=== PATIENT | female | born 1960 | race Caucasian/White ===

== ENCOUNTER 2019-09-10 07:49 | Day surgery (SDC) | payer OTHER ==
[2019-09-10] MEDS ORDERED: propofoL 200 MG/20 ML VIAL IV ONE ×2 (08:00→08:52)
[2019-09-10] MEDS ORDERED: MIDAZOLAM HCL 2 MG/2 ML INJ ONE ×2 (08:00→08:53)
[2019-09-10] MEDS ORDERED: LIDOCAINE 2% MPF 5 ML VIAL ONE ×2 (08:00→08:53)
[2019-09-10] MEDS ORDERED: FENTANYL CITR 100 MCG/2 ML ONE ×2 (08:00→08:52)
[2019-09-10] MEDS ORDERED: Ringers Lactate 1,000 ML IV ONE (08:18)
[2019-09-10] MEDS ORDERED: CEFAZOLIN/SWI 1gm 1 GM/10 ML SYR ONE (08:18)
[2019-09-10 14:39] VITALS: BP 144/69; TEMP 97; O2SAT 96
--- NOTE | 2019-09-10 16:36 | EKG ---
Test Date: 2019-09-09 Test Time: 15:08:10 [employer] Room: [facility] MEASUREMENT RESULTS: Intervals: Rate: 81 WV: 160 QRSD: 70 QT: 406 QTc: 471 [place]: P: 75 WV: 160 QRS: 76 T: 67 INTERPRETIVE STATEMENTS: Normal sinus rhythm Low voltage QRS Borderline ECG No previous ECG available for comparison Electronically Signed On 09-10-19 16:34:10 [employer] by Oren Almodovar
--- NOTE | 2019-09-10 20:59 | OP ---
Date of Procedure: 09/10/2019 Surgeon: Darrell Avilez MD Preoperative Diagnosis: Right neck mass. 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 Procedure Performed: Incisional biopsy right neck mass. Estimated Blood Loss: Minimal. Specimen: Right neck mass. Finding: As above. Anesthesia: General. Complications: None. Disposition: Patient tolerated the procedure in stable condition, taken to Recovery in good general condition. Procedure In Detail: Patient was brought to the OR and placed in supine position. General anesthesi a was begun. The patient was prepped and draped in usual sterile fashion. Marcaine 0.5% was infiltr ated locally. A 15-blade was used to make a 3 cm incision. Subcutaneous tissue divided. Deep into the subcutaneous tissue, hard mass identified. Incisional biopsy done approximately 2 x 1 cm piece o f tissue excised from the mass and sent to Pathology. Adequate tissue was present. 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 Subcutaneous wound was irrigated. Bleeding control led with cautery and then 3-0 chromic was used for subcutaneous tissue and close the skin. Sterile d ressing was applied. The patient was awakened and taken to Recovery in good general condition discha rge temperature under surgeon home when stable. Disposition: Home. Condition: Stable. Discharge Instructions: Resume home medications and diet. Activity as tolerated. No heavy lifting. Remove outer dressing in 2 days. Shower. Keep wound clean and dry. Keep Steri-Strips on at all t imes. Tylenol No. 3 one tablet p.o. q.4 p.r.n. pain and follow up my office in a week. Call for rick ointment. /MODL Voice ID: [id number] Report ID: [id number]
== END 2019-09-10 11:43 | disposition home or self-care (01) ==
LOC: OR 07:49
PROVIDERS: ATTEND Surgery
PROC: 0JB40ZX Excision of Right Neck Subcutaneous Tissue and Fascia, Open Approach, Diagnostic (ICD-10-PCS; principal; 2019-09-10 09:00)
DX: C79.89 Secondary malignant neoplasm of other specified sites (principal); C34.90 Malignant neoplasm of unspecified part of unspecified bronchus or lung
CPT/HCPCS: 11106; 93005; 88305; 88333; J2704; J2250; J3010; J0690; J7120

== ENCOUNTER 2019-12-28 15:36 | Inpatient (IN) | payer OTHER ==
[2019-12-28] MEDS ORDERED: NA CHLORIDE 0.9% 2,000 ML ONE (16:07)
[2019-12-28] MEDS ORDERED: ONDANSETRON 4 MG/2 ML VIAL ONE (16:07)
--- NOTE | 2019-12-28 16:35 | RAD REPORT ---
EXAM DESCRIPTION: Juan Single View12/28/2019 4:24 pm CLINICAL HISTORY: Shortness of breath COMPARISON: September 2019 FINDINGS: Moderate bilateral pulmonary opacities with small to moderate pleural effusions The heart is enlarged IMPRESSION: These findings likely represent CHF
[2019-12-28 16:41] LABS: Absolute Lymphocytes (CBC) 0.5 K/uL (0.7-4.9); Basophils % 0.1 % (0-1.3); Hematocrit 39.3 % (36.0-45.0); RBC Red Blood Cell Count 4.11 M/uL (3.86-4.86)
[2019-12-28 16:51] LABS: Protime INR 1.03
[2019-12-28] MEDS ORDERED: IPRATROPIUM BROM 0.5MG/2.5ML ONE (16:52)
[2019-12-28] MEDS ORDERED: METHYLPREDNISOLONE 125 MG INJ ONE (16:52)
[2019-12-28] MEDS ORDERED: FUROSEMIDE 40 MG/4 ML VIAL ONE (16:52)
[2019-12-28] MEDS ORDERED: LEVALBUTEROL 1.25 MG/3 ML NEB ONE (16:52)
--- NOTE | 2019-12-28 16:52 | EDPHYS ---
Physician Documentation [facility] Name: Makayla Montalvo Age: 59 yrs Sex: Female : 1960 Arrival Date: 12/28/2019 Time: 15:38 Bed 8 Private MD: Gurpreet Quintero ED Physician Hola Hughes HPI: 12/27 16:45 This 59 yrs old Female presents to ER via Wheelchair with complaints of john Nausea/Vomiting/Diarrhea. 16:45 The patient has shortness of breath with light activity. Onset: The symptoms/episode ojhn began/occurred 4 day(s) ago. The patient's shortness of breath is aggravated by supine position, talking, walking, is alleviated by elevating head, nebulizer treatment, rest, sitting up, application of supplemental oxygen. The patient presents to the emergency department with nausea, vomiting, diarrhea. Possible causes: unknown. The symptoms are aggravated by. Associated signs and symptoms: The patient has no apparent associated signs or symptoms. Severity of symptoms: At their worst the symptoms were mild in the emergency department the symptoms are unchanged. Historical: - Allergies: 15:44 No Known Allergies; hb - PMHx: 15:44 COPD; hb 15:45 Lung CA - Stage 4; hb - Immunization history:: Adult Immunizations up to date. - Social history:: Smoking status: Patient denies any tobacco usage or history of. - Family history:: not pertinent. ROS: 16:45 Constitutional: Negative for fever, chills, and weight loss, Eyes: Negative for injury, john pain, redness, and discharge, ENT: Negative for injury, pain, and discharge, Neck: Negative for injury, pain, and swelling, Cardiovascular: Negative for chest pain, palpitations, and edema, Back: Negative for injury and pain, : Negative for injury, bleeding, discharge, and swelling, MS/Extremity: Negative for injury and deformity, Skin: Negative for injury, rash, and discoloration, Neuro: Negative for headache, weakness, numbness, tingling, and seizure, Psych: Negative for depression, anxiety, suicide ideation, homicidal ideation, and hallucinations, Allergy/Immunology: Negative for hives, rash, and allergies, Endocrine: Negative for neck swelling, polydipsia, polyuria, polyphagia, and marked weight changes, Hematologic/Lymphatic: Negative for swollen nodes, abnormal bleeding, and unusual bruising. 16:45 Respiratory: Positive for cough, shortness of breath, on exertion. 16:45 Abdomen/GI: Positive for nausea and vomiting, diarrhea. Exam: 16:45 Constitutional: This is a well developed, well nourished patient who is awake, alert, john and in no acute distress. Head/Face: Normocephalic, atraumatic. Eyes: Pupils equal round and reactive to light, extra-ocular motions intact. Lids and lashes normal. Conjunctiva and sclera are non-icteric and not injected. Cornea within normal limits. Periorbital areas with no swelling, redness, or edema. ENT: Nares patent. No nasal discharge, no septal abnormalities noted. Tympanic membranes are normal and external auditory canals are clear. Oropharynx with no redness, swelling, or masses, exudates, or evidence of obstruction, uvula midline. Mucous membranes moist. Neck: Trachea midline, no thyromegaly or masses palpated, and no cervical lymphadenopathy. Supple, full range of motion without nuchal rigidity, or vertebral point tenderness. No Meningismus. Chest/axilla: Normal chest wall appearance and motion. Nontender with no deformity. No lesions are appreciated. Abdomen/GI: Soft, non-tender, with normal bowel sounds. No distension or tympany. No guarding or rebound. No evidence of tenderness throughout. Back: No spinal tenderness. No costovertebral tenderness. Full range of motion. Female : Normal external genitalia. Skin: Warm, dry with normal turgor. Normal color with no rashes, no lesions, and no evidence of cellulitis. MS/ Extremity: Pulses equal, no cyanosis. Neurovascular intact. Full, normal range of motion. Neuro: Awake and alert, GCS 15, oriented to person, place, time, and situation. Cranial nerves II-XII grossly intact. Motor strength 5/5 in all extremities. Sensory grossly intact. Cerebellar exam normal. Normal gait. Psych: Awake, alert, with orientation to person, place and time. Behavior, mood, and affect are within normal limits. 16:45 Cardiovascular: Rate: tachycardic, Rhythm: regular, Pulses: Pulses are 4+ in bilateral radial, brachial, femoral, popliteal, posterior tibial and and dorsalis pedis arteries.. Heart sounds: normal, Edema: is not appreciated, JVD: is not appreciated. Vital Signs: 15:41 BP 175 / 95; Pulse 119; Resp 24; Temp 98.4; Pulse Ox 75% on R/A; Weight 61.23 kg; hb Height 5 ft. 6 in. (167.64 cm); Pain 3/10; 17:00 BP 160 / 105; Pulse 112; Resp 22; Pulse Ox 91% on 4 lpm NC; ph 18:00 BP 176 / 92; Pulse 122; Resp 24; Pulse Ox 92% on 4 lpm NC; ph 18:40 BP 130 / 110; Pulse 109; Resp 24; Pulse Ox 92% on 4 lpm NC; ph 19:30 BP 121 / 112; Pulse 109; Resp 20; Pulse Ox 91% ; ao 20:22 BP 118 / 77; Pulse 106; Resp 16; Pulse Ox 92% ; ao 15:41 Body Mass Index 21.79 (61.23 kg, 167.64 cm) hb MDM: 15:50 Patient medically screened. john 16:50 Data reviewed: vital signs, nurses notes, lab test result(s), EKG, radiologic studies, john plain films. 12/27 15:52 Order name: Basic Metabolic Panel; Complete Time: 17:21 [facility] 12/27 15:52 Order name: CBC with Diff; Complete Time: 17:21 [facility] 12/27 15:52 Order name: LFT's; Complete Time: 17:21 [facility] 12/27 15:52 Order name: Magnesium; Complete Time: 17:21 [facility] 12/27 15:52 Order name: NT PRO-BNP; Complete Time: 17:21 [facility] 12/27 15:52 Order name: PT-INR; Complete Time: 17:21 [facility] 12/27 15:52 Order name: Troponin (emerg Dept Use Only); Complete Time: 17:21 [facility] 12/27 15:52 Order name: Lipase; Complete Time: 17:21 [facility] 12/27 15:52 Order name: Blood Culture Adult (2) [facility] 12/27 15:52 Order name: Urine Culture [facility] 12/27 15:52 Order name: Lactate; Complete Time: 17:21 [facility] 12/27 15:52 Order name: Procalcitonin; Complete Time: 17:31 [facility] 12/27 15:52 Order name: Strep; Complete Time: 17:31 [facility] 12/27 15:52 Order name: Influenza Screen (a \T\ B); Complete Time: 17:31 [facility] 12/27 15:52 Order name: XRAY Chest (1 view); Complete Time: 16:44 [facility] 12/27 15:52 Order name: COVID-19; Complete Time: 20:10 [facility] 12/27 16:52 Order name: Glucose, Ancillary Testing; Complete Time: 17:21 [facility] 12/27 17:24 Order name: Urine Osmolality; Complete Time: 19:43 [facility] 12/27 17:24 Order name: Urine Sodium Random; Complete Time: 19:43 [facility] 12/27 17:24 Order name: Osmolality, Serum; Complete Time: 19:43 [facility] 12/27 17:25 Order name: Throat Culture [facility] 12/27 18:48 Order name: CBC with Automated Diff [facility] 12/27 18:48 Order name: CBC with Automated Diff [facility] 12/27 18:48 Order name: Comprehensive Metabolic Panel [facility] 12/27 18:48 Order name: Comprehensive Metabolic Panel [facility] 12/27 18:50 Order name: Basic Metabolic Panel [facility] 12/27 15:52 Order name: EKG; Complete Time: 15:54 [facility] 12/27 15:52 Order name: Cardiac monitoring; Complete Time: 18:31 [facility] 12/27 15:52 Order name: EKG - Nurse/Tech; Complete Time: 18:31 [facility] 12/27 15:52 Order name: IV Saline Lock; Complete Time: 18:31 [facility] 12/27 15:52 Order name: Labs collected and sent; Complete Time: 18:31 [facility] 12/27 15:52 Order name: O2 Per Protocol; Complete Time: 18:31 [facility] 12/27 15:52 Order name: O2 Sat Monitoring; Complete Time: 18:31 [facility] 12/27 15:52 Order name: Urine Dipstick-Ancillary (obtain specimen); Complete Time: 18:44 [facility] 12/27 17:24 Order name: Seizure Precautions; Complete Time: 17:42 [facility] 12/27 17:55 Order name: Nelson; Complete Time: 18:26 [facility] 12/27 17:55 Order name: IV - Large Bore; Complete Time: 18:26 [facility] 12/27 18:48 Order name: CONS Pharmacy Consult [facility] 12/27 18:48 Order name: CONS Physician Consult [facility] 12/27 18:48 Order name: NPO EDMS Administered Medications: 16:40 Drug: Cefepime 2 grams Route: IVPB; Rate: 200 ml/hr; Infused Over: 30 mins; Site: right ph antecubital; 17:00 Follow up: Response: No adverse reaction; IV Status: Completed infusion ph 16:42 Not Given (Duplicate Order): NS 0.9% 1000 ml IV at 1 bolus Per protocol; 1000 mL bolus john 16:42 Not Given (Duplicate Order): NS 0.9% 1000 ml IV at 125 ml/hr continuous john 16:45 Drug: vancoMYCIN 1 grams Route: IVPB; Infused Over: 2 hrs; Site: right antecubital; ph 18:45 Follow up: Response: No adverse reaction; IV Status: Completed infusion ph 17:15 Drug: Lasix 40 mg Route: IVP; Site: right antecubital; ph 19:27 Follow up: Response: No adverse reaction ph 17:15 Drug: Xopenex 3.75 mg Route: Inhalation; ph 19:36 Follow up: Response: No adverse reaction ph 17:15 Drug: AtroVENT Aerosol 0.5 mg Route: Inhalation; ph 19:36 Follow up: Response: No adverse reaction ph 17:15 Drug: SOLU-Medrol 125 mg Route: IVP; Site: right antecubital; ph 19:36 Follow up: Response: No adverse reaction ph 17:35 Drug: NS 0.9% 500 ml Route: IV; Rate: bolus; Site: right antecubital; ph 18:27 Follow up: Response: No adverse reaction; IV Status: Completed infusion; IV Intake: ph 500ml 18:24 Drug: NS 0.9% 1000 ml Route: IV; Rate: 75 ml/hr; Site: left wrist; ph 19:36 Follow up: Response: No adverse reaction; IV Status: Infusion continued upon admission ph 18:24 Drug: Magnesium Sulfate 1 grams Route: IVPB; Infused Over: 1 hrs; Site: left wrist; ph 18:45 Follow up: Response: No adverse reaction; IV Status: Completed infusion ph Disposition: 12/28/19 16:52 Hospitalization ordered by Kranthi Dominguez for Inpatient Admission. Preliminary diagnosis are Vomiting, Dyspnea, Hypoxemia, Chronic obstructive pulmonary disease with (acute) exacerbation, Unspecified combined systolic (congestive) and diastolic (congestive) heart failure, Pleural effusion in conditions classified elsewhere, Hypo-osmolality and hyponatremia, Hypomagnesemia. - Bed requested for Intensive Care Unit. - Status is Inpatient Admission. ea - Condition is Fair. - Problem is new. - Symptoms have improved. Signatures: Dispatcher [employer] Hola Trotter MD MD cha Lasagna, Tonya, RN MONTEZ tl1 Alva Teague RN MONTEZ Mariposa Triana RN RN Jane Duarte RN RN ea Corrections: (The following items were deleted from the chart) 17:24 16:52 Hospitalization Ordered by Kranthi Dominguez MD for Inpatient Admission. Preliminary john diagnosis is Vomiting; Dyspnea; Hypoxemia; Chronic obstructive pulmonary disease with (acute) exacerbation; Unspecified combined systolic (congestive) and diastolic (congestive) heart failure; Pleural effusion in conditions classified elsewhere. Bed requested for Telemetry/MedSurg (Inpatient). Status is Inpatient Admission. Condition is Fair. Problem is new. Symptoms have improved. [facility] 17:33 17:24 12/28/2019 16:52 Hospitalization Ordered by Kranthi Dominguez MD for Inpatient john Admission. Preliminary diagnosis is Vomiting; Dyspnea; Hypoxemia; Chronic obstructive pulmonary disease with (acute) exacerbation; Unspecified combined systolic (congestive) and diastolic (congestive) heart failure; Pleural effusion in conditions classified elsewhere; Hypo-osmolality and hyponatremia. Bed requested for Intensive Care Unit. Status is Inpatient Admission. Condition is Fair. Problem is new. Symptoms have improved. john 19:11 17:33 12/28/2019 16:52 Hospitalization Ordered by Kranthi Dominguez MD for Inpatient tl1 Admission. Preliminary diagnosis is Vomiting; Dyspnea; Hypoxemia; Chronic obstructive pulmonary disease with (acute) exacerbation; Unspecified combined systolic (congestive) and diastolic (congestive) heart failure; Pleural effusion in conditions classified elsewhere; Hypo-osmolality and hyponatremia; Hypomagnesemia. Bed requested for Intensive Care Unit. Status is Inpatient Admission. Condition is Fair. Problem is new. Symptoms have improved. john 21:50 19:11 12/28/2019 16:52 Hospitalization Ordered by Kranthi Dominguez MD for Inpatient ea Admission. Preliminary diagnosis is Vomiting; Dyspnea; Hypoxemia; Chronic obstructive pulmonary disease with (acute) exacerbation; Unspecified combined systolic (congestive) and diastolic (congestive) heart failure; Pleural effusion in conditions classified elsewhere; Hypo-osmolality and hyponatremia; Hypomagnesemia. Bed requested for Intensive Care Unit. Status is Inpatient Admission. Condition is Fair. Problem is new. Symptoms have improved. tl1
--- NOTE | 2019-12-28 16:52 | ER ---
Nurse's Notes [facility] Name: Makayla Montalvo Age: 59 yrs Sex: Female : 1960 Arrival Date: 12/28/2019 Time: 15:38 Bed 8 Private MD: Gurpreet Quintero Diagnosis: Vomiting;Dyspnea;Hypoxemia;Chronic obstructive pulmonary disease with (acute) exacerbation;Unspecified combined systolic (congestive) and diastolic (congestive) heart failure;Pleural effusion in conditions classified elsewhere;Hypo-osmolality and hyponatremia;Hypomagnesemia Presentation: 12/27 15:41 Chief complaint: Productive cough, pain with cough, SOB, N/V/D x 4 days. Denies hb chills/fever. Coronavirus screen: Surgical mask placed on patient. Patient moved to private room, placed in contact and droplet isolation with eye protection until further assessment. Patient reports a cough. Patient denies a cough. Ebola Screen: No symptoms or risks identified at this time. Initial Sepsis Screen: Does the patient meet any 2 criteria? RR > 20 per min. HR > 90 bpm. Yes Does the patient have a suspected source of infection? Yes: Productive cough/pneumonia. Risk Assessment: Do you want to hurt yourself or someone else? Patient reports no desire to harm self or others. Onset of symptoms was December 25, 2019. 15:41 Method Of Arrival: Wheelchair hb 15:41 Acuity: VIRAJ 2 hb 15:54 Note Pt has Stage 4 Lung CA, sees Dr. Sen, last chemo was 2 weeks ago. hb Historical: - Allergies: 15:44 No Known Allergies; hb - PMHx: 15:44 COPD; hb 15:45 Lung CA - Stage 4; hb - Immunization history:: Adult Immunizations up to date. - Social history:: Smoking status: Patient denies any tobacco usage or history of. - Family history:: not pertinent. Screenin:32 Abuse screen: Denies threats or abuse. Denies injuries from another. Nutritional ph screening: No deficits noted. Tuberculosis screening: No symptoms or risk factors identified. Fall Risk None identified. Assessment: 15:49 Reassessment: Code Sepsis 700 called. hb 16:00 General: Appears in no apparent distress. uncomfortable, well groomed, Behavior is ph calm, cooperative, appropriate for age, Denies fever. Pain: Complains of pain in chest Aggravated by coughing. Neuro: Level of Consciousness is awake, alert, obeys commands, Oriented to person, place, time, situation. Cardiovascular: Reports chest pain, fatigue, nausea, shortness of breath, vomiting, Capillary refill < 3 seconds in bilateral fingers Patient's skin is warm and dry. Respiratory: Airway is patent Respiratory effort is even, labored, Respiratory pattern is tachypnea. GI: Abdomen is round non-distended, Reports nausea, vomiting, Patient currently denies abdominal pain. Derm: Skin is intact, Skin is pink, warm \T\ dry. Musculoskeletal: Circulation, motion, and sensation intact. Range of motion: intact in all extremities. 17:00 Reassessment: Patient appears in no apparent distress at this time. No changes from ph previously documented assessment. Patient and/or family updated on plan of care and expected duration. Pain level reassessed. 18:00 Reassessment: Patient appears in no apparent distress at this time. No changes from ph previously documented assessment. 19:30 General: Appears in no apparent distress. uncomfortable, obese, well groomed, well ao developed, well nourished. Neuro: Level of Consciousness is awake, alert, obeys commands, Oriented to person, place, time, situation. Cardiovascular: Reports chest pain, fatigue, nausea, shortness of breath, vomiting, Capillary refill < 3 seconds in bilateral fingers Patient's skin is warm and dry. Respiratory: Airway is patent Respiratory effort is even, labored, Respiratory pattern is regular, symmetrical. GI: Abdomen is round non-distended. Derm: Skin Skin is pink, warm \T\ dry. Musculoskeletal: Circulation, motion, and sensation intact. Range of motion:. 12/28 09:12 Reassessment: Received PUI # from [facility] (D [id number]). iw Vital Signs: 12/27 15:41 BP 175 / 95; Pulse 119; Resp 24; Temp 98.4; Pulse Ox 75% on R/A; Weight 61.23 kg; hb Height 5 ft. 6 in. (167.64 cm); Pain 310; 17:00 BP 160 / 105; Pulse 112; Resp 22; Pulse Ox 91% on 4 lpm NC; ph 18:00 BP 176 / 92; Pulse 122; Resp 24; Pulse Ox 92% on 4 lpm NC; ph 18:40 BP 130 / 110; Pulse 109; Resp 24; Pulse Ox 92% on 4 lpm NC; ph 19:30 BP 121 / 112; Pulse 109; Resp 20; Pulse Ox 91% ; ao 20:22 BP 118 / 77; Pulse 106; Resp 16; Pulse Ox 92% ; ao 15:41 Body Mass Index 21.79 (61.23 kg, 167.64 cm) hb ED Course: 15:38 Patient arrived in ED. ag5 15:38 Gurpreet Quintero MD is Private Physician. ag5 15:43 Triage completed. hb 15:44 Arm band placed on. hb 15:49 Hola Hughes MD is Attending Physician. john 15:52 Alva Teague RN is Primary Nurse. ph 16:20 Inserted saline lock: 20 gauge in right antecubital area, using aseptic technique. ss ,using aseptic technique. 1620. 16:25 XRAY Chest (1 view) In Process Unspecified. EDMS 16:50 Kranthi Dominguez MD is Hospitalizing Provider. john 17:55 Nelson cath inserted, using sterile technique, 16 Fr., by ma, balloon inflated, urine ph specimen collected. returned clear urine. Patient tolerated well. Patient admitted, IV remains in place. 18:32 Patient has correct armband on for positive identification. Placed in gown. Bed in low ph position. Call light in reach. Side rails up X2. Seizure precautions initiated. gambling monitor on. Pulse ox on. NIBP on. Door closed. Noise minimized. Warm blanket given. Pillow given. Head of bed elevated. 18:33 No provider procedures requiring assistance completed. Inserted saline lock: 22 gauge ph in left wrist, using aseptic technique. Administered Medications: 16:40 Drug: Cefepime 2 grams Route: IVPB; Rate: 200 ml/hr; Infused Over: 30 mins; Site: right ph antecubital; 17:00 Follow up: Response: No adverse reaction; IV Status: Completed infusion ph 16:42 Not Given (Duplicate Order): NS 0.9% 1000 ml IV at 1 bolus Per protocol; 1000 mL bolus john 16:42 Not Given (Duplicate Order): NS 0.9% 1000 ml IV at 125 ml/hr continuous john 16:45 Drug: vancoMYCIN 1 grams Route: IVPB; Infused Over: 2 hrs; Site: right antecubital; ph 18:45 Follow up: Response: No adverse reaction; IV Status: Completed infusion ph 17:15 Drug: Lasix 40 mg Route: IVP; Site: right antecubital; ph 19:27 Follow up: Response: No adverse reaction ph 17:15 Drug: Xopenex 3.75 mg Route: Inhalation; ph 19:36 Follow up: Response: No adverse reaction ph 17:15 Drug: AtroVENT Aerosol 0.5 mg Route: Inhalation; ph 19:36 Follow up: Response: No adverse reaction ph 17:15 Drug: SOLU-Medrol 125 mg Route: IVP; Site: right antecubital; ph 19:36 Follow up: Response: No adverse reaction ph 17:35 Drug: NS 0.9% 500 ml Route: IV; Rate: bolus; Site: right antecubital; ph 18:27 Follow up: Response: No adverse reaction; IV Status: Completed infusion; IV Intake: ph 500ml 18:24 Drug: NS 0.9% 1000 ml Route: IV; Rate: 75 ml/hr; Site: left wrist; ph 19:36 Follow up: Response: No adverse reaction; IV Status: Infusion continued upon admission ph 18:24 Drug: Magnesium Sulfate 1 grams Route: IVPB; Infused Over: 1 hrs; Site: left wrist; ph 18:45 Follow up: Response: No adverse reaction; IV Status: Completed infusion ph Intake: 18:27 IV: 500ml; Total: 500ml. ph Outcome: 16:20 Instructed on the need for admit. 16:52 Decision to Hospitalize by Provider. [facility] 20:23 Admitted to ICU accompanied by nurse, room 8, with chart, Report called to MONTEZ Campos 20:23 Condition: stable 21:50 Patient left the ED. ea Signatures: Dispatcher [employer] EDMS Hola Hughes MD MD cha Williams, Irene, RN RN iw Smirch, Shelby, RN RN ss Hall, Patricia, RN RN ph Ortiz, Alex, RN RN ao Baxter, Heather, RN RN hb Antunez, Elena, RN RN ea Gaskin, Ajare ag5 Corrections: (The following items were deleted from the chart) 17:35 15:54 Note Pt has stage 4 lung CA, sees Dr. Sen, last chemo was 2 weeks ago. hb hb 19:11 16:00 Respiratory: Airway is patent Respiratory effort is even, unlabored, Respiratory ph pattern is regular, symmetrical, ph 19:11 16:00 Derm: Skin is fragile, is thin, Skin is pink, warm \T\ dry. ph ph 19: 16:00 Cardiovascular: Edema is 3+ to left ankle, left foot, left toes, right ankle, ph right foot and right toes ph 12/28 09:31 09:12 Reassessment: Received PUI # from [facility] ([facility] [id number]) [facility] 09:32 09:12 Reassessment: Received PUI # from [facility] ([facility] [id number]) [facility]
[2019-12-28] MEDS ORDERED: CEFEPIME/SWI 2gm 2 GM/20 ML SYR IV SCH (17:00)
[2019-12-28] MEDS ORDERED: VANCOMYCIN/NS 1 gm 1 GM/250 ML BAG IVPB SCH (17:00)
[2019-12-28 17:11] LABS: ALT/SGPT 148 U/L (12-78); AST/SGOT 132 U/L (15-37); Albumin 3.3 g/dL (3.4-5.0); Alkaline Phosphatase 226 U/L (45-117); BUN Blood Urea Nitrogen 6 mg/dL (7-18); Bicarbonate 24 mmol/L (21-32); Bilirubin Direct 0.4 mg/dL (0-0.2); Bilirubin Total 1.2 mg/dL (0.2-1.0); Glucose Level 104 mg/dL (74-106); Lipase 82 U/L (73-393); Magnesium 1.2 mg/dL (1.8-2.4); NT PRO-BNP 144 pg/mL (<125); Potassium 3.7 mmol/L (3.5-5.1); Protein, Total 7.1 g/dL (6.4-8.2); Troponin (Emerg Dept Use Only) < 0.02 ng/mL (0.0-0.045)
[2019-12-28 17:15] LABS: Sodium Level 112 mmol/L (136-145)
[2019-12-28] MEDS ORDERED: MAGNESIUM SULFATE 1 gm IVPB 1 GM/100 ML BAG IV ONE (17:53)
[2019-12-28] MEDS ORDERED: ALBUTEROL 2.5 MG/3 ML NEB SOL NEB PRN (18:43)
[2019-12-28] MEDS ORDERED: ONDANSETRON 4 MG/2 ML VIAL IV PRN (18:43)
[2019-12-28] MEDS ORDERED: MORPHINE 2 MG/ML SYR IV PRN (18:43)
[2019-12-28 21:02] LABS: BUN Blood Urea Nitrogen 6 mg/dL (7-18); Bicarbonate 25 mmol/L (21-32); Glucose Level 130 mg/dL (74-106); Potassium 3.3 mmol/L (3.5-5.1)
[2019-12-28 21:03] LABS: Sodium Level 117 mmol/L (136-145)
--- NOTE | 2019-12-29 01:33 | P.HP ---
Certification for Inpatient Patient admitted to: Inpatient With expected LOS: >2 Midnights Practitioner: I am a practitioner with admitting privileges, knowledge of patient current condition, hospital course, and medical plan of care. Services: Services provided to patient in accordance with Admission requirements found in Title 42 Section 412.3 of the Code of Federal Regulations Patient History Date of Service: 12/28/19 Reason for admission: Altered mental status along with hyponatremia History of Present Illness: Patient is a 59-year-old female who came to the hospital with difficulty breathing. She also had nausea and vomiting along with diarrhea for the last 4 days. In the emergency room patient was found to be severely hyponatremic. Patient has had extensive workup over the last few months which revealed she had [id number] lung cancer. For excisional biopsy revealed adenocarcinoma. A recent PET scan also revealed multiple metastasis. Patient is scheduled to start on chemotherapy per Oncology. She also now has a pleural effusion which could be a malignant pleural effusion. This is also most likely the cause of her hyponatremia. Patient will be admitted to the hospital for further workup. Allergies No Known Allergies Allergy (Verified 12/28/19 22:05) Home Medications: ALPRAZolam [Xanax*] 0.5 mg PO TID PRN 12/29/19 Albuterol Sulfate [Proair Hfa] 2 puff IH QID PRN 12/29/19 Glycopyrrolate/Formoterol Fum [Bevespi Aerosphere Inhaler] 2 puff IH BID 12/29/19 Vortioxetine Hydrobromide [Trintellix] 10 mg PO DAILY 12/29/19 predniSONE [Prednisone*] 10 mg PO BEDTIME 12/29/19 - Past Medical/Surgical History Has patient received pneumonia vaccine in the past: Yes Diabetic: No -: COPD -: stage 4 lung cancer chemo 2-3 weeks ago. - Family History Father Family History: Reviewed- Non-Contributory - Social History Smoking Status: Former smoker Alcohol use: Yes CD- Drugs: No Caffeine use: No Place of Residence: Home Review of Systems 10-point ROS is otherwise unremarkable Physical Examination - Vital Signs Temperature: 98.4 F Blood Pressure: 97/67 Pulse: 92 Respirations: 15 Pulse Ox (%): 90 - Physical Exam General: Alert, In no apparent distress, Oriented x3 Neck: Supple, 2+ carotid pulse no bruit, No LAD, Without JVD or thyroid abnormality Respiratory: Diminished, Crackles/rales Cardiovascular: Regular rate/rhythm, Normal S1 S2, Systolic murmur Gastrointestinal: Normal bowel sounds, Soft and benign, Non-distended, No tenderness Musculoskeletal: No tenderness Integumentary: No rashes Neurological: Normal speech, Sensation intact, Cranial nerves 3-12 intact, Ab normal gait, Abnormal strength Lymphatics: No axilla or inguinal lymphadenopathy - Studies Laboratory Data (last 24 hrs) 12/28/19 16:20: PT 12.1, INR 1.03 12/28/19 16:20: WBC 10.4, Hgb 13.2, Hct 39.3, Plt Count 261 12/28/19 16:20: Sodium 112 L*, Potassium 3.7, BUN 6 L, Creatinine 0.54 L, Glucose 104, Magnesium 1.2 L*, Total Bilirubin 1.2 H, AST 132 H, ALT 148 H, Alkaline Phosphatase 226 H, Lipase 82 Microbiology Data (last 24 hrs): 12/28/19 16:30 Nasopharnyx Coronavirus COVID-19 PCR - Final 12/28/19 16:30 Nasopharnyx Influenza Type A Antigen Screen - Final 12/28/19 16:30 Nasopharnyx Influenza Type B Antigen Screen - Final 12/28/19 16:30 Throat Group A Streptococcus Rapid Screen - Final Assessment & Plan - Problems (Diagnosis) (1) Hyponatremia Current Visit: Yes Status: Acute (2) Altered mental status Current Visit: Yes Status: Acute (3) 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 Monitor labs closely-check sodium level every 6 hr 2. 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 Check echocardiogram 4. Bilateral pleural effusion could be malignant pleural effusion; may get pulmonary consultation if patient's symptoms are not improving. Otherwise will have outpatient follow-up 5. Monitor renal function closely 6. Nephrology consultation 7. GI and DVT prophylaxis Discharge Plan: Home Plan to discharge in: Greater than 2 days - Advance Directives Does patient have a Living Will: No Does patient have a Durable POA for Healthcare: No - Code Status/Comfort Care Code Status Assessed: Yes Code Status: Full Code Critical Care: No Time Spent Managing PTS Care (In Minutes): 45
[2019-12-29 05:38] LABS: Absolute Lymphocytes (CBC) 0.2 K/uL (0.7-4.9); Basophils % 0.1 % (0-1.3); Hematocrit 35.6 % (36.0-45.0); Lymphocytes % 2.2 % (15.3-44.8); MPV 8.1 fL (7.6-11.3); RBC Red Blood Cell Count 3.73 M/uL (3.86-4.86)
[2019-12-29 05:48] LABS: ALT/SGPT 120 U/L (12-78); AST/SGOT 86 U/L (15-37); Albumin 3.1 g/dL (3.4-5.0); Alkaline Phosphatase 175 U/L (45-117); BUN Blood Urea Nitrogen 6 mg/dL (7-18); Bicarbonate 28 mmol/L (21-32); Bilirubin Total 1.2 mg/dL (0.2-1.0); Glucose Level 129 mg/dL (74-106); Potassium 3.5 mmol/L (3.5-5.1); Protein, Total 6.5 g/dL (6.4-8.2); Sodium Level 127 mmol/L (136-145)
[2019-12-29] MEDS ORDERED: ALBUTEROL INHALER 60 PUFF/8 GM IH PRN (06:30)
[2019-12-29] MEDS: HOME MED 1 EA UNK (Glycopyrrolate/Formoterol Fum [Bevespi Aerosphere Inhaler] 2 PUFF) IH SCH ×2 (07:41→21:00)
[2019-12-29] MEDS: HOME MED 1 EA UNK (Vortioxetine Hydrobromide [Trintellix] 10 MG) PO SCH (07:42)
[2019-12-29] MEDS: HYDROCORTISONE SUC 100 MG INJ IV SCH ×2 (07:53→21:05)
[2019-12-29] MEDS ORDERED: WATER FOR INJ,STERILE 10 ML ONE (07:56)
[2019-12-29 08:22] LABS: Blood Morphology Comment NOT SEEN (NOT SEEN); Platelet Estimate ADEQ
--- NOTE | 2019-12-29 12:09 | P.PN ---
Subjective Date of Service: 12/29/19 Chief Complaint: Altered mental status along with hyponatremia Subjective: No new changes, No C/O voiced, Improving Patient still feels a little short of breath. She however feels much better neurologically. Still awaiting COVID-19 testing Review of Systems 10-point ROS is otherwise unremarkable Physical Examination - Vital Signs Temperature: 98.2 F Blood Pressure: 149/88 Pulse: 109 Respirations: 19 Pulse Ox (%): 92 - Physical Exam General: Alert, In no apparent distress, Oriented x3 Respiratory: Diminished, Crackles/rales Cardiovascular: Regular rate/rhythm, Normal S1 S2, No murmurs Gastrointestinal: Normal bowel sounds, Soft and benign, Non-distended, No tenderness Musculoskeletal: No clubbing, No swelling, No tenderness Neurological: Normal speech, Normal tone, Normal affect - Studies Laboratory Data (last 24 hrs) 12/28/19 16:20: PT 12.1, INR 1.03 12/28/19 16:20: WBC 10.4, Hgb 13.2, Hct 39.3, Plt Count 261 12/28/19 16:20: Sodium 112 L*, Potassium 3.7, BUN 6 L, Creatinine 0.54 L, Glucose 104, Magnesium 1.2 L*, Total Bilirubin 1.2 H, AST 132 H, ALT 148 H, Alkaline Phosphatase 226 H, Lipase 82 Microbiology Data (last 24 hrs): 12/28/19 16:30 Nasopharnyx Coronavirus COVID-19 PCR - Final 12/28/19 16:30 Nasopharnyx Influenza Type A Antigen Screen - Final 12/28/19 16:30 Nasopharnyx Influenza Type B Antigen Screen - Final 12/28/19 16:30 Throat Group A Streptococcus Rapid Screen - Final Medications List Reviewed: Yes Assessment & Plan - Problems (Diagnosis) (1) Hyponatremia Current Visit: Yes Status: Acute (2) Altered mental status Current Visit: Yes Status: Acute (3) Pleural effusion, malignant Current Visit: Yes Status: Acute (4) Intractable nausea and vomiting Current Visit: Yes Status: Acute (5) 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 Current Visit: Yes Status: Acute - Plan Plan: -awaiting COVID-19 testing -continue with COPD treatment -sodium improving; appreciate Nephrology consultation -pain control as needed -monitor volume status closely -pulmonary consultation and echocardiogram once patient is ruled out for COVID- 19 -DVT prophylaxis Discharge Plan: Home Plan to discharge in: Greater than 2 days - Advance Directives Does patient have a Living Will: No Does patient have a Durable POA for Healthcare: No - Code Status/Comfort Care Code Status Assessed: Yes Code Status: Full Code Critical Care: No Time Spent Managing PTS Care (In Minutes): 30
--- NOTE | 2019-12-29 14:33 | CON ---
Date of Consultation: 12/29/2019 Patient was seen via telemedicine. Limited physical exam was done because of COVID precautions. History Of Present Illness: Ms. Montalvo is a 59-year-old female with past medical history significant for history of COPD, lung cancer, on chemotherapy. She presented to [facility] because of worsening shortness of breath and cough. Patient states that she has been having cough for many kaitlynn hs, but it has worsened most recently, associated with nausea, vomiting, and diarrhea. She was also noted to have altered mental status and found to have severe hyponatremia. She has been admitted to the hospital for further evaluation. Patient states that she is feeling about the same this morning. She continues to have some shortness of breath and she is currently on oxygen. Past Medical History: Significant for history of stage IV lung cancer, COPD. She was on chemotherap y until about last month. Family History: Noncontributory. Review of Systems: Positive for weakness, lethargy, shortness of breath, and cough. Physical Examination: Vital Signs: At this time are showing temperature of 98.2, pulse rate of 109, respiratory rate of 19 , and blood pressure 149/88. She is saturating 92% on nasal cannula oxygen of 5 L. General: She appears in no acute distress. HEENT: Atraumatic head. Extremities: Showed no evidence of edema. Abdomen: Soft and nontender. Laboratory Data: Showing sodium improving to 127, potassium of 3.5, chloride of 86, BUN of 6, creati nine of 0.5, calcium of 8.4, and magnesium was improved to 2 from 1.2 at the time of admission. LFTs were also elevated, which are currently improving. CBC showing stable hemoglobin, hematocrit, and p latelet count. Current Medications: Albuterol nebulizer solution, hydrocortisone 50 mg every 12 hours. She is on p rednisone 10 mg at bedtime. She is currently n.p.o. She is on Xanax 0.5 mg t.i.d. p.r.n. She is on Trintellix 10 mg daily. She is currently not receiving any IV fluids. Impression: 1.Hyponatremia, etiology likely secondary to excessive free water intake with decreased p.o. intake. Her sodium is improving at this time. Hence, I will go ahead and initiate her on regular diet. We will avoid further IV fluid administration and will follow up closely. 2.Altered mental status, also seems to be improving. 3.Cough and shortness of breath with underlying chronic obstructive pulmonary disease and recent thanh motherapy. Patient's chest x-ray showed evidence of moderate bilateral pulmonary opacities with smal [id number] pleural effusions, likely suggestive of congestive heart failure. BNP was 144. Since patient seems to be improving at this time, we will go ahead and start her on gentle Lasix to see if her sodium would continue to improve and we will follow up closely. JOHN/SCOTT Voice ID: [id number] Report ID: [id number]
--- NOTE | 2019-12-29 15:53 | EKG ---
Test Date: 2019-12-28 Test Time: 16:20:43 Civil Cad Designer: HORACIO MEASUREMENT RESULTS: Intervals: Rate: 116 MT: 144 QRSD: 66 QT: 326 QTc: 453 [place]: P: 80 MT: 144 QRS: 70 T: 32 INTERPRETIVE STATEMENTS: Sinus tachycardia with fusion complexes Possible Left atrial enlargement Low voltage QRS Cannot rule out Anterior infarct, age undetermined Abnormal ECG Compared to ECG 09/09/2019 15:08:10 Fusion complex(es) now present Myocardial infarct finding now present Sinus rhythm no longer present Electronically Signed On 12-29-19 15:50:26 CDT by Oren Almodovar
[2019-12-29] MEDS: FUROSEMIDE 20 MG/ 2ML VIAL IV SCH (17:12)
[2019-12-30] MEDS ORDERED: TEMAZEPAM 15 MG CAP PO ONE (00:59)
[2019-12-30] MEDS: HOME MED 1 EA UNK (Glycopyrrolate/Formoterol Fum [Bevespi Aerosphere Inhaler] 2 PUFF) IH SCH ×2 (07:06→21:00)
[2019-12-30] MEDS: HOME MED 1 EA UNK (Vortioxetine Hydrobromide [Trintellix] 10 MG) PO SCH (07:06)
[2019-12-30] MEDS: FUROSEMIDE 20 MG/ 2ML VIAL IV SCH ×2 (08:15→17:01)
--- NOTE | 2019-12-30 08:44 | P.CNS ---
Date of Consult: 12/30/19 Reason for Consult: Shortness of breath in a tree me Chief Complaint: Altered mental status along with hyponatremia History of Present Illness: Patient is 59 years of age well known to me admitted with dyspnea for the past 2 weeks also had nausea vomiting diarrhea very severely hypernatremic and treated for lung cancer which is metastatic/patient also complain of lower extremity edema puffiness of her face and has a history of COPD Allergies No Known Allergies Allergy (Verified 12/28/19 22:05) Home Medications: ALPRAZolam [Xanax*] 0.5 mg PO TID PRN 12/29/19 Albuterol Sulfate [Proair Hfa] 2 puff IH QID PRN 12/29/19 Glycopyrrolate/Formoterol Fum [Bevespi Aerosphere Inhaler] 2 puff IH BID 12/29/19 Vortioxetine Hydrobromide [Trintellix] 10 mg PO DAILY 12/29/19 predniSONE [Prednisone*] 10 mg PO BEDTIME 12/29/19 - Past Medical/Surgical History Diabetic: No -: COPD -: stage 4 lung cancer chemo 2-3 weeks ago. - Family History Father Family History: Reviewed- Non-Contributory - Social History Alcohol use: Yes CD- Drugs: No Caffeine use: No Place of Residence: Home Review of Systems General: Weakness Respiratory: Shortness of Breath Physical Examination Temp Pulse Resp BP Pulse Ox 97.9 F 88 18 110/76 92 12/30/19 04:00 12/30/19 04:00 12/30/19 04:00 12/30/19 04:00 12/30/19 04:00 General: Alert, In no apparent distress, Oriented x3 Respiratory: Clear to auscultation bilaterally, Diminished Cardiovascular: No edema, Normal S1 S2 - Problems (1) Hyponatremia Current Visit: Yes Status: Acute Plan: Patient is 59 years of age with a history of metastatic lung cancer admitted with nausea vomiting Severe hyponatremia probably from volume depletion currently on IV fluids dialed the cardona virus infection she has had no fever history of COPD vital signs stable white count normal possible side effect of the antidepressant history of [id number] cancer vital signs stable pro calcitonin level is negative cardona virus test pending patient's urine is very dilute ovoid anti depressants
[2019-12-30] MEDS: predniSONE 10 MG TAB PO SCH ×2 (09:00→22:25)
[2019-12-30] MEDS ORDERED: predniSONE 5 MG TAB PO SCH ×2 (09:00)
[2019-12-30 12:19] LABS: Absolute Lymphocytes (CBC) 0.2 K/uL (0.7-4.9); Basophils % 0.2 % (0-1.3); Lymphocytes % 1.4 % (15.3-44.8); MPV 7.3 fL (7.6-11.3); RBC Red Blood Cell Count 4.01 M/uL (3.86-4.86)
[2019-12-30 12:32] LABS: BUN Blood Urea Nitrogen 6 mg/dL (7-18); Bicarbonate 30 mmol/L (21-32); Glucose Level 91 mg/dL (74-106); Sodium Level 131 mmol/L (136-145)
[2019-12-30] MEDS ORDERED: POTASSIUM CL SA 10 MEQ TAB PO ONE ×2 (16:00→20:35)
--- NOTE | 2019-12-30 20:33 | P.PN ---
Date of Service: 12/30/19 Vital Signs Temp Pulse Resp BP Pulse Ox 96.9 F 103 H 18 154/98 H 94 12/30/19 16:00 12/30/19 17:01 12/30/19 16:00 12/30/19 17:01 12/30/19 16:00 Medications Albuterol Sulfate (Proventil 0.083% Neb Soln) 2.5 mg NEB [id number] PRN PRN Reason: SHORTNESS OF BREATH Stop: 01/27/20 18:44 Albuterol Sulfate (Ventolin Inhaler) 2 puff IH QID PRN PRN Reason: sob Stop: 01/28/20 06:31 Alprazolam (Xanax) 0.5 mg PO TID PRN PRN Reason: ANXIETY Stop: 01/28/20 06:31 Calcitriol (Rocaltrol) 0.5 mcg PO DAILY [facility] Stop: 01/30/20 09:01 Cholecalciferol (Vitamin D 5,000 Iu Cap) 5,000 unit PO DAILY [facility] Stop: 01/30/20 09:01 Furosemide (Lasix) 20 mg IV BIDL [facility] Stop: 01/28/20 17:01 Last Admin: 12/30/19 17:01 Dose: 20 mg Documented by: Home Med (Glycopyrrolate/Formoterol Fum [Bevespi Aerosphere Inhaler]) 2 puff IH BID [facility] Stop: 01/28/20 09:01 Last Admin: 12/30/19 07:06 Dose: Not Given Documented by: Morphine Sulfate (Morphine Sulfate) 2 mg IV Q4H PRN PRN Reason: Pain scale 5-7 (Moderate) Stop: 01/27/20 18:44 Ondansetron HCl (Zofran) 4 mg IV Q8H PRN PRN Reason: NAUSEA / VOMITING Stop: 01/27/20 18:44 Prednisone (Deltasone) 10 mg PO BID [facility] Stop: 01/29/20 09:01 Last Admin: 12/30/19 09:00 Dose: Not Given Documented by: Sodium Chloride (Normal Saline Flush) 10 ml IV BID [facility] Stop: 01/27/20 21:01 Last Admin: 12/30/19 07:53 Dose: 10 ml Documented by: Microbiology Results 12/28/19 16:30 Throat Culture & Sensitivity - Final NORMAL UPPER RESPIRATORY MANJU GROWN. 12/28/19 18:05 Clean Catch Urine [place] Count - Preliminary BETWEEN 10,000 & 100,000 CFU/ML 12/28/19 18:05 Clean Catch Urine - Preliminary MIXED MANJU. 12/28/19 16:35 Blood - Blood Aerobic Blood Culture - Preliminary No growth in 24 hours. 12/28/19 16:35 Blood - Blood Anaerobic Blood Culture - Preliminary No growth in 24 hours. 12/28/19 16:20 Blood - Blood Aerobic Blood Culture - Preliminary No growth in 24 hours. 12/28/19 16:20 Blood - Blood Anaerobic Blood Culture - Preliminary No growth in 24 hours. 12/28/19 16:30 Nasopharnyx Coronavirus COVID-19 PCR - Final 12/28/19 16:30 Nasopharnyx Influenza Type A Antigen Screen - Final 12/28/19 16:30 Nasopharnyx Influenza Type B Antigen Screen - Final 12/28/19 16:30 Throat Group A Streptococcus Rapid Screen - Final Assessment/ Plan: Nephrology CPS stable without CP or SOB. No acute events overnight. Feeling better. Vitals, medications, blood work and imaging reviewed in the chart. NAD. MMM. Neck supple. CTA. RRR. Soft Abd. No C/C. LE Edema trace. No rash. AAO. Normal Speech. EXAM DESCRIPTION: Juan Single View12/28/2019 4:24 pm CLINICAL HISTORY: Shortness of breath COMPARISON: September 2019 FINDINGS: Moderate bilateral pulmonary opacities with small to moderate pleural effusions The heart is enlarged IMPRESSION: These findings likely represent CHF A/ Hyponatremia Hypokalemia Hypocalcemia HTN Hyperglycemia. Acute Hepatitis Stage IV Lung Cancer P/ Continue current POC and Medications. Give KCl X2. Start Vitamin D. Continue furosemide. COVID19 test pending. Encourage nutrition. Start MVI. AM labs. Daily weight. No NSAIDs.
--- NOTE | 2019-12-31 01:18 | P.PN ---
Date of Service: 12/30/19 Subjective Subjective: Patient continues to do well. Patient still feels a little short of breath. Will repeated chest x-ray in the morning. She however feels much better neurologically. Pulmonary consultation and nephrology consultation appreciated. Echocardiogram pending for in the morning Review of Systems 10-point ROS is otherwise unremarkable Physical Examination - Vital Signs Reviewed - Physical Exam General: Alert, In no apparent distress, Oriented x3 Respiratory: Diminished, Crackles/rales Cardiovascular: Regular rate/rhythm, Normal S1 S2, No murmurs Gastrointestinal: Normal bowel sounds, Soft and benign, Non-distended, No tenderness Musculoskeletal: No clubbing, No swelling, No tenderness Neurological: Normal speech, Normal tone, Normal affect Assessment & Plan - Problems (Diagnosis) (1) Hyponatremia Current Visit: Yes Status: Acute (2) Altered mental status Current Visit: Yes Status: Acute (3) Pleural effusion, malignant Current Visit: Yes Status: Acute (4) Intractable nausea and vomiting Current Visit: Yes Status: Acute (5) 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 Current Visit: Yes Status: Acute - Plan Plan: Continue with current plan of care as mentioned below -COVID-19 testing was negative -continue with COPD treatment -sodium improved; appreciate Nephrology consultation; most likely related to SIADH from malignancy -pain control as needed -monitor volume status closely -pulmonary consultation and echocardiogram is pending -DVT prophylaxis Discharge Plan: Home Plan to discharge in: Greater than 2 days - Advance Directives Does patient have a Living Will: No Does patient have a Durable POA for Healthcare: No - Code Status/Comfort Care Code Status Assessed: Yes Code Status: Full Code Critical Care: No Time Spent Managing PTS Care (In Minutes): 30
[2019-12-31 05:54] LABS: Absolute Lymphocytes (CBC) 0.2 K/uL (0.7-4.9); Hematocrit 39.2 % (36.0-45.0); Lymphocytes % 2.2 % (15.3-44.8); MPV 7.1 fL (7.6-11.3)
[2019-12-31 06:08] LABS: BUN Blood Urea Nitrogen 7 mg/dL (7-18); Bicarbonate 29 mmol/L (21-32); Glucose Level 97 mg/dL (74-106); Magnesium 2.2 mg/dL (1.8-2.4); Phosphorus 1.3 mg/dL (2.5-4.9); Potassium 3.7 mmol/L (3.5-5.1); Sodium Level 133 mmol/L (136-145); Uric Acid 8.7 mg/dL (2.6-6.0)
[2019-12-31 06:28] LABS: ALT/SGPT 88 U/L (12-78); AST/SGOT 53 U/L (15-37); Albumin 3.3 g/dL (3.4-5.0); Alkaline Phosphatase 137 U/L (45-117); BUN Blood Urea Nitrogen 8 mg/dL (7-18); Bicarbonate 29 mmol/L (21-32); Bilirubin Total 1.2 mg/dL (0.2-1.0); Glucose Level 97 mg/dL (74-106); Potassium 3.7 mmol/L (3.5-5.1); Protein, Total 6.7 g/dL (6.4-8.2); Sodium Level 134 mmol/L (136-145)
[2019-12-31 07:35] LABS: Urine Appearance CLEAR; Urine Bilirubin NEGATIVE (NEG); Urine Blood 2+ (NEG); Urine Color YELLOW; Urine Glucose NEGATIVE (NEG); Urine Protein 1+ (NEG); Urine Specific Gravity 1.015 (1.005-1.030); Urine pH 8.5 (5.0-7.0)
[2019-12-31] MEDS ORDERED: POTASSIUM CL SA 10 MEQ TAB PO ONE (08:15)
[2019-12-31 08:21] LABS: Urine Bacteria NONE SEEN /HPF (<20); Urine Culture Reflex Order REFLEXED; Urine RBC >50 /HPF (NONE SEEN)
[2019-12-31] MEDS ORDERED: POTASS/SODIUM PHOSPHATE 1 PKT POWD.PACK PO ONE (08:30)
--- NOTE | 2019-12-31 08:43 | RAD REPORT ---
EXAM DESCRIPTION: RAD - Chest Lateral Decubitus - 12/31/2019 7:54 am CLINICAL HISTORY: Pleural effusion COMPARISON: Portable chest December 27 TECHNIQUE: Right and left lateral decubitus films were obtained. FINDINGS: Small bilateral layering pleural effusions are present. No focal consolidation or mass paz ntifiable. Heart size remains prominent. Lung markings and vasculature are not grossly different. Dec ubitus imaging has limitation in heart and vascular assessment. IMPRESSION: Small bilateral layering pleural effusions.
[2019-12-31] MEDS: HOME MED 1 EA UNK (Glycopyrrolate/Formoterol Fum [Bevespi Aerosphere Inhaler] 2 PUFF) IH SCH ×2 (09:00→21:00)
[2019-12-31] MEDS: MULTIVITAMIN TAB PO SCH (10:02)
[2019-12-31] MEDS: CALCITROL 0.25 MCG CAP PO SCH (10:04)
[2019-12-31] MEDS: predniSONE 10 MG TAB PO SCH ×2 (10:04→21:14)
[2019-12-31] MEDS: VITAMIN D 5,000 UNIT CAP PO SCH (10:04)
[2019-12-31] MEDS: FUROSEMIDE 20 MG/ 2ML VIAL IV SCH (10:06)
[2019-12-31] MEDS ORDERED: METOPROLOL TAR 50 MG TAB PO ONE (11:02)
--- NOTE | 2019-12-31 12:13 | P.PN ---
Subjective Date of Service: 01/01/20 Chief Complaint: Shortness of breath hypernatremia Subjective: Improving (Still complaining of shot and shortness of breath hyponatremia resolved with diuretics) Review of Systems General: Weakness Respiratory: Shortness of Breath Physical Examination - Vital Signs Temperature: 97.5 F Blood Pressure: 147/79 Pulse: 98 Respirations: 18 Pulse Ox (%): 95 - Physical Exam General: Alert, Oriented x3, Mild distress Respiratory: Expiratory wheezes Cardiovascular: No edema, Normal S1 S2 - Studies Microbiology Data (last 24 hrs): 12/28/19 18:05 Clean Catch Urine [place] Count - Final BETWEEN 10,000 & 100,000 CFU/ML 12/28/19 18:05 Clean Catch Urine - Final MIXED MANJU. 12/28/19 16:30 Throat Culture & Sensitivity - Final NORMAL UPPER RESPIRATORY MANJU GROWN. Medications List Reviewed: Yes Assessment & Plan - Problems (Diagnosis) (1) Hyponatremia Current Visit: Yes Status: Acute Plan: Hyponatremia resolved was likely side effect of the antidepressant that the patient was taking Dc Nelson catheter diuretics Dc day? ambulate chemistries unre markable plan to discharge patient has minimal effusion continue with steroids inhalers patient instructed to stopped the antidepressant. ECHO pending. Evaluate for home o2
--- NOTE | 2019-12-31 12:58 | P.PN ---
Date of Service: 12/31/19 Vital Signs Temp Pulse Resp BP Pulse Ox 97.5 F 98 H 18 147/79 H 95 12/31/19 12:13 12/31/19 12:13 12/31/19 12:13 12/31/19 12:13 12/31/19 12:13 Medications Albuterol Sulfate (Proventil 0.083% Neb Soln) 2.5 mg NEB [id number] PRN PRN Reason: SHORTNESS OF BREATH Stop: 01/27/20 18:44 Albuterol Sulfate (Ventolin Inhaler) 2 puff IH QID PRN PRN Reason: sob Stop: 01/28/20 06:31 Alprazolam (Xanax) 0.5 mg PO TID PRN PRN Reason: ANXIETY Stop: 01/28/20 06:31 Calcitriol (Rocaltrol) 0.5 mcg PO DAILY [facility] Stop: 01/30/20 09:01 Last Admin: 12/31/19 10:04 Dose: 0.5 mcg Documented by: Cholecalciferol (Vitamin D 5,000 Iu Cap) 5,000 unit PO DAILY [facility] Stop: 01/30/20 09:01 Last Admin: 12/31/19 10:04 Dose: 5,000 unit Documented by: Home Med (Glycopyrrolate/Formoterol Fum [Bevespi Aerosphere Inhaler]) 2 puff IH BID [facility] Stop: 01/28/20 09:01 Last Admin: 12/31/19 09:00 Dose: Not Given Documented by: Morphine Sulfate (Morphine Sulfate) 2 mg IV Q4H PRN PRN Reason: Pain scale 5-7 (Moderate) Stop: 01/27/20 18:44 Multivitamins/Minerals (Centrum Tablet) 1 tab PO DAILY [facility] Stop: 01/30/20 09:01 Last Admin: 12/31/19 10:02 Dose: 1 tab Documented by: Ondansetron HCl (Zofran) 4 mg IV Q8H PRN PRN Reason: NAUSEA / VOMITING Stop: 01/27/20 18:44 Prednisone (Deltasone) 10 mg PO BID [facility] Stop: 01/29/20 09:01 Last Admin: 12/31/19 10:04 Dose: 10 mg Documented by: Sodium Chloride (Normal Saline Flush) 10 ml IV BID [facility] Stop: 01/27/20 21:01 Last Admin: 12/31/19 10:05 Dose: 10 ml Documented by: Sodium Chloride (Nacl Tabs) 1 gm PO ONCE ONE Stop: 12/31/19 13:01 Microbiology Results 12/28/19 18:05 Clean Catch Urine [place] Count - Final BETWEEN 10,000 & 100,000 CFU/ML 12/28/19 18:05 Clean Catch Urine - Final MIXED MANJU. 12/28/19 16:30 Throat Culture & Sensitivity - Final NORMAL UPPER RESPIRATORY MANJU GROWN. 12/28/19 16:35 Blood - Blood Aerobic Blood Culture - Preliminary No growth in 24 hours. 12/28/19 16:35 Blood - Blood Anaerobic Blood Culture - Preliminary No growth in 24 hours. 12/28/19 16:20 Blood - Blood Aerobic Blood Culture - Preliminary No growth in 24 hours. 12/28/19 16:20 Blood - Blood Anaerobic Blood Culture - Preliminary No growth in 24 hours. 12/28/19 16:30 Nasopharnyx Coronavirus COVID-19 PCR - Final 12/28/19 16:30 Nasopharnyx Influenza Type A Antigen Screen - Final 12/28/19 16:30 Nasopharnyx Influenza Type B Antigen Screen - Final 12/28/19 16:30 Throat Group A Streptococcus Rapid Screen - Final Assessment/ Plan: Nephrology CPS stable without CP or SOB. No acute events overnight. Feeling better. Nelson removed this morning. Vitals, medications, blood work and imaging reviewed in the chart. NAD. MMM. Neck supple. CTA. RRR. Soft Abd. No C/C. LE Edema trace. No rash. AAO. Normal Speech. EXAM DESCRIPTION: Juan Single View12/28/2019 4:24 pm CLINICAL HISTORY: Shortness of breath COMPARISON: September 2019 FINDINGS: Moderate bilateral pulmonary opacities with small to moderate pleural effusions The heart is enlarged IMPRESSION: These findings likely represent CHF A/ Hyponatremia Hypokalemia Hypocalcemia HypoPO4. HTN Hyperglycemia. Acute Hepatitis Stage IV Lung Cancer P/ Continue current POC and Medications. Give KCl. Give Neutra-phos. Give oral NaCl X1 dose. Continue furosemide. COVID19 test negative. Encourage nutrition. AM labs. Daily weight. No NSAIDs.
[2019-12-31] MEDS ORDERED: SODIUM CHLORIDE 1 GM TAB PO ONE (13:00)
--- NOTE | 2019-12-31 14:42 | ECHO ---
HEIGHT: 5 ft 5 in WEIGHT: 147 lb 8 oz DATE OF STUDY: 12/31/[address]: Ally Chen MD 2-DIMENSIONAL: YES M.MODE: YES DOPPLER: YES COLOR FLOW: YES TDS: NO PORTABLE: NO DEFINITY: NO BUBBLE STUDY: NO DIAGNOSIS: CONGESTIVE HEART FAILURE, DIASTOLIC DYSFUNCTION CARDIAC HISTORY: CATHERIZATION: NO SURGERY: NO PROSTHETIC VALVE: NO PACEMAKER: NO MEASUREMENTS (cm) DIASTOLIC (NORMALS) SYSTOLIC (NORMALS) IVSd 0.9 (0.6-1.2) LA Diam 2.6 (1.9-4.0) LVEF 44% LVIDd 3.9 (3.5-5.7) LVIDs 3.0 (2.0-3.5) %FS 21% LVPWd 0.9 (0.6-1.2) Ao Diam 2.5 (2.0-3.7) 2 DIMENSIONAL ASSESSMENT: RIGHT ATRIUM: NORMAL LEFT ATRIUM: NORMAL RIGHT VENTRICLE: NORMAL LEFT VENTRICLE: NORMAL TRICUSPID VALVE: NORMAL MITRAL VALVE: NORMAL PULMONIC VALVE: NORMAL AORTIC VALVE: NORMAL PERICARDIAL EFFUSION: LARGE AORTIC ROOT: NORMAL LEFT VENTRICULAR WALL MOTION: NORMAL DOPPLER/COLOR FLOW: COMMENTS: LARGE PERICARDIAL EFFUSION. EARLY TAMPONADE, RIGHT ATRIAL COLLAPSE IN DIASTOLE. NORMAL LEFT VENTRICULAR EJECTION FRACTION. TECHNOLOGIST: Nilam ASHFORD
[2019-12-31] MEDS: ALPRAZOLAM 0.5 MG TABLET PO PRN (21:21)
--- NOTE | 2020-01-01 04:49 | P.PN ---
Date of Service: 12/31/19 Subjective Subjective: Spoke with Cardiology and echocardiogram revealed a large pericardial effusion. Patient does not have cardiac tamponade at this time but there is concern that this could develop. Patient is hemodynamically stable. Concern for a malignant pericardial effusion. We have initiated transfer and , CT surgery has accepted. We will transfer to [facility] in a.m.. Review of Systems 10-point ROS is otherwise unremarkable Physical Examination - Vital Signs Reviewed - Physical Exam General: Alert, In no apparent distress, Oriented x3 Respiratory: Diminished, Crackles/rales Cardiovascular: Regular rate/rhythm, Normal S1 S2, No murmurs Gastrointestinal: Normal bowel sounds, Soft and benign, Non-distended, No tenderness Musculoskeletal: No clubbing, No swelling, No tenderness Neurological: Normal speech, Normal tone, Normal affect Assessment & Plan - Problems (Diagnosis) (1) Hyponatremia Current Visit: Yes Status: Acute (2) Altered mental status Current Visit: Yes Status: Acute (3) Pleural and large pericardial effusion, possibly malignant Current Visit: Yes Status: Acute (4) Intractable nausea and vomiting Current Visit: Yes Status: Acute (5) 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 Current Visit: Yes Status: Acute - Plan Plan: Continue with current plan of care as mentioned below -COVID-19 testing was negative -continue with COPD treatment -sodium improved; appreciate Nephrology consultation; 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 May need pericardial window. Transferring to CT surgery -will need follow-up with oncology
--- NOTE | 2020-01-01 04:55 | P.DS ---
Discharge Date: 01/01/20 Disposition: TRANSFER TO [facility] Discharge Condition: FAIR Reason for Admission: Shortness of breath hypernatremia - Problems (1) Hyponatremia Current Visit: Yes Status: Acute (2) Altered mental status Current Visit: Yes Status: Acute (3) Pleural effusion, malignant Current Visit: Yes Status: Acute (4) Intractable nausea and vomiting Current Visit: Yes Status: Acute (5) 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 Current Visit: Yes Status: Acute Brief History of Present Illness: Patient is a 59-year-old female who came to the hospital with difficulty breathing. She also had nausea and vomiting along with diarrhea for the last 4 days. In the emergency room patient was found to be severely hyponatremic. Patient has had extensive workup over the last few months which revealed she had [id number] lung cancer. For excisional biopsy revealed adenocarcinoma. A recent PET scan also revealed multiple metastasis. Patient is scheduled to start on chemotherapy per Oncology. She also now has a pleural effusion which could be a malignant pleural effusion. This is also most likely the cause of her hyponatremia. Patient will be admitted to the hospital for further workup. Hospital Course: Patient was ruled out for COVID-19. Patient had an echocardiogram performed which revealed a large pericardial effusion. We went ahead and arranged for transfer to [facility]. Patient will get transfer this a.m. for possible pericardial window with CT surgery. Vital Signs/Physical Exam: Temp Pulse Resp BP Pulse Ox 97.4 F 103 H 20 106/71 91 01/01/20 04:00 01/01/20 04:00 01/01/20 04:00 01/01/20 04:00 01/01/20 04:00 General: Alert, In no apparent distress, Oriented x3 Laboratory Data at Discharge: WBC Cancelled 12/31/19 06:00 Hgb Cancelled 12/31/19 06:00 Hct Cancelled 12/31/19 06:00 Plt Count Cancelled 12/31/19 06:00 PT 12.1 SECONDS (9.5-12.5) 12/28/19 16:20 INR 1.03 12/28/19 16:20 Sodium 133 mmol/L (136-145) L 12/31/19 05:20 Sodium 134 mmol/L (136-145) L 12/31/19 05:20 Potassium 3.7 mmol/L (3.5-5.1) 12/31/19 05:20 Potassium 3.7 mmol/L (3.5-5.1) 12/31/19 05:20 BUN 7 mg/dL (7-18) 12/31/19 05:20 BUN 8 mg/dL (7-18) 12/31/19 05:20 Creatinine 0.48 mg/dL (0.55-1.3) L 12/31/19 05:20 Creatinine 0.49 mg/dL (0.55-1.3) L 12/31/19 05:20 Glucose 97 mg/dL (74-106) 12/31/19 05:20 Glucose 97 mg/dL (74-106) 12/31/19 05:20 Uric Acid 8.7 mg/dL (2.6-6.0) H 12/31/19 05:20 Phosphorus 1.3 mg/dL (2.5-4.9) L 12/31/19 05:20 Magnesium 2.2 mg/dL (1.8-2.4) 12/31/19 05:20 Total Bilirubin 1.2 mg/dL (0.2-1.0) H 12/31/19 05:20 AST 53 U/L (15-37) H 12/31/19 05:20 ALT 88 U/L (12-78) H 12/31/19 05:20 Alkaline Phosphatase 137 U/L (45-117) H 12/31/19 05:20 Lipase 82 U/L (73-393) 12/28/19 16:20 Home Medications: ALPRAZolam [Xanax*] 0.5 mg PO TID PRN 12/29/19 Albuterol Sulfate [Proair Hfa] 2 puff IH QID PRN 12/29/19 Glycopyrrolate/Formoterol Fum [Bevespi Aerosphere Inhaler] 2 puff IH BID 12/29/19 predniSONE [Prednisone*] 10 mg PO BEDTIME 12/29/19 Patient Discharge Instructions: Proceed with transfer to [facility] this a.m.. -Patient to stop the antidepressant in call me for a follow-up next week Diet: Regular Activity: Bedrest Time spent managing pt's care (in minutes): 20
[2020-01-01 06:34] LABS: Absolute Lymphocytes (CBC) 0.4 K/uL (0.7-4.9); Basophils % 0.1 % (0-1.3); Hematocrit 40.3 % (36.0-45.0); Lymphocytes % 4.3 % (15.3-44.8); MPV 7.2 fL (7.6-11.3)
[2020-01-01 07:45] LABS: BUN Blood Urea Nitrogen 11 mg/dL (7-18); Bicarbonate 27 mmol/L (21-32); Glucose Level 92 mg/dL (74-106); Potassium 3.5 mmol/L (3.5-5.1); Sodium Level 132 mmol/L (136-145)
[2020-01-01] MEDS: ALPRAZOLAM 0.5 MG TABLET PO PRN (08:25)
[2020-01-01] MEDS: CALCITROL 0.25 MCG CAP PO SCH (08:25)
[2020-01-01] MEDS: predniSONE 10 MG TAB PO SCH ×2 (08:25→20:33)
[2020-01-01] MEDS: VITAMIN D 5,000 UNIT CAP PO SCH (08:25)
[2020-01-01] MEDS: MULTIVITAMIN TAB PO SCH (08:26)
[2020-01-01] MEDS: HOME MED 1 EA UNK (Glycopyrrolate/Formoterol Fum [Bevespi Aerosphere Inhaler] 2 PUFF) IH SCH ×2 (08:26→20:24)
--- NOTE | 2020-01-01 13:13 | PN ---
Date of Progress Note: 01/01/2020 Subjective: Patient was seen and examined at bedside. She is complaining of being anxious. Plan is to transfer her to [facility] for pericardial window tomorrow. Physical Examination: Current Vital Signs: Have been reviewed and are stable. General: She appears in no acute distress. HEENT: Shows atraumatic head. Lungs: Auscultation of the lungs reveal diminished breath sounds at bilateral bases. No crackles or adventitious sounds are noted. Heart: Auscultation of the heart reveals a regular rate and rhythm. Abdomen: Soft and nontender. Extremities: Show no evidence of edema. Laboratory Data: Showing sodium of 132, potassium of 3.5, chloride of 93, BUN of 11, and creatinine of 0.42. Current Medications: One time dose of salt tablets, which was given yesterday. She remains on predn isone 10 mg b.i.d. One time dose of sodium/potassium phosphate (Neutra-Phos), Xanax t.i.d. p.r.n., a nd neb treatments. Impression: 1.Hyponatremia secondary to likely from syndrome of inappropriate antidiuretic hormone secretion wit h a history of malignant lung cancer, which is metastatic. 2.Pericardial effusion, likely also presumed to be malignant pericardial effusion. 3.Hypokalemia, hypocalcemia, and hypophosphatemia. 4.Hepatitis, improving. Plan: Patient is overall doing okay. She got 1 dose of salt tablets. Lasix has been discontinued. We will go ahead and initiate oral Lasix again and monitor closely. We will avoid further salt tabl ets at this time to prevent worsening of her congestive heart failure. Patient is being planned for transfer to higher level of care for pericardial window placement. We will continu e to follow up closely. VV/MODL Voice ID: [id number] Report ID: [id number]
[2020-01-01] MEDS: SODIUM CHLORIDE 1 GM TAB PO SCH (16:19)
[2020-01-01] MEDS: FUROSEMIDE 20 MG TABLET PO SCH (16:20)
--- NOTE | 2020-01-01 17:35 | P.PN ---
Subjective Date of Service: 01/01/20 Chief Complaint: Shortness of breath hypernatremia Patient reports no changes from yesterday. She is waiting for bed availability for transfer for pericardial effusion. Physical Examination - Vital Signs Temperature: 97.9 F Blood Pressure: 135/83 Pulse: 107 Respirations: 16 Pulse Ox (%): 93 - Physical Exam General: Alert, In no apparent distress, Oriented x3 HEENT: Mucous membr. moist/pink Neck: Supple Respiratory: Clear to auscultation bilaterally, Normal air movement Cardiovascular: No edema, Regular rate/rhythm, Normal S1 S2 Gastrointestinal: Normal bowel sounds, Soft and benign, Non-distended, No tenderness Musculoskeletal: No swelling Integumentary: No rashes Neurological: Normal speech, Normal strength at 5/5 x4 extr - Studies Medications List Reviewed: Yes Assessment And Plan - Current Problems (Diagnosis) (1) Pericardial effusion Current Visit: Yes Status: Acute (2) Altered mental status Current Visit: Yes Status: Acute (3) Hyponatremia Current Visit: Yes Status: Acute (4) 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 Current Visit: Yes Status: Acute (5) Pleural effusion, malignant Current Visit: Yes Status: Acute - Plan Patient is waiting for bed availability for transfer regarding pericardial effusion-likely malignant. Continue Lasix Supplemental oxygen Continue bronchodilators. Continue prednisone.
[2020-01-02 03:29] VITALS: O2SAT 98
[2020-01-02 05:40] LABS: Absolute Lymphocytes (CBC) 0.3 K/uL (0.7-4.9); Basophils % 0.1 % (0-1.3); Hematocrit 39.5 % (36.0-45.0); Lymphocytes % 3.9 % (15.3-44.8); MPV 7.1 fL (7.6-11.3); RBC Red Blood Cell Count 4.05 M/uL (3.86-4.86)
[2020-01-02 06:00] VITALS: BMI 23.5
[2020-01-02 06:49] LABS: BUN Blood Urea Nitrogen 9 mg/dL (7-18); Bicarbonate 25 mmol/L (21-32); Glucose Level 101 mg/dL (74-106); Sodium Level 135 mmol/L (136-145)
[2020-01-02] MEDS: CALCITROL 0.25 MCG CAP PO SCH (08:50)
[2020-01-02] MEDS: predniSONE 10 MG TAB PO SCH (08:50)
[2020-01-02] MEDS: SODIUM CHLORIDE 1 GM TAB PO SCH (08:50)
[2020-01-02] MEDS: MULTIVITAMIN TAB PO SCH (08:50)
[2020-01-02] MEDS: VITAMIN D 5,000 UNIT CAP PO SCH (08:50)
[2020-01-02] MEDS: FUROSEMIDE 20 MG TABLET PO SCH (08:50)
[2020-01-02 08:51] VITALS: BP 145/89
[2020-01-02] MEDS: HOME MED 1 EA UNK (Glycopyrrolate/Formoterol Fum [Bevespi Aerosphere Inhaler] 2 PUFF) IH SCH (08:51)
[2020-01-02 10:29] VITALS: TEMP 98.5
== END 2020-01-02 09:33 | disposition short-term general hospital (02) | DRG 641 ==
LOC: ER 15:36 → ERHOLD 18:44 → 3RD-ICU 20:25 → 4TH 12-29 07:25 → 2ND 12-30 19:20
PROVIDERS: ADMIT Internal Medicine; ATTEND Internal Medicine Sleep Medicine
DX: E87.1 Hypo-osmolality and hyponatremia (principal); C34.90 Malignant neoplasm of unspecified part of unspecified bronchus or lung; C77.1 Secondary and unspecified malignant neoplasm of intrathoracic lymph nodes; J91.0 Malignant pleural effusion; B17.9 Acute viral hepatitis, unspecified; I30.9 Acute pericarditis, unspecified; Z20.828 Contact with and (suspected) exposure to other viral communicable diseases; Z79.899 Other long term (current) drug therapy; Z79.52 Long term (current) use of systemic steroids; J44.9 Chronic obstructive pulmonary disease, unspecified; Z87.891 Personal history of nicotine dependence; R06.02 Shortness of breath; R05 Cough; E87.6 Hypokalemia; E83.51 Hypocalcemia; I10 Essential (primary) hypertension; R73.9 Hyperglycemia, unspecified; E83.39 Other disorders of phosphorus metabolism
CPT/HCPCS: 36415; 51702; 71045; 71046; 80048; 80053; 80076; 81001; 82570; 82947; 83605; 83690; 83735; 83880; 83930; 83935; 84100; 84145; 84300; 84484; 84550; 85025; 85610; 87040; 87070; 87081; 87086; 87088; 87205; 87804; 93005; 93306; 94760; 96361; 96365; 96366; 96367; 96368; 96375; 99285; J0692; J1720; J1940; J2405; J2930; J3370; J3475; J7030; J7512; U0001

== ENCOUNTER 2020-03-28 11:23 | Emergency (ER) | payer OTHER ==
[2020-03-28 12:40] LABS: Absolute Lymphocytes (CBC) 0.4 K/uL (0.7-4.9); Basophils % 1.3 % (0-1.3); Hematocrit 39.6 % (36.0-45.0); Lymphocytes % 5.2 % (15.3-44.8); MPV 6.9 fL (7.6-11.3); RBC Red Blood Cell Count 4.05 M/uL (3.86-4.86)
[2020-03-28 12:49] LABS: Protime INR 1.88
--- NOTE | 2020-03-28 12:52 | RAD REPORT ---
EXAM DESCRIPTION: RAD - Chest Single View - 03/28/2020 12:44 pm CLINICAL HISTORY: CHEST PAIN COMPARISON: CT chest January 18, 2020, portable chest December 28, 2019, two view chest September 20, 2019 TECHNIQUE: AP portable chest image was obtained 03/28/2020 12:44 pm . FINDINGS: Fibrotic lung changes are scattered throughout both lung syed. Interstitial pattern is s imilar to slightly less pronounced than seen previously. No new or enlarging mass identifiable. No fa ilure or volume overload. Heart and vasculature are normal. No measurable pleural effusion and no pneumothorax. No acute bony abnormality seen. No acute aortic findings suspected. IMPRESSION: Fibrotic lung pattern with no failure infiltrate or new mass lesion. No significant change from comparison.
[2020-03-28] MEDS ORDERED: NA CHLORIDE 0.9% 500 ML ONE (12:55)
[2020-03-28 12:57] LABS: ALT/SGPT 18 U/L (12-78); AST/SGOT 26 U/L (15-37); Albumin 3.2 g/dL (3.4-5.0); Alkaline Phosphatase 111 U/L (45-117); BUN Blood Urea Nitrogen 3 mg/dL (7-18); Bicarbonate 23 mmol/L (21-32); Bilirubin Direct < 0.1 mg/dL (0-0.2); Bilirubin Total 0.3 mg/dL (0.2-1.0); Glucose Level 100 mg/dL (74-106); Magnesium 1.7 mg/dL (1.8-2.4); NT PRO-BNP 43 pg/mL (<125); Potassium 3.5 mmol/L (3.5-5.1); Protein, Total 6.9 g/dL (6.4-8.2); Sodium Level 140 mmol/L (136-145); Troponin (Emerg Dept Use Only) < 0.02 ng/mL (0.0-0.045)
--- NOTE | 2020-03-28 13:18 | RAD REPORT ---
EXAM DESCRIPTION: CT - Head Brain Wo Cont - 03/28/2020 1:01 pm CLINICAL HISTORY: Left leg weakness COMPARISON: September 2019 MRI TECHNIQUE: Computed axial tomography of the head was obtained. IV contrast was not requested. All CT scans are performed using dose optimization technique as appropriate and may include automated exposure control or mA/KV adjustment according to patient size. FINDINGS: A 12 millimeter lesion suspected within the left frontal lobe. There is moderate surroundi ng vasogenic edema. An additional lesions suspected within the left cerebellum with large amount of vasogenic edema. The fourth ventricle is compressed and shifted towards the right. Mild left cerebellar tonsillar herniati on is present. An intracranial bleed is not seen . No hydrocephalus. No extra-axial fluid collection is noted. Small amount of fluid within the left maxillary sinus with mucoperiosteal thickening. IMPRESSION: Left frontal lobe lesion with moderate vasogenic edema Left cerebellar lesion with marked vasogenic edema and compression and shift of the fourth ventricle and mild left cerebellar tonsillar herniation. Both lesions likely are metastases
--- NOTE | 2020-03-28 15:39 | EDPHYS ---
Physician Documentation [facility] Name: Makayla Montalvo Age: 60 yrs Sex: Female : 1960 Arrival Date: 03/28/2020 Time: 11:26 Bed 2 Private MD: Gurpreet Quintero ED Physician Josue Cordova HPI: 03/28 12:19 This 60 yrs old Female presents to ER via Wheelchair with complaints of ps1 General Weakness, Trouble Walking. 12:19 Patient states that she has had similar circumstances around [facility] in which they found ps1 her to be hyponatremic and had a pericardial effusion requiring pericardial centesis. She states over the last 4 days she had fatigue and difficulty walking. Presented to the ED with same complaints of difficulty walking. No other symptoms of coughing or COREY. HR found to be \R\130. Bedside US demonstrated mild pericardial effusion. . Historical: - Allergies: 11:50 No Known Allergies; iw - PMHx: 11:50 COPD; Lung CA - Stage 4; iw - PSHx: 11:50 None; iw - Immunization history:: Adult Immunizations up to date. - Social history:: Smoking status: Patient/guardian denies using tobacco, the patient reports quitting approximately 3 years ago. ROS: 12:19 Eyes: Negative for injury, pain, redness, and discharge, Cardiovascular: Negative for ps1 chest pain, palpitations, and edema, Respiratory: Negative for shortness of breath, cough, wheezing, and pleuritic chest pain, Abdomen/GI: Negative for abdominal pain, nausea, vomiting, diarrhea, and constipation, MS/Extremity: Negative for injury and deformity. 12:19 Constitutional: Positive for fatigue. 12:19 Neuro: Positive for weakness. ps1 Exam: 12:19 Constitutional: This is a well developed, well nourished patient who is awake, alert, ps1 and in no acute distress. Head/Face: Normocephalic, atraumatic. Chest/axilla: Normal chest wall appearance and motion. Nontender with no deformity. No lesions are appreciated. 12:19 Respiratory: Lungs have equal breath sounds bilaterally, clear to auscultation and percussion. No rales, rhonchi or wheezes noted. No increased work of breathing, no retractions or nasal flaring. Abdomen/GI: Soft, non-tender, with normal bowel sounds. No distension or tympany. No guarding or rebound. No evidence of tenderness throughout. Skin: Warm, dry with normal turgor. Normal color with no rashes, no lesions, and no evidence of cellulitis. Neuro: Awake and alert, GCS 15, oriented to person, place, time, and situation. Cranial nerves II-XII grossly intact. Sensory grossly intact. 12:19 Cardiovascular: Rate: tachycardic, Rhythm: regular, Pulses: no pulse deficits are appreciated, pericardial effusion found on bedside US. . Vital Signs: 11:47 BP 152 / 98; Pulse 130; Resp 20 S; Temp 99.9; Pulse Ox 93% on R/A; Weight 61.23 kg; iw Height 5 ft. 5 in. (165.10 cm); Pain 0/10; 12:44 BP 155 / 93; Pulse 117; Resp 20; Pulse Ox 99% ; hb 14:00 BP 148 / 99; Pulse 114; Resp 21; Pulse Ox 100% on R/A; hb 15:22 BP 153 / 85; Pulse 114; Resp 23; Pulse Ox 100% ; bp 15:54 BP 140 / 86; Pulse 109; Resp 16; Pulse Ox 100% ; bp 11:47 Body Mass Index 22.46 (61.23 kg, 165.10 cm) iw MDM: 12:17 Patient medically screened. ps1 03/28 12:14 Order name: CBC with Diff; Complete Time: 12:54 hb 03/28 12:14 Order name: LFT's; Complete Time: 13:23 hb 03/28 12:14 Order name: Magnesium; Complete Time: 13:23 hb 03/28 12:14 Order name: NT PRO-BNP; Complete Time: 13:23 hb 03/28 12:14 Order name: PT-INR; Complete Time: 13:05 hb 03/28 12:14 Order name: Troponin (emerg Dept Use Only); Complete Time: 13:23 hb 03/28 12:14 Order name: CBC with Diff ps1 03/28 12:14 Order name: Magnesium ps1 03/28 12:14 Order name: NT PRO-BNP ps1 03/28 12:14 Order name: PT-INR ps1 03/28 12:14 Order name: Troponin (emerg Dept Use Only) ps1 03/28 12:14 Order name: CMP; Complete Time: 13:23 ps1 03/28 12:15 Order name: Lactate; Complete Time: 13:05 ps1 03/28 12:14 Order name: EKG; Complete Time: 12:15 hb 03/28 12:14 Order name: Cardiac monitoring; Complete Time: 12:19 hb 03/28 12:14 Order name: EKG - Nurse/Tech; Complete Time: 12:30 hb 03/28 12:14 Order name: IV Saline Lock; Complete Time: 12:30 hb 03/28 12:14 Order name: Labs collected and sent; Complete Time: 12:30 hb 03/28 12:14 Order name: O2 Per Protocol; Complete Time: 12:19 hb 03/28 12:14 Order name: XRAY Chest (1 view); Complete Time: 13:23 ps1 03/28 12:14 Order name: EKG; Complete Time: 12:15 ps1 03/28 12:19 Order name: Echo w/ Doppler ps1 03/28 12:25 Order name: CT Head Brain wo Cont; Complete Time: 13:23 ps1 03/28 14:14 Order name: CT Chest For PE Angio ps1 03/28 15:20 Order name: Urine Dipstick--Ancillary (enter results) em1 03/28 12:14 Order name: O2 Sat Monitoring; Complete Time: 12:19 hb 03/28 12:14 Order name: Cardiac monitoring; Complete Time: 12:18 ps1 03/28 12:14 Order name: EKG - Nurse/Tech; Complete Time: 12:30 ps1 03/28 12:14 Order name: IV Saline Lock; Complete Time: 12:30 ps1 03/28 12:14 Order name: Labs collected and sent; Complete Time: 12:30 ps1 03/28 12:14 Order name: O2 Per Protocol; Complete Time: 12:18 ps1 03/28 12:14 Order name: O2 Sat Monitoring; Complete Time: 12:18 ps1 03/28 12:15 Order name: Urine Dipstick-Ancillary (obtain specimen); Complete Time: 15:20 ps1 Administered Medications: 12:29 Drug: NS 0.9% 500 ml Route: IV; Rate: bolus; Site: right forearm; bp 15:55 Follow up: IV Status: Completed infusion; IV Intake: 500ml bp 15:36 Drug: Decadron - Dexamethasone 10 mg Route: IVP; Site: right antecubital; bp 15:55 Follow up: Response: No adverse reaction bp 15:55 Drug: Keppra 1000 mg Route: IV; Rate: bolus; Site: right antecubital; bp 16:36 Follow up: IV Status: Completed infusion; IV Intake: 200ml bp Disposition: 03/28/20 15:38 Transfer ordered to [facility]. Diagnosis are Brain mass, fatigue, pericardial effusion, Tachycardia. - Reason for transfer: Higher level of care. - Accepting physician is Day. - Condition is Fair. - Problem is new. - Symptoms are unchanged. Signatures: Dispatcher [employer] EDMS Tessy Long RN RN iw Mariposa Triana RN RN hb Anthony Painter RN RN Josue Whittington MD MD ps1 Corrections: (The following items were deleted from the chart) 12:17 12:15 BASIC METABOLIC PANEL+C.LAB.BRZ ordered. EDDE EDMS 12:44 12:15 Chest Single View+RAD.RAD.BRZ ordered. EDDE EDMS 16:49 15:38 03/28/2020 15:38 Transfer ordered to [facility]. Diagnosis is Brain bp mass; fatigue; pericardial effusion; Tachycardia. Reason for transfer: Higher level of care. Accepting physician is Day. Condition is Fair. Problem is new. Symptoms are unchanged. ps1
--- NOTE | 2020-03-28 15:39 | ER ---
Nurse's Notes [facility] Name: Makayla Montalvo Age: 60 yrs Sex: Female : 1960 Arrival Date: 03/28/2020 Time: 11:26 Bed 2 Private MD: Gurpreet Quintero Diagnosis: Brain mass;fatigue;pericardial effusion;Tachycardia Presentation: 03/28 11:47 Chief complaint: Patient states: is very weak, can barely, report generalized weakness iw X4-5 days, has hx of low sodium a month ago, denies vomiting or diarrhea, denies fever, has hx of COPD, on home O2, denies increased SOB. Coronavirus screen: Patient denies a cough. Patient denies shortness of breath or difficulty breathing. Patient denies measured and/or subjective temperature greater than 100.4F prior to today's visit. Patient denies travel on a cruise ship or to a country the [facility] currently lists as an affected area. Patient denies contact with known and/or suspected case of COVID-19. Ebola Screen: Patient negative for fever greater than or equal to 101.5 degrees Fahrenheit, and additional compatible Ebola Virus Disease symptoms Patient denies exposure to infectious person. Patient denies travel to an Ebola-affected area in the 21 days before illness onset. No symptoms or risks identified at this time. No acute neurological deficit is noted. Initial Sepsis Screen: Does the patient meet any 2 criteria? HR > 90 bpm. Does the patient have a suspected source of infection? No. Patient's initial sepsis screen is negative. Risk Assessment: Do you want to hurt yourself or someone else? Patient reports no desire to harm self or others. 11:47 Method Of Arrival: Wheelchair iw 11:47 Acuity: VIRAJ 2 iw 11:50 Onset of symptoms was March 23, 2020. iw Triage Assessment: 11:50 General: Appears distressed, uncomfortable, Behavior is cooperative, appropriate for bp age, anxious. Pain: Denies pain. EENT: No deficits noted. Neuro: Reports weakness. Cardiovascular: Rhythm is sinus tachycardia. Respiratory: No deficits noted. GI: No signs and/or symptoms were reported involving the gastrointestinal system. : No signs and/or symptoms were reported regarding the genitourinary system. Derm: No deficits noted. Musculoskeletal: No deficits noted. Historical: - Allergies: 11:50 No Known Allergies; iw - PMHx: 11:50 COPD; Lung CA - Stage 4; iw - PSHx: 11:50 None; iw - Immunization history:: Adult Immunizations up to date. - Social history:: Smoking status: Patient/guardian denies using tobacco, the patient reports quitting approximately 3 years ago. Screenin:50 Abuse screen: Denies threats or abuse. Denies injuries from another. Nutritional bp screening: No deficits noted. Tuberculosis screening: No symptoms or risk factors identified. Fall Risk None identified. Assessment: 11:50 General: SEE TRIAGE NOTE. bp 12:44 Reassessment: Patient appears in no apparent distress at this time. Patient and/or hb family updated on plan of care and expected duration. Pain level reassessed. Patient is alert, oriented x 3, equal unlabored respirations, skin warm/dry/pink. 12:52 Reassessment: US AT BEDSIDE FOR ECHO. hb 12:58 Reassessment: ECHO COMPLETE, PT TO CT. bp 13:45 Reassessment: Patient appears in no apparent distress at this time. Patient and/or hb family updated on plan of care and expected duration. Pain level reassessed. Patient is alert, oriented x 3, equal unlabored respirations, skin warm/dry/pink. 15:22 Reassessment: PT CT GROSSLY ABNORMAL. DISPO PENDING. bp 15:54 Reassessment: REPORT TO DMITRI HERRMANN AT [facility]. TRANSPORT PENDING. bp 16:35 Reassessment: EMS AT B/S FOR TRANSPORT. bp Vital Signs: 11:47 BP 152 / 98; Pulse 130; Resp 20 S; Temp 99.9; Pulse Ox 93% on R/A; Weight 61.23 kg; iw Height 5 ft. 5 in. (165.10 cm); Pain 0/10; 12:44 BP 155 / 93; Pulse 117; Resp 20; Pulse Ox 99% ; hb 14:00 BP 148 / 99; Pulse 114; Resp 21; Pulse Ox 100% on R/A; hb 15:22 BP 153 / 85; Pulse 114; Resp 23; Pulse Ox 100% ; bp 15:54 BP 140 / 86; Pulse 109; Resp 16; Pulse Ox 100% ; bp 11:47 Body Mass Index 22.46 (61.23 kg, 165.10 cm) ED Course: 11:26 Patient arrived in ED. ag5 11:26 Gurpreet Quintero MD is Private Physician. ag5 11:49 Triage completed. iw 11:50 Arm band placed on. bp 11:50 Patient has correct armband on for positive identification. Bed in low position. Call bp light in reach. Side rails up X2. 11:53 Josue Cordova MD is Attending Physician. ps1 11:54 Anthony Painter, MONTEZ is Primary Nurse. bp 12:30 Inserted saline lock: 20 gauge in right forearm, using aseptic technique. bp 12:44 XRAY Chest (1 view) In Process Unspecified. EDMS 13:00 CT Head Brain wo Cont In Process Unspecified. EDMS 13:29 transfer to [facility] initiated for neurosurgery. em1 14:00 [facility] transfer center called to conduct doc to doc consultation. em1 14:32 [facility] transfer center called to advise that bad assignment would be postponed until em1 after shift change this evening due to staff shortage; I consulted with physician and was instructed to cancel transfer to [facility] and attempt transfer to [facility]. 14:54 attempted to transfer to [facility], was advised that the facility was at capacity. em1 14:57 CT Chest For PE Angio In Process Unspecified. EDMS 15:00 transfer to [facility] attempted, facility at capacity. em1 15:11 transfer to [facility] initiated. em1 15:23 pt accepted to [facility] as an ER to ER transfer. em1 15:54 No provider procedures requiring assistance completed. Patient transferred, IV remains bp in place. Administered Medications: 12:29 Drug: NS 0.9% 500 ml Route: IV; Rate: bolus; Site: right forearm; bp 15:55 Follow up: IV Status: Completed infusion; IV Intake: 500ml bp 15:36 Drug: Decadron - Dexamethasone 10 mg Route: IVP; Site: right antecubital; bp 15:55 Follow up: Response: No adverse reaction bp 15:55 Drug: Keppra 1000 mg Route: IV; Rate: bolus; Site: right antecubital; bp 16:36 Follow up: IV Status: Completed infusion; IV Intake: 200ml bp Intake: 15:55 IV: 500ml; Total: 500ml. bp 16:36 IV: 200ml; Total: 700ml. bp Outcome: 15:38 ER care complete, transfer ordered by . ps1 15:54 Transferred by ground EMS to [facility], Transfer form completed. bp 15:54 Condition: stable 15:54 Instructed on the need for transfer. 16:49 Patient left the ED. bp Signatures: Dispatcher [employer] EDTessy Ugalde RN RN iw Tobi Cha em1 Mariposa Triana RN RN hb Anthony Painter RN RN bp Josue Cordova MD MD ps1 Danial Brown ag5 Corrections: (The following items were deleted from the chart) 11:51 11:47 Acuity: VIRAJ 3 iw iw 12:52 12:44 Reassessment: Patient appears in no apparent distress at this time. Patient hb and/or family updated on plan of care and expected duration. Pain level reassessed. Patient is alert, oriented x 3, equal unlabored respirations, skin warm/dry/pink. hb
[2020-03-28] MEDS ORDERED: dexAMETHasone 10 MG/ML VIAL ONE (15:42)
[2020-03-28] MEDS ORDERED: levETIRAcetam 1,000 MG in NA CHLORIDE 0.9% 100 ML IV ONE (15:45)
[2020-03-28 16:57] VITALS: TEMP 99.9
[2020-03-28 17:03] VITALS: O2SAT 100
[2020-03-28 17:06] VITALS: BP 140/86
[2020-03-28 19:26] LABS: Urine Blood NEGATIVE (NEG); Urine Glucose NEGATIVE (NEG); Urine Protein NEGATIVE (NEG); Urine pH 5.5 (5.0-7.0)
--- OUTSIDE RECORDS SUMMARY | 2020-03-28 22:40 | XMS REPORT | Clinical Summary ---
:1960 Author Organization [facility] Address [address] [place] [address] Care Team Providers Name Role Phone Unavailable Primary Care Provider Unavailable Allergies No Known Allergies Medications Medication Sig Dispensed Refills Start Date End Date Status ALPRAZolam (XANAX) 0.5 Take 0.5 mg by 0 Active MG tablet mouth 3 (three) times daily as needed for Anxiety. albuterol sulfate Inhale 2 puffs by 0 Active (PROAIR HFA INHL) mouth via inhaler 4 (four) times daily as needed . glycopyrrolate/formote Inhale 2 puffs by 0 Active rol fum mouth via inhaler (GLYCOPYRROLATE-FORMOT 2 (two) times BERNADETTE INHL) daily. predniSONE (DELTASONE) Take 10 mg by 0 Active 10 MG tablet mouth nightly. Active Problems Problem Noted Date Lung cancer 01/02/2020 Encounters Date Type Specialty Care Team Description 01/02/2020 Surgery [facility] PERICARDIOCE NTErlin GARIBAY MD 01/02/2020 - Hospital Encounter Cardiology [facility] Perica rdial effusion (Primary Dx); 01/05/2020 , Erlin Simpson MD Acute respiratory failure with hypoxemia (HCC) Sonia Zavala MD 01/02/2020 Travel after 03/28/2019 Social History Tobacco Use Types Packs/Day Years Used Date Unknown If Ever Smoked Smokeless Tobacco: Never Used Sex Assigned at Date Recorded Not on file Job Start Date Occupation Industry Not on file Not on file Not on file Travel History Travel Start Travel End No recent travel history available. Last Filed Vital Signs Vital Sign Reading Time Taken Blood Pressure 133/68 01/05/2020 11:52 AM CDT Pulse 87 01/05/2020 2:07 PM CDT Temperature 36.8 C (98.3 F) 01/05/2020 11:52 AM CDT Respiratory Rate 16 01/05/2020 2:07 PM CDT Oxygen Saturation 98% 01/05/2020 2:07 PM CDT Inhaled Oxygen Concentration - - Weight 57.2 kg (126 lb 1.7 oz) 01/05/2020 7:54 AM CDT Height 165.1 cm (5' 5") 01/02/2020 10:47 AM CDT Body Mass Index 20.98 01/05/2020 7:54 AM CDT Plan of Treatment Not on file Procedures Procedure Name Priority Date/Time Associated Comments Diagnosis RHYTHM STRIP - SCAN 01/07/2020 2:50 PM CDT CARDIAC CATH REPORT - 01/06/2020 2:40 SCAN PM CDT RHYTHM STRIP - SCAN 01/06/2020 2:40 PM CDT XR CHEST 1 VIEW Routine 01/05/2020 8:17 Results for this PORTABLE/BEDSIDE AM CDT procedure a re in the results section. CBC W/PLT COUNT & AUTO Routine 01/05/2020 4:40 R esults for this DIFFERENTIAL AM CDT procedure are i n the results section. MAGNESIUM Routine 01/05/2020 4:40 Results for this AM CDT procedure are i n the results section. BASIC METABOLIC PANEL (7) Routine 01/05/2020 4:40 Results for this AM CDT procedure are i n the results section. CBC W/PLT COUNT & AUTO Routine 01/05/2020 4:40 R esults for this DIFFERENTIAL AM CDT procedure are i n the results section. CBC W/PLT COUNT & AUTO Routine 01/04/2020 4:44 R esults for this DIFFERENTIAL AM CDT procedure are i n the results section. PHOSPHORUS Routine 01/04/2020 4:44 Results for this AM CDT procedure are i n the results section. HEPATIC FUNCTION PANEL Routine 01/04/2020 4:44 R esults for this AM CDT procedure are i n the results section. MAGNESIUM Routine 01/04/2020 4:44 Results for this AM CDT procedure are i n the results section. BASIC METABOLIC PANEL (7) Routine 01/04/2020 4:44 Results for this AM CDT procedure are i n the results section. CBC W/PLT COUNT & AUTO Routine 01/04/2020 4:44 R esults for this DIFFERENTIAL AM CDT procedure are i n the results section. ECHOCARDIOGRAM REPORT - 01/03/2020 9:11 SCAN PM CDT ECHOCARDIOGRAM REPORT - 01/03/2020 9:11 SCAN PM CDT ECHOCARDIOGRAM REPORT - 01/03/2020 9:10 SCAN PM CDT TRANSFUSION SERVICE 01/03/2020 5:51 REPORT - SCAN PM CDT 2D ECHO W/ DOPPLER TYLER 01/03/2020 9:37 Resul ts for this (CW/PW/COLOR) AM CDT procedure are in the results section. XR CHEST 1 VIEW Routine 01/03/2020 8:31 Results for this PORTABLE/BEDSIDE AM CDT procedure a re in the results section. HEPATIC FUNCTION PANEL Routine 01/03/2020 5:37 R esults for this AM CDT procedure are i n the results section. MAGNESIUM Routine 01/03/2020 5:37 Results for this AM CDT procedure are i n the results section. BASIC METABOLIC PANEL (7) Routine 01/03/2020 5:37 Results for this AM CDT procedure are i n the results section. CBC W/PLT COUNT & AUTO Routine 01/03/2020 4:44 R esults for this DIFFERENTIAL AM CDT procedure are i n the results section. CBC W/PLT COUNT & AUTO Routine 01/03/2020 4:44 R esults for this DIFFERENTIAL AM CDT procedure are i n the results section. BLOOD GAS, ARTERIAL STAT 01/02/2020 9:14 Resu lts for this PM CDT procedure are i n the results section. MISCELLANEOUS LAB ORDER Routine 01/02/2020 9:13 Results for this PM CDT procedure are i n the results section. ABORH, MANUAL STAT 01/02/2020 5:12 Results fo r this PM CDT procedure are i n the results section. TYPE AND SCREEN, STAT 01/02/2020 3:10 Results for this AUTOMATED PM CDT procedure are i n the results section. APTT Routine 01/02/2020 3:10 Results for this PM CDT procedure are i n the results section. PROTHROMBIN TIME/INR Routine 01/02/2020 3:10 Res ults for this PM CDT procedure are i n the results section. BODY FLUID CELL COUNT Routine 01/02/2020 2:36 Re sults for this WITH DIFFERENTIAL PM CDT procedure are in the results section. PROTEIN, TOTAL, Routine 01/02/2020 2:36 Results for this PERICARDIAL FLUID PM CDT procedure are in the results section. BODY FLUID CULTURE + GRAM Routine 01/02/2020 2:36 Results for this STAIN PM CDT procedure are i n the results section. GLUCOSE, PERICARDIAL Routine 01/02/2020 2:36 Res ults for this FLUID PM CDT procedure are i n the results section. CYTOLOGY AP Routine 01/02/2020 2:36 Results for this PM CDT procedure are i n the results section. 2D ECHO W/ DOPPLER TYLER 01/02/2020 2:19 Resul ts for this (CW/PW/COLOR) PM CDT procedure are in the results section. 2D ECHO W/ DOPPLER STAT 01/02/2020 1:04 Resul ts for this (CW/PW/COLOR) PM CDT procedure are in the results section. PERICARDIOCENTESIS 01/02/2020 1:01 Cardiac tamponade PM CDT LACTATE DEHYDROGENASE Add-On 01/02/2020 12:59 Re sults for this (LDH) PM CDT procedure are i n the results section. HEMOGLOBIN A1C AP Routine 01/02/2020 12:59 Results f or this PM CDT procedure are i n the results section. LIPID PANEL Routine 01/02/2020 12:59 Results for this PM CDT procedure are i n the results section. LACTIC ACID, VENOUS Routine 01/02/2020 12:59 Resu lts for this PM CDT procedure are i n the results section. TSH/FREE T4 IF INDICATED Routine 01/02/2020 12:59 Results for this PM CDT procedure are i n the results section. B-TYPE NATRIURETIC FACTOR Routine 01/02/2020 12:59 Results for this (BNP) PM CDT procedure are i n the results section. COMPREHENSIVE METABOLIC Routine 01/02/2020 12:59 Results for this PANEL PM CDT procedure are i n the results section. CBC (HEMOGRAM ONLY) Routine 01/02/2020 12:59 Resu lts for this PM CDT procedure are i n the results section. XR CHEST 1 VIEW Routine 01/02/2020 12:00 Results for this PORTABLE/BEDSIDE PM CDT procedure a re in the results section. after 03/28/2019 Results RHYTHM STRIP - SCAN (01/07/2020 2:50 PM CDT)Only the most recent of2 results within the time period is included. Narrative Performed At This result has an attachment that is no t available. CARDIAC CATH REPORT - SCAN (01/06/2020 2:40 PM CDT) Narrative Performed At This result has an attachment that is no t available. XR chest 1 view portable / bedside (01/05/2020 8:17 AM CDT)Only the most recent of3 resultswithin the time period is included. Specimen Narrative Performed At FINAL REPORT [facility] CLINICAL HISTORY: s/p pericardial drain TECHNIQUE: 1 view of the chest. COMPARISON: 01/03/2020 IMPRESSION: Pericardial drain has been removed. Ther e may be subtle pneumopericardium. There is no cardiomeg natalia. Faint bilateral lower lung airspace opacities and trace pleura l effusions have decreased. Signed: Nadir Liu MD Report Verified Date/Time:01/05/2020 08:34:20 Reading Location: [employer] Reading Room Procedure Note Interface, External Ris In - 01/05/2020 8:37 AM CDT FINAL REPORT CLINICAL HISTORY: s/p pericardial drain TECHNIQUE: 1 view of the chest. COMPARISON: 01/03/2020 IMPRESSION: Pericardial drain has been removed. Ther e may be subtle pneumopericardium. There is no cardiomeg natalia. Faint bilateral lower lung airspace opacities and trace pleura l effusions have decreased. Signed: Nadir Liu MD Report Verified Date/Time: 01/05/2020 0 8:34:20 Reading Location: [employer] Reading Room Performing Organization Address City/State/Zipcode Phone Number [facility] CBC with platelet count + automated diff (01/05/2020 4:40 AM CDT)Only the most recent of3 resultswithin the time period is included. WBC 5.4 3.5 - 10.5 K/L [facility] RBC 4.05 3.93 - 5.22 M/L [facility] Hemoglobin 13.0 11.2 - 15.7 GM/DL [facility] Hematocrit 40.0 34.1 - 44.9 % [facility] MCV 98.8 (H) 79.4 - 94.8 fL [facility] MCH 32.1 25.6 - 32.[address] [facility] MCHC 32.5 32.2 - 35.5 GM/DL [facility] RDW 16.0 (H) 11.7 - 14.4 % [facility] Platelets 340 150 - 450 K/CU MM [facility] MPV 8.5 (L) 9.4 - 12.[address] [facility] nRBC 0 0 - 0 /[address] [facility] % Neutros 70 % [facility] % Lymphs 10 % [facility] % Monos 15 % [facility] % Eos 2 % [facility] % Baso 1 % [facility] # Neutros 3.80 1.56 - 6.13 K/L [facility] # Lymphs 0.56 (L) 1.18 - 3.74 K/L [facility] # Monos 0.82 (H) 0.24 - 0.36 K/L [facility] # Eos 0.11 0.04 - 0.36 K/L [facility] # Baso 0.04 0.01 - 0.08 K/L [facility] Immature Granulocytes-Relative 2 (H) 0 - 1 % C HI [facility] Specimen Blood Performing Organization Address City/State/Zipcode Phone Number [facility] [address] [place] [address] CENTER Magnesium (01/05/2020 4:40 AM CDT)Only the most recent of3 resultswithin the time period is included. Magnesium 1.9 1.6 - 2.6 mg/dL [facility] Specimen Blood Narrative Performed At Consignee ID - MICHA Medellin [facility] Performing Organization Address City/[facility]/Zipcode Phone Number [facility] [address] [place] [address] CENTER Basic Metabolic Panel (01/05/2020 4:40 AM CDT)Only the most recent of3 results within the time period is included. Sodium 135 (L) 136 - 145 meq/L [facility] Potassium 3.5 3.5 - 5.1 meq/L [facility] Chloride 101 98 - 107 meq/L [facility] CO2 27 22 - 29 meq/L [facility] BUN 9 7 - 21 mg/dL [facility] Creatinine 0.61 0.57 - 1.25 mg/dL [facility] Glucose 100 70 - 105 mg/dL [facility] Calcium 8.1 (L) 8.4 - 10.2 mg/dL [facility] EGFR 100Comment: ESTIMATED GFR IS mL/min/1.73 sq m [facility] NOT ACCURATE CREATININE HI [facility] CLEARANCE IN PREDICTING GLOMERULAR FILTRATION RATE. ESTIMATED GFR IS NOT APPLICABLE FOR DIALYSIS PATIENTS. Specimen Blood Narrative Performed At Consignee ID - MICHA Medellin [facility] Performing Organization Address City/[facility]/Zipcode Phone Number [facility] [address] [place] [address] CENTER Phosphorus (01/04/2020 4:44 AM CDT) Phosphorus 3.1 2.3 - 4.7 mg/dL [facility] Specimen Blood Narrative Performed At Consignee ID - HAL Castellanos [facility] Performing Organization Address City/State/Zipcode Phone Number [facility] [address] [place] [address] [place] Hepatic function panel (01/04/2020 4:44 AM CDT)Only the most recent of2 results within the time period is included. Protein, Total 5.8 (L) 6.0 - 8.3 gm/dL [facility] Albumin 3.3 (L) 3.5 - 5.0 g/dL [facility] Total Bilirubin 1.3 (H) 0.2 - 1.2 mg/dL [facility] Bilirubin, Direct 0.6 (H) 0.1 - 0.5 mg/dL [facility] Alkaline Phosphatase 73 40 - 150 U/L [facility] AST 29 5 - 34 U/L [facility] ALT 40 6 - 55 U/L [facility] Specimen Blood Narrative Performed At Consignee ID - HAL W [facility] Performing Organization Address City/State/Zipcode Phone Number [facility] [address] [place] [address] [place] ECHOCARDIOGRAM REPORT - SCAN (01/03/2020 9:11 PM CDT) Narrative Performed At This result has an attachment that is no t available. ECHOCARDIOGRAM REPORT - SCAN (01/03/2020 9:11 PM CDT) Narrative Performed At This result has an attachment that is no t available. ECHOCARDIOGRAM REPORT - SCAN (01/03/2020 9:10 PM CDT) Narrative Performed At This result has an attachment that is no t available. TRANSFUSION SERVICE REPORT - SCAN (01/03/2020 5:51 PM CDT) Narrative Performed At This result has an attachment that is no t available. 2D Echo W/Doppler(CW/PW/Color) (01/03/2020 9:37 AM CDT) Ejection Fraction [facility] ECHO HEAR TLAB [facility] Specimen Narrative Performed At Transthoracic Echocardiography Report (T TE) [facility]ART[facility] Demographics Patient Name Yovani MONTALVO of Study 01/03/2020 [id number] GenderFem enriqueta Visit Number [id number] RaceCaroln own [id number] Number [id number] Number Date of Birth1960 Referring Physician Erlin Odom Age59 year(s) Ripening Room Attendant Maureen magallon, [facility] Marina Waldrop,Rajan Mak MD [facility] Physician Procedure Type of Study TTE procedure:2DECHO W DOPPLER(CW/PW/COLOR) (TYLER) Indications:Suspected Pericardial condit ions. Clinical History Lung cancer w/ mets, COPD, Pericardial effusion w/ tamponade s/p pericardiocentesis and pericardial drain 01/02/20 HGB 14.7 HCT 43.7 % Height: 65 inches Weight: 58.06 kg (128 lbs) BSA: 1.64 m^2 BMI: 21.3 kg/m^2 HR: 101 bpm BP: 92/69 mmHg Summary The left ventricle is chamber size (by vol index) is small. The following segment(s) appear hypokinetic: basal-mid inferior . LVEF by Gagnon's method of disk assessment is rwupzi-ac-ukslqptqub reduced (40%) . LV diastolic function is indeterminate. Unable to estimate peak systolic PA pressure; inadequate TR velocity signal. No pericardial effusion is visualized. Previous Study In comparison with the prior exam 01/02/2020, No residual pericardial effusion is visualized . Signature Findings Technical Quality: Technically adequate exam. Left Ventricle The left ventricle is chamber size (by vol index) is small. No evidence of LV hypertrophy. Th e fo llowing segment(s) appear hypokinetic: b wilma-mid in ferior . LVEF by Gagnon's method of dis k as sessment is mkpqzx-ck-yjkvnmcxnm reduced (40%) . LV diastolic function is indeterminate. Left AtriumLA size is normal (16-34 ml/m2) . Right VentricleThe right ventricular chamber size and systolic fu nction are within normal limits. Right Atrium RA size is normal. Aortic Valve The aortic valve is not well visualized, but ap pears normal. Mitral Valve Mild MV leaflet thickening. Tricuspid ValveA trace of tricuspid regurgitation. Un able to estimate peak systolic PA pressu re; in adequate TR velocity signal. Pulmonic Valve PV is not well visualized; function appears normal by Doppler visualized. AortaAortic root size (SInus of Valsalva diameter) i s no rmal . PericardiumNo pericardial effusion is visualized. IVC/SVC/PA/PV/PleuralThe estimated RA pressure by IVC dynamics 0-5mmHg . Chambers/Structures Left Atrium LA Volume: 27.43 ml LA Area: 12.75 cm^2 LA Vol. Index: 17 ml/m^2 Left Ventricle LVIDd: 4.51 cm LV Septum Diastolic: 0.81 cm LV PW Diastolic: 0.85 cm LVEDV Gagnon's:45.67 ml LVESV Gagnon's:22.42 ml LVEF Gagnon's: 39.9 %LVEDV I: 28 ml/m^2 LVESVI: 14 ml/m^2 LVOT Diameter: 2.07 cm Aorta Ao Root S of Katerine.: 2.79 cm Doppler/Quantitative Measurements LVOT LVOT Diameter: 2.07 cm LVOT Area: 3.37 cm^2 Tricuspid Valve TR Velocity: 2.29 m/s TR Gradient: 20.94 mmHg Procedure Note Interface, External Ris In - 01/03/2020 10:55 AM CDT Transthoracic Echocardiography Report (TTE) Demographics Patient Name MAKAYLA MONTALVO Date of Study 01/03/2020 Gender Female Visit Number [id number] Race Unknown [facility] [id number] Number Date of 1960 Referri Physician Erlin Odom Age 59 year(s) Sonogra pher Maureen Pavon RDCS Downstairs Maid Radha Waldrop, Interpr eting Ronak Mak MD [facility] Physici an Procedure Type of Study TTE procedure:2DECHO W DOPPLE R(CW/PW/COLOR) (TYLER) Indications:Suspected Pericardial condit ions. Clinical History Lung cancer w/ mets, COPD, Pericardial e ffusion w/ tamponade s/p pericardiocentesis and pericardial drain 01/02/20 HGB 14.7 HCT 43.7 % Height: 65 inches Weight: 58.06 kg (128 lbs) BSA: 1.64 m^2 BMI: 21.3 kg/m^2 HR: 101 bpm BP: 92/69 mmHg Summary The left ventricle is chamber size (by vol index) is small. The following segment(s) appear hypokinetic: basal-mi d inferior . LVEF by Gagnon's method of disk assessment is mildly-to- moderately reduced (40%) . LV diastolic function is indeterminate. Unable to estimate peak systolic PA pre ssure; inadequate TR velocity signal. No pericardial effusion is visualized. Previous Study In comparison with the prior exam 2019, No residual pericardial effusion is visualized . Signature Findings Technical Quality: Technically adequate exam. Left Ventricle The left ventric le is chamber size (by vol index) is small. No conrad dence of LV hypertrophy. The following segmen t(s) appear hypokinetic: basal-mid inferior . LVEF by Gagnon's method of disk assessment is mi hdob-ok-cmhljjkskz reduced (40%) . LV diastolic fun ction is indeterminate. Left Atrium LA size is evens l (16-34 ml/m2) . Right Ventricle The right ventri cular chamber size and systolic function are wit hin normal limits. Right Atrium RA size is evens l. Aortic Valve The aortic valve is not well visualized, but appears normal. Mitral Valve Mild MV leaflet thickening. Tricuspid Valve A trace of tricu spid regurgitation. Unable to estima te peak systolic PA pressure; inadequate TR ve locity signal. Pulmonic Valve PV is not well v isualized; function appears normal by Doppler visua lized. Aorta Aortic root size (SInus of Valsalva diameter) is normal . Pericardium No pericardial e ffusion is visualized. IVC/SVC/PA/PV/Pleural The estimated RA pressure by IVC dynamics 0-5mmHg . Chambers/Structures Left Atrium LA Volume: 27.43 ml LA Area: 12.75 cm^2 LA Vol. Index: 17 ml/m^2 Left Ventricle LVIDd: 4.51 cm LV Septum Diastolic: 0.81 cm LV PW Diastolic: 0.85 cm LVEDV Gagnon's:45.67 ml LVESV Gagnon's:22.42 ml LVEF Gagnon's: 39.9 % LVEDVI: 28 ml/m^2 LVESVI: 14 ml/m^2 LVOT Diameter: 2.07 cm Aorta Ao Root S of Katerine.: 2.79 cm Doppler/Quantitative Measurements LVOT LVOT Diameter: 2.07 cm LVOT Area: 3.37 cm^2 Tricuspid Valve TR Velocity: 2.29 m/s TR Gradient: 20.94 mmHg Performing Organization Address City/State/[facility] Phone Number [facility] Blood gas, arterial (01/02/2020 9:14 PM CDT) pH, Arterial 7.52 (H) 7.35 - 7.[address] [facility] pCO2, Arterial 36 35 - [address] [facility] pO2, Arterial 159 (H) 80 - [address] [facility] O2 Sat, Arterial 99.2 (H) 96.0 - 97.0 % [facility] HCO3, Arterial 28 21 - 29 mmol/L [facility] Base Excess, Arterial 5.6 (H) -2.0 - 3.0 mmol/L [facility] Patient Temperature 37.2 C [facility] FIO2 36.0 % [facility] Specimen Blood, Arterial Performing Organization Address City/[facility]/Zipcode Phone Number [address] [address] CENTER SARS COV 2 - COVID 19. (01/02/2020 9:13 PM CDT) Scan Result See scanned report [facility] Specimen Nasopharyngeal Narrative Performed At This result has an attachment that is no t available. Performing Organization Address City/[facility]/Zipcode Phone Number [facility] [address] [facility] [place], [place] ABORH, manual (01/02/2020 5:12 PM CDT) ABO Grouping O [facility] Rh Factor POS [facility] Specimen Blood Performing Organization Address City/[facility]/Zipcode Phone Number [address] [address] Type and screen, automated ([facility]) (01/02/2020 3:10 PM CDT) ABO/RH AUTOMATED (BEAKER) O POSITIVE [facility] Ab Scrn NEGATIVE [facility] Specimen Blood Performing Organization Address City/[facility]/Zipcode Phone Number [address] [address] aPTT (01/02/2020 3:10 PM CDT) PTT 23.7 22.5 - 36.0 seconds [facility] Specimen Blood Performing Organization Address [facility]/Zipcode Phone Number [address] [address] CENTER Prothrombin time/INR (01/02/2020 3:10 PM CDT) Protime 13.9 11.9 - 14.2 seconds [facility] INR 1.1 <=5.9 [facility] Specimen Blood Narrative Performed At Effective 02/17/2019: PT Reference Range [facility] Change New: 11.9-14.2Previous: 11.7-14.7 RECOMMENDED COUMADIN/WARFARIN INR THERAPY RANGES STANDARD DOSE: 2.0-3.0Includes: PROPHYLAXIS for venous thrombosis, systemic embolization; TREATMENT for venous thrombosis and/or pulmonary embolus. HIGH RISK: Target INR is 2.5-3.5 for patients wiht mechanical heart valves. Performing Organization Address [facility] Phone Number [address] [address] CENTER Protein, Total, Pericardial Fluid (01/02/2020 2:36 PM CDT) PROTEIN, TOTAL, PERICARDIAL FLUID 4.9 g/dL [facility] Specimen Body Fluid Performing Organization Address [facility] Phone Number [facility] [place] [address] [facility] [address] [employer] [facility] Glucose, Pericardial Fluid (01/02/2020 2:36 PM CDT) GLUCOSE, PERICARDIAL 26 mg/dL [facility] FLUID Comment: INCORPORATED SAMPLE GROSSLY HEMOLYZED. Reference range approximates that found in serum . Specimen Body Fluid Narrative Performed At Performing Lab [facility] [address] [address] [place] [address] Gabby Rolon MD, PhD, [place] Performing Organization Address [facility] Phone Number [facility] [place] [address] [facility] [address] [address] [facility] Body fluid culture + gram stain (01/02/2020 2:36 PM CDT) Result No growth [facility] Gram Stain Result 3+ White blood cells seen [facility] Gram Stain Result No organisms seen [facility] Specimen Body Fluid Performing Organization Address City/State/Zipcode Phone Number [facility] [address] [place] [address] CENTER Body fluid cell count with differential (01/02/2020 2:36 PM CDT) Appearance Bloody (A) Clear [facility] Color Red (A) Colorless, Straw [facility] RBCs 760,500 (H) <=1 /cu mm [facility] [facility] Adjusted WBC Count 2,285 (H) <=5 /cu mm [facility] Lining Cells 1,005 (H) <=1 /cu mm [facility] % Segs 14 % [facility] % Lymphs 4 % [facility] % Monos 82 % [facility] % Eos 0 % [facility] % Baso 0 % [facility] Container Body Fluid EDTA Tube [facility] Specimen Body Fluid Narrative Performed At Possible malignant cells seen on stained [facility] smears, cytology order in progress. Performing Organization Address City/State/Zipcode Phone Number [facility] [address] [place] [address] CENTER Cytology (01/02/2020 2:36 PM CDT) Case Report Medical Cytology Report Case: [id number] [facility] Authorizing Provider:Erlin Andrews, Collected: 01/02/2020 02:36 PM [facility] Ordering Location: [place] [address] CCUReceived:01/03/2020 08:54 AM Pathologist: Rhonda Chavez MD Specimen:Pericardial DIAGNOSIS PERICARDIAL FLUID (CYTOSPINS AND CELL BLOCK): [facility] - POSITIVE FOR MALIGNANCY [facility] - MALIGNANT CELLS, COMPATIBLE WITH METASTATIC ADENOCARCINOMA FROM PATIENT'S KNOWN LUNG PRIMARY (SEE COMM ENT) Signing Pathologist Direct Phone Line: COMMENT Cytospins and cell block [facility] sections show clusters of [facility] malignant carcinoma. Immunostains performed on cell block sections show tumor cells to be positive for MOC31, CK7, and TTF1; while predominantly negative for calretinin and WT1. These findings are compatible with metastasis from the patient's reported lung primary. CPT Code(s) 68502, 15553, 89151, 69885 x 4 C [facility] CLINICAL DATA Pericardial effusion; [facility] metastatic non-small cell lung B [facility] cancer, COPD who presented to outside hospital with with nausea, vomiting, diarrhea and dyspnea + cough who was subsequently found to have a large pericardial effusion, now transferred to [facility] for consideration of pericardiocentesis vs pericardial window SPECIMEN SOURCE PERICARDIAL FLUID [facility] GROSS DESCRIPTION Received 40 ml bloody fluid I [facility] Prepared cell block(A2) using collodion bag and 4 cytospins [facility] Collected: [id number] Received: [id number] STATEMENT OF ADEQUACY Satisfactory [facility] SPECIAL STUDIES The interpretation of this c ase included the use of immunohistochemistry or special stains. [facility] Control Slides Examined: In -house known positive controls were evaluated along with the test tissue. These control slides run alongside of the patients sample show appropriate staining. Internal posit latricia and negative controls when available are joan stafford Immunohistochemistry technic al testing was performed at [facility], Pathology Laboratory where it was developed and its performance characteristics were determined. It has not be en cleared or approved by [facility] U.S. Food and Drug Administration. The FDA has determined that such clearance or approval is not necessary. The test is used for clinical purposes. It should not be regarde d as investigational or for research. This laboratory is certified under the Clinical Laboratory Improvement Amendments of 1988 (CLIA-88) as qualified to perform high complexity clinical laboratory testing. Gross assessment was [facility] performed at [place], Department of [facility] Path[facility], [address] [place] [address], [place] [address], Technical component was [facility] performed at [place], Department of [facility], [address] [place] [address], Professional component [facility] was performed at [place], Department of [facility] Pathology, [address] [place] [address], Specimen Body Fluid Narrative Performed At This result has an attachment that is no t available. Performing Organization Address City/State/[place] [address] [place] 2D Echo W/Doppler(CW/PW/Color) (01/02/2020 2:19 PM CDT) Ejection Fraction [facility] ECHO HEAR TLAB [facility] Specimen Narrative Performed At Transthoracic Echocardiography Report (T TE) [facility] ECHO HEARTLAB MKCKESSON [facility] Demographics Patient Name MAKAYLA MONTALVO Date of Study01/02/2020 [id number] Gender Fem enriqueta Visit Number [id number] Unknown [id number] Room [id number] Number Date of Birth1960Referring PhysicianJorcristopher Odom Age59 year(s)Ripening Room Attendant Maureen Pavon, [facility] AnalystIzoldandrea Grace Interpreting MD Abraham Savage Physician Procedure Type of Study TTE procedure:2DECHO W DOPPLER(CW/PW/COLOR) (STAT) Indications:Pericardiocentesis. Clinical History Lung cancer, Pericardial effusion Height: 65 inches Weight: 58.06 kg (128 lbs) BSA: 1.64 m^2 BMI: 21.3 kg/m^2 HR: 107 bpm BP: 144/82 mmHg Summary Successful pericardiocentesis with residual trivial pericardial effusion. Signature Findings Technical Quality: Good visualization Left Ventricle Limited echo 2D study during pericardiocentesis. Previous study was done earlier today. Only apical 4 chamber, Chambers/Structures Left Atrium LA Volume: 35.78 ml LA Area: 14.74 cm^2 LA Vol. Index: 22 ml/m^2 Left Ventricle LVEDV Gagnon's:50.87 ml LVESV Gagnon's:31.69 ml LVEF Gagnon's: 37.7 % LVEDVI: 3 1 ml/m^2 LVESVI: 1 9 ml/m^2 Procedure Note Interface, External Ris In - 01/02/2020 8:05 PM CDT Transthoracic Echocardiography Report (TTE) Demographics Patient Name MAKAYLA MONTALVO Date of Study 01/02/2020 Gender Female Visit Number [id number] Race Unknown Room Num [facility] 6214 Number Date of 1960 Doug plasencia Physician Erlin Odom Age 59 year(s) Sonograp her Maureen Pavon, [facility] Downstairs Maid Andrei Rodriguez MD [facility] Physicia n Procedure Type of Study TTE procedure:2DECHO W DOPPLE R(CW/PW/COLOR) (STAT) Indications:Pericardiocentesis. Clinical History Lung cancer, Pericardial effusion Height: 65 inches Weight: 58.06 kg (128 lbs) BSA: 1.64 m^2 BMI: 21.3 kg/m^2 HR: 107 bpm BP: 144/82 mmHg Summary Successful pericardiocentesis with resi dual trivial pericardial effusion. Signature Findings Technical Quality: Good visualization Left Ventricle Limited echo 2D study during pericardiocentesis. Previous study was don e earlier today. Only apical 4 chamber, Chambers/Structures Left Atrium LA Volume: 35.78 ml LA Area: 14.74 cm^2 LA Vol. Index: 22 ml/m^2 Left Ventricle LVEDV Gagnon's:50.87 ml LVESV Gagnon's:31.69 ml LVEF Gagnon's: 37.7 % LVEDVI: 31 ml/m^2 LVESVI: 19 ml/m^2 Performing Organization Address City/State/Zipcode Phone Number [facility] [employer] [facility] 2D Echo W/Doppler(CW/PW/Color) (01/02/2020 1:04 PM CDT) Ejection Fraction [facility] ECHO HEAR TLAB [employer] [facility] Specimen Narrative Performed At Transthoracic Echocardiography Report (T TE) [facility] [employer] [facility] Demographics Patient Name MAKAYLA MONTALVO Date of Study01/02/2020 [id number] Gender Fem enriqueta Visit Number [id number] Unknown [id number] Room [id number] Number Date of Birth1960Referring PhysicianJorge Ilene Age59 year(s)Ripening Room Attendant Maureen Pavon, [facility] AnalystIzolda NJuan Interpreting Alan chaudhry MD [facility] Physician Procedure Type of Study TTE procedure:2DECHO W DOPPLER(CW/PW/COLOR) (STAT) Indications:Suspected Pericardial condit ions. Clinical History Lung cancer Height: 65 inches Weight: 58.06 kg (128 lbs) BSA: 1.64 m^2 BMI: 21.3 kg/m^2 HR: 100 bpm BP: 144/82 mmHg Summary 1. A large circumferential pericardial effusion is present with a hematoma anterior and around apex. Early pericardial tamponade physiology is noted. 2. The left ventricle is chamber size (by vol index) is small. Normal LV wall thickness. The following segment(s) appear hypokinetic: all LV basal-mid segments . 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 Global LV systolic function moderately reduced. LVEF by Gagnon's method of disk assessment is moderately reduced (35-39%). Estimation of LV systolic function is less reliable in the presence of tachycardia. 3. Hyperdynamic RV systolic function. Previous Study No prior exam available for comparison. Signature Findings Technical Quality: Good visualization Rhythm/BPTachycardia during the exam. Left Ventricle The left ventricle is chamber size (by vol index) is small. Normal LV wall thickness. Th e following segment(s) appear hypokineti c: all LV ba mathieu-mid segments . Ap ex is hyperkinetic. Global LV systolic f unction mo derately reduced. LVEF by Gagnon's meth od of di sk assessment is moderately reduced (35- 39%). Th e LVEF was measured using Gagnon's bi-p zack me thod of disk . De gree of diastolic dysfunction (LAP asses sment) is in conclusive due to fusion E and A . Es timation of LV systolic function is less reliable in the presence of tachycardia. Left AtriumLA size is normal (16-34 ml/m2) . Right VentricleRV chamber size is normal . Rv diastolic collapse is noted. Right Atrium RA cavity size is normal . There is RA systolic co llapse. Aortic Valve Normal AoV structure. Mitral Valve Normal MV structure. Tricuspid ValveUnable to estimate peak systolic PA pressure; in adequate TR velocity signal. Pulmonic Valve Normal PV structure and function. AortaAortic root size (SInus of Valsalva diameter) i s no rmal . PericardiumA large circumferential pericardial effusion is pr esent with a hematoma anterior and aroun d apex. Ea rly pericardial tamponade physiology is noted. IVC/SVC/PA/PV/PleuralThe estimated RA pressure by IVC dynamics 11-15mmHg . Chambers/Structures Left Atrium LA Volume: 30.59 ml LA Area: 14.33 cm^2 LA Vol. Index: 19 ml/m^2 Left Ventricle LVIDd: 4.62 cm LV Septum Diastolic: 0.9 cm LV PW Diastolic: 0.94 cm LVEDV Gagnon's:45.07 ml LVESV Gagnon's:28.66 ml LVEF Gagnon's: 36.4 % LVEDVI: 27 ml/m^2 LVESVI: 17 ml/m^2 LVOT Diameter: 1.9 cm Right Ventricle RVOT VTI: 9.71 cm TAPSE: 1.56 cm Aorta Ao Root S of Katerine.: 2.8 cm Doppler/Quantitative Measurements Aortic Valve Peak Velocity: 1.17 m/sMean Velocity: 0.72 m/s Peak Gradient: 5.5 mmHgMean Gradient: 2.49 mmHg AV Area (continuity): 2.22 cm^2 AV VTI: 18.69 cm AV DVI: 0.78 LVOT Peak Velocity: 0.95 m/s Peak Gradient: 3.63 mmHg Mean Velocity: 0.66 m/s Mean Gradient: 1.98 mmHg LVOT Diameter: 1.9 cm LVOT VTI: 14.65 cm LVOT Area: 2.84 cm^2LVOT SV:41.52 ml LVOT CO: 4.15 l/min LVOT CI: 2.53 l/min/m^2 Procedure Note Interface, External Ris In - 01/02/2020 8:03 PM CDT Transthoracic Echocardiography Report (TTE) Demographics Patient Name MAKAYLA MONTALVO Date of Study 01/02/2020 Gender Female Visit Number [id number] Race Unknown Room Num [facility] 6214 Number Date of 1960 Doug plasencia Physician Erlin Odom Age 59 year(s) Sonograp her Maureen Pavon RDCS Downstairs Maid Andrei Rodriguez MD [facility] Physicia n Procedure Type of Study TTE procedure:2DECHO W JESSICA R(CW/PW/COLOR) (STAT) Indications:Suspected Pericardial condit ions. Clinical History Lung cancer Height: 65 inches Weight: 58.06 kg (128 lbs) BSA: 1.64 m^2 BMI: 21.3 kg/m^2 HR: 100 bpm BP: 144/82 mmHg Summary 1. A large circumferential pericardial effusion is present with a hematoma anterior and around apex. Early pericar dial tamponade physiology is noted. 2. The left ventricle is chamber size ( by vol index) is small. Normal LV wall thickness. The following segment(s ) appear hypokinetic: all LV basal-mid segments . 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 Global LV systolic func tion moderately reduced. LVEF by Gagnon's method of disk assessment is moderately reduced (35-39%). Estimation of LV systolic function is l ess reliable in the presence of tachycardia. 3. Hyperdynamic RV systolic function. Previous Study No prior exam available for comparison. Signature Findings Technical Quality: Good visualization Rhythm/BP Tachycardia duri ng the exam. Left Ventricle The left ventric le is chamber size (by vol index) is small. Normal LV wall thickness. The following se gment(s) appear hypokinetic: all LV basal-mid segmen ts . [place] is hyperkin etic. Global LV systolic function moderately reduc ed. LVEF by Gagnon's method of disk assessment is moderately reduced (35-39%). The LVEF was manuelito sured using Gagnon's bi-plane method of disk . Degree of diasto lic dysfunction (LAP assessment) is inconclusive due to fusion E and A . Estimation of LV systolic function is less reliable in the presence of tachycardia. Left Atrium LA size is evens l (16-34 ml/m2) . Right Ventricle RV chamber size is normal . Rv diastolic col lapse is noted. Right Atrium RA cavity size i s normal . There is RA systolic collapse. Aortic Valve Normal AoV struc ture. Mitral Valve Normal MV struct ure. Tricuspid Valve Unable to estima te peak systolic PA pressure; inadequate TR ve locity signal. Pulmonic Valve Normal PV struct ure and function. Aorta Aortic root size (SInus of Valsalva diameter) is normal . Pericardium A large circumfe rential pericardial effusion is present with a h ematoma anterior and around apex. Early pericardia l tamponade physiology is noted. IVC/SVC/PA/PV/Pleural The estimated RA pressure by IVC dynamics 11-15mmHg . Chambers/Structures Left Atrium LA Volume: 30.59 ml LA Area: 14.33 cm^2 LA Vol. Index: 19 ml/m^2 Left Ventricle LVIDd: 4.62 cm LV Septum Diastolic: 0.9 cm LV PW Diastolic: 0.94 cm LVEDV Gagnon's:45.07 ml LVESV Gangon's:28.66 ml LVEF Gagnon's: 36.4 % LVEDVI: 27 ml/m^2 LVESVI: 17 ml/m^2 LVOT Diameter: 1.9 cm Right Ventricle RVOT VTI: 9.71 cm TAPSE: 1.56 cm Aorta Ao Root S of Katerine.: 2.8 cm Doppler/Quantitative Measurements Aortic Valve Peak Velocity: 1.17 m/s Mean Velocity: 0.72 m/s Peak Gradient: 5.5 mmHg Mean Gradient: 2.49 mmHg AV Area (continuity): 2.22 cm^2 AV VTI: 18.69 cm AV DVI: 0.78 LVOT Peak Velocity: 0.95 m/s Pea k Gradient: 3.63 mmHg Mean Velocity: 0.66 m/s Manuelito n Gradient: 1.98 mmHg LVOT Diameter: 1.9 cm LVO T VTI: 14.65 cm LVOT Area: 2.84 cm^2 LVO T SV:41.52 ml LVOT CO: 4.15 l/min LVO T CI: 2.53 l/min/m^2 Performing Organization Address City/[facility] Phone Number [facility] ECHO HEARTLAB MKCKESSON CPACS TSH/Free T4 If Indicated (01/02/2020 12:59 PM CDT) TSH 2.072 0.350 - 4.940 uIU/mL [facility] Specimen Blood Narrative Performed At Consignee ID - MANOLO C [facility] Performing Organization Address City/[facility] Mex[facility] Phone Number [address] [address] CENTER Lactic acid, venous (01/02/2020 12:59 PM CDT) Lactate, Venous 0.86 0.50 - 2.20 mmol/L [facility] Specimen Blood Narrative Performed At Consignee ID - MANOLO C [facility] Performing Organization Address [facility] [place] Phone Number [address] [address] [place] CBC (Hemogram only) (01/02/2020 12:59 PM CDT) WBC 9.7 3.5 - 10.5 K/L [facility] RBC 4.45 3.93 - 5.22 M/L [facility] Hemoglobin 14.5 11.2 - 15.7 GM/DL [facility] Hematocrit 42.7 34.1 - 44.9 % [facility] MCV 96.0 (H) 79.4 - 94.8 fL [facility] MCH 32.6 (H) 25.6 - 32.2 pg [facility] MCHC 34.0 32.2 - 35.5 GM/DL [facility] RDW 16.1 (H) 11.7 - 14.4 % [facility] Platelets 337 150 - 450 K/CU MM [facility] MPV 8.7 (L) 9.4 - 12.3 fL [facility] nRBC 0 0 - 0 /100 WBC [facility] Specimen Blood Performing Organization Address City/[facility] Phone Number [address] [address] [place] B-type Natriuretic Factor (BNP) (01/02/2020 12:59 PM CDT) BNP 369 (H) 0 - 100 pg/mL [facility] Specimen Blood Narrative Performed At Consignee ID - MANOLO C [facility] Performing Organization Address City/[facility] Phone Number [address] [address] CENTER Lactate dehydrogenase (LDH) (01/02/2020 12:59 PM CDT) LDH 367 (H) 125 - 220 U/L [facility] Specimen Blood Narrative Performed At Consignee ID - DB [facility] Performing Organization Address City/[facility] Phone Number [address] [address] CENTER Hemoglobin A1c (01/02/2020 12:59 PM CDT) Hemoglobin A1C 5.2 4.3 - 6.1 % [facility] Specimen Blood Performing Organization Address City/[facility]/Zipcode Phone Number [address] [address] [place] Lipid panel (01/02/2020 12:59 PM CDT) Triglycerides 95 mg/dL [facility] Cholesterol 205 mg/dL [facility] HDL 92 mg/dL [facility] LDL Calculated 94 mg/dL [facility] Specimen Blood Narrative Performed At Triglyceride Reference Range: [facility] Low Risk <150 [id number] High Risk 200-499 Very High Risk>=500 Cholesterol Reference Range: Low Risk <200 [id number] High Risk>240 HDL Cholesterol Reference Range: Low Risk >=60 High Risk <40 LDL Cholesterol Reference Range: Optimal<100 Near [id number] Very High >=190 Consignee ID - MANOLO C Specimen slightly icteric Performing Organization Address City/State/Zipcode Phone Number [facility] [address] [place] [address] [place] Comprehensive metabolic panel (01/02/2020 12:59 PM CDT) Protein, Total 7.0 6.0 - 8.3 gm/dL [facility] Albumin 4.1 3.5 - 5.0 g/dL [facility] Alkaline Phosphatase 109 40 - 150 U/L [facility] Total Bilirubin 1.8 (H) 0.2 - 1.2 mg/dL [facility] Sodium 134 (L) 136 - 145 meq/L [facility] Potassium 3.0 (L) 3.5 - 5.1 meq/L [facility] Chloride 90 (L) 98 - 107 meq/L [facility] CO2 27 22 - 29 meq/L [facility] BUN 9 7 - 21 mg/dL [facility] Creatinine 0.63 0.57 - 1.25 mg/dL [facility] Glucose 95 70 - 105 mg/dL [facility] Calcium 8.8 8.4 - 10.2 mg/dL [facility] AST 42 (H) 5 - 34 U/L [facility] ER ALT 60 (H) 6 - 55 U/L [facility] AL[facility] EGFR 96Comment: ESTIMATED GFR mL/min/1.[address] [facility] IS NOT ACCURATE [facility] CREATININE CLEARANCE IN PREDICTING GLOMERULAR FILTRATION RATE. ESTIMATED GFR IS NOT APPLICABLE FOR DIALYSIS PATIENTS. Specimen Blood Narrative Performed At Consignee ID - MANOLO Alvarado [facility] Specimen slightly icteric Performing Organization Address City/State/Zipcode Phone Number [facility] [address] [place], [place] [phone] CENTER after 03/28/2019 Insurance Payer Benefit Plan / Subscriber ID Type Phone Address Group xxxxxxxxx Other Govt (, [place], [facility], etc.) CDC REVIEW CDC REVIEW xxxxxxxx [address] [place] [address] Advance Directives For more information, please contact:[address] [phone] Code Status Date Activated Date Inactivated Comments Full Code 01/02/2020 11:47 AM 01/05/2020 5:01 PM This code status was determined by: Patient
--- OUTSIDE RECORDS SUMMARY | 2020-03-28 22:42 | XMS REPORT | Continuity of Care Document ---
:1960 Author Organization [facility] t Address [address] [place] [address] Dr. Morales [address] [place] [id number] Care Team Providers Name Role Phone Calvin ODOM Attending Clinician Unavailable Calvin Odom MD Attending Clinician Rochelle Zavala MD Attending Clinician Calvin ODOM Admitting Clinician Unavailable Payers Payer Name Policy Policy Effective Expiration Source Type Number Date Date TRICARETRICARExxxxxxxxxOther xxxxxxxxx [facility] Govt (, [place], [place], etc.) [facility] CDC REVIEWCDC REVIEWxxxxxxxxPO xxxxxxxx [place] [address] [facility] Problems Condition Condition Condition Status Onset Resolution Last Treating Co mments Source Name Details Category Date Date Treatment Clinician Date Lung Lung Disease Active [facility] cancer cancer 4-12 kes - 00:00: Medical 00 Center Allergies, Adverse Reactions, Alerts This patient has no known allergies or adverse reactions. Social History Social Habit Start Date Stop Date Quantity Comments Source Sex Assigned At [facility] Medications Ordered Filled Start Stop Current Ordering Indication Dosage Frequency Signature Comments Components Source Medication Medication Date Date Medication? Clinician (SIG) Name Name albuterol Yes 2{puff} Inhale [address] sulfate 4-12 puffs [facility] - (PROAIR HFA 12:53: mouth via M edical INHL) 08 inhaler 4 Center (four) times daily as needed . ALPRAZolam Yes .5mg Take 0.[address] [facility] (XANAX) 0.5 4-12 mg by [facility] - MG tablet 12:18: mouth 3 Medic al 04 (three) Center times daily as needed for Anxiety. glycopyrrol Yes 2{puff} Q.5D Inhale [address] ate/formote 4-12 puffs by Luke [facility] - rol fum 12:18: mouth via Medic al (GLYCOPYRRO [address] LATE-FORMOT (two) BERNADETTE IN[facility]) times daily. predniSONE Yes 10mg QD Take [address] (DELTASONE) 4-12 by mouth [facility] - 10 MG 12:18: nightly. Medical tablet [address] [place] [address] Vital Signs Vital Name Observation Time Observation Value Comments Source Heart rate 2020-01-05 14:07:00 87 /min [facility] Respiratory rate 2020-01-05 14:07:00 16 /min [facility] Oxygen saturation in 2020-01-05 14:07:00 98 /min [facility] Arterial blood by Medical Ce nter Pulse oximetry Systolic blood 2020-01-05 11:52:00 133 mm[Hg] [facility] Diastolic blood 2020-01-05 11:52:00 68 mm[Hg] [facility] Body temperature 2020-01-05 11:52:00 36.83 Myah [facility] Body weight Measured 2020-01-05 07:54:00 57.2 kg [facility] BMI 2020-01-05 07:54:00 20.98 kg/m2 [facility] Body height 2020-01-02 10:47:00 165.1 cm [facility] Procedures Procedure Date / Time Performing Clinician Source Performed RHYTHM STRIP - SCAN 2020-01-07 14:50:49 Provider, Default [facility] CARDIAC CATH REPORT - SCAN 2020-01-06 14:40:45 Provider, Default [facility] RHYTHM STRIP - SCAN 2020-01-06 14:40:33 Provider, Default [facility] XR CHEST 1 VIEW 2020-01-05 08:17:00 Wing Dihn [facility] PORTABLE/BEDSIDE [facility] [place] BASIC METABOLIC PANEL (7) 2020-01-05 04:40:00 Lino, Joslyn [facility] MAGNESIUM 2020-01-05 04:40:00 [facility]T COUNT & AUTO 2020-01-05 04:40:00 [facility]IC MET[facility]OLIC PANEL (7) 2020-01-04 04:44:00 Lino, Joslyn [facility] MAGNESIUM 2020-01-04 04:44:00 [facility] HEPATIC FUNCTION PANEL 2020-01-04 04:44:00 Lino, [facility] PHOSPHORUS 2020-01-04 04:44:00 Wing Dinh [facility] CBC W/PLT COUNT & AUTO 2020-01-04 04:44:00 Lino, [facility] ECHOCARDIOGRAM REPORT - SCAN 2020-01-03 21:11:26 Provider, [facility] ECHOCARDIOGRAM REPORT - SCAN 2020-01-03 21:11:24 Provider, [facility] ECHOCARDIOGRAM REPORT - SCAN 2020-01-03 21:10:44 Provider, [facility] TRANSFUSION SERVICE REPORT - 2020-01-03 17:51:12 Provider, [facility] 2D ECHO W/ DOPPLER 2020-01-03 09:37:[address] [facility] (CW/PW/COLOR) [facility] XR CHEST 1 VIEW 2020-01-03 08:31:00 Wing Dinh [facility]/BEDSIDE [facility] BASIC METABOLIC PANEL (7) 2020-01-03 05:37:00 LinoJoslyn [facility] MAGNESIUM 2020-01-03 05:37:00 [facility] FUNCTION PANEL 2020-01-03 05:37:00 Lino, [facility] CBC W/PLT COUNT & AUTO 2020-01-03 04:44:00 Lino, [facility] BLOOD GAS, ARTERIAL 2020-01-02 21:14:00 Eric Sherman [facility] MISCELLANEOUS LAB ORDER 2020-01-02 21:13:00 Ian Herron CH I [facility] ABORH, MANUAL 2020-01-02 17:12:00 Ashly Cat [facility] PROTHROMBIN TIME/INR 2020-01-02 15:10:00 Carmelita Hernandez [facility] APTT 2020-01-02 15:10:00 Carmelita Hernandez [facility] TYPE AND SCREEN, AUTOMATED 2020-01-02 15:10:00 Carmelita Hernandez [facility] GLUCOSE, PERICARDIAL FLUID 2020-01-02 14:36:55 [facility], [facility] BODY FLUID CULTURE + GRAM 2020-01-02 14:36:55 [facility] C [facility] - STAIN [facility] PROTEIN, TOTAL, PERICARDIAL 2020-01-02 14:36:55 [facility], [facility] - FLUID [facility] BODY FLUID CELL COUNT WITH 2020-01-02 14:36:55 [facility], [facility] - DIFFERENTIAL [facility] CYTOLOGY 2020-01-02 14:36:00 [facility], [facility] s - [facility] 2D ECHO W/ DOPPLER 2020-01-02 14:19:00 Dawkins-Gonzalez, [facility] - (CW/PW/COLOR) [facility] 2D ECHO W/ DOPPLER 2020-01-02 13:04:00 Dawkins-Gonzalez, [facility] - (CW/PW/COLOR) [facility] PERICARDIOCENTESIS 2020-01-02 13:01:00 [facility], [facility] St [facility] es [facility] CBC (HEMOGRAM ONLY) 2020-01-02 12:59:00 [facility], [facility] COMPREHENSIVE METABOLIC 2020-01-02 12:59:00 [facility] PANEL [facility] B-TYPE NATRIURETIC FACTOR 2020-01-02 12:59:00 [facility], C [facility] (BNP) [facility] TSH/FREE T4 IF INDICATED 2020-01-02 12:59:00 [facility], [facility] I [facility] LACTIC ACID, VENOUS 2020-01-02 12:59:00 [facility] LIPID PANEL 2020-01-02 12:59:00 [facility] HEMOGLOBIN A1C 2020-01-02 12:59:00 [facility] LACTATE DEHYDROGENASE (LDH) 2020-01-02 12:59:00 [facility] XR CHEST 1 VIEW 2020-01-02 12:00:00 [facility]/BEDSIDE [facility] Results Test Description Test Time Test Comments Results Result Comments Source Protein, Total, Pericardial Fluid 2020-01-14 17:43:00 Test Item Value Reference Range Interpretation Comme nts PROTEIN, TOTAL, PERICARDIAL FLUID (test code = 46144-3) 4.9 g/dL [facility] PERIC[facility]IAL [id number] 17:43:00 Test Item Value Reference Range Interpretation Comments PROTEIN, TOTAL, PERICARDIAL FLUID 4.9 g/dL (BEAKER) (test code = 2497525) Glucose, Pericardial [id number] 16:54:00 Test Item Value Reference Range Interpretation Comments GLUCOSE, 26 mg/dL SAMPLE GROSSLY PERICARDIAL FLUID HEMOLYZED. (test code = Reference range 38352-9) approximates th at found in serum. RHIANNA (test code = Performing Lab RHIANNA) [facility] [address] [place] [address] Gabby Rolon MD, PhD, [place] [facility] 15:00:00 Test Item Value Reference Range Interpretation Comments Case Report (test code Medical Cytology = 104) Report Case: [id number] Authorizing Provider: Erlin Odom, Collected: 01/02/2020 02:36 PM Ordering Location: [address] Received: 01/03/2020 08:54 AM Pathologist: Rhonda Chavez MD Specimen: Pericardial DIAGNOSIS (test code = a4fwiMKqQFZceOYiKgXvCM 3220) OnZKEov4ltBQFpnSImGxYk MzNcZnRuYmpcdWMxXGRlZm Nqg2lbd524bSQzw6kfGHIq JkL8aUJjCKWppTQvK438GR QoULhfc0qmt8UgTRVnqEIi y7O5AJRIlnqxlJl9dLciL9 8dy4U9NnmgI3svYSEdRJSc U1BgEX5kSBXuTwe9JBE7NB P1APLmJLYvV9DyJH7bTHNc fSGoYRe5q6izuFgaWKTdEC P9g8vdKRhifkA2DE1bmu5l sRc5h6pagsHfUSDmMORqtL GBPXOgH3HapIwhJs4wsNo0 pJroQcufXXY7Uyl8WE4dog 46axc0mQfrEEMuisxcSyP1 FCqfTEExbhlqBYj0JMpgNR JnbDcyMFxtYXJncjcyMFxt YXJndDcyMFxtYXJnYjcyMF rlYXFeBZH4FJbzk615GSF9 XKhcr7vum2epoPLvGqm4QQ NiGqCcMyzzQGmyy6Aog6os XKHkNoT4NGmxGB7vdr80YE TvLGS5ml8faAUvnKvnrjNq zVYhPPfbQ1EoLCUho117BC KlU8UlZGGvg3L0qoNcSnEo KRWxgWE5tpE1OGBsZOn8aH GmzdW6mdUqlDZmN1vvrI83 CpPnlYUxC3UeoE96LgMhlN IzN7TohC24JhDftKWhP4Gi hC41OfPjpUGqRWDvvAKpCw 1ipJJbxXRjq0WcuCIhLZor H05gw419FNUwcxMwQ3cgvV FpblxwbGFpblxmMFxmczI0 XHFsXHBsYWluXGYxXGZzMj BcbGFuZzEwMzNcaGljaFxm DEdhUqJzEZXcPMgcF9ckQy UkYzTwWVQTBTVLA1LXYDoR VRKDQMJDVOAjE1cBT9BIOW 5FOMWAOJKNKCjNAEDDU9EN UVaybHHqCIZdPJ2pXJ9ZMA VSOjImGt6HWF5ZVGjTCrET G2nrKRZdhjGyEQYdRL5XVD wIHuTIYXETVJhFBpqgV28I RBTGOLRPKFALIKTRQJ4FMX CDXTFEDUXpKQXHWx7OWHNU ZH6SQTBpsIPwXZLpBIGnQw HDEAUEWWHYPK9CR7DeN06K F18yFWBHRwSFCbvMNLPQKE jHDEJzZ58WSCCCSXavdBOz XHBsYWluXGYxXGZzMjJcbG FuZzEwMzNcaGljaFxmMVxk UnMxQBIgZHnqV4bcVhJeDz MyMlxwYXJcdGFiXHRhYlx0 MIAliFIjSFLjYoYlU6tkwl kqOsTBWAFeg1klE4zakFMM aHRuI8CvJTjfipKuVLoqEW twDSOrAAE5KW43CaY1QQEe YWluXGYxXGZzMjRccGFyfQ == COMMENT (test code = p4gfsXDwZCSjfPFuHcCgDR 3355) FqXIIfi2odHTSdvGEmLmZk MzNcZnRuYmpcdWMxXGRlZm Dlz5rwc289eDNes0lhWGOl YzJ8mJFnBEMbqVBdT308y9 oxw3ckgcXogDU2DIPvLWE4 EDmxfbEupaO3GMsbnIUpIz O0OOwksqZeFHvrkuEfiwRh Sqm4IGMjT474AVC4eJqwu2 gcMJG6GKXoUUGiRbFfHr4i iJIzY583LLZuGDMYQQSznG o2BHOvvaPzsxWvkCYRf905 W978e6lrOZInsrFysDcEkg tzl7ffG819VJSynNQgdsHl IaDqXWBzcWQydOW8FHBaWM 4qtrbsPpYfOW6kbopoXbCb PG1jjrc1ObVqCS0gvzstNs PnQBkqQDSwawyoKHWby5Df xtylLF1sO7Ghm0B0iF9neV EwHUBxjGRwPcDlLVUuee3q fUQqPYxls7NaKBE3otP2kR JfoWHbVZJtQH12Hjidl4Qj AyhtRQG2XCUpvnBwc8Hoa6 uwOmHnsdRaZ4fdP9RpGCYk YOWsHABfRqZphtFdb3Qph4 ZktHBzwFo9f5arUANnHSUw xPbyw6qjWQK5PZUaK7V5fZ Qnm9jiJBcaLTUmhXB8oiej HNxjKFQoveP1oomrQUfxCA LgsXM5usetSPahALRlNeQ3 jwjrLUjkBBYtIRQ0XYdyq0 12ARZ8CEdwTlxvJFngIAJd bmNvbnRccGduZGVjXHBsYW luXHBsYWluXGYwXGZzMjRc qJgipUkhgZ6nYkHvWoNwQY juJP4wJJAcR2orpQGpGNJi LXKjU3exNtOfhK0niFdjSK ybxjDhTWY5jQ1dzNepfqFw wlBdH2JlmVAvlW4apuSrJO U6pG8mloGpkH89CYHtkWX8 KONmBY9gWD5jyKggspFurT ZhFHTijY6mtFMwGVxgiFBt d9D8UPurocXoOJHxh7JsCF Zcx16vB3XpkHGhxS7kqmVt SQW8uR5nztMsuJ67CJP9aI 9yIGNlbGxzIHRvIGJlIHBv l1k8wHLrZPEbxiSST6AuTO hqS9e2IGYxqlBrCUCCUUpn l9nwyIAopQRaLR6bcH9ssg XqwXVuAXbrjJs4EHScn0Oz T2TtjvW6vK7jeaMcyaGjJ3 BgAqSVmJUtCODusA9xzT3t cwNpyvQyD82buBH7cSJcEB D3mQTlHV5vxRRqqGWqlVJc LeAmdFZ1eERsjKP1bDQxrX xvGVHkcD9ugNVtOPj4uuuy eSRrmHMyiC3aOXLsvy0= CPT Code(s) (test code f3kvvGKdBYBrdKPrCuXiTP = 3357) GaWYScb7qcOEOsvLTcQjQr MzNcZnRuYmpcdWMxXGRlZm Tsz0acw093zTMom6ocMJNb HyE9nVEyGKWfwPVxQ725LY DfJZntb4fts5FbIEJbaQNu h9W9EGCFkizkvUf9yCmpN7 7tu1X8WrfeS5uhKQZkSWDb T1DyPC8vKNRkLfl9AAU9SB U9OKYnUVAuJ3ZyIW4lJSRf mCTtJMn1t7yetDzvOFNsIL Z6s8gcWBzomoAgBP8ysg6x gFc2b4focjVpVWHpFREjuM IBIOGrE7FnaYpzCm1mfBw0 pPvuZlvwJCG8Kdf3WC0tuk 44gcs1fWdtAEBxpygeQzQ0 SSfqOFZxyrtjANw4MGnmQE JnbDcyMFxtYXJncjcyMFxt YXJndDcyMFxtYXJnYjcyMF yiJBAwWDZ6RLyuj223AQG6 AKucx9hup6ollYVtYbg7HA IeOgPfXutmJZaac2Lny4nl RGMker2bXFM6pOJbiLbgo4 V1kLXkUFFuaHLebkIxUWQl ChQ0HNirPW7mpx50EQYhPQ V1md7vmFHsrJlkfpCsyCFg YCwyY0MlLUUzm054CGZrF0 DgISAzp4N7syDlXfPxMRTn pNP3iyS4CSCpYIy7yCSzhj C2efEslJZkQ8vwgG88AyVg vPHxZ4HlcT40ImEhiMXcO0 WukF32ReYasPCnJ0TgcV12 VdBrhLNeCXWeoUWnNe6qcM CrkCNcn4VgqNKvGAxlG12o k245FFYxipAfB0lvvGWqpm bzuHRrmtwnKSmttmQ8FHLg XHBsYWluXGYxXGZzMjBcbG FuZzEwMzNcaGljaFxmMVxk XdWxXUNhATlvI4uaOzAiUo OkWPZ4LSBbLUbyQDkuPRAt TDn7UdUiVFS8VUW4AJN6NT RccGFyfQ== CLINICAL DATA (test h5dwlWUcMFJngWGvLvGvZD code = 3355) EaHPWzc3skTPAidWGbAgFq MzNcZnRuYmpcdWMxXGRlZm Oue9ofk610gHAha3gkTUJl SyL4sIXwIZQlvSHcY436DA ClOHfkb2kys7HdOVNkqVYm t3H1GVSizlwktXy3sMiwP7 0ok5T9FvruG8ynEQLuXUXk I0XmPZ1lSPHnDnl6TKE2BY O5PVFbCKBuH3UcBX5lEENf fPLiIAl7l3iwoTymTNQjVC P1d6xeKZrphuAmNH8rpg6o mPd6i2oqegUqCUGcETHakC FHMWOmU5VsgLkqVi8uuHa9 bPspNeyjQQR9Few6UZ5gtm 91wft9iCynLCYkrocfYfV1 EWfgPQSgdzokBFj6IJvoAU JnbDcyMFxtYXJncjcyMFxt YXJndDcyMFxtYXJnYjcyMF htIUWuZEJ2MLgmj950GRE9 PAibg2rxi1gnpYWbMwn6MO VrKqLnPsdkMAlne4Ngm8zl LQZkyg2sFLZ4tWBwaQjki5 G2jYFoKHVjbUYxwtWwGVJt SyS3PEwoDD3jgj86JLAyZV H3iq5foIGhbNfwoyQvbHGk KJamQ7PqWWTqt693HCUeH5 QwMRLmf6U3tpTbNqHjFQLa mSY6roA3IMVwJRi8wGIiis J1tqRawJVlA0sboT40OiGx yISeK4WtaR01BsKlcDOwQ8 QsbK05NiMtjDJvD7RfhN58 RxSuwMHaYQRcdPObMq1cgD QyuOBjh6VxxUJbRSzrN71j c212HBAgivFhA0kqzIIntt jrrRMrzokdTEvkvlS0BUGm XHBsYWluXGYwXGZzMjBcbG FuZzEwMzNcaGljaFxmMFxk IlUeYGIhGXohE8gqYuHyCw YrQLLGUMRvN1HcBGsbwDYc RjJ0x9kkmvoaVPDxONdeAW YxXGZzMjBcbGFuZzEwMzNc aGljaFxmMVxkYmNoXGYxXG rfY2zlHoEeAwPaLBQyRLIt i7MmrOouWL5lwn4kuKOoyL CnWJmnIYu7lfnaO3LdT5Sq RMOTT0JKAZaexyCuviAtHS 51JWMwwA5wm8T8r6dwUNBv q4DcyPLykEP7eCAzDUwfeI bbucJ7z6FoMOT8a95eiZqt DlczARfdasFdNJDrDQ0yXI C0m0EwGJPiOpKzp3ZkuET5 kL0db9YkJWE8ByClzUNlyj PtjTPjy0QxRLA5vrDcFZJz YOJjtKGwU7NspTRanOJykr DsFJlcSOKpsEQyx20oPC8g kfF5bqKcy1OcpiEwMPU5ea YRVSRYWPMmjyDnx46foENu gxI5nL2pUP2qZUYyouewNG IxoI9gAX00YKPhngN8taYv IODxV7QyRYmwaBK6zI5pp1 hpwXstmT1lLmAiLhBgONmv WI8vCBMwB2pozYYnWWMgXU UdB5ziYyXrkC2udZjmIRfq czIwXHBhcn0= SPECIMEN SOURCE (test v1ttkPOiKNRolTIiOpMdQY code = 3377) KvDUMrt9cnMZSspHXeOjEz MzNcZnRuYmpcdWMxXGRlZm Ueq6tze823tRUbp0keXEPe LbD8kKPiBYOtoWNhP219w0 wyd0apskPrmNP3XGQjXFS2 UZnfjkSajsA5ERinbRSeCg Q6SBwimaSgAWmeevNzhmBc Tld4ADMpL669SJZ4wHvvo6 kpSZE5OTJoIHUvPjMvOa6u bEBlZ954JOJgMDRGAUJxbS n7MRLwemYqiwVisWTOq811 V099o5xvIMXeklXkjLrRgx bjt3wpU676ZDPgxLWtiuWs SmKxIEKopGTulPN5BIFzCR 8gdqqjHrGkNU3aegumHrXq DT7cfmz6ZpVkLP7rooprMe ZhVKcvKXVutypkXBMjb5El wfbjRH4yF3Vkd9E2yA5pnI VnDMUmeZOeDjYbFSTtzc7h lQMiYYsft9JgLAN9xeB0tF MlzINqOIRfCI60Zuqbn0Fj BbotXFL9AGRgqbMmo3Nwz3 krVxItokGvN4inU5FaPRJb OVLjEGZvBeRkswPkk3Mge3 NioMRfbXx3k8ggURRkURQt pJtfm4yjRNE1LKBuE5G5hT Cio4ziMCtsQEEalMK3ajaj TSzwHDFmgzI6pcofZZtmSQ PndOA9vspgAYtdDBKbQyS1 cqkfQVshHWMbBGB4BJgop7 39NGQ0MVhlYeyrZHwkMJJj bmNvbnRccGduZGVjXHBsYW luXHBsYWluXGYwXGZzMjRc nSfmyXlkuP6nDdPaWjXbLY bwJS7cFUElC5lwsJHwXYTu PHLvN7wcCdKsgI1ifIfbKD xmczIwIFBFUklDQVJESUFM IEZMVUlEXHBhcn0= GROSS DESCRIPTION (test v1wkxSHtTFHaxGHgQkGyEX code = 3366) ZuBMZcb3izZVLleRJzUvGn MzNcZnRuYmpcdWMxXGRlZm Qcn5oys886aHYaq0odRDKb DeQ8oUSoODNmrNBbV848JS DyNKrin7uul5QiZRXdyHJp m9R3AYYWmxjruOu5uVevW3 3yf8A2MybpW0imNMAeVVWg E4GnNM5zEDLnLkv1VIU0QP Y8KVKyWTRjO2VeRM5vYWMq sYRoOOw9n6wuyTrjGPTbGQ A9v0lbQSfygwYlAI7xzd5r lKe1r5qtodBdTCJoPMBygM GPGGMbJ1AtePewLh3oyYn5 qJevBkdbVPT3Yfw6GS8mqm 22tcg5pPvmJDDzoqbfJzQ3 EElcRXSqsyzeKDh3ZFntPM JnbDcyMFxtYXJncjcyMFxt YXJndDcyMFxtYXJnYjcyMF wkLDUoKOY3EUftv986CDH7 LMbdp4xck4efsQEuDuc9KH XhRkItJumtAOwgh0Aon0tp DXIizq4vFOT4hOSbyBvhw5 N2oNNkMMTtiDSspvPkMNIq YoV9YQjjSQ8ezh72FYWuRD F1sy7xiQYzlWlknmKonLQl VGhmY9UcIFFnh571LSSsH5 MhDBSbv9Q6dmVwKzBrOVMr oMP7viV6XIIbYBh4cJYmec M7bgSubNXmY0fbiG66UoVq hAMhM4HpfA23DvWepMCpZ3 OaiS23HzHllHKsP4SciE75 VaYzqWHxQQTddVReTc7oyZ IxqKVxe1XebFQyKLtfX06q n257RGVfchSvG9mfoDBnyd ohaCSxutztRKudmkG4JNSi XHBsYWluXGYxXGZzMjJcbG FuZzEwMzNcaGljaFxmMVxk RmPnCURxQQapU7emRlJtXo OkWaHLFSQanTKfFZS1GAIh iKHkiW7gCUqvIoo9uGCahP FyIFByZXBhcmVkIGNlbGwg RwtrE0siDAFyLCQavN3sTT JvsWktUXkrdnPlHWrqJD5k SJGyS8e7p4GhaW7mEYXyuv PMj7xgKAG7CCM9BOW3NMZi BYgaLLQtQcZlERm6CXH5RU Q1LDUxERgjMLK3 STATEMENT OF ADEQUACY Satisfactory (test code = 2757) SPECIAL STUDIES (test u6rawGVlDRRph6sbMXXavI code = 3376) FuZzEwMzNcZnRuYmpcdWMx GQyhncCiXLhiw4EmS2DfYe AwMFxhbnNpXGRlZmxhbmcx ZOUrQIN0lmOeXUQcUKfrEA FsHDqcRg6svTQslCgnFvDb LEJhq9wjulIRtuedpGn8g8 yjYXNwLwY1oRTrIZvrW5yd htUqlRSxF2DqlNDaaNw3x1 muHjElNbG2cCZfCKuiM7fj elBswFWfGZJyFTt3wL55GV PotJ9zkNXbIZtybxCvNlT3 IWuqCVPwYzV5JCAbhBDcFG WhU4moESTrDMfdOYYfQByc oBNdUBJ2yXifz4A2eEFmtJ TjuCtqWzQyYsMsDmFEo2Qu QCr4zJuqG0ZzGGJkPkW6zY QgUGFyYWdyYXBoIEZvbnQ7 aTujfbJhq80qgTHmNFQbLH TlSrMudQpeSIXvHHNHq8Qk kCqzHBS5tJs2hGsiMhmsRC E1Zon8VH8lxs16ita1oIvd YIMsmndfKhL3RTroHASfdx fxRNu0YDuvHNTnaNC2VUUq qTYuA7JxYRMzRN0aayz8LH H3GTdwLGGkAsY5UMSubLQu SEYcsZioKOlbl144GIB8Ca JoIO1pV7Cbs2E9cW9mnDWw LFQfeBEaEaDqZXDxct7spP SqNWvvd2UwYQV4vjT1iHCg rZPhXXClUB58Masvb6SmUc wxv4NyT05fbTG0FHiew7vd YJ4aRyO8cmCbBZljj9hksL 0hFlH7VGvaTS6oGS7oYRGq aN6gpabvJVYyOhKaieotZF XjiBpnbuOaOq1anVkeHBV6 NVcxW9mwyR5oOyC0SLkkV0 gwfJ8yOGw4RFndsCC4IWKl sA8aHD2tytwsk7yyOWjfYL ejDAEsksW9dfO2XFEkoMPo T2ZtmF0pOUWqQQ0lhrjph0 mhHEC0DXaiPONaBRN2XkPt LGFue2Pipnq6EkWdg4BoeK XhHIfeH42mc559RLPvnpCv M7lpwRZkuqrzhMSaqvzyBB qihoG9FLNjNUBaGQotEVLt XGZzMjJcbGFuZzEwMzNcaG ljaFxmMVxkYmNoXGYxXGxv A5icFfNlX1XfSHGnAyFbOM cnBZqcsIYxfUXpwUR0qA2s FT3pQJVfoOYuN7IqHQVnod NtnHVlQEA8iQBrbBKiEB9d QPcytFEwi6cvf9KuS6qpdJ cmdAV8LQ4pQVLlZNMwTQcf j4SibU6oQyhkzJQvbkiqSN xmczIyXGxhbmcxMDMzXGhp A4rzZzWmWSEtgQkpIOdzi5 NoXGYxXGNmMlxmczIyXGx0 cmNoXHBhclxwYXJccGxhaW 6sQmAnSiSnWsmkXO9uPYTd M2xibCDaZXBbCRZzL2efRa XhjQ3saGuaNJamRvAtFlXo ZnXQm994pe5zFMGhqMIryu PKmKIeyB9zFCxrGGsyVCiv xUHmSAnwf8utRDKzz4x2lG FkKILeeoRzx2iyDBpbydVa MLVosPKafQTxUZNou79zPW fcjJjqrSoiDJQwy8KwiBqc x3CzFzNjJGnjr2RvI93wuQ JvbCBzbGlkZXMgcnVuIGFs s90di7plLPMkPfI1pIWxfP N2iAEjkMNjg7IeuHovSOBc s7hmZYEpvl5dszssyTXft6 FamG5hoipaBRbnwVXtwxCs BBAnt5j9uYUiDDOeHJRfQG adhRy7UJRob605ui7esaE0 zPShLYZ1PGvaJNIjNSThgp UgZXZhbHVhdGVkXHBsYWlu XGYxXGZzMjJcbGFuZzEwMz NcaGljaFxmMVxkYmNoXGYx WBlgN6qmKpHgE9WfQEPxHr HclNArT1lkyKBpZRDxROpe XGYxXGZzMjJcbGFuZzEwz NcaGljaFxmMVxkYmNoXGYx FDaeY1gpTaIcL8HmQQDyMw IgIFxwbGFpblxmMVxmczIy IZxdombpLWKwBTjdF7geQq NrXIPgjMhjXOeey9OoUUQx FFEqLcvbylEyCSt9vjQyYW BhclxwbGFpblxmMVxmczIy NQmkzzqqAFKpVUyuL7zcQq GnTVAofOdqGEzge3VtFGDc XGNmMlxmczIyIEltbXVub2 eja1BeH9kyiKpnzFZ8OHFn Y8twaSJyvNB1JQA6eN9oJP nrddIfTBUbz5MpGANzSCFs GtU6jL1sYWO7PuGBfVosKI BsYWluXGYxXGZzMjJcbGFu ZzEwMzNcaGljaFxmMVxkYm DvVEYeMZwpY2ahWbTyT4Co BOExQfYhuTisEMaoCFf1Fe xwbGFpblxmMVxmczIyXGxh xwlrQKQiSOlgN1wiVeEwLW MfqDpdFOczf1OeSMDoESHz MlxmczIyIHMgTWVkaWNhbC FGLP57XZWuOTDekHlnwL7b bGKWQAXggkY4o3Z8MOmdVS ZqYSn0FVikdvSrWUQcnF6y PWAnJA2bKMx8tqXqJYEms6 DmHL6kYSWwbZHsBOB2YPKb g0FrO0Fix2HlVZMkXKHwbz 9ipbOdRjFOmYCoXDDylx55 VLLqFX9zJ5puGUBxDSLvhs MbpHBsx5HdFYNypAJ1gVJu WS5WGqPKn08xJXAcLMQFox VsNLZsiTdudIT4bsP3yY9b LiBUaGUgRkRBIGhhcyBkZX Evwe8xczCvCZEoMVRif4Lp nNNowBPyaiAkS2Zrk1ZgGW Hdtk81XLqcyPEayw58NL0k S1Pau7AgmM6pJUqmIKPcj5 DgxHUgzTBlWPZty9RfK6xj vsjxSGzomTRamV6uVSJgBV r7XFMdh2NdFUJrs1ZlDxZq zoVuTVRqVSXqZMOyaE86SV F2eIfdbFeaehNoPI0oNJHh jsMeDJUxDWVpxL2wTOymeh GjTBRskrN2y6R8LRefEMHk xuXrZtdaLQF5qlApxdM3hV JsN6hpnefkPWwpBGJns5Mw oS6gaGLKlIMzx8CpaFHttQ UYqLFoRQ8bydCfYV3qWKI3 ODggKENMSUEtODgpIGFzIH T9YPxnIukqYTY4jzYkKHHz v5RwNLmsC7tbU66sbMwiiV d8wUMphQnwxKNntGQcOVKv fjS8q2C6ZUSct1VbuuaxIM BsYWluXGYyXGZzMjJcbGFu ZzEwMzNcaGljaFxmMlxkYm IpBFBmXPjyQ5dvQgPfJmQa WwjiZVA9iT== Gross assessment was [facility] performed at ([facility], = 2777) Department of Pathology, [address] [place] [id number], Technical component was [facility] performed at ([facility], = 4356) Department of Pathology, [address] [place] [address], Professional component [facility] was performed at ([facility], code = 2774) Department of Pathology, [address] [place] [address], [facility]:00:00Medical Cytology Report Case: [id number] Aut horizing Provider: Erlin Odom, Collected: 01/02/2020 02:36 PM OrderingLocation: [place] [address] CC Received: 01/03/2020 08:54 AM Pathologist: Rhonda Chavez MD Specimen: Pericardial PERICARDIAL FLUID(CYTOSPINS AND CELL BLOCK): - POSITIVE FOR MALIGNANCY - MALIGNANT CELLS, COMPATIBLE WITH METASTATIC ADENOCARCINOMA FROM PATIENT'S KNOWN LUNG PRIMARY (SEE COMMENT) Signing Pathologist Direct Phone Line: [phone] signed by Rhonda Chavez MD on 01/05/2020 at 3:00 PMPreliminary result electronically signed by Rhonda Chavez MD on 01/03/2020 at 3:51 PMCytospins and cell block sections show clusters of malignant carcinoma. Immunostains performed on cell block sections show tumor cells to be positive for MOC31, CK7, and TTF1; while predominantly negative for calretinin and WT1. These findings are compatible with metastasis from the patient's reported lung primary. 66898, 99060, 49753, 61580 x 4Pericardial effusion; metastatic non- small cell lung cancer, COPD who presented to outside hospital with with nausea, vomiting, diarrhea and dyspnea + cough who was subsequently found to have a large pericardial effusion, now transferred to [facility] for consideration of pericardiocentesisvs pericardial windowPERICARDIAL FLUIDReceived 40 ml bloody fluidPrepared cell block(A2) using collodion bag and 4 cytospinsCollected: [id number]: [id number] interpretation of this case included the use of immunohistochemistry or special stains.Control Slides Examined: In-house known positive controls were evaluated along with the test tissue. These control slides run alongside of the patients sample show appropriate staining. Internal positive and negative controls when available are evaluated Immunohistochemistry technical testing was performed at [facility], Pathology Laboratory where it was developed and its performance characteristics were determined. Ithas not been cleared or approved by the U.S. Food and Drug Administration. The FDA has determined that such clearance or approval is not necessary. The test is used for clinical purposes. It should not be regarded as investigational or for research. This laboratory is certified under the Clinical Laboratory Improvement Amendments of 1988 (CLIA-88) as qualified to perform high complexity clinical laboratory testing.[facility], Department of Pathology, [address] [place] [address], [facility], [address] [place] [address], [facility], Department of Pathology,[address] [place] [address], Wyxj fluid culture + gram [id number] 12:18:00 Test Item Value Reference Range Interpretation Comments Result (test code = 6463-4) No growth Gram Stain Result (test No organisms seen code = 1123) [facility] + [facility]AM [id number] 12:18:00 Test Item Value Reference Range Interpretation Comments CULTURE (BEAKER) (test No growth code = 1095) GRAM STAIN RESULT 3+ White blood cells (BEAKER) (test code = seen 1123) GRAM STAIN RESULT No organisms seen (BEAKER) (test code = 76340) RAD, CHEST, 1 VIEW, NON [id number] 08:34:00Reason for exam:->s/p pericardial drainShould this be performed at the bedside?->YesFINAL REPORT CLINICAL HISTORY: s/p pericardial drain TECHNIQUE: 1 view of the chest. COMPARISON: 01/03/2020 IMPRESSION: Pericardial drain has been removed. There may be subtle pneumopericardium. There is no cardiomegaly. Faint bilateral lower lung airspace opacities and trace pleural effusions have decreased. Signed: Nadir Liu Verified Date/Time: 01/05/2020 08:34:20 Reading Location: [facility] Radiology Reading Room XR chest 1 view portable / [id number] 08:34:00Interface, External Ris In - 01/05/2020 8:37 AM CDTFINAL REPORT CLINICAL HISTORY: s/p pericardial drain TECHNIQUE: 1 view of the chest. COMPARISON: 01/03/2020 IMPRESSION: Pericardial drain has been removed. There may be subtle pneumopericardium. There is no cardiomegaly. Faint bilateral lower lung airspace opacities and trace pleural effusions have decreased. Signed: Nadir Liu Verified Date/Time: 01/05/2020 08:34:20 Reading Location: [facility] Radiology [facility] 2020-01-05 05:35:00 Test Item Value Reference Range Interpretation Comments Sodium (test code = 135 meq/L 136-145 L 2951-2) Potassium (test code = 3.5 meq/L 3.5-5.1 2823-3) Chloride (test code = 101 meq/L 98-107 2075-0) CO2 (test code = 27 meq/L 22-29 8-9) BUN (test code = 9 mg/dL 7-21 3094-0) Creatinine (test code 0.61 mg/dL 0.57-1.25 = 2160-0) Glucose (test code = 100 mg/dL 70-105 2345-7) Calcium (test code = 8.1 mg/dL 8.4-10.2 L 04871-5) EGFR (test code = 100 mL/min/1.73 [place] [address]-6) NOT ACCURATE CREATININE CLEARANCE IN PREDICTING GLOMERULAR FILTRATION RATE . ESTIMATED GFR I S NOT APPLICABLE FOR DIALYSIS PATIENTS. RHIANNA (test code = RHIANNA) Skinner Pelts ID - MICHA L Lab Interpretation Abnormal (test code = 58731-0) [facility] Test Item Value Reference Range Interpretation Comments Magnesium (test code = 1.9 mg/dL 1.6-2.6 80315-9) RHIANNA (test code = RHIANNA) Skinner Pelts ID - PIAYA L Lab Interpretation (test Normal code = 21735-7) [facility]2020-04-15 05:35:00 Test Item Value Reference Range Interpretation Comments MAGNESIUM (BEAKER) (test code = 1.9 mg/dL 1.6-2.6 627) Skinner Pelts ID - MICHA LBASIC METABOLIC [id number] 05:35:00 Test Item Value Reference Range Interpretation Comments SODIUM (BEAKER) 135 meq/L 136-145 L (test code = 381) POTASSIUM (BEAKER) 3.5 meq/L 3.5-5.1 (test code = 379) CHLORIDE (BEAKER) 101 meq/L 98-107 (test code = 382) CO2 (BEAKER) (test 27 meq/L 22-29 code = 355) BLOOD UREA NITROGEN 9 mg/dL 7-21 (BEAKER) (test code = 354) CREATININE (BEAKER) 0.61 mg/dL 0.57-1.25 (test code = 358) GLUCOSE RANDOM 100 mg/dL 70-105 (BEAKER) (test code = 652) CALCIUM (BEAKER) 8.1 mg/dL 8.4-10.2 L (test code = 697) EGFR (BEAKER) (test 100 mL/min/1.73 ESTIM ATED GFR IS code = 1092) sq m NOT ACCURATE CREATININE CLEARANCE IN PREDICTING GLOMERULAR FILTRATION RATE . ESTIMATED GFR I S NOT APPLICABLE FOR DIALYSIS PATIEN TS. Skinner Pelts ID - MICHA LCBC with platelet count + automated [id number] 04:53:00 Test Item Value Reference Range Interpretation Comments WBC (test code = 6690-2) 5.4 3.5- 10.5 K/L RBC (test code = 789-8) 4.05 3.93- 5.22 M/L MCHC (test code = 786-4) 32.5 32.2- 35.5 GM/DL Hematocrit (test code = 4544-3) 40.0 % 34.1-44.9 MCV (test code = 787-2) 98.8 fL 79.4-94.8 H MCH (test code = 785-6) 32.1 pg 25.6-32.2 RDW (test code = 788-0) 16.0 % 11.7-14.4 H Platelets (test code = 777-3) 340 150- 450 K/CU MM MPV (test code = 76787-3) 8.5 fL 9.4-12.3 L nRBC (test code = 413) 0 0- 0 /100 WBC % Neutros (test code = 429) 70 % % Lymphs (test code = 430) 10 % % Monos (test code = 431) 15 % % Eos (test code = 432) 2 % % Baso (test code = 437) 1 % # Neutros (test code = 670) 3.80 1.56- 6.13 K/L # Lymphs (test code = 414) 0.56 1.18- 3.74 K/L L # Monos (test code = 415) 0.82 0.24- 0.36 K/L H # Eos (test code = 416) 0.11 0.04- 0.36 K/L # Baso (test code = 417) 0.04 0.01- 0.08 K/L Immature Granulocytes-Relative 2 % 0-1 H (test code = 2801) Lab Interpretation (test code = Abnormal 35093-4) [facility] W/PLT COUNT & AUTO [id number] 04:53:00 Test Item Value Reference Range Interpretation Comments WHITE BLOOD CELL COUNT (BEAKER) 5.4 K/ L 3.5-10.5 (test code = 775) RED BLOOD CELL COUNT (BEAKER) 4.05 M/ L 3.93-5.22 (test code = 761) HEMOGLOBIN (BEAKER) (test code = 13.0 GM/DL 11.2-15.7 410) HEMATOCRIT (BEAKER) (test code = 40.0 % 34.1-44.9 411) MEAN CORPUSCULAR VOLUME (BEAKER) 98.8 fL 79.4-94.8 H (test code = 753) MEAN CORPUSCULAR HEMOGLOBIN 32.1 pg 25.6-32.2 (BEAKER) (test code = 751) MEAN CORPUSCULAR HEMOGLOBIN CONC 32.5 GM/DL 32.2-35.5 (BEAKER) (test code = 752) RED CELL DISTRIBUTION WIDTH 16.0 % 11.7-14.4 H (BEAKER) (test code = 412) PLATELET COUNT (BEAKER) (test 340 K/CU MM 150-450 code = 756) MEAN PLATELET VOLUME (BEAKER) 8.5 fL 9.4-12.3 L (test code = 754) NUCLEATED RED BLOOD CELLS 0 /100 WBC 0-0 (BEAKER) (test code = 413) NEUTROPHILS RELATIVE PERCENT 70 % (BEAKER) (test code = 429) LYMPHOCYTES RELATIVE PERCENT 10 % (BEAKER) (test code = 430) MONOCYTES RELATIVE PERCENT 15 % (BEAKER) (test code = 431) EOSINOPHILS RELATIVE PERCENT 2 % (BEAKER) (test code = 432) BASOPHILS RELATIVE PERCENT 1 % (BEAKER) (test code = 437) NEUTROPHILS ABSOLUTE COUNT 3.80 K/ L 1.56-6.13 (BEAKER) (test code = 670) LYMPHOCYTES ABSOLUTE COUNT 0.56 K/ L 1.18-3.74 L (BEAKER) (test code = 414) MONOCYTES ABSOLUTE COUNT (BEAKER) 0.82 K/ L 0.24-0.36 H (test code = 415) EOSINOPHILS ABSOLUTE COUNT 0.11 K/ L 0.04-0.36 (BEAKER) (test code = 416) BASOPHILS ABSOLUTE COUNT (BEAKER) 0.04 K/ L 0.01-0.08 (test code = 417) IMMATURE GRANULOCYTES-RELATIVE 2 % 0-1 H PERCENT (BEAKER) (test code = 2801) Hepatic function [id number] 05:40:00 Test Item Value Reference Range Interpretation Comments Protein, Total (test code 5.8 6.0- 8.3 gm/dL L = 2885-2) Albumin (test code = 3.3 g/dL 3.5-5 L 30509-6) Total Bilirubin (test code 1.3 mg/dL 0.2-1.2 H = 1974-) Bilirubin, Direct (test 0.6 mg/dL 0.1-0.5 H code = 1967-7) Alkaline Phosphatase (test 73 U/L 40-150 code = 6768-6) AST (test code = 1920-8) 29 U/L 5-34 ALT (test code = 1742-6) 40 U/L 6-55 RHIANNA (test code = RHIANNA) Skinner Pelts REYNALDO HONG W Lab Interpretation (test Abnormal code = 53360-8) [facility] 05:[facility]00 Test Item Value Reference Range Interpretation Comments Phosphorus (test code = 3.1 mg/dL 2.3-4.7 2777-1) RHIANNA (test code = RHIANNA) Skinner Pelts REYNALDO HONG W Lab Interpretation (test Normal code = 08560-9) [facility]-14 05:40:00 Test Item Value Reference Range Interpretation Comments PHOSPHORUS (BEAKER) (test code = 3.1 mg/dL 2.3-4.7 604) Skinner Pelts REYNALDO HONG [id number] 05:40:00 Test Item Value Reference Range Interpretation Comments MAGNESIUM (BEAKER) (test code = 2.1 mg/dL 1.6-2.6 627) Skinner Pelts REYNALDO HONG WBASIC METABOLIC [id number] 05:40:00 Test Item Value Reference Range Interpretation Comments SODIUM (BEAKER) 136 meq/L 136-145 (test code = 381) POTASSIUM (BEAKER) 4.3 meq/L 3.5-5.1 (test code = 379) CHLORIDE (BEAKER) 102 meq/L 98-107 (test code = 382) CO2 (BEAKER) (test 26 meq/L 22-29 code = 355) BLOOD UREA NITROGEN 9 mg/dL 7-21 (BEAKER) (test code = 354) CREATININE (BEAKER) 0.56 mg/dL 0.57-1.25 L (test code = 358) GLUCOSE RANDOM 107 mg/dL 70-105 H (BEAKER) (test code = 652) CALCIUM (BEAKER) 8.1 mg/dL 8.4-10.2 L (test code = 697) EGFR (BEAKER) (test 110 mL/min/1.73 ESTIM ATED GFR IS code = 1092) sq m NOT ACCURATE CREATININE CLEARANCE IN PREDICTING GLOMERULAR FILTRATION RATE . ESTIMATED GFR I S NOT APPLICABLE FOR DIALYSIS PATIEN TS. Skinner Pelts ID - HAL WHEPATIC FUNCTION [id number] 05:40:00 Test Item Value Reference Range Interpretation Comments TOTAL PROTEIN (BEAKER) (test code = 5.8 gm/dL 6.0-8.3 L 770) ALBUMIN (BEAKER) (test code = 1145) 3.3 g/dL 3.5-5.0 L BILIRUBIN TOTAL (BEAKER) (test code 1.3 mg/dL 0.2-1.2 H = 377) BILIRUBIN DIRECT (BEAKER) (test 0.6 mg/dL 0.1-0.5 H code = 706) ALKALINE PHOSPHATASE (BEAKER) (test 73 U/L 40-150 code = 346) AST (SGOT) (BEAKER) (test code = 29 U/L 5-34 353) ALT (SGPT) (BEAKER) (test code = 40 U/L 6-55 347) Skinner Pelts ID - HAL WCBC W/PLT COUNT & AUTO [id number] 05:34:00 Test Item Value Reference Range Interpretation Comments WHITE BLOOD CELL COUNT (BEAKER) 6.9 K/ L 3.5-10.5 (test code = 775) RED BLOOD CELL COUNT (BEAKER) 4.34 M/ L 3.93-5.22 (test code = 761) HEMOGLOBIN (BEAKER) (test code = 13.7 GM/DL 11.2-15.7 410) HEMATOCRIT (BEAKER) (test code = 42.1 % 34.1-44.9 411) MEAN CORPUSCULAR VOLUME (BEAKER) 97.0 fL 79.4-94.8 H (test code = 753) MEAN CORPUSCULAR HEMOGLOBIN 31.6 pg 25.6-32.2 (BEAKER) (test code = 751) MEAN CORPUSCULAR HEMOGLOBIN CONC 32.5 GM/DL 32.2-35.5 (BEAKER) (test code = 752) RED CELL DISTRIBUTION WIDTH 15.9 % 11.7-14.4 H (BEAKER) (test code = 412) PLATELET COUNT (BEAKER) (test 365 K/CU MM 150-450 code = 756) MEAN PLATELET VOLUME (BEAKER) 8.6 fL 9.4-12.3 L (test code = 754) NUCLEATED RED BLOOD CELLS 0 /100 WBC 0-0 (BEAKER) (test code = 413) NEUTROPHILS RELATIVE PERCENT 76 % (BEAKER) (test code = 429) LYMPHOCYTES RELATIVE PERCENT 8 % (BEAKER) (test code = 430) MONOCYTES RELATIVE PERCENT 13 % (BEAKER) (test code = 431) EOSINOPHILS RELATIVE PERCENT 1 % (BEAKER) (test code = 432) BASOPHILS RELATIVE PERCENT 0 % (BEAKER) (test code = 437) NEUTROPHILS ABSOLUTE COUNT 5.24 K/ L 1.56-6.13 (BEAKER) (test code = 670) LYMPHOCYTES ABSOLUTE COUNT 0.56 K/ L 1.18-3.74 L (BEAKER) (test code = 414) MONOCYTES ABSOLUTE COUNT (BEAKER) 0.87 K/ L 0.24-0.36 H (test code = 415) EOSINOPHILS ABSOLUTE COUNT 0.05 K/ L 0.04-0.36 (BEAKER) (test code = 416) BASOPHILS ABSOLUTE COUNT (BEAKER) 0.02 K/ L 0.01-0.08 (test code = 417) IMMATURE GRANULOCYTES-RELATIVE 2 % 0-1 H PERCENT (BEAKER) (test code = 2801) SARS COV 2 - COVID 19.2020-01-04 01:11:00 Test Item Value Reference Range Interpretation Comments Scan Result (test code = See scanned report [id number]) [facility] [id number] 01:11:00 Test Item Value Reference Range Interpretation Comments SCAN RESULT (test code = See scanned report [id number]) 2D Echo W/Doppler(CW/PW/Color)2020-01-03 10:55:43Ejection FractionSLEH ECHO HEARTLAB MKCKESSON CPACSInterface, External Ris In - 01/03/2020 10:55 AM C DTTransthoracic Echocardiography Report (TTE) Demographics Patient Name DOTTY ARAIZA Date of Study 01/03/2020 Gender Female Visit Number [id number] Race Unknown Room Number 7410 Number Date of 1960 Referring Physician Erlin Odom Age 59 year(s) Distribution Engineer Maureen Pavon, [facility] Incident Response Specialist Radha Waldrop, Interpreting Ronak Mak MD [facility] Physician Procedure Type of Study TTE procedure:2DECHO W DOPPLER(CW/PW/COLOR) (TYLER) Indications:Suspected Pericardial conditions.Clinica l HistoryLung cancer w/ mets, COPD, Pericardial effusion w/ tamponade s/ppericardiocentesis and pericardial drain 01/02/20HGB 14.7HCT 43.7 %Height: 65 inches Weight: 58.06 kg (128 lbs) BSA: 1.64 m^2 BMI: 21.3 kg/m^2HR: 101 bpm BP: 92/69 mmHg Summary The left ventricle is chamber size (by vol index) is small. The following segment(s) appear hypokinetic: basal-mid inferior . LVEF by Gagnon's method of disk assessment is eivbuk-nq-hlbtxiooav reduced (40%) . LV diastolic function is [...] is small. No evidence of LV hypertrophy. The following segment(s) appear hypokinetic: basal-mid inferior . LVEF by Gagnon's method of disk assessment is jgofvd-uk-evidjojtgl reduced (40%) . LV diastolic function is indeterminate. Left Atrium LA size is normal (16-34 ml/m2) . Right Ventricle The right ventricular chamber size and systolic function are within normal limits. Right Atrium RA size is normal. Aortic Valve The aortic valve is not well visualized, but appears normal. Mitral Valve Mild MV leaflet thickening. Tricuspid Valve A trace of tricuspid regurgitation. Unable to estimate peak systolic PA pressure; inadequate TR velocity signal. Pulmonic Valve PV is not well visualized; function appears normal by Doppler visualized. Aorta Aortic root size (SInus of Valsalva diameter) is normal . Pericardium No pericardial effusion is visualized. IVC/SVC/PA/PV/Pleural The estimated RA pressure [...] TR Velocity: 2.29 m/s TR Gradient: 20.94 mmHgCHI [facility]RAD, CHEST, 1 VIEW, NON DEPT 2020-01-03 08:48:00Reason for exam:->s/p pericardial drainShould this be performed at the bedside?->YesFINAL REPORT CLINICAL HISTORY: s/p pericardial drain TECHNIQUE: 1 view of thechest. COMPARISON: 01/02/2020 IMPRESSION: There has been interval placement of a pericardial drain. The cardiomediastinal silhouette is not enlarged. There is no evidence for pneumothorax. Bibasilar airspace opacities and small pleural effusions are grossly unchanged. Signed: Nadir Liu MDReport Verified Date/Time: 01/03/2020 08:48:03 Reading Location: [facility] Radiology Reading Room Hemoglobin [id number] 08:28:00 Test Item Value Reference Range Interpretation Comments Hemoglobin A1C (test code = 4548-4) 5.2 % 4.3-6.1 Lab Interpretation (test code = Normal 50972-7) [facility] HospitalHEMOGLOBIN [id number] 08:28:00 Test Item Value Reference Range Interpretation Comments HEMOGLOBIN A1C (BEAKER) (test code = 5.2 % 4.3-6.1 368) [id number] 06:05:00 Test Item Value Reference Range Interpretation Comments MAGNESIUM (BEAKER) (test code = 1.7 mg/dL 1.6-2.6 627) Skinner Pelts ID - VANESSA MBASIC METABOLIC [id number] 06:05:00 Test Item Value Reference Range Interpretation Comments SODIUM (BEAKER) 131 meq/L 136-145 L (test code = 381) POTASSIUM (BEAKER) 4.2 meq/L 3.5-5.1 (test code = 379) CHLORIDE (BEAKER) 97 meq/L 98-107 L (test code = 382) CO2 (BEAKER) (test 25 meq/L 22-29 code = 355) BLOOD UREA NITROGEN 8 mg/dL 7-21 (BEAKER) (test code = 354) CREATININE (BEAKER) 0.64 mg/dL 0.57-1.25 (test code = 358) GLUCOSE RANDOM 146 mg/dL 70-105 H (BEAKER) (test code = 652) CALCIUM (BEAKER) 8.2 mg/dL 8.4-10.2 L (test code = 697) EGFR (BEAKER) (test 95 mL/min/1.73 ESTIMA CALLIE GFR IS code = 1092) sq m NOT ACCURATE CREATININE CLEARANCE IN PREDICTING GLOMERULAR FILTRATION RATE . ESTIMATED GFR I S NOT APPLICABLE FOR DIALYSIS PATIEN TS. Skinner Pelts ID - VANESSA MSpecimen slightly ictericHEPATIC FUNCTION [id number] 06:05:00 Test Item Value Reference Range Interpretation Comments TOTAL PROTEIN (BEAKER) (test code = 6.2 gm/dL 6.0-8.3 770) ALBUMIN (BEAKER) (test code = 1145) 3.4 g/dL 3.5-5.0 L BILIRUBIN TOTAL (BEAKER) (test code 2.1 mg/dL 0.2-1.2 H = 377) BILIRUBIN DIRECT (BEAKER) (test 0.8 mg/dL 0.1-0.5 H code = 706) ALKALINE PHOSPHATASE (BEAKER) (test 87 U/L 40-150 code = 346) AST (SGOT) (BEAKER) (test code = 32 U/L 5-34 353) ALT (SGPT) (BEAKER) (test code = 46 U/L 6-55 347) Skinner Pelts ID - VANESSA MSpecimen slightly ictericCBC W/PLT COUNT & AUTO [id number] 06:01:00 Test Item Value Reference Range Interpretation Comments WHITE BLOOD CELL COUNT (BEAKER) 9.5 K/ L 3.5-10.5 (test code = 775) RED BLOOD CELL COUNT (BEAKER) 4.53 M/ L 3.93-5.22 (test code = 761) HEMOGLOBIN (BEAKER) (test code = 14.7 GM/DL 11.2-15.7 410) HEMATOCRIT (BEAKER) (test code = 43.7 % 34.1-44.9 411) MEAN CORPUSCULAR VOLUME (BEAKER) 96.5 fL 79.4-94.8 H (test code = 753) MEAN CORPUSCULAR HEMOGLOBIN 32.5 pg 25.6-32.2 H (BEAKER) (test code = 751) MEAN CORPUSCULAR HEMOGLOBIN CONC 33.6 GM/DL 32.2-35.5 (BEAKER) (test code = 752) RED CELL DISTRIBUTION WIDTH 15.9 % 11.7-14.4 H (BEAKER) (test code = 412) PLATELET COUNT (BEAKER) (test 349 K/CU MM 150-450 code = 756) MEAN PLATELET VOLUME (BEAKER) 8.7 fL 9.4-12.3 L (test code = 754) NUCLEATED RED BLOOD CELLS 0 /100 WBC 0-0 (BEAKER) (test code = 413) NEUTROPHILS RELATIVE PERCENT 80 % (BEAKER) (test code = 429) LYMPHOCYTES RELATIVE PERCENT 5 % (BEAKER) (test code = 430) MONOCYTES RELATIVE PERCENT 14 % (BEAKER) (test code = 431) EOSINOPHILS RELATIVE PERCENT 0 % (BEAKER) (test code = 432) BASOPHILS RELATIVE PERCENT 0 % (BEAKER) (test code = 437) NEUTROPHILS ABSOLUTE COUNT 7.54 K/ L 1.56-6.13 H (BEAKER) (test code = 670) LYMPHOCYTES ABSOLUTE COUNT 0.45 K/ L 1.18-3.74 L (BEAKER) (test code = 414) MONOCYTES ABSOLUTE COUNT (BEAKER) 1.31 K/ L 0.24-0.36 H (test code = 415) EOSINOPHILS ABSOLUTE COUNT 0.02 K/ L 0.04-0.36 L (BEAKER) (test code = 416) BASOPHILS ABSOLUTE COUNT (BEAKER) 0.02 K/ L 0.01-0.08 (test code = 417) IMMATURE GRANULOCYTES-RELATIVE 2 % 0-1 H PERCENT (BEAKER) (test code = 2801) Blood gas, [id number] 21:26:00 Test Item Value Reference Range Interpretation Comments pH, Arterial (test code = 2744-1) 7.52 7.35-7.45 H pCO2, Arterial (test code = 36 35- 45 mmHg 2018-) pO2, Arterial (test code = 2703-7) 159 80- 90 mmHg H O2 Sat, Arterial (test code = 99.2 % 96-97 H 8-6) HCO3, Arterial (test code = 28 mmol/L -29 1959-) Base Excess, Arterial (test code = 5.6 mmol/L -2-3 H 192-7) Patient Temperature (test code = 37.2 C 8310-5) FIO2 (test code = 1819) 36 % Lab Interpretation (test code = Abnormal 74464-2) [facility] HospitalBLOOD GAS, [id number] 21:26:00 Test Item Value Reference Range Interpretation Comments PH ARTERIAL (BEAKER) (test code = 7.52 7.35-7.45 H 383) PCO2 ARTERIAL (BEAKER) (test code 36 mmHg 35-45 = 384) PO2 ARTERIAL (BEAKER) (test code = 159 mmHg 80-90 H 385) O2 SATURATION ARTERIAL (BEAKER) 99.2 % 96.0-97.0 H (test code = 386) HCO3 ARTERIAL (BEAKER) (test code 28 mmol/L -29 = 388) BASE EXCESS ARTERIAL (BEAKER) 5.6 mmol/L -2.0-3.0 H (test code = 387) PATIENT TEMPERATURE (BEAKER) (test 37.2 C code = 1818) FIO2 (BEAKER) (test code = 1819) 36.0 % 2D Echo W/Doppler(CW/PW/Color)2020-01-02 20:05:06Ejection FractionSLEH ECHO HEARTLAB MKCKESSON CPACSInterface, External Ris In - 01/02/2020 8:05 PM C DTTransthoracic Echocardiography Report (TTE) Demographics Patient Name DOTTY ARAIZA Date of Study 01/02/2020 Gender Female Visit Number [id number] Race Unknown Room Number 6214 Number Date of 1960 Referring Physician Erlin Odom Age 59 year(s) Distribution Engineer Maureen Pavon, [facility] Incident Response Specialist Andrei Grace Interpreting Alan Rodriguez MD [place] Physician Procedure Type of Study TTE procedure:2DECHO W DOPPLER(CW/PW/COLOR) (STAT) Indications:Pericardiocentesis.Clinical HistoryLung cancer, Pericardial effusionHeight: 65 inches Weight: 58.06 kg (128 lbs) BSA: 1.64 m^2 BMI: 21.3 kg/m^2HR: 107 bpm BP: 144/82 mmHg Summary Successful [...] 37.7 % LVEDVI: 31 ml/m^2 LVESVI: 19 ml/m^2[facility]2D [facility] W/Doppler(CW/PW/Color)2020-01-02 20:03:23Ejection FractionSLEH ECHO HEARTLAB MKCKESSON CPACSInterface, External Ris In - 01/02/2020 8:03 PM C DTTransthoracic Echocardiography Report (TTE) Demographics Patient Name DOTTY ARAIZA Date of Study 01/02/2020 Gender Female Visit Number [id number] Race Unknown Room Number 6214 Number Date of 1960 Referring Physician Erlin Odom Age 59 year(s) Distribution Engineer Maureen Pavon [facility] Incident Response Specialist MD Abraham Velasquez Physician Procedure Type of Study TTE procedure:2DECHO W DOPPLER(CW/PW/COLOR) (STAT) Indications:Suspected Pericardial conditions.Clinical HistoryLung cancerHeight: 65 inches Weight: 58.06 kg (128 lbs) BSA: 1.64 m^2 BMI: 21.3 kg/m^2HR: 100 bpm BP: 144/82 mmHg Summary 1. A large circumferential pericardial effusion is present with a hematomaanterior and around apex. Early pericardial tamponade physiology is noted. 2. The left ventricle ischamber size (by vol index) is small. Normal LV wall thickness. The following segment(s) appear hypokinetic: all LV basal-mid segments . 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 Global LV systolic function moderately reduced. LVEF by Gagnon's method of disk assessment is moderately reduced (35-39%). Estimation of LV systolic function is less reliable in the presence of tachycardia. 3. Hyperdynamic RV systolic function. Previous Study No prior exam available for comparison.Signature Findings Technical Quality: Good visualization Rhythm/BP Tachycardia during the exam. Left Ventricle The left ventricle is chamber size (by vol index) is small. Normal LV wall thickness. The following segment(s) appear hypokinetic: all LV basal-mid segments . [place] is hyperkinetic. Global LV systolic function moderately reduced. LVEF by Gagnon's method of disk assessment is moderately reduced (35-39%). The LVEF was measured using Gagnon's bi-plane method of disk . Degree of diastolic dysfunction (LAP assessment) is inconclusive due to fusion E and A . Estimation of LV systolic function is lessreliable in the presence of tachycardia. Left Atrium LA size is normal (16-34 ml/m2) . Right Ventricle RV chamber size is normal . Rv diastolic collapse is noted. Right Atrium RA cavity size is normal . There is RA systolic collapse. Aortic Valve Normal AoV structure. Mitral ValveNormal MV structure. Tricuspid Valve Unable to estimate peak systolic PA pressure; inadequate TR velocity signal. Pulmonic Valve Normal PV structure and function. Aorta Aortic root size (SInus of Valsalva diameter) is normal . Pericardium A large circumferential pericardial effusion is present with a hematoma anterior and around apex. Early pericardial tamponade physiology is noted. IVC/SVC/PA/PV/Pleural The estimated [...] Gradient: 5.5 mmHg Mean Gradient: 2.49 mmHg AVArea (continuity): 2.22 cm^2 AV VTI: 18.69 cm AV DVI: 0.78 LVOT Peak Velocity: 0.95 m/s Peak Gradient: 3.63 mmHg Mean Velocity: 0.66 m/s Mean Gradient: 1.98 mmHg LVOT Diameter: 1.9 cm LVOT VTI: 14.65 cm LVOT Area: 2.84 cm^2 LVOT SV:41.52 ml LVOT CO: 4.15 l/min LVOT CI: 2.53 l/min/m^2[facility] CampusABORH, [id number] 18:16:00 Test Item Value Reference Range Interpretation Comments ABO Grouping (test code = 2588) O Rh Factor (test code = 2589) POS [facility]Body [facility] cell count with [id number] 16:58:00 Test Item Value Reference Range Interpretation Comments Appearance (test code = Bloody Clear A 9335-1) Color (test code = Red Colorless, Straw A 6824-7) RBCs (test code = 530217 <=1 /cu mm H 28494-6) Adjusted WBC Count (test 2285 <=5 /cu mm H code = 67904-4) Lining Cells (test code = 1005 <=1 /cu mm H 38033-5) % Segs (test code = 14 % 80376-8) % Lymphs (test code = 4 % 52829-7) % Monos (test code = 82 % 30912-7) % Eos (test code = 0 % 25642-2) % Baso (test code = 0 % 42343-9) Container Body Fluid EDTA Tube (test code = 2873) RHIANNA (test code = RHIANNA) Possible malignant cells seen on stained smears, cytology order in progress. Lab Interpretation (test Abnormal code = 30696-8) [facility] HospitalBODY FLUID CELL COUNT WITH [id number] 16:58:00 Test Item Value Reference Range Interpretation Comments APPEARANCE FLUID (BEAKER) Bloody Clear A (test code = 510) COLOR FLUID (BEAKER) (test Red Colorless, Straw A code = 511) RBC FLUID (BEAKER) (test code 740662 /cu mm <=1 H = 513) ADJUSTED WBC FLUID (BEAKER) 2285 /cu mm <=5 H (test code = 1691) LINING CELLS (BEAKER) (test 1005 /cu mm <=1 H code = 1590) NEUTROPHILS FLUID (BEAKER) 14 % (test code = 1656) LYMPHS FLUID (BEAKER) (test 4 % code = 488) MONO/MACROPHAGE FLUID (BEAKER) 82 % (test code = 489) EOSINOPHILS FLUID (BEAKER) 0 % (test code = 491) BASO FLUID (BEAKER) (test code 0 % = 492) CONTAINER BODY FLUID (BEAKER) EDTA Tube (test code = 2873) Possible malignant cells seen on stained smears, cytology order in progress.Type and screen, automated ([facility])2020-01-02 16:22:00 Test Item Value Reference Range Interpretation Comments ABO/RH AUTOMATED (BEAKER) (test O POSITIVE code = 2260) Ab Scrn (test code = 890-4) [facility]GATIVE [facility] Test Item Value Reference Range Interpretation Comments PTT (test code = 80552-3) 23.7 22.5- 36.0 seconds Lab Interpretation (test code = Normal 65231-0) [facility] 15:[facility]:00 Test Item Value Reference Range Interpretation Comments PARTIAL THROMBOPLASTIN TIME 23.7 seconds 22.5-36.0 (BEAKER) (test code = 760) Prothrombin time/BSW9529-03-21 15:42:00 Test Item Value Reference Range Interpretation Comments Protime (test code = 13.9 11.9- 14.2 5902-2) seconds INR (test code = 1.1 <=5.9 6301-6) RHIANNA (test code = RHIANNA) Effective 02/17/2019: PT Reference Range ChangeNew: 11.9-14.2 Previous: 11.7-14.7 RECOMMENDED COUMADIN/WARFARIN INR THERAPY RANGESSTANDARD DOSE: 2.0-3.0 Includes: PROPHYLAXIS for venous thrombosis, systemic embolization; TREATMENT for venous thrombosis and/or pulmonary embolus.HIGH RISK: Target INR is 2.5-3.5 for patients wiht mechanical heart valves. Lab Interpretation Normal (test code = 36808-5) [facility] [facility]/[id number] 15:42:00 Test Item Value Reference Range Interpretation Comments PROTIME (BEAKER) (test code = 13.9 seconds 11.9-14.2 759) INR (BEAKER) (test code = 370) 1.1 <=5.9 Effective 02/17/2019: PT Reference Range ChangeNew: 11.9-14.2 Previous: 11.7- 14.7RECOMMENDED COUMADIN/WARFARIN INR THERAPY RANGESSTANDARD DOSE: 2.0-3.0 Includes: PROPHYLAXIS for venous thrombosis, systemic embolization; TREATMENT for venous thrombosis and/or pulmonary embolus.HIGH RISK: Target INR is2.5-3.5 for patients wiht mechanical heart valves.Lactate dehydrogenase (LDH)2020-01-02 15:00:00 Test Item Value Reference Range Interpretation Comments LDH (test code = 2532-0) 367 U/L 125-220 H RHIANNA (test code = RHIANNA) [facility] ID - DB Lab Interpretation (test Abnormal code = 70506-6) [facility] (LDH)2020-01-02 15:00:00 Test Item Value Reference Range Interpretation Comments LACTATE DEHYDROGENASE (BEAKER) (test 367 U/L 125-220 H code = 635) [facility] ID - DBTSH/Free T4 If [id number] 13:47:00 Test Item Value Reference Range Interpretation Comments TSH (test code = 2.072 0.350- 4.940 uIU/mL 48673-0) RHIANNA (test code = RHIANNA) [facility] ID - MANOLO C Lab Interpretation (test Normal code = 60066-3) [facility]TSH[facility] T4 IF [id number] 13:47:00 Test Item Value Reference Range Interpretation Comments THYROID STIMULATING HORMONE 2.072 uIU/mL 0.350-4.940 (BEAKER) (test code = 772) [facility] ID - MANOLO CB-type Natriuretic Factor (BNP)2020-01-02 13:32:00 Test Item Value Reference Range Interpretation Comments BNP (test code = 32898-6) 369 pg/mL 0-100 H RHIANNA (test code = RHIANNA) [facility] ID - MANOLO C Lab Interpretation (test Abnormal code = 97436-8) [facility] NATRIURET[facility] FACTOR (BNP)2020-01-02 13:32:00 Test Item Value Reference Range Interpretation Comments B-TYPE NATRIURETIC PEPTIDE (BEAKER) 369 pg/mL 0-100 H (test code = 700) [facility] ID - MANOLO CComprehensive metabolic [id number] 13:27:00 Test Item Value Reference Range Interpretation Comments Protein, Total (test 7.0 6.0- 8.3 gm/dL code = 2885-2) Albumin (test code = 4.1 g/dL 3.5-5 27915-5) Alkaline Phosphatase 109 U/L 40-150 (test code = 6768-6) Total Bilirubin (test 1.8 mg/dL 0.2-1.2 H code = 1975-2) Sodium (test code = 134 meq/L 136-145 L 2951-2) Potassium (test code 3.0 meq/L 3.5-5.1 L = 2823-3) Chloride (test code = 90 meq/L 98-107 L 2075-0) CO2 (test code = 27 meq/L 22-29 2028-9) BUN (test code = 9 mg/dL 7-21 3094-0) Creatinine (test code 0.63 mg/dL 0.57-1.25 = 2160-0) Glucose (test code = 95 mg/dL 70-105 2345-7) Calcium (test code = 8.8 mg/dL 8.4-10.2 09687-9) AST (test code = 42 U/L 5-34 H 1920-8) ALT (test code = 60 U/L 6-55 H 1742-6) EGFR (test code = 96 mL/min/1.73 [place] [address]-4) NOT ACCURATE CREATININE CLEARANCE IN PREDICTING GLOMERULAR FILTRATION RATE . ESTIMATED GFR I S NOT APPLICABLE FOR DIALYSIS PATIENTS. RHIANNA (test code = RHIANNA) [facility] ID - MANOLO CSpecimen slightly icteric Lab Interpretation Abnormal (test code = 39671-9) [facility] HospitalLipid [id number] 13:27:00 Test Item Value Reference Range Interpretation Comments Triglycerides (test 95 mg/dL code = 2571-8) Cholesterol (test code 205 mg/dL = 2093-3) HDL (test code = 92 mg/dL 2085-9) LDL Calculated (test 94 mg/dL code = 41688-6) RHIANNA (test code = RHIANNA) Triglyceride Reference Range: Low Risk <150 Borderline 150-199 High Risk 200-499 Very High Risk >=500 Cholesterol Reference Range: Low Risk <200 Borderline 200-239 High Risk >240 HDL Cholesterol Reference Range: Low Risk >=60 High Risk <40 LDL Cholesterol Reference Range: Optimal <100 Near Optimal 100-129 Borderline 130-159 High 160-189 Very High >=190 [facility] REYNALDO FRENCH CSpecimen slightly icteric [facility] HospitalCOMPREHENSIVE METABOLIC [id number] 13:27:00 Test Item Value Reference Range Interpretation Comments TOTAL PROTEIN 7.0 gm/dL 6.0-8.3 (BEAKER) (test code = 770) ALBUMIN (BEAKER) 4.1 g/dL 3.5-5.0 (test code = 1145) ALKALINE PHOSPHATASE 109 U/L 40-150 (BEAKER) (test code = 346) BILIRUBIN TOTAL 1.8 mg/dL 0.2-1.2 H (BEAKER) (test code = 377) SODIUM (BEAKER) (test 134 meq/L 136-145 L code = 381) POTASSIUM (BEAKER) 3.0 meq/L 3.5-5.1 L (test code = 379) CHLORIDE (BEAKER) 90 meq/L 98-107 L (test code = 382) CO2 (BEAKER) (test 27 meq/L 22-29 code = 355) BLOOD UREA NITROGEN 9 mg/dL 7-21 (BEAKER) (test code = 354) CREATININE (BEAKER) 0.63 mg/dL 0.57-1.25 (test code = 358) GLUCOSE RANDOM 95 mg/dL 70-105 (BEAKER) (test code = 652) CALCIUM (BEAKER) 8.8 mg/dL 8.4-10.2 (test code = 697) AST (SGOT) (BEAKER) 42 U/L 5-34 H (test code = 353) ALT (SGPT) (BEAKER) 60 U/L 6-55 H (test code = 347) EGFR (BEAKER) (test 96 mL/min/1.73 ESTIMA CALLIE GFR IS code = 1092) sq m NOT ACCURATE CREATININE CLEARANCE IN PREDICTING GLOMERULAR FILTRATION RATE . ESTIMATED GFR I S NOT APPLICABLE FOR DIALYSIS PATIEN TS. [facility] ID - MANOLO CSpecimen slightly ictericLIPID [id number] 13:27:00 Test Item Value Reference Range Interpretation Comments TRIGLYCERIDES (BEAKER) (test code = 95 mg/dL 540) CHOLESTEROL (BEAKER) (test code = 205 mg/dL 631) HDL CHOLESTEROL (BEAKER) (test code 92 mg/dL = 976) LDL CHOLESTEROL CALCULATED (BEAKER) 94 mg/dL (test code = 633) Triglyceride Reference Range: Low Risk <150 Borderline 150-199 High Risk 200-499 Very High Risk >=500Cholesterol Reference Range: Low Risk <200 Borderline 200-239 High Risk >240HDL Cholesterol Reference Range: Low Risk >=60 High Risk <40LDL Cholesterol Reference Range: Optimal <100 Near Optimal 100-129 Borderline 130-159 High 160-189 Very High >=190 [facility] ID - MANOLO CSpecimen slightly ictericLactic acid, venous 2020-01-02 13:19:00 Test Item Value Reference Range Interpretation Comments Lactate, Venous (test code 0.86 mmol/L 0.5-2.2 = 2872) RHIANNA (test code = RHIANNA) [facility] ID - MANOLO C Lab Interpretation (test Normal code = 40675-2) [facility] HospitalLACTIC ACID, [id number] 13:19:00 Test Item Value Reference Range Interpretation Comments LACTATE BLOOD VENOUS (2) (BEAKER) 0.86 mmol/L 0.50-2.20 (test code = 2872) [facility] ID - MANOLO CCBC (Hemogram only)2020-01-02 13:10:00 Test Item Value Reference Range Interpretation Comments WBC (test code = 6690-2) 9.7 3.5- 10.5 K/L RBC (test code = 789-8) 4.45 3.93- 5.22 M/L MCHC (test code = 786-4) 34.0 32.2- 35.5 GM/DL Hematocrit (test code = 4544-3) 42.7 % 34.1-44.9 MCV (test code = 787-2) 96.0 fL 79.4-94.8 H MCH (test code = 785-6) 32.6 pg 25.6-32.2 H RDW (test code = 788-0) 16.1 % 11.7-14.4 H Platelets (test code = 777-3) 337 150- 450 K/CU MM MPV (test code = 28358-5) 8.7 fL 9.4-12.3 L nRBC (test code = 413) 0 0- 0 /100 WBC Lab Interpretation (test code = Abnormal 03541-4) [facility] (HEMOGRAM ONLY)2020-01-02 13:10:00 Test Item Value Reference Range Interpretation Comments WHITE BLOOD CELL COUNT (BEAKER) 9.7 K/ L 3.5-10.5 (test code = 775) RED BLOOD CELL COUNT (BEAKER) 4.45 M/ L 3.93-5.22 (test code = 761) HEMOGLOBIN (BEAKER) (test code = 14.5 GM/DL 11.2-15.7 410) HEMATOCRIT (BEAKER) (test code = 42.7 % 34.1-44.9 411) MEAN CORPUSCULAR VOLUME (BEAKER) 96.0 fL 79.4-94.8 H (test code = 753) MEAN CORPUSCULAR HEMOGLOBIN 32.6 pg 25.6-32.2 H (BEAKER) (test code = 751) MEAN CORPUSCULAR HEMOGLOBIN CONC 34.0 GM/DL 32.2-35.5 (BEAKER) (test code = 752) RED CELL DISTRIBUTION WIDTH 16.1 % 11.7-14.4 H (BEAKER) (test code = 412) PLATELET COUNT (BEAKER) (test 337 K/CU MM 150-450 code = 756) MEAN PLATELET VOLUME (BEAKER) 8.7 fL 9.4-12.3 L (test code = 754) NUCLEATED RED BLOOD CELLS 0 /100 WBC 0-0 (BEAKER) (test code = 413) RAD, CHEST, 1 VIEW, NON [id number] 12:13:00Reason for exam:->dyspnea, lung cancerShould this be performed at the bedside?->YesFINAL REPORT RAD, CHEST, 1 VIEW, NON DEPT INDICATION: dyspnea, lung cancer COM PARISON: None FINDINGS: Portable frontal view of the chest. IMPRESSION: Support Lines: None. Lungs and pleura: Bibasilar subsegmental atelectasis. Small bilateral effusions. No pneumothorax.Heart and mediastinum: Prominent cardiac size may be partially magnified by technique. Additional findings: None. Signed: JR Deja, Jose Miguel Oleary Verified Date/Time: 01/02/2020 12:13:53 Reading Location: [facility] C0[facility] Neuro Reading Room
--- NOTE | 2020-03-29 07:19 | EKG ---
Test Date: 2020-03-28 Test Time: 12:30:40 Consulting Hr Professional: ELISABET MEASUREMENT RESULTS: Intervals: Rate: 119 MN: 146 QRSD: 64 QT: 336 QTc: 472 [place]: P: 82 MN: 146 QRS: 73 T: 75 INTERPRETIVE STATEMENTS: Sinus tachycardia with fusion complexes Otherwise normal ECG Compared to ECG 03/28/2020 12:30:13 Ventricular premature complex(es) no longer present Atrial abnormality no longer present ST (T wave) deviation no longer present Electronically Signed On 03-29-20 07:18:08 CDT by Oren Almodovar
--- NOTE | 2020-03-29 07:19 | EKG ---
Test Date: 2020-03-28 Test Time: 12:30:13 Online Merchant: ELISABET MEASUREMENT RESULTS: Intervals: Rate: 122 KS: 148 QRSD: 62 QT: 312 QTc: 444 [place]: P: 77 KS: 148 QRS: 89 T: 94 INTERPRETIVE STATEMENTS: Sinus tachycardia with occasional premature ventricular complexes and fusion complexes Right atrial enlargement Nonspecific ST abnormality Abnormal ECG Compared to ECG 12/28/2019 16:20:43 Ventricular premature complex(es) now present ST (T wave) deviation now present Myocardial infarct finding no longer present Electronically Signed On 03-29-20 07:18:09 CDT by Oren Almodovar
--- NOTE | 2020-03-29 09:06 | RAD REPORT ---
EXAM DESCRIPTION: CT - CHEST PE ANGIO CLINICAL HISTORY: Shortness of breath/lung cancer COMPARISON: None. TECHNIQUE: Axial computed tomography angiography images of the chest with intravenous contrast. Sagittal and coronal reformatted images were created and reviewed. This exam was performed according to our departmental dose-optimization program, which includes automated exposure control, adjustment of the mA and/or kV according to patient size and/or use of iterative reconstruction technique. FINDINGS: No evidence of a pulmonary embolus. A thoracic aortic aneurysm is not seen. No pleural effusion. Trace pericardial effusion. Right middle lobe opacity is mildly enlarged from the prior exam currently measuring 35 x 21 mm. A spiculated right upper lobe opacity is without significant change. Mild hilar and mediastinal lymphadenopathy. IMPRESSION: 1. Negative for a pulmonary embolism. 2. Mild enlargement of a 35 x 21 mm right middle lobe opacity. 3. No significant change in right upper lobe small spiculated opacity. 4. COPD
--- NOTE | 2020-03-29 09:47 | ECHO ---
HEIGHT: 5 ft 5 in WEIGHT: 135 lb 0 oz DATE OF STUDY: 03/28/[address]: Josue Cordova DO 2-DIMENSIONAL: YES M.MODE: YES DOPPLER: YES COLOR FLOW: YES TDS: PORTABLE: DEFINITY: BUBBLE STUDY: DIAGNOSIS: PERIOCARDIAL EFFUSION CARDIAC HISTORY: CATHERIZATION: NO SURGERY: NO PROSTHETIC VALVE: NO PACEMAKER: NO MEASUREMENTS (cm) DIASTOLIC (NORMALS) SYSTOLIC (NORMALS) IVSd 0.9 (0.6-1.2) LA Diam 3.9 (1.9-4.0) LVEF 54% LVIDd 3.2 (3.5-5.7) LVIDs 2.3 (2.0-3.5) %FS 27% LVPWd 0.9 (0.6-1.2) Ao Diam 2.5 (2.0-3.7) 2 DIMENSIONAL ASSESSMENT: RIGHT ATRIUM: NORMAL LEFT ATRIUM: NORMAL RIGHT VENTRICLE: NORMAL LEFT VENTRICLE: NORMAL TRICUSPID VALVE: NORMAL MITRAL VALVE: NORMAL PULMONIC VALVE: NORMAL AORTIC VALVE: NORMAL PERICARDIAL EFFUSION: NONE AORTIC ROOT: NORMAL LEFT VENTRICULAR WALL MOTION: NORMAL DOPPLER/COLOR FLOW: NORMAL COMMENTS: NORMAL 2-DIMENSIONAL ECHOCARDIOGRAM. NO PERICARDIAL EFFUSION. NO WALL MOTION ABNORMALITY. TECHNOLOGIST: VIOLET FLOREZ
== END 2020-03-28 16:49 | disposition short-term general hospital (02) ==
LOC: ER 11:23
DX: G93.9 Disorder of brain, unspecified (principal); I31.3 Pericardial effusion (noninflammatory); R00.0 Tachycardia, unspecified; J44.9 Chronic obstructive pulmonary disease, unspecified; Z85.118 Personal history of other malignant neoplasm of bronchus and lung
CPT/HCPCS: 93005 ×2; 85025; 36415; 83735; 85610; 80076; 83605; 81003; 84484; 80053; 83880; 70450; 71275; 71045; Q9967; J1100; J1953; J7040; 93306; 96361; 96365; 96375; 99285

== ENCOUNTER 2020-04-28 12:44 | Inpatient (IN) | payer OTHER ==
--- OUTSIDE RECORDS SUMMARY | 2020-04-28 13:01 | XMS REPORT | Clinical Summary ---
:1960 Author Organization [facility] Address [address] [place] [address] Care Team Providers Name Role Phone Unavailable [...] (HCC) Sonia Zavala MD 01/02/2020 Travel after 04/28/2019 Social History Tobacco Use Types Packs/Day Years [...] a re in the results section. after 04/28/2019 Results RHYTHM STRIP - SCAN (01/07/2020 2:50 [...] included. Specimen Narrative Performed At FINAL REPORT [facility] CLINICAL HISTORY: s/p pericardial drain TECHNIQUE: 1 view of the chest. COMPARISON: 01/03/2020 IMPRESSION: Pericardial drain has been removed. Ther e may be subtle pneumopericardium. There is no cardiomeg natalia. Faint bilateral lower lung airspace opacities and trace pleura l effusions have decreased. Signed: Nadir Liu MD Report Verified Date/Time:01/05/2020 08:34:20 Reading Location: [employer] Reading Room Procedure Note Interface, External [...] Verified Date/Time: 01/05/2020 0 8:34:20 Reading Location: [employer] Reading Room Performing Organization Address City/State/Zipcode Phone Number [facility] CBC with platelet count + automated diff (01/05/2020 4:40 AM CDT)Only the most recent of3 resultswithin the time period is included. WBC 5.4 3.5 - 10.5 K/L [facility] RBC 4.05 3.93 - 5.22 M/L [facility] Hemoglobin 13.0 11.2 - 15.7 GM/DL [facility] Hematocrit 40.0 34.1 - 44.9 % [facility] MCV 98.8 (H) 79.4 - 94.8 fL [facility] MCH 32.1 25.6 - 32.2 pg [facility] MCHC 32.5 32.2 - 35.5 GM/DL [facility] RDW 16.0 (H) 11.7 - 14.4 % [facility] Platelets 340 150 - 450 K/CU MM [facility] MPV 8.5 (L) 9.4 - 12.3 fL [facility] nRBC 0 0 - 0 /100 WBC [facility] % Neutros 70 % [facility] % Lymphs 10 % [facility] % Monos 15 % [facility] % Eos 2 % [facility] % Baso 1 % [facility] # Neutros 3.80 1.56 - 6.13 K/L [facility] # Lymphs 0.56 (L) 1.18 - 3.74 K/L [facility] # Monos 0.82 (H) 0.24 - 0.36 K/L [facility] # Eos 0.11 0.04 - 0.36 K/L [facility] # Baso 0.04 0.01 - 0.08 K/L [facility] Immature Granulocytes-Relative 2 (H) 0 - 1 % C HI [facility] Specimen Blood Performing Organization Address City/State/Zipcode Phone Number [facility] [address] [place] [address] CENTER Magnesium (01/05/2020 4:40 AM CDT)Only the most recent of3 resultswithin the time period is included. Magnesium 1.9 1.6 - 2.6 mg/dL [facility] Specimen Blood Narrative Performed At Hat Body Sorter ID - MICHA Medellin [facility] Performing Organization Address City/[facility]/Zipcode Phone Number [facility] [address] [place] [address] CENTER Basic Metabolic Panel (01/05/2020 4:40 AM CDT)Only the most recent of3 results within the time period is included. Sodium 135 (L) 136 - 145 meq/L [facility] Potassium 3.5 3.5 - 5.1 meq/L [facility] Chloride 101 98 - 107 meq/L [facility] CO2 27 22 - 29 meq/L [facility] BUN 9 7 - 21 mg/dL [facility] Creatinine 0.61 0.57 - 1.25 mg/dL [facility] Glucose 100 70 - 105 mg/dL [facility] Calcium 8.1 (L) 8.4 - 10.2 mg/dL [facility] EGFR 100Comment: ESTIMATED GFR IS mL/min/1.73 sq m [facility] NOT ACCURATE CREATININE [facility] CLEARANCE IN PREDICTING GLOMERULAR FILTRATION RATE. ESTIMATED GFR IS NOT APPLICABLE FOR DIALYSIS PATIENTS. Specimen Blood Narrative Performed At Hat Body Sorter ID - MICHA Medellin [facility] Performing Organization Address City/[facility]/Zipcode Phone Number [facility] [address] [place] [address] CENTER Phosphorus (01/04/2020 4:44 AM CDT) Phosphorus 3.1 2.3 - 4.7 mg/dL [facility] Specimen Blood Narrative Performed At Hat Body Sorter ID - HAL Castellanos [facility] Performing Organization Address City/State/Zipcode Phone Number [facility] [address] [place] [address] [place] Hepatic function panel (01/04/2020 4:44 AM CDT)Only the most recent of2 results within the time period is included. Protein, Total 5.8 (L) 6.0 - 8.3 gm/dL [facility] Albumin 3.3 (L) 3.5 - 5.0 g/dL [facility] Total Bilirubin 1.3 (H) 0.2 - 1.2 mg/dL [facility] Bilirubin, Direct 0.6 (H) 0.1 - 0.5 mg/dL [facility] Alkaline Phosphatase 73 40 - 150 U/L [facility] AST 29 5 - 34 U/L [facility] ALT 40 6 - 55 U/L [facility] Specimen Blood Narrative Performed At Hat Body Sorter ID - HAL W [facility] Performing Organization Address City/State/Zipcode Phone Number [facility] [address] [place] [address] [place] ECHOCARDIOGRAM REPORT - SCAN (01/03/2020 9:11 PM [...] W/Doppler(CW/PW/Color) (01/03/2020 9:37 AM CDT) Ejection Fraction [facility] ECHO HEAR TLAB [facility] Specimen Narrative Performed At Transthoracic Echocardiography Report (T TE) [facility] ECHO HEARTLAB [facility] Demographics Patient Name Yovani MONTALVO of Study 01/03/2020 [id number] GenderFem enriqueta Visit Number [id number] RaceCaroln own [id number] Number [id number] Number Date of Birth1960 Referring Physician Erlin Odom Age59 year(s) Rotary Envelope Machine Operator Maureen magallon, [facility] Marina Waldrop,Rajan Mak MD [facility] Physician Procedure Type of Study TTE procedure:2DECHO [...] by Gagnon's method of disk assessment is kgefxm-fj-zpfmvqossw reduced (40%) . LV diastolic function is [...] method of dis k as sessment is pghtki-sf-ehfzchqybp reduced (40%) . LV diastolic function is [...] of Study 01/03/2020 Gender Female Visit Number [id number] Race Unknown [facility] 7410 Number Date of 1960 Referri Physician Erlin Odom Age 59 year(s) Sonogra pher Maureen Pavon RDCS Home Health Care Coordinator Radha Waldrop, Interpr eting Ronak Mak MD [facility] Physici an Procedure Type of Study TTE [...] Gagnon's method of disk assessment is mi dagg-zr-yihlsjkrha reduced (40%) . LV diastolic fun ction [...] TR Gradient: 20.94 mmHg Performing Organization Address City/State/[facility] Phone Number [facility] Blood gas, arterial (01/02/2020 9:14 PM CDT) pH, Arterial 7.52 (H) 7.35 - [address] [facility] pCO2, Arterial 36 35 - [address] [facility] pO2, Arterial 159 (H) 80 - [address] [facility] O2 Sat, Arterial 99.2 (H) 96.0 - 97.0 % [facility] HCO3, Arterial 28 21 - 29 mmol/L [facility] Base Excess, Arterial 5.6 (H) -2.0 - 3.0 mmol/L [facility] Patient Temperature 37.2 C [facility] FIO2 36.0 % [facility] Specimen Blood, Arterial Performing Organization Address City/[facility]/Zipcode Phone Number [address] [address] CENTER SARS COV 2 - COVID 19. (01/02/2020 9:13 PM CDT) Scan Result See scanned report [facility] Specimen Nasopharyngeal Narrative Performed At This result has an attachment that is no t available. Performing Organization Address City/[facility]/Zipcode Phone Number [facility] [address] [facility] [place], [place] ABORH, manual (01/02/2020 5:12 PM CDT) ABO Grouping O [facility] Rh Factor POS [facility] Specimen Blood Performing Organization Address City/[facility]/Zipcode Phone Number [address] [address] Type and screen, automated ([facility]) (01/02/2020 3:10 PM CDT) ABO/RH AUTOMATED (BEAKER) O POSITIVE [facility] Ab Scrn NEGATIVE [facility] Specimen Blood Performing Organization Address City/[facility]/Zipcode Phone Number [address] [address] aPTT (01/02/2020 3:10 PM CDT) PTT 23.7 22.5 - 36.0 seconds [facility] Specimen Blood Performing Organization Address [facility]/Zipcode Phone Number [address] [address] CENTER Prothrombin time/INR (01/02/2020 3:10 PM CDT) Protime 13.9 11.9 - 14.2 seconds [facility] INR 1.1 <=5.9 [facility] Specimen Blood Narrative Performed At Effective 02/17/2019: PT Reference Range [facility] Change New: 11.9-14.2Previous: 11.7-14.7 RECOMMENDED COUMADIN/WARFARIN INR THERAPY RANGES STANDARD DOSE: 2.0-3.0Includes: PROPHYLAXIS for venous thrombosis, systemic embolization; TREATMENT for venous thrombosis and/or pulmonary embolus. HIGH RISK: Target INR is 2.5-3.5 for patients wiht mechanical heart valves. Performing Organization Address [facility] Phone Number [address] [address] CENTER Protein, Total, Pericardial Fluid (01/02/2020 2:36 PM CDT) PROTEIN, TOTAL, PERICARDIAL FLUID 4.9 g/dL [facility] Specimen Body Fluid Performing Organization Address [facility] Phone Number [facility] [place] [address] [facility]ORPORATED [address] [address] [facility] Glucose, Pericardial Fluid (01/02/2020 2:36 PM CDT) GLUCOSE, PERICARDIAL 26 mg/dL [facility] Comment: INCORPORATED SAMPLE GROSSLY HEMOLYZED. Reference range approximates that found in serum . Specimen Body Fluid Narrative Performed At Performing Lab [facility] EZ [facility] [address] [address] [address] [place] [address] Gabby Rolon MD, PhD, [place] Performing Organization Address [facility] Phone Number [facility] [place] [address] [facility]ORPORATED [address] [address] [facility] Body fluid culture + gram stain (01/02/2020 2:36 PM CDT) Result No growth [facility] Gram Stain Result 3+ White blood cells seen [facility] Gram Stain Result No organisms seen [facility] Specimen Body Fluid Performing Organization Address City/State/Zipcode Phone Number [facility] [address] [place] [address] CENTER Body fluid cell count with differential (01/02/2020 2:36 PM CDT) Appearance Bloody (A) Clear [facility] Color Red (A) Colorless, Straw [facility] RBCs 760,500 (H) <=1 /cu mm [facility] Adjusted WBC Count 2,285 (H) <=5 /cu mm [facility] Lining Cells 1,005 (H) <=1 /cu mm [facility] % Segs 14 % [facility] % Lymphs 4 % [facility] % Monos 82 % [facility] % Eos 0 % [facility] % Baso 0 % [facility] Container Body Fluid EDTA Tube [facility] Specimen Body Fluid Narrative Performed At Possible malignant cells seen on stained [facility] smears, cytology order in progress. Performing Organization Address City/State/Zipcode Phone Number [facility] [address] [place] [address] CENTER Cytology (01/02/2020 2:36 PM CDT) Case Report Medical Cytology Report Case: [id number] [facility] Authorizing Provider:Erlin Andrews, Collected: 01/02/2020 02:36 PM [facility] Ordering Location: [place] [address] CCUReceived:01/03/2020 08:54 AM Pathologist: Rhonda Chavez MD Specimen:Pericardial DIAGNOSIS PERICARDIAL FLUID (CYTOSPINS AND CELL BLOCK): [facility] - POSITIVE FOR MALIGNANCY [facility] - MALIGNANT CELLS, COMPATIBLE WITH METASTATIC ADENOCARCINOMA FROM PATIENT'S KNOWN LUNG PRIMARY (SEE COMM ENT) Signing Pathologist Direct Phone Line: COMMENT Cytospins and cell block [facility] sections show clusters of [facility] malignant carcinoma. Immunostains performed on cell block sections show tumor cells to be positive for MOC31, CK7, and TTF1; while predominantly negative for calretinin and WT1. These findings are compatible with metastasis from the patient's reported lung primary. CPT Code(s) 51990, 35158, 91270, 65749 x 4 C [facility] CLINICAL DATA Pericardial effusion; [facility] metastatic non-small cell lung B [facility] cancer, COPD who presented to outside hospital with with nausea, vomiting, diarrhea and dyspnea + cough who was subsequently found to have a large pericardial effusion, now transferred to [facility] for consideration of pericardiocentesis vs pericardial window SPECIMEN SOURCE PERICARDIAL FLUID [facility] GROSS DESCRIPTION Received 40 ml bloody fluid I [facility] Prepared cell block(A2) using collodion bag and 4 cytospins [facility] Collected: [id number] Received: [id number] STATEMENT OF ADEQUACY Satisfactory [facility] SPECIAL STUDIES The interpretation of this c ase included the use of immunohistochemistry or special stains. [facility] Control Slides Examined: In -house known positive controls were evaluated along with the test tissue. These control slides run alongside of the patients sample show appropriate staining. Internal posit latricia and negative controls when available are joan stafford Immunohistochemistry technic al testing was performed at [facility], Pathology Laboratory where it was developed and its performance characteristics were determined. It has not be en cleared or approved by [facility] U.S. Food and Drug Administration. The FDA has determined that such clearance or approval is not necessary. The test is used for clinical purposes. It should not be regarde d as investigational or for research. This laboratory is certified under the Clinical Laboratory Improvement Amendments of 1988 (CLIA-88) as qualified to perform high complexity clinical laboratory testing. Gross assessment was [facility] performed at [place], Department of [facility] MEDICA [facility] Pathology, [address] [place] [address], [place] [address], Technical component was [facility] performed at [place], Department [facility] Pathology, [address] [place] [address], Professional component [facility] was performed at [place], Department of [facility] MEDIC [facility] Pathology, [address] [place] [address], Specimen Body Fluid Narrative Performed At This result has an attachment that is no t available. Performing Organization Address City/State/[place] [address] [place] 2D Echo W/Doppler(CW/PW/Color) (01/02/2020 2:19 PM CDT) Ejection Fraction [facility] ECHO HEAR TLAB [facility] Specimen Narrative Performed At Transthoracic Echocardiography Report (T TE) [facility] ECHO HEARTLAB [facility] Demographics Patient Name MAKAYLA MONTALVO Date of Study01/02/2020 [id number] Gender Fem enriqueta Visit Number [id number] Unknown [id number] Room [id number] Number Date of Birth1960Referring PhysicianJorcristopher Odom Age59 year(s)Rotary Envelope Machine Operator Maureen Pavon, [facility] AnalystIzoldandrea Grace Interpreting MD Abraham Savage Physician [...] of Study 01/02/2020 Gender Female Visit Number [id number] Race Unknown Room Num [facility] 6214 Number Date of 1960 Doug plasencia Physician Erlin Odom Age 59 year(s) Sonograp her Maureen Pavon, [facility] Home Health Care Coordinator Andrei Rodriguez MD [facility] Physicia n Procedure [...] ml/m^2 Performing Organization Address City/State/Zipcode Phone Number [facility] [employer] [facility] 2D Echo W/Doppler(CW/PW/Color) (01/02/2020 1:04 PM CDT) Ejection Fraction [facility] ECHO HEAR TLAB [employer] [facility] Specimen Narrative Performed At Transthoracic Echocardiography Report (T TE) [facility] [employer] [facility] Demographics Patient Name MAKAYLA MONTALVO Date of Study01/02/2020 [id number] Gender Fem enriqueta Visit Number [id number] Unknown [id number] Room [id number] Number Date of Birth1960Referring PhysicianJorge Ilene Age59 year(s)Rotary Envelope Machine Operator Maureen Pavon, [facility] AnalystIzolda NJuan Interpreting Alan chaudhry MD [facility] [...] appear hypokinetic: all LV basal-mid segments . [place] is hyperkinetic ( Possible mid ventricular [...] of Study 01/02/2020 Gender Female Visit Number [id number] Race Unknown Room Num [facility] 6214 Number Date of 1960 Doug plasencia Physician Erlin Odom Age 59 year(s) Sonograp her Maureen Pavon RDCS Home Health Care Coordinator Andrei Rodriguez MD [facility] Physicia n Procedure [...] appear hypokinetic: all LV basal-mid segments . [place] is hyperkinet ic ( Possible mid ventricular [...] hypokinetic: all LV basal-mid segmen ts . [place] is hyperkin etic. Global LV systolic function [...] T CI: 2.53 l/min/m^2 Performing Organization Address City/[facility] Phone Number [facility] CPACS TSH/Free T4 If Indicated (01/02/2020 12:59 PM CDT) TSH 2.072 0.350 - 4.940 uIU/mL [facility] Specimen Blood Narrative Performed At Hat Body Sorter ID - MANOLO C [facility] Performing Organization Address City/[facility] Phone Number [address] [address] CENTER Lactic acid, venous (01/02/2020 12:59 PM CDT) Lactate, Venous 0.86 0.50 - 2.20 mmol/L [facility] Specimen Blood Narrative Performed At Hat Body Sorter ID - MANOLO C [facility] Performing Organization Address [facility] Phone Number [address] [address] [place] CBC (Hemogram only) (01/02/2020 12:59 PM CDT) WBC 9.7 3.5 - 10.5 K/L [facility] RBC 4.45 3.93 - 5.22 M/L [facility] Hemoglobin 14.5 11.2 - 15.7 GM/DL [facility] Hematocrit 42.7 34.1 - 44.9 % [facility] MCV 96.0 (H) 79.4 - 94.8 fL [facility] MCH 32.6 (H) 25.6 - 32.2 pg [facility] MCHC 34.0 32.2 - 35.5 GM/DL [facility] RDW 16.1 (H) 11.7 - 14.4 % [facility] Platelets 337 150 - 450 K/CU MM [facility] MPV 8.7 (L) 9.4 - 12.3 fL [facility] nRBC 0 0 - 0 /100 WBC [facility] Specimen Blood Performing Organization Address City/[facility] Phone Number [address] [address] [place] B-type Natriuretic Factor (BNP) (01/02/2020 12:59 PM CDT) BNP 369 (H) 0 - 100 pg/mL [facility] Specimen Blood Narrative Performed At Hat Body Sorter ID - MANOLO C [facility] Performing Organization Address City/[facility] Phone Number [address] [address] CENTER Lactate dehydrogenase (LDH) (01/02/2020 12:59 PM CDT) LDH 367 (H) 125 - 220 U/L [facility] Specimen Blood Narrative Performed At Hat Body Sorter ID - DB [facility] Performing Organization Address City/[facility] Phone Number [address] [address] CENTER Hemoglobin A1c (01/02/2020 12:59 PM CDT) Hemoglobin A1C 5.2 4.3 - 6.1 % [facility] Specimen Blood Performing Organization Address City/[facility]/Zipcode Phone Number [address] [address] [place] Lipid panel (01/02/2020 12:59 PM CDT) Triglycerides 95 mg/dL [facility] Cholesterol 205 mg/dL [facility] HDL 92 mg/dL [facility] LDL Calculated 94 mg/dL [facility] Specimen Blood Narrative Performed At Triglyceride Reference Range: [facility] Low Risk <150 [id number] High Risk 200-499 Very High Risk>=500 Cholesterol Reference Range: Low Risk <200 [id number] High Risk>240 HDL Cholesterol Reference Range: Low Risk >=60 High Risk <40 LDL Cholesterol Reference Range: Optimal<100 Near [id number] [id number] Very High >=190 Hat Body Sorter ID - MANOLO C Specimen slightly icteric Performing Organization Address City/State/Zipcode Phone Number [facility] [address] [place] [address] [place] Comprehensive metabolic panel (01/02/2020 12:59 PM CDT) Protein, Total 7.0 6.0 - 8.3 gm/dL [facility] Albumin 4.1 3.5 - 5.0 g/dL [facility] Alkaline Phosphatase 109 40 - 150 U/L [facility] Total Bilirubin 1.8 (H) 0.2 - 1.2 mg/dL [facility] Sodium 134 (L) 136 - 145 meq/L [facility] Potassium 3.0 (L) 3.5 - 5.1 meq/L [facility] Chloride 90 (L) 98 - 107 meq/L [facility] CO2 27 22 - 29 meq/L [facility] BUN 9 7 - 21 mg/dL [facility] Creatinine 0.63 0.57 - 1.25 mg/dL [facility] Glucose 95 70 - 105 mg/dL [facility] Calcium 8.8 8.4 - 10.2 mg/dL [facility] AST 42 (H) 5 - 34 U/L [facility] ALT 60 (H) 6 - 55 U/L [facility] EGFR 96Comment: ESTIMATED GFR mL/min/1.73 sq m [facility] IS NOT ACCURATE [facility] CREATININE CLEARANCE IN PREDICTING GLOMERULAR FILTRATION RATE. ESTIMATED GFR IS NOT APPLICABLE FOR DIALYSIS PATIENTS. Specimen Blood Narrative Performed At Hat Body [employer] ID - MANOLO Alvarado [facility] Specimen slightly icteric Performing Organization Address City/State/Zipcode Phone Number [facility] [address], [place] [id number] CENTER after 04/28/2019 Insurance Payer Benefit Plan / Subscriber ID Type Phone Address Group xxxxxxxxx Other Govt (, [place], [facility], etc.) CDC REVIEW CDC REVIEW xxxxxxxx [address] [place] [place] [address] Advance Directives For more information, please contact:[facility] [place] [address] [phone] Code Status Date Activated Date Inactivated Comments Full Code 01/02/2020 11:47 AM 01/05/2020 5:01 PM This code status was determined by: Patient
--- OUTSIDE RECORDS SUMMARY | 2020-04-28 13:04 | XMS REPORT | Continuity of Care Document ---
:1960 Author Organization [facility] t Address [address] [place] [address] Dr. Morales [address] [place] [id number] Care Team Providers Name Role Phone Calvin ODOM Attending Clinician Unavailable Calvin Odom MD Attending Clinician Rochelle Zavala MD Attending Clinician Calvin ODOM Admitting Clinician Unavailable Payers Payer Name Policy Policy Effective Expiration Source Type Number Date Date TRICARETRICARExxxxxxxxxOther xxxxxxxxx [facility] Govt (, [place], USFHP, etc.) [facility] CDC REVIEWCDC REVIEWxxxxxxxxPO xxxxxxxx [place] [address] [facility] Problems Condition Condition Condition Status Onset Resolution Last Treating Co mments Source Name Details Category Date Date Treatment Clinician Date Lung Lung Disease Active [facility] cancer cancer 4-12 kes - 00:00: Medical 00 Center Allergies, Adverse Reactions, Alerts This patient has no known allergies or adverse reactions. Social History Social Habit Start Date Stop Date Quantity Comments Source Sex Assigned At [facility] Medications Ordered Filled Start Stop [...] - 10 MG 12:18: nightly. Medical tablet [address] [place] [address] Vital Signs Vital Name Observation Time Observation Value Comments Source Heart rate 2020-01-05 14:07:00 87 /min [facility] Respiratory rate 2020-01-05 14:07:00 16 /min [facility] Oxygen saturation in 2020-01-05 14:07:00 98 /min [facility] Arterial blood by Medical Ce nter Pulse oximetry Systolic blood 2020-01-05 11:52:00 133 mm[Hg] [facility] Diastolic blood 2020-01-05 11:52:00 68 mm[Hg] [facility] Body temperature 2020-01-05 11:52:00 36.83 Myah [facility] Body weight Measured 2020-01-05 07:54:00 57.2 kg [facility] BMI 2020-01-05 07:54:00 20.98 kg/m2 [facility] Body height 2020-01-02 10:47:00 165.1 cm [facility] Procedures Procedure Date / Time Performing Clinician Source Performed RHYTHM STRIP - SCAN 2020-01-07 14:50:49 Provider, Default [facility] CARDIAC CATH REPORT - SCAN 2020-01-06 14:40:45 Provider, Default [facility] RHYTHM STRIP - SCAN 2020-01-06 14:40:33 Provider, Default [facility] XR CHEST 1 VIEW 2020-01-05 08:17:00 Wing Dinh [facility] PORTABLE/BEDSIDE [facility] [place] BASIC METABOLIC PANEL (7) 2020-01-05 04:40:00 Lino, [facility]lyn [facility] MAGNESIUM 2020-01-05 04:40:00 [facility] W/PLT COUNT & AUTO 2020-01-05 04:40:00 [facility] METABOLIC PANEL (7) 2020-01-04 04:44:00 Lino, [facility]lyn [facility] MAGNESIUM 2020-01-04 04:44:00 [facility] HEPATIC FUNCTION PANEL 2020-01-04 04:44:00 Lino, [facility] PHOSPHORUS 2020-01-04 04:44:00 Wing Dinh [facility] CBC W/PLT COUNT & AUTO 2020-01-04 04:44:00 Lino, [facility] ECHOCARDIOGRAM REPORT - SCAN 2020-01-03 21:11:26 Provider, [facility] ECHOCARDIOGRAM REPORT - SCAN 2020-01-03 21:11:24 Provider, [facility] ECHOCARDIOGRAM REPORT - SCAN 2020-01-03 21:10:44 Provider, [facility] TRANSFUSION SERVICE REPORT - 2020-01-03 17:51:12 Provider, [facility] 2D ECHO W/ DOPPLER 2020-01-03 09:37:00 Carmelita Hernandez [facility] (CW/PW/COLOR) [facility] XR CHEST 1 VIEW 2020-01-03 08:31:00 Wing Dinh [facility]/BEDSIDE [facility] BASIC METABOLIC PANEL (7) 2020-01-03 05:37:00 LinoJoslyn [facility] MAGNESIUM 2020-01-03 05:37:00 [facility] HEPATIC FUNCTION PANEL 2020-01-03 05:37:00 Lino, [facility] CBC W/PLT COUNT & AUTO 2020-01-03 04:44:00 Lino, [facility] BLOOD GAS, ARTERIAL 2020-01-02 21:14:00 Eric Sherman [facility] MISCELLANEOUS LAB ORDER 2020-01-02 21:13:[address] Ian [address] [facility] ABORH, MANUAL 2020-01-02 17:12:00 Ashly Cat [facility] PROTHROMBIN TIME/INR 2020-01-02 15:10:00 Carmelita Hernandez [facility] APTT 2020-01-02 15:10:00 Carmelita Hernandez [facility] TYPE AND SCREEN, AUTOMATED 2020-01-02 15:10:00 Carmelita Hernandez [facility] GLUCOSE, PERICARDIAL FLUID 2020-01-02 14:36:55 [facility], [facility] BODY FLUID CULTURE + GRAM 2020-01-02 14:36:55 [facility] C [facility] - STAIN [facility] PROTEIN, TOTAL, PERICARDIAL 2020-01-02 14:36:55 [facility], [facility] - FLUID [facility] BODY FLUID CELL COUNT WITH 2020-01-02 14:36:55 [facility], [facility] - DIFFERENTIAL [facility] CYTOLOGY 2020-01-02 14:36:00 [facility], [facility] s - [facility] 2D ECHO W/ DOPPLER 2020-01-02 14:19:00 [facility] (CW/PW/COLOR[facility] 2D ECHO W/ DOPPLER 2020-01-02 13:04:00 [facility] (CW/PW/COLOR) [facility] PERICARDIOCENTESIS 2020-01-02 13:01:00 [facility], [facility] CBC (HEMOGRAM ONLY) 2020-01-02 12:59:00 [facility], [facility] COMPREHENSIVE METABOLIC 2020-01-02 12:59:00 [facility] PANEL [facility] B-TYPE NATRIURETIC FACTOR 2020-01-02 12:59:00 [facility], C HI [facility] (BNP) [facility] TSH/FREE T4 IF INDICATED 2020-01-02 12:59:00 [facility], [facility] I [facility] LACTIC ACID, VENOUS 2020-01-02 12:59:00 [facility] LIPID PANEL 2020-01-02 12:59:00 [facility] HEMOGLOBIN A1C 2020-01-02 12:59:00 [facility] LACTATE DEHYDROGENASE (LDH) 2020-01-02 12:59:00 [facility] XR CHEST 1 VIEW 2020-01-02 12:00:00 [facility]/BEDSIDE [facility] Results Test Description Test Time Test Comments Results Result Comments Source Protein, Total, Pericardial Fluid 2020-01-14 17:43:00 Test Item Value Reference Range Interpretation Comme nts PROTEIN, TOTAL, PERICARDIAL FLUID (test code = 78395-1) 4.9 g/dL [facility] [id number] 17:43:00 Test Item Value Reference Range Interpretation Comments PROTEIN, TOTAL, PERICARDIAL FLUID 4.9 g/dL (BEAKER) (test code = 4619708) Glucose, Pericardial [id number] 16:54:00 Test Item Value Reference Range Interpretation Comments GLUCOSE, 26 mg/dL SAMPLE GROSSLY PERICARDIAL FLUID HEMOLYZED. (test code = Reference range 05880-3) approximates th at found in serum. RHIANNA (test code = Performing Lab RHIANNA) [facility] [place] [facility] [address] [place] [address] Gabby Rolon MD, PhD, [place] [facility] 15:00:00 Test Item Value Reference Range Interpretation Comments Case Report (test code Medical Cytology = 104) Report Case: [id number] Authorizing Provider: Erlin Odom, Collected: 01/02/2020 02:36 PM Ordering Location: [address] Received: 01/03/2020 08:54 AM Pathologist: Rhonda Chavez MD Specimen: Pericardial DIAGNOSIS (test code = q4mjfGCbRAZgrANoSmLmGJ 3220) CvQJKnd7vhKJXjvSWlRbFl MzNcZnRuYmpcdWMxXGRlZm Zab3cuh837uUXnd7bySUGz TzR8oXNiBLAoyFShX504JC YaLKeok7aly1ZwFUSqsYMq b4S9UCPPmolgdQl3eLdsK3 4ev7W6BhboG2ggLXVePUNy A5XhSM0hCUYmNwd2UZF6DV O0VLMuFGPaZ8EfDF1kIGGj rRWpCGb1n2dxjTlcLJTkMW M2n3ylTLbnecP4JK7tqt5u iGe2w6mzfmTvUSGvVOEhyA BVTQFnS7ZirKnoZs8rlUd0 kPgxMkhhVOM7Hlk0AZ6ewh 98fbg5zZuvRBBacdetBlH2 ZBsgKHTjuphyUVl0NEohCZ JnbDcyMFxtYXJncjcyMFxt YXJndDcyMFxtYXJnYjcyMF qtKVYwLUM0VWteg727BSI6 BSqkg1kmc0dynMVtVae0QS ZzBuUiUxgwFNzlg0Kej8zw FJZdNaG2XSbsJM6hhz79WM NlCVU0mr2gyHNoiQjyvlZw oUDdHNigQ9NkHHOce830TZ CzG9NpEZPnr9G4lyOkRwJb JOJthBF1hkO5YCAqLAn8sE OysvG2nxBqyOEtG6iocV16 BlBurMAgA9PxzE88ShKmoD QbM3IhkS41OzAeoAVtZ7Hs yU47SyUqeHNdHZKwwDAvNp 0qzLQtcBLga9WahAKpIAeh W65xd113FTTokiCcM0vqtG FpblxwbGFpblxmMFxmczI0 XHFsXHBsYWluXGYxXGZzMj BcbGFuZzEwMzNcaGljaFxm WKnqHvNiDNYaNRqyS7idHs WiRnMbWSNBOESOO0PHNSpF EYTAZQCVTHVtG7vNT4WWMO 6KMYQOYQWBJZfELYVKY1LR QIqmqPUfVYMlUM2fVH9BFZ YOXbVfDa3NKW7TYLmRSuVH V1pjUYScunQgOQBgKD3CHW rMLzZTRXGWBAaXXabyI07H DLCVSSNOROZTALAHYF7IYF OVEETSDOBmNDVJYg3OQDVS IR6ICWUtoTAsQHKjITXnKx XCAGVLNMHWSO5RG8VvZ71H Q53pBPFFRfSLWvjQQTAXRB hZUEKtE22BSNMSNEbtfBVx XHBsYWluXGYxXGZzMjJcbG FuZzEwMzNcaGljaFxmMVxk OqBiXEPeDDulI2wiCoLyQj MyMlxwYXJcdGFiXHRhYlx0 XABxkMLtWWPlFpEaL4bbrk gcZuDJTAPlf8dtE3atrFUJ yXZfF7LcNLmjviVbEXguYW fpFSVfWBV0UX50NxC9ZBAk YWluXGYxXGZzMjRccGFyfQ == COMMENT (test code = f1brgINrMYWunJMbRzOlEC 3350) FbJJUpl0weHXBmjLSxGvRf MzNcZnRuYmpcdWMxXGRlZm Rot6jna515nWHvi4kcBUFz NwT2jBKcEMGllZHoR710i9 wuh4tzzsXfsKL0EDGzTRY5 ZUndlkNevsH0WSpbbZShEy Q1OJbmhsJwQGegpiKkypGh Ram4HGQvH040ZYY7iFbou7 xxNRW5JERfDDCkSkFgPq8n iQPtR916WFFvOGKBDRXueY b5UGActdMdikYlsHLMl673 W904x7nuLOTihiMswYnPfv bnp4qeJ263FMQhiCQafjNm KcKsNUZcpLBjrWL8TKWnSQ 3tiasyMiOlOS9wailiNtWv CX2kjky8HbEhCU3pkrddCv WaDYpzQPTrsbywFLYjf6Vm wmjxAK8xD0Dbt7C0wM4ipV LaWCMcfIBqSiLgBQHljz3x aKBdDSfnt0NwBOO0pwH0xI JvxNFvLHWeMR70Yqyjp2Ve IsztUVY9BDLnixNzi9Kfn5 mhYqNqraQpC0fkL3VmTFVb ASRjYVVyQyYrcxXje4Msb4 VysHGtfLu5n3nhBZTfEKZf cMjgd8vdBEE8ONHmS6W3mR Vlu3lfXXiiOUDtjCP9fxke OIxyMDFadsD3wlohCWfeYI InjDT8ecspDSawTJIzTfV6 zrzhMQiuAFLmCZD7CKbsf0 72UNF7VCkqCshfJQdgMAIt bmNvbnRccGduZGVjXHBsYW luXHBsYWluXGYwXGZzMjRc xZuwgMmpeY4vMrThAzLmQL hfGK5aZRBoD6xwpZNsDYKd MJCsR2duQmUjpI4wnZljIF ywgcJqDBA8xN0uwZjblrGw hoTyM0MeeYJvuV7iyrFvDM P3fX1mlaVvbX04ASQrjIC9 GJJmIQ8cER7nhOqwveDtiN OsBYGjiS4qoUZoUJmzeOTc u3U0CHnaqkVtBJIyk4CoLX Bus82aK1EhbLQouI2zvgSf IJB0hW6ypcIoyR30RPH0rH 9yIGNlbGxzIHRvIGJlIHBv t1d6fBBwCYNppqSEK8RqTY ieS8m7XFTuiyImOYRGMNel a3omnHWvoOYgRR7juP4ikk VhgUVmOItvxId9TVJze9Ja I9TifiZ8mC7nzpXpmfIgH3 YyJhGMhGJmTDDnlL8plV2f beHlysDuS11mxTJ3uEGxDQ F4jCPaIP7mrAGseKLmdUMx YqXtbIN5eKFagLL8hQRerX syJWFadG0rbVMzBJk2lddk nPRgpBKdxH4dPJUvvh3= CPT Code(s) (test code q8aqvZInLNGsdUDzRkIiWG = 3357) PsQOHsb1kwUNKbnZJkErTy MzNcZnRuYmpcdWMxXGRlZm Vsm0lto414tWRbs5tsJSLo SyZ1jQMjRQVafQJeK291TQ WtUSuxx1faw5MlFOBfwDCi y1V1ECJKivqykAf9cSytP3 8td2W4JnnjY1fsHDOrAWEx T5VsQW1fEQXfZhy1COP3GK J9CSPfYUZsS6PhBL2yODXh cFEaNYy4e0lwsWmyKAPzSA X5a9qqYTxzjgPrAP1wmx9y iSb7t9vjziWjIVHiJWIxdG RCRNLoZ6UkxPmuZb9gyBq3 rDjjAhqnUBL6Xzm9JD0deq 20eyu9jKjvENUcemdaNrD2 SNxgQTFscnfaZUe1UKtyDO JnbDcyMFxtYXJncjcyMFxt YXJndDcyMFxtYXJnYjcyMF meMHVjRYL0CSwph365TMR9 XRean7dyo8bpwHXmQjc5ED SfCeQuPdcwSSinw1Ezx1st KRKyym3kDTF2dEYynIahj0 V8rPGjEFHuqHFtdhXlZQNp DdO7YBgbFF4ccl41FJOiDZ I8di7jgYTlgAkpmqIciZGj IKqjB0JuDHBpd861AAUlA4 VfERKwl3D1nuSiIhCgXVPu jRU8ylP7NPZsUBr1kHLczr Y3pfBbwGQcD2kqwJ97TtDy bLSdR0CegZ35NcMeaHSiL2 FexO83SqYfeIYdO5CfuY61 ZlJwuVYqJOLjxTMgOl1upI QmnCJnf6KelUHlFKgfE23v t013VJXdohKqK3dvuCKoux weqMVtpnguZEwgmkH8UHWc XHBsYWluXGYxXGZzMjBcbG FuZzEwMzNcaGljaFxmMVxk XoTwFBFtOBgmK7mxDkWdXw NlIBY0FBTvZCeiDRqkVNDw WSm2UjYnSPG6HXQ7AAK3UC RccGFyfQ== CLINICAL DATA (test s2oddTKlEUNwgUGiVaJjON code = 3355) AoASAfl1sfFRVnvBScWaKc MzNcZnRuYmpcdWMxXGRlZm Ckd7wpw216vQXin2xcIJPc FqR0zRWwVKKfxVDlA669MN VkJAhol8lvj4DuIEZeiXKk i5T8SULtgvhjeGq1dGdcU1 1sa5I8VwghG9gmNQJuNRZo F2GgIQ6cNZAlWvq9YDU4LS W1ZKCmFAFfW0WrOM9wRIIq eIInIJz1n1ufoOxuTEVrGQ B8l5jaTXapkdGeBC4fng4r qOt8j3xggeLeLIWnDXAkpS NRZSJlU2SxyUzsPp4vzNj0 iGrnQxdsDBI6Nqd5JS4ese 15fpe0uRnxZCPekjiqOhZ5 UTtbFUUzkzysBFj3HMczVI JnbDcyMFxtYXJncjcyMFxt YXJndDcyMFxtYXJnYjcyMF wvUUCmDLY7PEzxc901VJC1 UWzeb0pjx4okqMIpEwi5CW HiJxOzZehdKQcyv2Oaj0zr PSBfmf7uZAQ5kYBnuTchl5 D7jZNqQWZjoDBcvvTnXCCl IuV6KEswFE3nsc67XETnHD S0dd2dqDSqjJlpvcQxrAMx IFdkP5BqJPAjw040TODsU6 XfTWZtv0K6zxPfWqCiBBIf iBF6laX5CHFgCKw2yFMamu M9qiDjuWCyH5wlsK48ZrVt lQZrG9GzmH69ZaLtxSNyD8 XcqN30KzUbzGTtP4CxtM31 ClVdfPNnSPFeqIWiUs1orY GgrLAdw2QptXRbPQfiT42u m654SDXhefEuA8sjtPDyxd cqgLScjrkiVJhrcsJ3AQQu XHBsYWluXGYwXGZzMjBcbG FuZzEwMzNcaGljaFxmMFxk VlQrLBOcSOsxH2jjLdYhFy DoXTEVDLThD8OtIPfjcEHi IwE8j8enhtifBNLtVYveEU YxXGZzMjBcbGFuZzEwMzNc aGljaFxmMVxkYmNoXGYxXG jaM7juCxTbMhNkOVYzSITi v1UhdXnlBM5dfc8grWHcgK NvZRnlETf7cvfuQ4CyO8Su RQSJS5EVUUbgtzOmaxJuDT 13VUNkzO1fa7S2e1deLOOe g8YmbRLnpQS5dXWiOKqswM jzdjQ1c8ZyCDZ8h43xbNti TwyoIGefmwNrEICcUT3jNK T6l1SmEIToEfLul4UfzXU9 uH8tv8MtJQU7PsGmaISije KypZRej0LzVKV0zmQtOYCk OEGviIIqI1EkdMElyDVdgh ScZBcrGBWcmYHft20zKK8x dwV7rsAih8SydrFzDZS7vf PLKYGJPKFazvNiq89nmARb bwF9xJ7zIM6cMBWsasqtPE KekE3jRV34IHQmijW7whJt KTIrL3HuNOfwsKN4uO5cx5 tqkRwbjM9fEfGfXvOpVJdf QU7bWQMtM1zugVJvZDFmVS RxK8wpYmFoeB5ctGmfVVti czIwXHBhcn0= SPECIMEN SOURCE (test y3xjvNChZJXtmOMfXoIkGR code = 3377) JaSDWih3mpYWXkuQVxYlEc MzNcZnRuYmpcdWMxXGRlZm Xvf7smi420fPXse8seAAZg ZzC6qMLkOEDcxGIyY157p9 qrb3ycsoRnlKD9XQAmUHZ4 QLrxyqPxxcI5SOefnLMtBn D4VNkfckGuRLpmdpTjhgEj Fgl6IHNjO569STQ7vYmnc4 ejLVX1BROkNPTeJeRwWs4b iHKaW607KDCqMMJDGDJouG l6ZVMsjmTwwfCvtLDCd610 X294b2qnPACidhDfwPqZhi fwk4rhW906HNZckQOhgbAv ZrOaCHIpsNPbpGS0AQOuWL 0lbqjfErUaIA0yqphfSvCe HQ1nlxo4PyErBD8hwijrIm EjXMlyNPNftxppISGbe6Sh wsyoDN2mY7Pza8Y5rR5xrV KaASJftFIhRmOqRPCouo6z iMSvOLyia1CrHCV7xeJ3bC WuzTJrDDUiFV68Myazk8Ie BgihQDZ0LEVuztYuf4Oya6 dmDzRcjmBwE5vaE9HkLLWs PNElSSWnVjJbhcKep1Qpw9 NehRLddUd8v4wcDUAbKJOa dPoui6tkOLY3RIQnB3Z0qL Fbg6hhMBigQFBxxRB2gmwq OSivIINinaR5oxhdBQbhKJ AciFU5pywfWYgvUWSgUuC0 utxyWYmmDUZcRMM9AWfjd2 73PHK3YSyoJrldIQqoXLAe bmNvbnRccGduZGVjXHBsYW luXHBsYWluXGYwXGZzMjRc qKsjwSulfP7vPiArYxZjOW awAP9tNOPpM0waaEAdJYVq RFSuW8ibCkVxmH5jzBmnXY xmczIwIFBFUklDQVJESUFM IEZMVUlEXHBhcn0= GROSS DESCRIPTION (test o0gfqCKiNYZdxMJnYeZsXB code = 3366) AcYUAoo2sdNVRlxAAdJyWg MzNcZnRuYmpcdWMxXGRlZm Khq7wgx605eVQfv1qkNKOl ChJ7lORkEXYjhGKuV598FN OdDVbiw3qpx1UdSUWgmYNo c6N7TFRDksjgtXm1yFgrV0 6fk9Z9AqjfR0hpATVxRMLb S5GyGP9pSQIqUkr1TBE0WZ Q2IIFxJYNdM3TlVC4cTOIq qGJgIXa2m9katLxdUTNdEK N7p1wdXFbixwKpDJ0mor4n cEz7n9vfaxCfLFQjINSpbX FFBDOuS9UxzHvaZc7ywKi2 mCvcRmluOYF3Uuf5JE2ovc 19tcf6sIlmNOFwjalzCoZ3 UUxoBTPmepzsRNp8KDuzHZ JnbDcyMFxtYXJncjcyMFxt YXJndDcyMFxtYXJnYjcyMF wdUHCpUQU7UTvks608RHL1 EVwlm3otw9pemWYzDip5HC XvGrEeAsrgASevi1Zol7ex SMTskc3vKVM1vBKytDewd2 I0gYOdDZLqlTTsmaHyFCCx MhK4RKwmSW5qbd51AIAjJJ U6va4byHWhfKscxaGchSMu ERrcD4TvAAWgh491DMGdY2 EpTPZsx2T7pbKdZmIwPZWf kLE7tiQ0JFUfFAi3jQQtnn N1knLziSYoU7xgqL31OfRk tOBbF4BoiY40CeYnkYYnH8 GekN66LfHrcIHjL8AjzY45 JgYpeIFcINDrvVUbXv8uzY AfrTPfx1WhfPKqOBqcS46s e508HAWqadPfE7ybwXCima zzpDAplulfZKpdrgG8QCAc XHBsYWluXGYxXGZzMjJcbG FuZzEwMzNcaGljaFxmMVxk OdIsBDZaKOdiV0neWhJlQz BxQjMCNWMtwADhUTK0TRUj hRAckQ4wUDbvVdl6lEXqcF FyIFByZXBhcmVkIGNlbGwg BhugT6bqDHWsHAVduO9zAX VhpCnyULqedrZoLArgBY4s OPDcF9k8e9RlkJ0sGSCoei DIr5fbYRX0KBU6YIA0QDTq QEzgACLjSmZnAUf7BVI2NY T2JRYeXNagFQU2 STATEMENT OF ADEQUACY Satisfactory (test code = 2757) SPECIAL STUDIES (test d8ybnPOmWUWif0hcPTXyjU code = 3376) FuZzEwMzNcZnRuYmpcdWMx OItmwtPiRMmjm8ZhC8QpYv AwMFxhbnNpXGRlZmxhbmcx HNJlXSN7qbUjCNAbBMqpPB PcCWnyAh1kaAYciHizSdFe YDZve6uyydMRngaqzKm8f8 amSIJdRoF0oQDxAWxiH1wu cwMlyKZnY0RxvMLuvHm1m4 sdFnDtPoG8gTUfUCxaH9ww ovTlfGFuDLHeIEu1wK08QU MpcT6iwBEzRLaowtOlZdU4 QPzoCGEbXmU0BRFmnHLiMK StR2veKPUdQKhnKVWeIQgr sFPbHEI3mVamp0G2yAAgpO PsmNtvRgWkHjKvGwGUn9Om ZDy4pIifT4HdJRKnXcH9jG QgUGFyYWdyYXBoIEZvbnQ7 pQzfrqGck77odYNiBJYgTL VmKlYzpKtdTKQdWNXRa9Xk vEplYZT4hGh7jGjpLxmeCB K0Tvl7YS2pbr65egd0gBbi SDGinkdfWhC9EVroYHIwme nsJTx1DIkqNAKitQQ0OGYr rJMnI3QdRQMlPG6gsin5QJ S8YYvkXIYhTcB8GCYwkFRl QBQmmYxfFNesb825FFK4Ia HhCJ4cY0Ypz2C6gL5gsUVj VSHnbYJnMqOqOJEeoc3vfP XyMRwwo4ZbFCC2oiU2jCVp fIJxVILnOB29Xapfp3GjCe ble0EmJ86reNQ8KNeut8xz ZM5nViY5vlGgWMxce0eupM 9qKbC2CUndNX7aRO2gLPXj aX8tezrxGILeJcBedhjwCL WvyTdbplLeLj6zkYoxUKJ3 ICjmG1gcxG5dUiB3RDvuD7 enfH2jUMu5WRlhxIV5IAAy qX1iAW4blnhcf6exMZfeCP ifTLNpstL1lwT5ICCspTUt B4VajR2gNZNxON1sbvted4 ynESQ6OQlnIZNuJLD7JeDq KQPqb3Bjadf7ZnTjb7LadP PiFSwfT68wq774ARRnliDd R3xngDZpvvjvxKXrhaaoZI awktR3YCCjONLtJXnbCGAq XGZzMjJcbGFuZzEwMzNcaG ljaFxmMVxkYmNoXGYxXGxv X7ueAeXoM5KdYPBjPjFaAZ acKVzukBCdtVEhrTS9iQ4n OH3sHTYpjVRyV6AxPCCiyu XgaQOyHAG6cIRhkBZzFG8k IGfinDMqe2wfo3QmF9ipdS tqoLU0DS9oWRVmYGBbVPgb s7AleB9aTuuuwJUoknmmRZ xmczIyXGxhbmcxMDMzXGhp Z9uqWcMoERBnxRkuDWnsc3 NoXGYxXGNmMlxmczIyXGx0 cmNoXHBhclxwYXJccGxhaW 6wAlHjCuHuOdrxDR5sLOIw Y1hipEElINAxZVZpQ3qsYw OkeM3plTovKOsrUePoGoKm TgUZx459wg6bAXOdmYEiri UYmRVouD8uFFgnIUilAEyy bHFbGWffp6maHVRbw9j8eK ZxQHAyafMzh1stIFmyisFw TWPqjJMkmVNlXPZyz01fCA darWfrjTqaYBQjg1LvyJwo d7FdMqNySCajk0NeE79cmQ JvbCBzbGlkZXMgcnVuIGFs a29ai4itGHUhOeY9rHJtaG M3zGRipMZwe9IypDbxURGa m8irXASbnf3dhpsfrUFil7 HwdP1qchkxCRgseHHznvAs PZUor0p3vMRsUALuWIXgAA xifVc6VMIcq835ft0cbgK0 jWGhSMB8GTkaAEBnHMXaqg UgZXZhbHVhdGVkXHBsYWlu XGYxXGZzMjJcbGFuZzEwMz NcaGljaFxmMVxkYmNoXGYx BEhmE7yaAlQlF0WpVDQsRy ZziEGaC4jbaUTbOXVwZSyd XGYxXGZzMjJcbGFuZzEwz NcaGljaFxmMVxkYmNoXGYx FUshN9mvNiQhR4NeYQXqAr IgIFxwbGFpblxmMVxmczIy CEdvtnocATKxIBzbR7eoYh SpQDIqgVvvSAzsy7QuQVWl MXLvZlmtyhZyKZd0kdSqYN BhclxwbGFpblxmMVxmczIy OUgjxzpcNHHlBBrzC2jjVf TyHXQodLwkCZlvc5DxTWUp XGNmMlxmczIyIEltbXVub2 hwh9DwL7qjhFaroMU2HTKh G7zpxFTxaLE9VPI5wP9jDP ewqwAqRDFeh6HcQTRwGJFc EaQ2iQ6cASX0OuAOuHccSN BsYWluXGYxXGZzMjJcbGFu ZzEwMzNcaGljaFxmMVxkYm BhOIEjPTkpW2ryChFcJ0Oz VDDvQoFplAmrWAeaBKd9Tn xwbGFpblxmMVxmczIyXGxh feidTMLzLBnoR5nlPlCwTG FhhVdnOLvei0AuPUMvMTWo MlxmczIyIHMgTWVkaWNhbC PRJD07FMEfUIOrgVmixZ7e mQOUJLDhdvV5z7V8AAsnVL SrJQz2DDrvwhMeTDQukJ7r FCPoAI5aBPu5yzVmESMlq6 LfYU6wMIOxiPCrDGP7YUJv l6CtZ4Ytp2GiFMUsHAUsly 9zntVyHyJBpDSrMJFekz99 OLLiOO2bJ4asXLGkZFSzbr UlhJIud3LrWPAetFK7aNJi ZU0SOgGBt42lDGYtSLVDzw CgUZIotEwrzBW0smW9cB2v LiBUaGUgRkRBIGhhcyBkZX Oulz2leaAsVQGlDXAnl2Ea sLGdaDBnbrTnS4Sql2MdEE Ebtm95SWvnfOZedd86IQ9z D3Hew9FoyW6lEIllJJYnl7 KvhTPntQWsSZRch8KpB5ql ytuwGFjoyAUxiZ3dUHQwZL j3BRMdk8NjBAEfh2WdRwMi mmJzZGNrXBKhQUIogZ70JJ N9vJnkpShupqPyDB7bHQSf bfCePQYfBTSuqB8aBIvzla NiYPJvyqI5n3M7MAwfNAPf olZkQwzcBLM9hsEzmgY4mP GmV0dbvnhrDDnqNHTic7Mv jP8pwQAIdQGls7PyeMMymE QUdGYfLG9ysjTlNC8cMCI7 ODggKENMSUEtODgpIGFzIH H3DCafZfdwRZL7cbGaHRAh k7NcGRmdT2vpC09ayVdjsU w4uAXxlIjkxXYufNQhNREh mnU5b7X8JSOvc6YetankAA BsYWluXGYyXGZzMjJcbGFu ZzEwMzNcaGljaFxmMlxkYm QvWHTwCXdbL9neCnQvVxAu HmbvOYC8oT== Gross assessment was [facility] performed at ([facility], = 2777) Department of Pathology, [address] [place] [address], Technical component was [facility] performed at ([facility], = 8586) Department of Pathology, [address] [place] [address], Professional component [facility] was performed at ([facility], code = 277) Department of Pathology, [address] [place] [address], [facility]00:00Medical Cytology Report Case: [id number] Aut horizing Provider: Erlin Odom, Collected: 01/02/2020 02:36 PM OrderingLocation: [place] [address] CC Received: 01/03/2020 08:54 AM Pathologist: Rhonda Chavez MD Specimen: Pericardial PERICARDIAL FLUID(CYTOSPINS AND CELL BLOCK): - POSITIVE FOR MALIGNANCY - MALIGNANT CELLS, COMPATIBLE WITH METASTATIC ADENOCARCINOMA FROM PATIENT'S KNOWN LUNG PRIMARY (SEE COMMENT) Signing Pathologist Direct Phone Line: [phone] signed by Rhonda Chavez MD on 01/05/2020 [...] metastasis from the patient's reported lung primary. 56787, 85251, 89442, 66519 x 4Pericardial effusion; metastatic non- small cell lung cancer, COPD who presented to outside hospital with with nausea, vomiting, diarrhea and dyspnea + cough who was subsequently found to have a large pericardial effusion, now transferred to [facility] for consideration of pericardiocentesisvs pericardial windowPERICARDIAL FLUIDReceived 40 ml bloody fluidPrepared cell block(A2) using collodion bag and 4 cytospinsCollected: [id number]: [id number] interpretation of this case included the use of immunohistochemistry or special stains.Control Slides Examined: In-house known positive controls were evaluated along with the test tissue. These control slides run alongside of the patients sample show appropriate staining. Internal positive and negative controls when available are evaluated Immunohistochemistry technical testing was performed at [facility], Pathology Laboratory where it was developed and [...] qualified to perform high complexity clinical laboratory testing.[facility], Department of Pathology, [address] [place] [address], [facility] of [facility], [address] [place] [address], [facility], Department of Pathology,[address] [place] [address], Czmk fluid culture + gram [id number] 12:18:00 Test Item Value Reference Range Interpretation Comments Result (test code = 6463-4) No growth Gram Stain Result (test No organisms seen code = 1123) [facility]AM [id number] 12:18:00 Test Item Value Reference Range Interpretation Comments CULTURE (BEAKER) (test No growth code = 1095) GRAM STAIN RESULT 3+ White blood cells (BEAKER) (test code = seen 1123) GRAM STAIN RESULT No organisms seen (BEAKER) (test code = 16779) RAD, CHEST, 1 VIEW, NON [id number] 08:34:00Reason for exam:->s/p pericardial drainShould this be performed at the bedside?->YesFINAL REPORT CLINICAL HISTORY: s/p pericardial drain TECHNIQUE: 1 view of the chest. COMPARISON: 01/03/2020 IMPRESSION: Pericardial drain has been removed. There may be subtle pneumopericardium. There is no cardiomegaly. Faint bilateral lower lung airspace opacities and trace pleural effusions have decreased. Signed: Nadir Liu Verified Date/Time: 01/05/2020 08:34:20 Reading Location: [facility] Radiology Reading Room XR chest 1 view portable / [id number] 08:34:00Interface, External Ris In - 01/05/2020 8:37 AM CDTFINAL REPORT CLINICAL HISTORY: s/p pericardial drain TECHNIQUE: 1 view of the chest. COMPARISON: 01/03/2020 IMPRESSION: Pericardial drain has been removed. There may be subtle pneumopericardium. There is no cardiomegaly. Faint bilateral lower lung airspace opacities and trace pleural effusions have decreased. Signed: Nadir Liu Verified Date/Time: 01/05/2020 08:34:20 Reading Location: [facility] Radiology Reading Room [facility] 2020-01-05 05:35:00 Test Item Value [...] (test code = 8.1 mg/dL 8.4-10.2 L 96111-9) EGFR (test code = 100 mL/min/1.73 [place] [address]-6) NOT ACCURATE CREATININE CLEARANCE IN PREDICTING GLOMERULAR FILTRATION RATE . ESTIMATED GFR I S NOT APPLICABLE FOR DIALYSIS PATIENTS. RHIANNA (test code = RHIANNA) Long Term Acute Care Registered Nurse ID - MICHA L Lab Interpretation Abnormal (test code = 97341-6) [facility] Test Item Value Reference Range Interpretation Comments Magnesium (test code = 1.9 mg/dL 1.6-2.6 93320-9) RHIANNA (test code = RHIANNA) Long Term Acute Care Registered Nurse ID - PIAYA L Lab Interpretation (test Normal code = 27869-3) [facility]2020-04-15 05:35:00 Test Item Value Reference Range Interpretation Comments MAGNESIUM (BEAKER) (test code = 1.9 mg/dL 1.6-2.6 627) Long Term Acute Care Registered Nurse ID - MICHA LBASIC METABOLIC [id number] 05:35:00 Test Item Value Reference Range Interpretation [...] S NOT APPLICABLE FOR DIALYSIS PATIEN TS. Long Term Acute Care Registered Nurse ID - MICHA LCBC with platelet count + automated [id number] 04:53:00 Test Item Value Reference Range Interpretation [...] 450 K/CU MM MPV (test code = 13749-4) 8.5 fL 9.4-12.3 L nRBC (test code [...] 2801) Lab Interpretation (test code = Abnormal 69467-2) [facility] W/PLT COUNT & AUTO [id number] 04:53:00 Test Item Value Reference Range Interpretation [...] (BEAKER) (test code = 2801) Hepatic function [id number] 05:40:00 Test Item Value Reference Range Interpretation Comments Protein, Total (test code 5.8 6.0- 8.3 gm/dL L = 2885-2) Albumin (test code = 3.3 g/dL 3.5-5 L 23684-7) Total Bilirubin (test code 1.3 mg/dL 0.2-1.2 H = 1974-) Bilirubin, Direct (test 0.6 mg/dL 0.1-0.5 H code = 1967-7) Alkaline Phosphatase (test 73 U/L 40-150 code = 6768-6) AST (test code = 1920-8) 29 U/L 5-34 ALT (test code = 1742-6) 40 U/L 6-55 RHIANNA (test code = RHIANNA) Long Term Acute Care Registered Nurse REYNALDO HONG W Lab Interpretation (test Abnormal code = 96111-8) [facility] Test Item Value Reference Range Interpretation Comments Phosphorus (test code = 3.1 mg/dL 2.3-4.7 2777-1) RHIANNA (test code = RHIANNA) Long Term Acute Care Registered Nurse REYNALDO HONG W Lab Interpretation (test Normal code = 84157-2) [facility] 05:40:00 Test Item Value Reference Range Interpretation Comments PHOSPHORUS (BEAKER) (test code = 3.1 mg/dL 2.3-4.7 604) Long Term Acute Care Registered Nurse REYNALDO HONG [id number] 05:40:00 Test Item Value Reference Range Interpretation Comments MAGNESIUM (BEAKER) (test code = 2.1 mg/dL 1.6-2.6 627) Long Term Acute Care Registered Nurse REYNALDO HONG WBASIC METABOLIC [id number] 05:40:00 Test Item Value Reference Range Interpretation [...] S NOT APPLICABLE FOR DIALYSIS PATIEN TS. Long Term Acute Care Registered Nurse ID - HAL WHEPATIC FUNCTION [id number] 05:40:00 Test Item Value Reference Range Interpretation [...] (test code = 40 U/L 6-55 347) Long Term Acute Care Registered Nurse ID - HAL WCBC W/PLT COUNT & AUTO [id number] 05:34:00 Test Item Value Reference Range Interpretation [...] Result (test code = See scanned report [id number]) [facility] [id number] 01:11:00 Test Item Value Reference Range Interpretation Comments SCAN RESULT (test code = See scanned report [id number]) 2D Echo W/Doppler(CW/PW/Color)2020-01-03 10:55:43Ejection FractionSLEH ECHO HEARTLAB MKCKESSON CPACSInterface, External Ris In - 01/03/2020 10:55 AM C DTTransthoracic Echocardiography Report (TTE) Demographics Patient Name DOTTY ARAIZA Date of Study 01/03/2020 Gender Female Visit Number [id number] Race Unknown Room Number 7410 Number Date of 1960 Referring Physician Erlin Odom Age 59 year(s) Licensing And Registration Director Maureen Pavon, [facility] Operations Scheduler Radha Waldrop, Interpreting Ronak Mak MD [facility] Physician Procedure Type of Study TTE [...] by Gagnon's method of disk assessment is gylknt-zc-idhvjwafon reduced (40%) . LV diastolic function is [...] by Gagnon's method of disk assessment is yvgwin-ep-jiiurzgmcj reduced (40%) . LV diastolic function is [...] Velocity: 2.29 m/s TR Gradient: 20.94 mmHgCHI [facility] CenterRAD, CHEST, 1 VIEW, NON DEPT 2020-01-03 08:48:00Reason [...] MDReport Verified Date/Time: 01/03/2020 08:48:03 Reading Location: [facility] Radiology Reading Room Hemoglobin [id number] 08:28:00 Test Item Value Reference Range Interpretation Comments Hemoglobin A1C (test code = 4548-4) 5.2 % 4.3-6.1 Lab Interpretation (test code = Normal 00162-0) [facility]MOGLOBIN [id number] 08:28:00 Test Item Value Reference Range Interpretation Comments HEMOGLOBIN A1C (BEAKER) (test code = 5.2 % 4.3-6.1 368) [id number] 06:05:00 Test Item Value Reference Range Interpretation Comments MAGNESIUM (BEAKER) (test code = 1.7 mg/dL 1.6-2.6 627) Long Term Acute Care Registered Nurse ID - VANESSA MBASIC METABOLIC [id number] 06:05:00 Test Item Value Reference Range Interpretation [...] S NOT APPLICABLE FOR DIALYSIS PATIEN TS. Long Term Acute Care Registered Nurse ID - VANESSA MSpecimen slightly ictericHEPATIC FUNCTION [id number] 06:05:00 Test Item Value Reference Range Interpretation [...] (test code = 46 U/L 6-55 347) Long Term Acute Care Registered Nurse ID - VANESSA MSpecimen slightly ictericCBC W/PLT COUNT & AUTO [id number] 06:01:00 Test Item Value Reference Range Interpretation [...] (BEAKER) (test code = 2801) Blood gas, [id number] 21:26:00 Test Item Value Reference Range Interpretation [...] % Lab Interpretation (test code = Abnormal 38037-0) [facility] GAS, [id number] 21:26:00 Test Item Value Reference Range Interpretation [...] of Study 01/02/2020 Gender Female Visit Number [id number] Race Unknown Room Number 6214 Number Date of 1960 Referring Physician Erlin Odom Age 59 year(s) Licensing And Registration Director Maureen Pavon, [facility] Operations Scheduler Andrei Grace Interpreting Alan Rodriguez MD [place] [...] % LVEDVI: 31 ml/m^2 LVESVI: 19 ml/m^2[facility] Center2D Echo W/Doppler(CW/PW/Color)2020-01-02 20:03:23Ejection FractionSLEH ECHO HEARTLAB MKCKESSON CPACSInterface, External Ris In - 01/02/2020 8:03 PM C DTTransthoracic Echocardiography Report (TTE) Demographics Patient Name DOTTY ARAIZA Date of Study 01/02/2020 Gender Female Visit Number [id number] Race Unknown Room Number 6214 Number Date of 1960 Referring Physician Erlin Odom Age 59 year(s) Licensing And Registration Director Maureen Pavon [facility] Operations Scheduler MD Abraham Velasquez Physician Procedure Type of [...] appear hypokinetic: all LV basal-mid segments . Croghan is hyperkinetic ( Possible mid ventricular takotsubo [...] appear hypokinetic: all LV basal-mid segments . Croghan is hyperkinetic. Global LV systolic function moderately [...] CO: 4.15 l/min LVOT CI: 2.53 l/min/m^2CH[facility] CenterABORH, [id number] 18:16:00 Test Item Value Reference Range Interpretation Comments ABO Grouping (test code = 2588) O Rh Factor (test code = 2589) POS [facility] fluid cell count with [id number] 16:58:00 Test Item Value Reference Range Interpretation Comments Appearance (test code = Bloody Clear A 9335-1) Color (test code = Red Colorless, Straw A 6824-7) RBCs (test code = 451356 <=1 /cu mm H 21949-5) Adjusted WBC Count (test 2285 <=5 /cu mm H code = 60160-5) Lining Cells (test code = 1005 <=1 /cu mm H 17769-5) % Segs (test code = 14 % 38053-4) % Lymphs (test code = 4 % 44457-6) % Monos (test code = 82 % 55340-7) % Eos (test code = 0 % 64699-5) % Baso (test code = 0 % 62050-7) Container Body Fluid EDTA Tube (test code = 2873) RHIANNA (test code = RHIANNA) Possible malignant cells seen on stained smears, cytology order in progress. Lab Interpretation (test Abnormal code = 02824-0) [facility] HospitalBODY FLUID CELL COUNT WITH [id number] 16:58:00 Test Item Value Reference Range Interpretation Comments APPEARANCE FLUID (BEAKER) Bloody Clear A (test code = 510) COLOR FLUID (BEAKER) (test Red Colorless, Straw A code = 511) RBC FLUID (BEAKER) (test code 940675 /cu mm <=1 H = 513) ADJUSTED [...] cytology order in progress.Type and screen, automated ([facility] Lab)2020-01-02 16:22:00 Test Item Value Reference Range Interpretation Comments ABO/RH AUTOMATED (BEAKER) (test O POSITIVE code = 2260) Ab Scrn (test code = 890-4) NEGATIVE [facility] HospitalaPTT2020-04-12 15:43:00 Test Item Value Reference Range Interpretation Comments PTT (test code = 68469-3) 23.7 22.5- 36.0 seconds Lab Interpretation (test code = Normal 76667-7) [facility] HospitalAPTT2020-04-12 15:43:00 Test Item Value Reference Range Interpretation Comments PARTIAL THROMBOPLASTIN TIME 23.7 seconds 22.5-36.0 (BEAKER) (test code = 760) Prothrombin time/[id number] 15:42:00 Test Item Value Reference Range Interpretation [...] valves. Lab Interpretation Normal (test code = 06235-4) [facility] HospitalPROTHROMBIN TIME/[id number] 15:42:00 Test Item Value Reference Range Interpretation [...] 125-220 H RHIANNA (test code = RHIANNA) Long Term Acute Care Registered Nurse ID - DB Lab Interpretation (test Abnormal code = 90662-5) [facility] HospitalLACTATE DEHYDROGENASE (LDH)2020-01-02 15:00:00 Test Item Value Reference Range Interpretation Comments LACTATE DEHYDROGENASE (BEAKER) (test 367 U/L 125-220 H code = 635) Long Term Acute Care Registered Nurse ID - DBTSH/Free T4 If [id number] 13:47:00 Test Item Value Reference Range Interpretation Comments TSH (test code = 2.072 0.350- 4.940 uIU/mL 21758-5) RHIANNA (test code = RHIANNA) Long Term Acute Care Registered Nurse ID - MANOLO C Lab Interpretation (test Normal code = 35330-6) [facility] HospitalTSH/FREE T4 IF [id number] 13:47:00 Test Item Value Reference Range Interpretation Comments THYROID STIMULATING HORMONE 2.072 uIU/mL 0.350-4.940 (BEAKER) (test code = 772) Long Term Acute Care Registered Nurse ID - MANOLO CB-type Natriuretic Factor (BNP)2020-01-02 13:32:00 Test Item Value Reference Range Interpretation Comments BNP (test code = 50410-0) 369 pg/mL 0-100 H RHIANNA (test code = RHIANNA) Long Term Acute Care Registered Nurse ID - MANOLO C Lab Interpretation (test Abnormal code = 83488-7) [facility] HospitalB-TYPE NATRIURETIC FACTOR (BNP)2020-01-02 13:32:00 Test Item Value Reference Range Interpretation Comments B-TYPE NATRIURETIC PEPTIDE (BEAKER) 369 pg/mL 0-100 H (test code = 700) Long Term Acute Care Registered Nurse ID - MANOLO CComprehensive metabolic [id number] 13:27:00 Test Item Value Reference Range Interpretation Comments Protein, Total (test 7.0 6.0- 8.3 gm/dL code = 2885-2) Albumin (test code = 4.1 g/dL 3.5-5 53782-4) Alkaline Phosphatase 109 U/L 40-150 (test code [...] Calcium (test code = 8.8 mg/dL 8.4-10.2 97214-6) AST (test code = 42 U/L 5-34 H 1920-8) ALT (test code = 60 U/L 6-55 H 1742-6) EGFR (test code = 96 mL/min/1.73 [place] [address]-2) NOT ACCURATE CREATININE CLEARANCE IN PREDICTING GLOMERULAR FILTRATION RATE . ESTIMATED GFR I S NOT APPLICABLE FOR DIALYSIS PATIENTS. RHIANNA (test code = RHIANNA) Long Term Acute Care Registered Nurse ID - MANOLO CSpecimen slightly icteric Lab Interpretation Abnormal (test code = 79044-0) [facility] HospitalLipid [id number] 13:27:00 Test Item Value Reference Range Interpretation Comments Triglycerides (test 95 mg/dL code = 2571-8) Cholesterol (test code 205 mg/dL = 2093-3) HDL (test code = 92 mg/dL 2085-9) LDL Calculated (test 94 mg/dL code = 44018-9) RHIANNA (test code = RHIANNA) Triglyceride Reference Range: Low Risk <150 Borderline 150-199 High Risk 200-499 Very High Risk >=500 Cholesterol Reference Range: Low Risk <200 Borderline 200-239 High Risk >240 HDL Cholesterol Reference Range: Low Risk >=60 High Risk <40 LDL Cholesterol Reference Range: Optimal <100 Near Optimal 100-129 Borderline 130-159 High 160-189 Very High >=190 Long Term Acute Care Registered Nurse REYNALDO FRENCH CSpecimen slightly icteric [facility] HospitalCOMPREHENSIVE METABOLIC [id number] 13:27:00 Test Item Value Reference Range Interpretation [...] S NOT APPLICABLE FOR DIALYSIS PATIEN TS. Long Term Acute Care Registered Nurse ID - MANOLO CSpecimen slightly ictericLIPID [id number] 13:27:00 Test Item Value Reference Range Interpretation [...] Borderline 130-159 High 160-189 Very High >=190 Long Term Acute Care Registered Nurse ID - MANOLO CSpecimen slightly ictericLactic acid, venous 2020-01-02 13:19:00 Test Item Value Reference Range Interpretation Comments Lactate, Venous (test code 0.86 mmol/L 0.5-2.2 = 2872) RHIANNA (test code = RHIANNA) Long Term Acute Care Registered Nurse ID - MANOLO C Lab Interpretation (test Normal code = 83600-2) [facility] HospitalLACTIC ACID, [id number] 13:19:00 Test Item Value Reference Range Interpretation Comments LACTATE BLOOD VENOUS (2) (BEAKER) 0.86 mmol/L 0.50-2.20 (test code = 2872) Long Term Acute Care Registered Nurse ID - MANOLO CCBC (Hemogram only)2020-01-02 13:10:00 [...] 450 K/CU MM MPV (test code = 37564-4) 8.7 fL 9.4-12.3 L nRBC (test code = 413) 0 0- 0 /100 WBC Lab Interpretation (test code = Abnormal 05386-1) [facility] (HEMOGRAM ONLY)2020-01-02 13:10:00 Test Item Value [...] = 413) RAD, CHEST, 1 VIEW, NON [id number] 12:13:00Reason for exam:->dyspnea, lung cancerShould this be [...] Oleary Verified Date/Time: 01/02/2020 12:13:53 Reading Location: [facility] C0[facility] Neuro Reading Room
[2020-04-28 13:19] LABS: Arterial Blood Carboxyhemoglob 1.5 % (0-1.5); Blood Gas Oxyhemoglobin 85.5 % (94-97); Blood O2 Saturation 87.2 % (92-98.5)
[2020-04-28 13:24] LABS: Absolute Lymphocytes (CBC) 0.9 K/uL (0.7-4.9); Basophils % 0.4 % (0-1.3); Hematocrit 34.1 % (36.0-45.0); Lymphocytes % 6.9 % (15.3-44.8); RBC Red Blood Cell Count 3.53 M/uL (3.86-4.86)
[2020-04-28 13:27] LABS: Protime INR 1.28
[2020-04-28] MEDS ORDERED: LEVALBUTEROL 1.25 MG/3 ML NEB ONE (13:30)
[2020-04-28] MEDS ORDERED: METHYLPREDNISOLONE 125 MG INJ ONE (13:30)
[2020-04-28 13:46] LABS: ALT/SGPT 50 U/L (12-78); AST/SGOT 30 U/L (15-37); Alkaline Phosphatase 151 U/L (45-117); Amylase 28 U/L (25-115); BUN Blood Urea Nitrogen 7 mg/dL (7-18); Bicarbonate 26 mmol/L (21-32); Bilirubin Direct < 0.1 mg/dL (0-0.2); Bilirubin Total 0.3 mg/dL (0.2-1.0); CKMB Creatine Kinase MB < 1.0 ng/mL (0.3-3.6); Creatine Phosphokinase 17 U/L (26-192); Glucose Level 114 mg/dL (74-106); Lipase 131 U/L (73-393); Potassium 4.2 mmol/L (3.5-5.1); Sodium Level 139 mmol/L (136-145); Troponin (Emerg Dept Use Only) < 0.02 ng/mL (0.0-0.045)
[2020-04-28] MEDS ORDERED: NA CHLORIDE 0.9% 500 ML ONE (14:06)
[2020-04-28] MEDS ORDERED: CEFTRIAXONE/SWI 1gm 1 GM/10 ML SYR ONE (14:19)
--- NOTE | 2020-04-28 14:23 | RAD REPORT ---
EXAM DESCRIPTION: RAD - Chest Single View - 04/28/2020 1:48 pm CLINICAL HISTORY: SOB COMPARISON: AP chest March 28 TECHNIQUE: AP portable chest image was obtained 04/28/2020 1:48 pm . FINDINGS: Patient has a baseline extensive interstitial fibrotic change. New areas of peripheral con solidation have developed in each upper lobe and in the right middle lobe. Right heart border is part ially obscured. Overall interstitial pattern is increased. Heart size and vasculature within normal limits. Trachea is midline. No measurable pleural effusion a nd no pneumothorax. No acute bony abnormality seen. No acute aortic findings suspected. IMPRESSION: New bilateral upper lobe peripheral consolidation and right middle lobe perihilar consol idation superimposed on extensive fibrotic lung change. Patient has an advanced lung cancer history. The extensive bilateral consolidation pattern would be m ore consistent with an infectious etiology. COVID-19 pneumonia cannot be excluded and may need correl ation with clinical presentation and testing results.
--- NOTE | 2020-04-28 14:43 | RAD REPORT ---
EXAM DESCRIPTION: CT - Chest For Pe Angio - 04/28/2020 2:14 pm CLINICAL HISTORY: SOB , COPD, history of metastatic carcinoma COMPARISON: Portable chest April 28, 2020, portable chest March 28, 2020, CT chest March 28, 2020 TECHNIQUE: Dynamically enhanced 3 mm thick images of the chest were obtained during administration o f approximately 150mL Isovue 370 IV contrast. Coronal and oblique MIP reconstruction images were gene rated and reviewed. Exam utilizes a protocol to evaluate the pulmonary arterial tree. All CT scans are performed using dose optimization technique as appropriate and may include automated exposure control or mA/KV adjustment according to patient size. FINDINGS: No lobar or main pulmonary artery emboli present. No convincing evidence for upper lobe pu lmonary embolic disease or right middle lobe pulmonary embolic disease. The patient does have bilater al lower lobe multi segment branch pulmonary emboli. The aorta as imaged shows no acute or suspicious finding. No pericardial thickening or effusion. Patient has a baseline of very extensive fibrotic lung change and predominately upper lobe emphysemat ous change. No pneumothorax or pleural effusion. Since the March 28 imaging there is been extensive john nge to the lung parenchyma. Bilateral upper lobe peripheral opacification has developed. Areas of nod ularity seen in the March 28 imaging in the right upper lobe is still present. The right middle lobe pe rihilar opacification has progressed. The perihilar changes have spiculation. There is additional per ipheral right middle lobe soft tissue opacification. Right perihilar air bronchograms are present. Th e peripheral opacification is relatively low in density in without air bronchogram formation. Right i nfrahilar spiculated parenchyma has developed. The areas of pulmonary embolus formation in the lower lobes do not have any acute or significant asso ciated lung parenchymal component. Pulmonary hemorrhage/ infarction not suspected. No pulmonary embol i seen associated with the areas of new lung parenchymal opacification. Approximately 15 millimeter subcarinal lymph node, suspected to be necrotic. No chest wall masses or abnormal axillary lymphadenopathy. IMPRESSION: Multi segment bilateral lower lobe pulmonary emboli without associated pulmonary infarct ion or hemorrhage. Bilateral upper lobe and right middle lobe peripheral lung parenchymal opacification with new right l ower lobe infrahilar and progressive right middle lobe perihilar soft tissue opacification. The new lung parenchymal opacification is either relatively low in density or shows spiculated margin s. Although there has been extensive overhead door technician a 1 month interval, findings are concerning for rapid p rogression of intrathoracic malignancy. With this extent of COPD, pneumonia would be an additional co nsideration and can have an atypical appearance.
--- NOTE | 2020-04-28 15:00 | ER ---
Nurse's Notes [facility] Name: Makayla Montalvo Age: 60 yrs Sex: Female : 1960 Arrival Date: 04/28/2020 Time: 12:47 Bed 8 Private MD: Gurpreet Quintero Diagnosis: Pneumonia, unspecified organism;Pulmonary embolism Presentation: 04/28 12:50 Chief complaint: Patient states: SOB at rest since yesterday. On continuous O2 at home ca1 at 3LPM for COPD. Reports 86% O2 sats at home. Cough x 1 week. Hx of Metastatic Lung Ca. Coronavirus screen: Client denies travel out of the [place] in the last 14 days. cough unrelated to allergies, shortness of breath, Client presents with at least one sign or symptom that may indicate coronavirus-19. Standard/surgical mask placed on the client. Provider contacted for isolation considerations. Ebola Screen: Patient negative for fever greater than or equal to 101.5 degrees Fahrenheit, and additional compatible Ebola Virus Disease symptoms Patient denies exposure to infectious person. Patient denies travel to an Ebola-affected area in the 21 days before illness onset. No symptoms or risks identified at this time. Initial Sepsis Screen: Does the patient meet any 2 criteria? RR > 20 per min. HR > 90 bpm. Yes Does the patient have a suspected source of infection? Yes: Productive cough/pneumonia If YES to both, name of provider notified: Morgan Ramirez NP Risk Assessment: Do you want to hurt yourself or someone else? Patient reports no desire to harm self or others. Onset of symptoms was April 28, 2020. 12:50 Acuity: VIRAJ 1 ca1 12:50 Method Of Arrival: Wheelchair ca1 13:08 Note Metastatic Lung Ca - treated with Keytruda. Last tx 04/12, nest tx 05/03. ca1 Historical: - Allergies: 13:08 No Known Allergies; ca1 - Home Meds: 13:08 Xarelto 10 mg oral tab 1 tab once daily [Active]; Bivespi 2 puff twice a day [Active]; ca1 ProAir HFA 90 mcg/actuation inhalation HFAA 2 puffs every 6 hours [Active]; Xanax 0.5 mg Oral tab 1 tab 3 times per day [Active]; dexamethasone 4 mg Oral tab [Active]; levetiracetam 500 mg oral tab 1 tab 2 times per day [Active]; famotidine 20 mg Oral tab 1 tab every 12 hours [Active]; Keytruda intravenous every 3 wks [Active]; multivitamin with minerals oral oral [Active]; Vitamin C 1,000 mg Oral tab [Active]; Vitamin D Oral 2000 unit [Active]; - PMHx: 13:08 COPD; Lung CA - Stage 4; Pericardial Effusion; ca1 - Immunization history:: Adult Immunizations up to date. - Social history:: Smoking status: Patient/guardian denies using tobacco, the patient reports quitting approximately 4 years ago. Screenin:31 Abuse screen: Denies threats or abuse. Denies injuries from another. Nutritional jl7 screening: No deficits noted. Tuberculosis screening: No symptoms or risk factors identified. Fall Risk IV access (20 points). Total Arreguin Fall Scale indicates No Risk (0-24 pts). Assessment: 13:31 General: Appears distressed, uncomfortable, ill, Behavior is cooperative, anxious. jl7 Pain: Denies pain. Neuro: Level of Consciousness is awake, alert, obeys commands, Oriented to person, place, time, situation. Cardiovascular: Patient's skin is warm and dry. Rhythm is sinus tachycardia Chest pain is denied. Respiratory: Airway is patent Respiratory effort is even, labored, with retractions, using tripod position. GI: Abdomen is round non-distended. Derm: Skin is dusky, Skin temperature is warm. 14:20 Reassessment: Patient appears in no apparent distress at this time. Patient and/or hb family updated on plan of care and expected duration. Pain level reassessed. Patient is alert, oriented x 3, equal unlabored respirations, skin warm/dry/pink. 15:30 Reassessment: Patient appears in no apparent distress at this time. Patient and/or hb family updated on plan of care and expected duration. Pain level reassessed. Patient is alert, oriented x 3, equal unlabored respirations, skin warm/dry/pink. Vital Signs: 12:50 BP 155 / 90; Pulse 149; Resp 38; Temp 99.7(O); Pulse Ox 80% on 3 lpm NC; Weight 61.69 ca1 kg (R); Height 5 ft. 6 in. (167.64 cm) (R); 13:31 BP 121 / 71; Pulse 139; Resp 31; Pulse Ox 99% on Nebulizer Mask; jl7 14:40 BP 100 / 71; Pulse 140; Resp 28; Temp 98.4; Pulse Ox 90% 5 lpm ; jl7 15:30 BP 115 / 78; Pulse 134; Resp 32; Pulse Ox 91% on R/A; hb 12:50 Body Mass Index 21.95 (61.69 kg, 167.64 cm) ca1 ED Course: 12:47 Patient arrived in ED. ag5 12:47 Gurpreet Quintero MD is Private Physician. ag5 12:50 Morgan Ramirez NP is PHCP. pm1 12:50 Jorge Tineo MD is Attending Physician. pm1 12:52 Easton Arteaga RN is Primary Nurse. jl7 13:03 Triage completed. ca1 13:05 Initial lab(s) drawn, by me, sent to lab. First set of blood cultures drawn by lab jl7 staff. 13:08 Arm band placed on right wrist. ca1 13:14 Inserted saline lock: 22 gauge in right wrist, using aseptic technique. Blood collected.jl7 13:14 Second set of blood cultures drawn by me. jl7 13:31 Patient has correct armband on for positive identification. Placed in gown. Bed in low jl7 position. Call light in reach. Side rails up X 1. operation shift supervisor on. Pulse ox on. NIBP on. Warm blanket given. 13:31 EKG done, by ED staff, reviewed by Morgan Ramirez NP. dh3 13:45 Troponin (emerg Dept Use Only) Sent. jl7 13:45 Ptt, Activated Sent. jl7 13:45 Protime (+inr) Sent. jl7 13:45 Procalcitonin Sent. jl7 13:45 Lipase Sent. jl7 13:45 LFT's Sent. jl7 13:45 Lactate Sent. jl7 13:45 CPK Sent. jl7 13:45 Amylase, Serum Sent. jl7 13:45 Basic Metabolic Panel Sent. jl7 13:45 Blood Culture Adult (2) Sent. jl7 13:45 CBC with Diff Sent. jl7 13:45 Ckmb Sent. jl7 13:46 ABG Sent. jl7 14:59 Prince Moncada MD is Hospitalizing Provider. pm1 16:05 Straight cath inserted, using sterile technique, 14 Fr. Returned clear yellow urine. dh3 Patient tolerated well. 200mL. 16:08 Strep Sent. hb 16:08 COVID-19 Sent. hb 16:08 Flu Sent. hb 16:09 No provider procedures requiring assistance completed. Patient admitted, IV remains in hb place. 16:09 Repeat lab(s) drawn. by nh, sent to lab. 3 Administered Medications: 13:30 Drug: SOLU-Medrol 125 mg Route: IVP; Site: right wrist; jl7 13:35 Drug: Xopenex (3) 1.25 mg Route: Inhalation; jl7 13:50 Drug: NS 0.9% 500 ml Route: IV; Rate: bolus; Site: right wrist; jl7 14:30 Follow up: Response: No adverse reaction; IV Status: Completed infusion; IV Intake: hb 500ml 14:39 Drug: Rocephin 1 grams Route: IV; Rate: calculated rate; Site: right wrist; jl7 14:40 Follow up: IV Status: Completed infusion; IV Intake: 10ml hb 15:00 Follow up: Response: No adverse reaction hb Intake: 14:30 IV: 500ml; Total: 500ml. hb 14:40 IV: 10ml; Total: 510ml. hb Outcome: 15:00 Decision to Hospitalize by Provider. pm1 16:09 Admitted to ER Hold. Please see [facility] for further documentation. hb 16:09 Condition: unchanged 16:09 Instructed on the need for admit, Demonstrated understanding of instructions. 08/08 09:53 Patient left the ED. iw Signatures: Tessy Long RN MONTEZ Morgan Ramirez, BLUE LEATHER SETTER BLUE LEATHER SETTER pm1 Mariposa Triana RN MONTEZ Easton Arteaga RN RN jl7 Kylee Godfrey 3 Ira Jacobo RN RN [facility] Danial Brown Eduardo
--- NOTE | 2020-04-28 15:00 | EDPHYS ---
Physician Documentation [facility] Name: Makayla Montalvo Age: 60 yrs Sex: Female : 1960 Arrival Date: 04/28/2020 Time: 12:47 Bed 8 Private MD: Gurpreet Quintero ED Physician Jorge Tineo HPI: 04/28 13:06 This 60 yrs old Female presents to ER via Wheelchair with complaints of pm1 Breathing Difficulty. 13:06 The patient has shortness of breath at rest. Onset: The symptoms/episode began/occurred pm1 3 day(s) ago. Duration: The symptoms are continuous, and are steadily getting worse. The patient's shortness of breath is aggravated by nothing, is alleviated by nothing, patient does not take any medications for her COPD. Associated signs and symptoms: Pertinent positives: non-productive cough, Pertinent negatives: chest pain, fever, nausea, vomiting. Severity of symptoms: in the emergency department the symptoms are worse Pain is currently a 0 / 10. The patient has not experienced similar symptoms in the past. Patient with history significant for COPD, lung CA, PE and pericardial effusion. She presents to the ER with complaints of shortness of breath for the past 3 days. Historical: - Allergies: 13:08 No Known Allergies; ca1 - Home Meds: 13:08 Xarelto 10 mg oral tab 1 tab once daily [Active]; Bivespi 2 puff twice a day [Active]; ca1 ProAir HFA 90 mcg/actuation inhalation HFAA 2 puffs every 6 hours [Active]; Xanax 0.5 mg Oral tab 1 tab 3 times per day [Active]; dexamethasone 4 mg Oral tab [Active]; levetiracetam 500 mg oral tab 1 tab 2 times per day [Active]; famotidine 20 mg Oral tab 1 tab every 12 hours [Active]; Keytruda intravenous every 3 wks [Active]; multivitamin with minerals oral oral [Active]; Vitamin C 1,000 mg Oral tab [Active]; Vitamin D Oral 2000 unit [Active]; - PMHx: 13:08 COPD; Lung CA - Stage 4; Pericardial Effusion; ca1 - Immunization history:: Adult Immunizations up to date. - Social history:: Smoking status: Patient/guardian denies using tobacco, the patient reports quitting approximately 4 years ago. ROS: 13:06 Constitutional: Negative for fever, chills, and weight loss, Eyes: Negative for injury, pm1 pain, redness, and discharge, ENT: Negative for injury, pain, and discharge, Neck: Negative for injury, pain, and swelling, Cardiovascular: Negative for chest pain, palpitations, and edema. 13:06 Abdomen/GI: Negative for abdominal pain, nausea, vomiting, diarrhea, and constipation, Back: Negative for injury and pain, MS/Extremity: Negative for injury and deformity, Skin: Negative for injury, rash, and discoloration, Neuro: Negative for headache, weakness, numbness, tingling, and seizure. 13:06 Respiratory: Positive for cough, with no reported sputum, shortness of breath. Exam: 13:06 Constitutional: This is a well developed, well nourished patient who is awake, alert, pm1 and in no acute distress. Head/Face: Normocephalic, atraumatic. Neck: Trachea midline, no thyromegaly or masses palpated, and no cervical lymphadenopathy. Supple, full range of motion without nuchal rigidity, or vertebral point tenderness. No Meningismus. Chest/axilla: Normal chest wall appearance and motion. Nontender with no deformity. No lesions are appreciated. 13:06 Back: No spinal tenderness. No costovertebral tenderness. Full range of motion. Skin: Warm, dry with normal turgor. Normal color with no rashes, no lesions, and no evidence of cellulitis. MS/ Extremity: Pulses equal, no cyanosis. Neurovascular intact. Full, normal range of motion. 13:06 Cardiovascular: Rate: tachycardic, Rhythm: regular, Pulses: no pulse deficits are appreciated, Edema: is not appreciated. 13:06 Respiratory: mild respiratory distress is noted, Respirations: tachypnea, Breath sounds: decreased breath sounds, are heard in the right posterior upper lobe. 13:06 Abdomen/GI: Inspection: abdomen appears normal, Palpation: abdomen is soft and non-tender, in all quadrants. 13:06 Neuro: Exam negative for acute changes, Orientation: is normal, Mentation: is normal, Motor: is normal, moves all fours. Vital Signs: 12:50 BP 155 / 90; Pulse 149; Resp 38; Temp 99.7(O); Pulse Ox 80% on 3 lpm NC; Weight 61.69 ca1 kg (R); Height 5 ft. 6 in. (167.64 cm) (R); 13:31 BP 121 / 71; Pulse 139; Resp 31; Pulse Ox 99% on Nebulizer Mask; jl7 14:40 BP 100 / 71; Pulse 140; Resp 28; Temp 98.4; Pulse Ox 90% 5 lpm ; jl7 15:30 BP 115 / 78; Pulse 134; Resp 32; Pulse Ox 91% on R/A; hb 12:50 Body Mass Index 21.95 (61.69 kg, 167.64 cm) ca1 MDM: 13:03 Patient medically screened. pm1 14:56 Data reviewed: vital signs. pm1 15:03 ED course: Discussed the patient with Dr. Tineo regarding the patient's tachycardia. pm1 Patient already on Eliquis and we decided no additional Lovenox or heparin at the moment due to possible bleeding risk. No more than 500 mL IV fluid bolus than she has been given at the moment due to possibly causing additional pulmonary compromise with patient's current bilateral PE, pneumonia, and COPD. 15:14 Physician consultation: Prince Antwan NEAL was called at 15:14, was contacted at 15:14, pm1 regarding admission, patient's condition, and will see patient. 04/28 13:04 Order name: Amylase, Serum pm04/28 13:04 Order name: Basic Metabolic Panel pm1 04/28 13:04 Order name: Blood Culture Adult (2) pm1 04/28 13:04 Order name: CBC with Diff pm1 04/28 13:04 Order name: Ckmb pm1 04/28 13:04 Order name: CPK pm1 04/28 13:04 Order name: Lactate pm1 04/28 13:04 Order name: LFT's pm1 04/28 13:04 Order name: Lipase pm1 04/28 13:04 Order name: Procalcitonin pm04/28 13:04 Order name: Protime (+inr) pm1 04/28 13:04 Order name: Ptt, Activated pm04/28 13:04 Order name: Troponin (emerg Dept Use Only) pm1 04/28 13:04 Order name: Urine Microscopic Only pm04/28 13:05 Order name: ABG pm04/28 13:28 Order name: Protime (+INR); Complete Time: 13:36 EDMS 08 13:28 Order name: PTT, Activated Partial Thromb; Complete Time: 13:36 EDMS 08 13:30 Order name: ABG Arterial Blood Gas; Complete Time: 13:36 EDMS 08 13:33 Order name: CBC with Automated Diff; Complete Time: 15:23 EDMS 08 13:46 Order name: Basic Metabolic Panel; Complete Time: 13:54 EDMS 08 13:46 Order name: Liver (Hepatic) Function; Complete Time: 13:54 EDMS 08 13:46 Order name: Creatine Phosphokinase; Complete Time: 13:54 EDMS 08 13:46 Order name: CKMB Creatine Kinase MB; Complete Time: 13:54 EDMS 08 13:46 Order name: Troponin (Emerg Dept Use Only); Complete Time: 13:54 EDMS 04/28 13:46 Order name: Amylase; Complete Time: 13:54 EDMS 04/28 13:46 Order name: Lipase; Complete Time: 13:54 EDMS 07 13:52 Order name: Lactate; Complete Time: 13:54 EDMS 07 14:17 Order name: Procalcitonin; Complete Time: 14:24 EDMS 07 14:26 Order name: COVID-19 pm1 04/28 14:26 Order name: Flu pm1 04/28 13:04 Order name: Chest Single View XRAY pm1 04/28 13:04 Order name: Accucheck; Complete Time: 08:01 pm1 04/28 13:04 Order name: Cardiac monitoring; Complete Time: 13:22 pm1 04/28 13:04 Order name: EKG - Nurse/Tech; Complete Time: 13:31 pm1 04/28 13:04 Order name: IV Saline Lock - Large Bore; Complete Time: 13:22 pm1 04/28 13:04 Order name: Labs collected and sent; Complete Time: 13:22 pm1 04/28 13:04 Order name: O2 Per Protocol; Complete Time: 13:22 pm1 04/28 13:04 Order name: O2 Sat Monitoring; Complete Time: 13:31 pm1 04/28 13:04 Order name: Urine Dipstick-Ancillary (obtain specimen); Complete Time: 16:24 pm1 04/28 13:55 Order name: CT Chest For PE Angio pm1 04/28 14:24 Order name: RAD; Complete Time: 14:24 EDMS 04/28 14:26 Order name: Notify Health Dept [phone]/ ; Complete Time: 16:08 pm1 04/28 14:26 Order name: Strep pm1 04/28 14:26 Order name: Document PUI#; Complete Time: 16:08 pm1 04/28 14:26 Order name: Droplet/Contact Precautions; Complete Time: 16:08 pm1 04/28 14:44 Order name: CT; Complete Time: 14:48 EDMS 04/28 15:16 Order name: Manual Differential; Complete Time: 15:23 EDMS 04/28 16:22 Order name: Urine Dipstick--Ancillary (enter results) 04/28 16:33 Order name: Urine Dipstick-Ancillary; Complete Time: 17:26 EDMS 04/28 16:36 Order name: Lactate Sepsis 2 HR Follow-up; Complete Time: 17:26 EDMS 04/28 17:00 Order name: Group A Streptococcus Rapid Sc; Complete Time: 17:26 EDMS 04/28 17:00 Order name: Influenza Screen (A ; Complete Time: 17:26 EDMS 04/28 17:16 Order name: CORONAVIRUS EDMS 04/28 17:18 Order name: Urine Microscopic Only; Complete Time: 17:26 EDMS 04/28 17:59 Order name: SARS-COV-2 RT PCR; Complete Time: 18:09 EDMS 04/29 08:39 Order name: Throat Culture EDMS Administered Medications: 13:30 Drug: SOLU-Medrol 125 mg Route: IVP; Site: right wrist; jl7 13:35 Drug: Xopenex (3) 1.25 mg Route: Inhalation; jl7 13:50 Drug: NS 0.9% 500 ml Route: IV; Rate: bolus; Site: right wrist; jl7 14:30 Follow up: Response: No adverse reaction; IV Status: Completed infusion; IV Intake: hb 500ml 14:39 Drug: Rocephin 1 grams Route: IV; Rate: calculated rate; Site: right wrist; jl7 14:40 Follow up: IV Status: Completed infusion; IV Intake: 10ml hb 15:00 Follow up: Response: No adverse reaction hb Disposition: 04/28/20 15:00 Hospitalization ordered by Prince Antwan for Inpatient Admission. Preliminary diagnosis are Pulmonary embolism, Pneumonia, unspecified organism. - Bed requested for Telemetry/MedSurg (Inpatient). - Status is Inpatient Admission. iw - Condition is Fair. - Problem is new. - Symptoms have improved. Addendum: 05/01/2020 11:14 Co-signature as Attending Physician, Jorge Tineo MD I agree with the assessment and k dr plan of care. Signatures: Dispatcher [employer] EDMS Jorge Tineo MD MD [facility] Tessy Long RN RN iw Josué Jiménez, PLASMA CUTTING MACHINE OPERATOR-C PLASMA CUTTING MACHINE OPERATOR-Cla1 Morgan Ramirez, N[employer] PLANT PATHOLOGIST pm1 Easton Arteaga RN RN jl7 Dana Manley Cheryl, RN RN ca1 Mariposa Triana RN hb Corrections: (The following items were deleted from the chart) 04/28 15:01 15:00 Hospitalization Ordered by Prince Antwan NEAL for Inpatient Admission. Preliminary pm1 diagnosis is Pulmonary embolismPneumonia, unspecified organism. Bed requested for Telemetry/MedSurg (Inpatient). Status is Inpatient Admission. Condition is Fair. Problem is new. Symptoms have improved. pm1 16:04 15:01 04/28/2020 15:00 Hospitalization Ordered by Prince Antwan NELA for Inpatient eb Admission. Preliminary diagnosis is Pulmonary embolismPneumonia, unspecified organism. Bed requested for Intensive Care Unit. Status is Inpatient Admission. Condition is Fair. Problem is new. Symptoms have improved. pm1 04/29 08:14 04/28 16:04 04/28/2020 15:00 Hospitalization Ordered by Prince Antwan NEAL for Inpatient eb Admission. Preliminary diagnosis is Pulmonary embolismPneumonia, unspecified organism. Bed requested for [facility] ER HOLD. Status is Inpatient Admission. Condition is Fair. Problem is new. Symptoms have improved. eb 04/29 09:53 08:14 04/28/2020 15:00 Hospitalization Ordered by Prince Antwan NEAL for Inpatient iw Admission. Preliminary diagnosis is Pulmonary embolismPneumonia, unspecified organism. Bed requested for Telemetry/MedSurg (Inpatient). Status is Inpatient Admission. Condition is Fair. Problem is new. Symptoms have improved. eb
[2020-04-28 15:16] LABS: Anisocytosis SLIGHT; Blood Morphology Comment NOTED (NOT SEEN); Platelet Estimate INCR; Polychromasia 1+
--- NOTE | 2020-04-28 16:05 | P.HP ---
Certification for Inpatient Patient admitted to: Inpatient With expected LOS: >2 Midnights Practitioner: I am a practitioner with admitting privileges, knowledge of patient current condition, hospital course, and medical plan of care. Services: Services provided to patient in accordance with Admission requirements found in Title 42 Section 412.3 of the Code of Federal Regulations Patient History Date of Service: 04/28/20 Reason for admission: shortness of breath History of Present Illness: Patient is a 60 year old female with a recent diagnosis of NSCLC (adenocarcinoma) with brain metastasis s/p chemotherapy, and Gamma knife at [facility] on 04/04. She also has a history of a large pericardial effusion s/p drainage in December 2019 at [facility], and COPD intermittently on 3L of O2 at home. She is a patient of Dr Ware and follows up with Dr. Sen and Dr Cortes. She is currently on Keytruda (Pembrolizumab), which she receives every 3 weeks, last on 04/12. She presents to the ER with a 3-day course of shortness of breath and dry cough. Her sx were severe enough prompting her to use her home O2 continuously. She denies any fever. She is always cold. Denies any sick contact, travel. She lives with her and daughter, who are both without respiratory symptoms at this time. She also denies any diarrhea. The rest of her ROS was unremarkable. She was found to have bilateral pneumonia and diffuse segmental pulmonary emboli in the ER. Patient takes xarelto at home. I talked to Dr Sen, who confirmed to me that patient was only on prophylactic dosage of xarelto. Allergies No Known Allergies Allergy (Verified 12/28/19 22:05) Home Medications: ALPRAZolam [Xanax*] 0.5 mg PO TID PRN 12/29/19 Albuterol Sulfate [Proair Hfa] 2 puff IH QID PRN 12/29/19 Glycopyrrolate/Formoterol Fum [Bevespi Aerosphere Inhaler] 2 puff IH BID 12/29/19 predniSONE [Prednisone*] 10 mg PO BEDTIME 12/29/19 - Past Medical/Surgical History Diabetic: No -: COPD -: stage 4 lung cancer chemo 2-3 weeks ago. - Social History Alcohol use: Yes CD- Drugs: No Caffeine use: No Physical Examination - Physical Exam General: Cooperative, Moderate distress HEENT: Atraumatic, Normocephalic, EOMI Neck: Supple Respiratory: Diminished, Crackles/rales, Other (tachypneic) Cardiovascular: No edema, Normal pulses, Regular rate/rhythm, Other (tachycard ic) Gastrointestinal: Normal bowel sounds, Soft and benign, Non-distended Musculoskeletal: No clubbing, No swelling, No contractures, No erythema, No tenderness, No warmth Integumentary: No rashes, No breakdown, No significant lesion, No tenderness/swelling, No erythema, No warmth, No cyanosis Neurological: Normal speech, Sensation intact, Normal affect - Studies Laboratory Data (last 24 hrs) 04/28/20 13:05: PT 15.0 H, INR 1.28, APTT 31.1 04/28/20 13:05: WBC 13.4 H D, Hgb 11.1 L, Hct 34.1 L, Plt Count 1022 H* D 04/28/20 13:05: Sodium 139, Potassium 4.2, BUN 7, Creatinine 0.53 L, Glucose 114 H, Total Bilirubin 0.3, AST 30, ALT 50, Alkaline Phosphatase 151 H, Amylase 28, Lipase 131 Assessment and Plan - Problems (Diagnosis) (1) NSCLC metastatic to brain Current Visit: Yes Status: Acute (2) Acute pulmonary embolism Current Visit: Yes Status: Acute (3) Healthcare associated bacterial pneumonia Current Visit: Yes Status: Acute (4) Multiple pulmonary emboli Current Visit: Yes Status: Acute (5) Acute hypoxemic respiratory failure Current Visit: Yes Status: Acute (6) 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 CT chest did not capture any pericardial effusion. However, it was concern for rapid progression of intra- thoracic malignancy Severe sepsis Acute hypoxemic respiratory failure Lactic acidosis Healthcare-associated pneumonia Mutliple segmental pulmonary emboli NSCLC with metastasis to the brain PLAN Admit to the ICU for airway monitoring BIPAP PRN Start vancomycin and cefepime due to high risk for MRSA and pseudomonas since she is actively on chemo Start patient on full dose anticoagulation. Will start with lovenox Lactated ringer infusion Trend lactic acidosis DuoNeb I will consult Oncology due to concern of disease progression - Advance Directives Does patient have a Living Will: No Does patient have a Durable POA for Healthcare: No
[2020-04-28 16:32] LABS: Urine Blood NEGATIVE (NEG); Urine Glucose NEGATIVE (NEG); Urine Protein NEGATIVE (NEG); Urine Specific Gravity 1.005 (1.005-1.030)
[2020-04-28] MEDS ORDERED: CEFEPIME 2 GM VIAL IV SCH (17:00)
[2020-04-28 17:18] LABS: Urine Bacteria <20 /HPF (<20); Urine Culture Reflex Order NOT NEEDED; Urine RBC NONE SEEN /HPF (NONE SEEN)
[2020-04-28] MEDS: Ringers Lactate 1,000 ML IV SCH (17:43)
[2020-04-28 17:46] VITALS: BMI 24.0
[2020-04-28] MEDS: ENOXAPARIN 60 MG/0.6 ML SQ SCH (18:00)
[2020-04-28] MEDS: VANCOMYCIN 1.25 GM in NA CHLORIDE 0.9% 250 ML IVPB SCH (18:00)
[2020-04-28] MEDS: CEFEPIME/SWI 2gm 2 GM/20 ML SYR IVP SCH (18:00)
[2020-04-28] MEDS ORDERED: Ringers Lactate 1,000 ML IV ONE (18:25)
[2020-04-28] MEDS ORDERED: ENOXAPARIN 60 MG/0.6 ML SQ ONE (18:50)
[2020-04-28] MEDS: ALBUTEROL 2.5 MG/3 ML NEB SOL NEB SCH (20:40)
[2020-04-28] MEDS: IPRATROPIUM BROM 0.5MG/2.5ML NEB SCH (20:40)
[2020-04-28] MEDS ORDERED: ALBUTEROL 2.5 MG/3 ML NEB SOL ONE (21:02)
[2020-04-28] MEDS ORDERED: IPRATROPIUM BROM 0.5MG/2.5ML ONE (21:02)
[2020-04-29] MEDS ORDERED: ALBUTEROL 2.5 MG/3 ML NEB SOL ONE ×3 (00:22→08:00)
[2020-04-29] MEDS ORDERED: IPRATROPIUM BROM 0.5MG/2.5ML ONE ×3 (00:23→08:00)
[2020-04-29] MEDS: ALBUTEROL 2.5 MG/3 ML NEB SOL NEB SCH ×6 (00:25→20:00)
[2020-04-29] MEDS: IPRATROPIUM BROM 0.5MG/2.5ML NEB SCH ×6 (00:25→20:00)
[2020-04-29] MEDS: CEFEPIME/SWI 2gm 2 GM/20 ML SYR IVP SCH ×3 (01:00→16:54)
[2020-04-29] MEDS: Ringers Lactate 1,000 ML IV SCH (02:43)
[2020-04-29] MEDS ORDERED: Ringers Lactate 1,000 ML IV ONE (05:02)
[2020-04-29] MEDS: VANCOMYCIN 1.25 GM in NA CHLORIDE 0.9% 250 ML IVPB SCH ×2 (05:49→17:22)
[2020-04-29] MEDS ORDERED: NA CHLORIDE 0.9% 1,000 ML IV SCH (08:00)
[2020-04-29] MEDS ORDERED: ENOXAPARIN 60 MG/0.6 ML SQ ONE (08:56)
[2020-04-29] MEDS: ENOXAPARIN 60 MG/0.6 ML SQ SCH ×2 (09:00→20:33)
[2020-04-29 10:33] LABS: Absolute Lymphocytes (CBC) 0.6 K/uL (0.7-4.9); Basophils % 0.1 % (0-1.3); Hematocrit 28.8 % (36.0-45.0); Lymphocytes % 4.1 % (15.3-44.8); MPV 6.9 fL (7.6-11.3); RBC Red Blood Cell Count 3.05 M/uL (3.86-4.86)
--- NOTE | 2020-04-29 13:51 | P.PN ---
Subjective Date of Service: 04/29/20 Chief Complaint: shortness of breath Subjective: Improving (Patient is transferred from ICU to general floor. She is on baseline oxygen. Requires IVF for lactic acidosis) Physical Examination - Vital Signs Temperature: 97.1 F Blood Pressure: 115/80 Pulse: 112 Respirations: 18 Pulse Ox (%): 88 - Physical Exam General: Cooperative, Mild distress HEENT: Atraumatic, Normocephalic, EOMI Neck: Supple Respiratory: Diminished, Crackles/rales, Other (No wheezing) Cardiovascular: No edema, Normal pulses, Regular rate/rhythm, Normal S1 S2 Gastrointestinal: Normal bowel sounds, Soft and benign, Non-distended, No tenderness Musculoskeletal: No clubbing, No swelling, No contractures, No erythema, No tenderness, No warmth Integumentary: No rashes, No breakdown, No significant lesion, No tenderness/swelling, No erythema, No warmth, No cyanosis Neurological: Normal speech, Sensation intact, Normal affect - Studies Laboratory Data (last 24 hrs) 04/28/20 13:05: Sodium 139, Potassium 4.2, BUN 7, Creatinine 0.53 L, Glucose 114 H, Total Bilirubin 0.3, AST 30, ALT 50, Alkaline Phosphatase 151 H, Amylase 28, Lipase 131 Assessment & Plan - Problems (Diagnosis) (1) NSCLC metastatic to brain Current Visit: Yes Status: Acute (2) Acute pulmonary embolism Current Visit: Yes Status: Acute (3) Healthcare associated bacterial pneumonia Current Visit: Yes Status: Acute (4) Multiple pulmonary emboli Current Visit: Yes Status: Acute (5) Acute hypoxemic respiratory failure Current Visit: Yes Status: Acute (6) 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 Current Visit: No Status: Acute (7) Pleural effusion, malignant Current Visit: No Status: Acute (8) Severe sepsis Current Visit: Yes Status: Acute Physician Review Additional Text: Assessment Patient is a 60 year old female with NSCLC currently on chemotherapy, COPD intermittently on oxygen at home currently admitted with acute hypoxemic respiratory failure secondary to pneumonia and multiple PE Severe sepsis Acute hypoxemic respiratory lactic acidosis Pneumonia Multiple PE NSCLC s/p chemotherapy and radiation PLAN Downgrade from ICU Continue broad spectrum abx: day 2 of vancomycin and cefepime Day 2 of full-dose anticoagulation Discontinue continue LR infusion with resolution of lactic acidosis DuoNeb, BIPAP PRN Patient can be discharged tomorrow on NOAC and follow up with Dr. Sen
[2020-04-30] MEDS: IPRATROPIUM BROM 0.5MG/2.5ML NEB SCH ×7 (00:20→23:25)
[2020-04-30] MEDS: ALBUTEROL 2.5 MG/3 ML NEB SOL NEB SCH ×8 (00:20→23:25)
[2020-04-30] MEDS: CEFEPIME/SWI 2gm 2 GM/20 ML SYR IVP SCH ×3 (00:22→16:30)
[2020-04-30] MEDS: ALPRAZOLAM 0.5 MG TABLET PO PRN ×2 (02:29→16:29)
[2020-04-30] MEDS: VANCOMYCIN 1.25 GM in NA CHLORIDE 0.9% 250 ML IVPB SCH ×2 (06:47→17:06)
--- NOTE | 2020-04-30 07:52 | EKG ---
Test Date: 2020-04-28 Test Time: 13:28:44 Youth Counselor: JAMES MEASUREMENT RESULTS: Intervals: Rate: 137 NH: 144 QRSD: 54 QT: 358 QTc: 540 [place]: P: 66 NH: 144 QRS: 77 T: 72 INTERPRETIVE STATEMENTS: Sinus tachycardia with fusion complexes Nonspecific ST and T wave abnormality Abnormal ECG Compared to ECG 03/28/2020 12:30:40 ST (T wave) deviation now present Electronically Signed On 04-30-20 07:49:41 CDT by Oren Almodovar
[2020-04-30] MEDS ORDERED: ONDANSETRON 4 MG/2 ML VIAL IV PRN (08:14)
[2020-04-30] MEDS ORDERED: LORazepam 2 MG/ML VIAL IV ONE (08:15)
[2020-04-30] MEDS: ENOXAPARIN 60 MG/0.6 ML SQ SCH ×2 (08:18→20:54)
[2020-04-30 09:23] LABS: Absolute Lymphocytes (CBC) 0.7 K/uL (0.7-4.9); Basophils % 0.4 % (0-1.3); Hematocrit 30.1 % (36.0-45.0); Lymphocytes % 5.7 % (15.3-44.8); RBC Red Blood Cell Count 3.17 M/uL (3.86-4.86)
--- NOTE | 2020-04-30 12:31 | P.PN ---
Subjective Date of Service: 04/30/20 Chief Complaint: shortness of breath Subjective: No new changes (Patietn is getting very anxious. Required IV ativan. Unable to wean down to 3 L of O2. Pulmonary consulted) Physical Examination - Vital Signs Temperature: 97.5 F Blood Pressure: 132/70 Pulse: 112 Respirations: 16 Pulse Ox (%): 90 - Physical Exam General: Other (frustrated, anxious) HEENT: Atraumatic, Normocephalic, EOMI Neck: Supple Respiratory: Diminished, Crackles/rales Cardiovascular: No edema, Normal pulses, Regular rate/rhythm, Normal S1 S2 Gastrointestinal: Normal bowel sounds, Soft and benign, Non-distended, No tenderness Musculoskeletal: No clubbing, No swelling, No contractures, No erythema, No tenderness, No warmth Integumentary: No rashes, No breakdown, No significant lesion, No tenderness/swelling, No erythema, No warmth, No cyanosis Neurological: Normal speech, Sensation intact, Normal affect Assessment & Plan - Problems (Diagnosis) (1) NSCLC metastatic to brain Current Visit: Yes Status: Acute (2) Acute pulmonary embolism Current Visit: Yes Status: Acute (3) Healthcare associated bacterial pneumonia Current Visit: Yes Status: Acute (4) Multiple pulmonary emboli Current Visit: Yes Status: Acute (5) Acute hypoxemic respiratory failure Current Visit: Yes Status: Acute (6) 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 Slow recovery from a respiratory standpoint. Severe sepsis Acute hypoxemic respiratory lactic acidosis Pneumonia Multiple PE NSCLC s/p chemotherapy and radiation PLAN Consult Pulmonary Continue broad spectrum abx: day 3 of vancomycin and cefepime Day 3 of full-dose anticoagulation DuoNeb, BIPAP PRN Patient can be discharged on full dose xarelto and follow up with Dr. Sen She will also need to follow up with her Interior Designer Dr. Cortes
[2020-05-01] MEDS: CEFEPIME/SWI 2gm 2 GM/20 ML SYR IVP SCH (00:24)
[2020-05-01] MEDS: ALBUTEROL 2.5 MG/3 ML NEB SOL NEB SCH ×2 (04:00→08:10)
[2020-05-01] MEDS: IPRATROPIUM BROM 0.5MG/2.5ML NEB SCH ×3 (04:00→12:00)
[2020-05-01] MEDS: ALPRAZOLAM 0.5 MG TABLET PO PRN (04:29)
[2020-05-01] MEDS: VANCOMYCIN 1.25 GM in NA CHLORIDE 0.9% 250 ML IVPB SCH (05:19)
[2020-05-01 12:51] VITALS: O2SAT 94
[2020-05-01 12:52] VITALS: BP 123/75; TEMP 97.9
--- NOTE | 2020-05-01 12:58 | P.CNS ---
Date of Consult: 05/01/20 Reason for Consult: Pulmonary embolism Chief Complaint: Pulmonary embolus History of Present Illness: Patient is 60 years of age admitted with a 3 day history of worsening dyspnea she has a history of COPD metastatic lung cancer was found to have bilateral pu lmonary embolism doing well right now patient has oxygen at home has bronchodilators Allergies No Known Allergies Allergy (Verified 12/28/19 22:05) Home Medications: ALPRAZolam [Xanax*] 0.5 mg PO TID PRN 12/29/19 Albuterol Sulfate [Proair Hfa] 2 puff IH QID PRN 12/29/19 Glycopyrrolate/Formoterol Fum [Bevespi Aerosphere Inhaler] 2 puff IH BID 12/29/19 predniSONE [Prednisone*] 10 mg PO BEDTIME 12/29/19 - Past Medical/Surgical History Diabetic: No -: COPD -: stage 4 lung cancer chemo 2-3 weeks ago. -: History of malignant pericardial effusion - Social History Smoking Status: Current every day smoker Alcohol use: Yes CD- Drugs: No Caffeine use: No Review of Systems 10-point ROS is otherwise unremarkable General: Weakness Respiratory: Shortness of Breath Physical Examination Temp Pulse Resp BP Pulse Ox 96.9 F 123 H 20 129/63 90 L 05/01/20 04:00 05/01/20 04:00 05/01/20 04:00 05/01/20 04:00 05/01/20 04:00 General: Alert, Oriented x3 HEENT: Atraumatic Neck: Supple Respiratory: Diminished, Expiratory wheezes Cardiovascular: No edema, Normal S1 S2 - Problems (1) Acute pulmonary embolism Current Visit: Yes Status: Acute Plan: Patient is 60 years of age admitted with pulmonary embolism she has metastatic adenocarcinoma also had a history of pericardial effusion he is doing much better change to p.o. Eliquis discharged lifelong anticoagulation patient has oxygen at home hemodynamically stable chemistries reviewed CT scan reviewed she has bilateral patchy changes doubt infection Qualifiers: Acute cor pulmonale presence: unspecified
--- NOTE | 2020-05-01 13:43 | P.DS ---
Discharge Date: 05/01/20 Primary Care Provider: Leon Disposition: ROUTINE DISCHARGE Discharge Condition: GOOD Reason for Admission: Pulmonary embolus Consultations: Pulmonary Brief History of Present Illness: Patient is a 60 year old female with a recent diagnosis of NSCLC (adenocarcinoma) with brain metastasis s/p chemotherapy, and Gamma knife at [facility] on 04/04. She also has a history of a large pericardial effusion s/p drainage in December 2019 at [facility], and COPD intermittently on 3L of O2 at home. She is a patient of Dr Quintero's and follows up with Dr. Sen and Dr Cortes. She is currently on Keytruda (Pembrolizumab), which she receives every 3 weeks, last on 04/12. She presents to the ER with a 3-day course of shortness of breath and dry cough. Her sx were severe enough prompting her to use her home O2 continuously. She denies any fever. She is always cold. Denies any sick contact, travel. She lives with her and daughter, who are both without respiratory symptoms at this time. She also denies any diarrhea. The rest of her ROS was unremarkable. She was found to have bilateral pneumonia and diffuse segmental pulmonary emboli in the ER. Patient takes xarelto at home. I talked to Dr Sen, who confirmed to me that patient was only on prophylactic dosage of xarelto. Hospital Course: Patient done well during hospital stay. Clinically she is doing better. Patient does have a pulmonary embolism. She was on Xarelto in the past; however, will start her on Eliquis full dose 10 mg b.i.d. and switch to Dove 5 mg b.i.d. in 1 week. Outpatient follow with Oncology in 1 week. Return to the ER if any bleeding. At this time patient is stable for discharge home. Vital Signs/Physical Exam: Temp Pulse Resp BP Pulse Ox 97.9 F 98 H 20 123/75 94 05/01/20 11:43 05/01/20 11:43 05/01/20 11:43 05/01/20 11:43 05/01/20 11:43 General: Alert, In no apparent distress, Oriented x3 Laboratory Data at Discharge: WBC 11.7 K/uL (4.3-10.9) H 04/30/20 08:57 Hgb 9.8 g/dL (12.0-15.0) L 04/30/20 08:57 Hct 30.1 % (36.0-45.0) L 04/30/20 08:57 Plt Count 1032 K/uL (152-406) H* 04/30/20 08:57 PT 15.0 SECONDS (9.5-12.5) H 04/28/20 13:05 INR 1.28 04/28/20 13:05 APTT 31.1 SECONDS (24.3-36.9) 04/28/20 13:05 Sodium 139 mmol/L (136-145) 04/28/20 13:05 Potassium 4.2 mmol/L (3.5-5.1) 04/28/20 13:05 BUN 7 mg/dL (7-18) 04/28/20 13:05 Creatinine 0.53 mg/dL (0.55-1.3) L 04/28/20 13:05 Glucose 114 mg/dL (74-106) H 04/28/20 13:05 Total Bilirubin 0.3 mg/dL (0.2-1.0) 04/28/20 13:05 AST 30 U/L (15-37) 04/28/20 13:05 ALT 50 U/L (12-78) 04/28/20 13:05 Alkaline Phosphatase 151 U/L (45-117) H 04/28/20 13:05 Amylase 28 U/L (25-115) 04/28/20 13:05 Lipase 131 U/L (73-393) 04/28/20 13:05 Home Medications: ALPRAZolam [Xanax*] 0.5 mg PO TID PRN 12/29/19 Albuterol Sulfate [Proair Hfa] 2 puff IH QID PRN 12/29/19 Glycopyrrolate/Formoterol Fum [Bevespi Aerosphere Inhaler] 2 puff IH BID 12/29/19 predniSONE [Prednisone*] 10 mg PO BEDTIME 12/29/19 Apixaban [Eliquis] 5 mg PO BID #60 tablet 05/01/20 Apixaban [Eliquis] 10 mg PO BID #14 tablet 05/01/20 New Medications: Apixaban [Eliquis] 10 mg PO BID #14 tablet Apixaban [Eliquis] 5 mg PO BID #60 tablet Patient Discharge Instructions: OK TO DC IV AND DC HOME. FOLLOW-UP WITH PRIMARY CARE PROVIDER IN 1-2 WEEKS. FOLLOW-UP WITH Pulmonary and Oncology IN 1-2 WEEKS. RETURN TO THE ER IF symptoms worsen. CALL or TEXT DR. MELARA AT [phone] IF ANY QUESTIONS REGARDING HOSPITAL STAY. PLEASE CALL THE FLOOR AT [phone] IF ANY MEDICATION OR NURSING QUESTIONS. Diet: Regular Activity: Fall precautions Time spent managing pt's care (in minutes): 35
[2020-05-01] MEDS ORDERED: ALBUTEROL 2.5 MG/3 ML NEB SOL NEB SCH (14:00)
[2020-05-01] MEDS ORDERED: APIXABAN 5 MG TABLET PO SCH (21:00)
== END 2020-05-01 14:54 | disposition home or self-care (01) | DRG 871 ==
LOC: ER 12:44 → ERHOLD 15:17 → 2ND 04-29 08:54
PROVIDERS: ADMIT Internal Medicine; ATTEND Hospitalist
DX: A41.9 Sepsis, unspecified organism (principal); I26.99 Other pulmonary embolism without acute cor pulmonale; J15.9 Unspecified bacterial pneumonia; J96.01 Acute respiratory failure with hypoxia; C34.90 Malignant neoplasm of unspecified part of unspecified bronchus or lung; C79.31 Secondary malignant neoplasm of brain; C77.1 Secondary and unspecified malignant neoplasm of intrathoracic lymph nodes; J44.0 Chronic obstructive pulmonary disease with (acute) lower respiratory infection; J91.0 Malignant pleural effusion; E87.2 Acidosis; R65.20 Severe sepsis without septic shock; Y95 Nosocomial condition; R05 Cough; Z20.828 Contact with and (suspected) exposure to other viral communicable diseases; Z99.81 Dependence on supplemental oxygen; Z79.01 Long term (current) use of anticoagulants; Z79.52 Long term (current) use of systemic steroids; Z79.899 Other long term (current) drug therapy
CPT/HCPCS: 36415; 51702; 71045; 71275; 80048; 80076; 80202; 81003; 81015; 82150; 82550; 82553; 82805; 83605; 83690; 84145; 84484; 85025; 85610; 85730; 87040; 87070; 87081; 87804; 93005; 94640; 96361; 96374; 96375; 99291; 99292; J0692; J0696; J1650; J2405; J2930; J3370; J7040; J7050; J7120; Q9967; V0003

== ENCOUNTER 2020-08-03 08:40 | Observation (INO) | payer OTHER ==
--- OUTSIDE RECORDS SUMMARY | 2020-08-03 08:48 | XMS REPORT | Clinical Summary ---
:[address] [facility] Address [address] [place] [address] Care Team Providers Name Role Phone Unavailable [...] (HCC) Sonia Zavala MD 01/02/2020 Travel after 08/03/2019 Social History Tobacco Use Types Packs/Day Years Used Date Unknown If Ever Smoked Smokeless Tobacco: Never Used Sex Assigned at Date Recorded Not on file Last Filed Vital Signs Vital Sign Reading Time Taken Comments Blood Pressure 133/68 01/05/2020 11:52 AM CDT [...] 10:47 AM CDT Body Mass Index 20.98 01/02/2020 10:47 AM CDT Plan of Treatment Health Maintenance Due Date Last Done Comments BREAST CANCER SCREENING 1960 COLON CANCER SCREENING COLONOSCOPY 1960 PNEUMOCOCCAL VACCINE 0-64 YRS (1 of 1 - PPSV23) 1965 CERVICAL CANCER SCREENING PAP ONLY (Age 21-65) 1980 INFLUENZA VACCINE (#1) 2020 LIPID PANEL 01/01/2025 01/02/2020 Procedures Procedure Name Priority Date/Time Associated Comments [...] are in the results section. PERICARDIOCENTESIS 01/02/2020 1:44 Cardiac tamponade PM CDT 2D ECHO W/ DOPPLER STAT 01/02/2020 1:04 Resul ts for this (CW/PW/COLOR) PM CDT procedure are in the results section. LACTATE DEHYDROGENASE Add-On 01/02/2020 12:59 Re sults [...] a re in the results section. after 08/03/2019 Results RHYTHM STRIP - SCAN (01/07/2020 2:50 [...] included. Specimen Narrative Performed At FINAL REPORT [facility] CLINICAL HISTORY: s/p pericardial drain TECHNIQUE: 1 view of the chest. COMPARISON: 01/03/2020 IMPRESSION: Pericardial drain has been removed. Ther e may be subtle pneumopericardium. There is no cardiomeg natalia. Faint bilateral lower lung airspace opacities and trace pleura l effusions have decreased. Signed: Nadir Liu MD Report Verified Date/Time: 01/05/2020 08:34:20 Reading [facility] Procedure Note Interface, External Ris [...] Verified Date/Time: 01/05/2020 0 8:34:20 Reading Location: [email or web address] [facility] [place] Room Performing Organization Address City/State/Zipcode Phone Number [facility] CBC with platelet count + automated diff (01/05/2020 4:40 AM CDT)Only the most recent of3 resultswithin the time period is included. Pathologist Sig nature WBC 5.4 3.5 - 10.5 [facility] K[facility] RBC 4.05 3.93 - 5.22 [facility] Hemoglobin 13.0 11.2 - 15.7 [facility] GM/DL [facility] Hematocrit 40.0 34.1 - 44.9 % [facility] MCV 98.8 (H) 79.4 - 94.8 fL [facility] MCH 32.1 25.6 - 32.2 pg [facility] MCHC 32.5 32.2 - 35.5 [facility] GM/DL [facility] RDW 16.0 (H) 11.7 - 14.4 % [facility] Platelets 340 150 - 450 K/CU [facility] MPV 8.5 (L) 9.4 - 12.3 fL [facility] nRBC 0 0 - 0 /100 WBC [facility] % Neutros 70 % [facility] % Lymphs 10 % [facility] % Monos 15 % [facility] % Eos 2 % [facility] % Baso 1 % [facility] # Neutros 3.80 1.56 - 6.13 [facility] # Lymphs 0.56 (L) 1.18 - 3.74 [facility] # Monos 0.82 (H) 0.24 - 0.36 [facility] # Eos 0.11 0.04 - 0.36 [facility] # Baso 0.04 0.01 - 0.08 [facility] Immature 2 (H) 0 - 1 % [facility] Granulocytes-Relative [facility] Specimen Blood Performing Organization Address City/State/Zipcode Phone Number [facility] [address] [place] [address] CENTER Magnesium (01/05/2020 4:40 AM CDT)Only the most recent of3 resultswithin the time period is included. Pathologist Sig nature Magnesium 1.9 1.6 - 2.6 mg/dL [facility] Specimen Blood Narrative Performed At Back Stayer ID - MICHA L [facility] Performing Organization Address [facility] Centercode Phone Number [address] [address] CENTER Basic Metabolic Panel (01/05/2020 4:40 AM CDT)Only the most recent of3 results within the time period is included. Sodium 135 (L) 136 - 145 meq/L [facility] Potassium 3.5 3.5 - 5.1 meq/L [facility] Chloride 101 98 - 107 meq/L [facility] CO2 27 22 - 29 meq/L [facility] BUN 9 7 - 21 mg/dL [facility] Creatinine 0.61 0.57 - 1.25 [facility] mg/dL [facility] Glucose 100 70 - 105 mg/dL [facility] Calcium 8.1 (L) 8.4 - 10.2 [facility] mg/dL [facility] EGFR 100Comment: mL/min/1.[address] [facility] ESTIMATED GFR IS NOT [facility] ACCURATE [place] CREATININE CLEARANCE IN PREDICTING GLOMERULAR FILTRATION RATE. ESTIMATED GFR IS NOT APPLICABLE FOR DIALYSIS PATIENTS. Specimen Blood Narrative Performed At Back Stayer ID - PIABDULAZIZ L [facility] Performing Organization Address [facility] Cancer Centercode Phone Number [address] [address] CENTER Phosphorus (01/04/2020 4:44 AM CDT) Pathologist Sig nature Phosphorus 3.1 2.3 - 4.7 mg/dL [facility] Specimen Blood Narrative Performed At Back Stayer ID - HAL Castellanos [facility] Performing Organization Address City/[facility]/Zipcode Phone Number [facility] [address] [place] [address] [place] Hepatic function panel (01/04/2020 4:44 AM CDT)Only the most recent of2 results within the time period is included. Pathologist Sig nature Protein, Total 5.8 (L) 6.0 - 8.3 gm/dL [facility] Albumin 3.3 (L) 3.5 - 5.0 g/dL [facility] Total Bilirubin 1.3 (H) 0.2 - 1.2 mg/dL [facility] Bilirubin, Direct 0.6 (H) 0.1 - 0.5 mg/dL [facility] Alkaline Phosphatase 73 40 - 150 U/L [facility] AST 29 5 - 34 U/L [facility] ALT 40 6 - 55 U/L [facility] Specimen Blood Narrative Performed At Back Stayer ID - HAL Castellanos [facility] Performing Organization Address City/[facility]/Zipcode Phone Number [facility] [address] [place] [address] [place] ECHOCARDIOGRAM REPORT - SCAN (01/03/2020 9:11 PM [...] 2D Echo W/Doppler(CW/PW/Color) (01/03/2020 9:37 AM CDT) Pathologist Sig nature Ejection Fraction [facility] Specimen Narrative Performed At Transthoracic Echocardiography Report (T TE) [facility] ECHO HEARTLAB [facility] Demographics Patient Name MAKAYLA MONTALVO Date of Study 01/03/2020 Gender Female Visit Number [id number] Race Unknown Room Number 7410 Number Date of 1960 Referring Physician Erlin Odom Age 59 year(s) Methods Engineer Maureen Pavon [facility] Manager Medical Device Radha Waldrop, Interpreting Ronak romero MD [facility] Physician Procedure Type of Study TTE [...] by Gagnon's method of disk assessment is wiqhav-op-ngjhsxbjxm reduced (40%) . LV diastolic function is [...] by Gagnon's method of disk assessment is vnxjqh-ho-fvgjmovuev reduced (40%) . LV diastolic function is [...] root size (SInus of Valsalva diameter) is norm al . Pericardium No pericardial effusion is visualized. [...] of Study 01/03/2020 Gender Female Visit Number [id number] Race Unknown [facility] 74 Number Date of 1960 Referri Physician Erlin Odom Age 59 year(s) Sonogra pher Maureen Pavon RDCS Manager Medical Device Marlin Hamilton eting Ronak Mak MD [facility] Physici an Procedure Type of Study [...] Gagnon's method of disk assessment is mi sbvj-fb-yymjalmmay reduced (40%) . LV diastolic fun ction [...] TR Gradient: 20.94 mmHg Performing Organization Address City/State/Zipcode Phone Number [facility] Blood gas, arterial (01/02/2020 9:14 PM CDT) Pathologist Sig nature pH, Arterial 7.52 (H) 7.35 - 7.45 [facility] pCO2, Arterial 36 35 - 45 mmHg [facility] pO2, Arterial 159 (H) 80 - 90 mmHg [facility] O2 Sat, Arterial 99.2 (H) 96.0 - 97.0 % [facility] HCO3, Arterial 28 21 - 29 mmol/L [facility] Base Excess, Arterial 5.6 (H) -2.0 - 3.0 [facility] mmol/L [facility] Patient Temperature 37.2 C [facility] FIO2 36.0 % [facility] Specimen Blood, Arterial Performing Organization Address City/[facility]/Zipcode Phone Number [address] [address] CENTER SARS COV 2 - COVID 19. (01/02/2020 9:13 PM CDT) Pathologist Sig nature Scan Result See scanned report [facility] Specimen Nasopharyngeal - Nasopharyngeal wall str ucture (body structure) Narrative Performed At This result has an attachment that is no t available. Performing Organization Address City/State/Zipcode Phone Number [facility] [address] [facility] [place], [place] AB[place]H, manual (01/02/2020 5:12 PM CDT) Pathologist Sig nature ABO Grouping O [facility] DICAL [place] Rh Factor POS [facility] Specimen Blood Performing Organization Address City/[facility]/Zipcode Phone Number [address] [address] Type and screen, automated ([facility] Lab) (01/02/2020 3:10 PM CDT) Pathologist Sig nature ABO/RH AUTOMATED O POSITIVE [facility] (BEAKER) [facility] Ab Scrn NEGATIVE [facility] Specimen Blood Performing Organization Address City/[facility]/Zipcode Phone Number [address] [address] aPTT (01/02/2020 3:10 PM CDT) Pathologist Sig nature PTT 23.7 22.5 - 36.0 seconds [facility] Specimen Blood Performing Organization Address [facility]/Zipcode Phone Number [facility] MEDICAL [address] [place] [address] CENTER Prothrombin time/INR (01/02/2020 3:10 PM CDT) Pathologist Sig [facility] Protime 13.9 11.9 - 14.2 seconds [facility] INR 1.1 <=5.9 [facility] Specimen Blood Narrative Performed At Effective 02/17/2019: PT Reference Range [facility] Change New: 11.9-14.2 Previous: 11.7-14.7 RECOMMENDED COUMADIN/WARFARIN INR THERAPY RANGES STANDARD DOSE: 2.0-3.0 Includes: PROPHYLAXIS for venous thrombosis, systemic embolization; TREATMENT for venous thrombosis and/or pulmonary embolus. HIGH RISK: Target INR is 2.5-3.5 for patients wiht mechanical heart valves. Performing Organization Address City/[facility]/Zipcode Phone Number [address] [address] CENTER Protein, Total, Pericardial Fluid (01/02/2020 2:36 PM CDT) Pathologist [facility] PROTEIN, TOTAL, 4.9 g/dL [facility] Specimen Body Fluid - Pericardial sac structure ( body structure) Performing Organization Address City/[facility] Cent[facility]ode Phone Number [facility] [place] [address] INCORPORATED [address] [facility] Glucose, Pericardial Fluid (01/02/2020 2:36 PM CDT) GLUCOSE, 26 mg/dL [facility] PERICARD[facility] FL[facility] Comment: INCORPORATED SAMPLE GROSSLY HEMOLYZED. Reference range approximates that found in serum. Specimen Body Fluid - Pericardial sac structure ( body structure) Narrative Performed At Performing Lab [facility] EZ [facility] [address] [place] [address] Gabby Rolon MD, PhD, [place] Performing Organization Address [facility] Centercoms Phone Number [place] [address] INCORPORATED [address] [facility] Body fluid culture + gram stain (01/02/2020 2:36 PM CDT) Result No growth [facility] Gram Stain Result 3+ White blood [facility] seen [facility] Gram Stain Result No organisms seen [facility] Specimen Body Fluid - Pericardial structure (body structure) Performing Organization Address City/State/Zipcode Phone Number [facility] [address] [place] [address] [place] Body fluid cell count with differential (01/02/2020 2:36 PM CDT) Appearance Bloody (A) Clear [facility] Color Red (A) Colorless, [facility] RBCs 760,500 (H) <=1 /cu mm [facility] Adjusted WBC Count 2,285 (H) <=5 /cu mm [facility] Lining Cells 1,005 (H) <=1 /cu mm [facility] % Segs 14 % [facility] % Lymphs 4 % [facility] % Monos 82 % [facility] % Eos 0 % [facility] % Baso 0 % [facility] Container Body Fluid EDTA Tube [facility] Specimen Body Fluid - Pericardial sac structure ( body structure) Narrative Performed At Possible malignant cells seen on stained [facility] smears, cytology order in progress. Performing Organization Address City/State/Zipcode Phone Number [facility] [address] [place] [address] [place] Cytology (01/02/2020 2:36 PM CDT) Case Report Medical Cytology Report Case: [id number] [facility] Authorizing Provider: Erlin Smith, Collected: 01/02/2020 02:36 PM [facility] Ordering Location: [place] [address] CCU Received: 01/03/2020 08:54 AM Pathologist: Rhonda Chavez MD Specimen: Pericardial DIAGNOSIS PERICARDIAL FLUID (CYTOSPINS AND CELL BLOCK): PAOLA KEITAS Electronically - POSITIVE FOR MALIGNANCY [facility] signed by Kathy, - MALIGNANT CELLS, COMPATIBLE WITH METASTATIC ADENOCARCINOMA [facility] MD Rhonda on FROM PATIENT'S KNOWN LUNG PRIMARY (SEE COMMENT) 01/05/2020 at 3:00 PMPreliminary Signing Pathologist Direct Phone Line: result electronically signed by Rhonda Chavez MD on 01/03/2020 at 3 :51 PM COMMENT Cytospins and cell block [facility] sections show clusters of [facility] malignant carcinoma. [facility] Immunostains performed on cell block sections show tumor cells to be positive for MOC31, CK7, and TTF1; while predominantly negative for calretinin and WT1. These findings are compatible with metastasis from the patient's reported lung primary. CPT Code(s) 76304, 21712, 92207, [facility]ENTERM[facility] [address] x 4 [facility] CLINICAL DATA Pericardial effusion; [facility] metastatic non-small cell [facility] lung cancer, COPD who [facility] presented to outside hospital with with nausea, vomiting, diarrhea and dyspnea + cough who was subsequently found to have a large pericardial effusion, now transferred to [facility] for consideration of pericardiocentesis vs pericardial window SPECIMEN SOURCE PERICARDIAL FLUID [facility] GROSS DESCRIPTION Received 40 ml bloody fluid [facility] ST [place] [facility] Prepared cell block(A2) using collodion bag and 4 cyto spins [facility] Collected: [id number] [facility] Received: [id number] STATEMENT OF Satisfactory [facility] SPECIAL STUDIES The interpretation of this c ase included the use of immunohistochemistry or special stains. [facility] Control Slides Examined: In -house known positive controls were evaluated along with the test tissue. These control slides run alongside of the patients sample show appropriate staining. Internal [facility] latricia and negative controls when available are evaluated Immunohistochemistry technic al testing was performed at [facility], Pathology Laboratory where it was developed and its performance characteristics were determined. It has not be en cleared or approved by [facility] U.S. Food and Drug Administration. The FDA has determined that such clearance or approval is not necessary. The test is used for clinical purposes. It should not be regarde d as investigational or for research. This laboratory is certified under the Clinical Laboratory Improvement Amendments of 1988 (CLIA-88) as qualified to perform high complexity clinical laboratory testing. Gross assessment [facility] was performed at [facility] Pathology, [address] [place] [address], Technical [facility] component was [facility] BCM performed at Pathology, [address] [place] [address], Professional [facility] component was [facility] performed at [facility], [address] [place] [address], Specimen Body Fluid - Pericardial sac structure ( body structure) Narrative Performed At This result has an attachment that is no t available. Performing Organization Address City/State/Zipcode Phone Number [facility] [address] [place] [phone] [place] 2D Echo W/Doppler(CW/PW/Color) (01/02/2020 2:19 PM CDT) Pathologist Sig nature Ejection Fraction [facility] Specimen Narrative Performed At Transthoracic Echocardiography Report (T TE) [facility] Demographics Patient Name MAKAYLA MONTALVO Date of Study 01/02/2020 Gender Female Visit Number [id number] Race Unknown Room Number 6214 Number Date of 1960 Referring Physician Erlin Odom Age 59 year(s) Methods Engineer Maureen magallon, [facility] Manager Medical Device MD Abraham Velasquez Physician Procedure Type of [...] % LVEDVI: 31 ml/m^2 LVESVI: 19 ml/m^2 Procedure Note Interface, External Ris In - 01/02/2020 8:05 PM CDT Transthoracic Echocardiography Report (TTE) Demographics Patient Name MAKAYLA MONTALVO Date of Study 01/02/2020 Gender Female Visit Number [id number] Race Unknown Room [place] [address] Number Date of 1960 Refertiffany plasencia Physician Erlin Odom Age 59 year(s) Sonograp her Maureen Pavon RDCS Manager Medical Device Andrei Rodriguez MD [place] Physicia n Procedure [...] ml/m^2 Performing Organization Address City/State/Zipcode Phone Number [facility] 2D Echo W/Doppler(CW/PW/Color) (01/02/2020 1:04 PM CDT) Pathologist Sig nature Ejection Fraction [facility] Power.[facility] Specimen Narrative Performed At Transthoracic Echocardiography Report (T TE) [facility] Scandid [facility] Demographics Patient Name MAKAYLA MONTALVO Date of Study 01/02/2020 Gender Female Visit Number [id number] Race Unknown Room Number 6214 Number Date of 1960 Referring Physician Erlin Odom Age 59 year(s) Methods Engineer Maureen magallon, [facility] Manager Medical Device Andrei Grace Interpreting MD Abraham Duque Physician Procedure Type of Study TTE procedure:2DECHO [...] appear hypokinetic: all LV basal-mid segments . [place] is hyperkinetic ( Possible mid ventricular [...] appear hypokinetic: all LV basal-mid segments . [place] is hyperkinetic. Global LV systolic functio n moderately reduced. LVEF by Gagnon's method of disk assessment is moderately reduced (35-39% ). The LVEF was measured using Gagnon's bi-plane method of disk . Degree of diastolic dysfunction (LAP assessment) i s inconclusive due to fusion E and A . Estimation of LV systolic function is less reliable in the presence of tachycardia. Left Atrium LA size is normal (16-34 ml/m2) . Right Ventricle RV chamber size is normal . Rv diastolic collapse is noted. Right Atrium RA cavity size is normal . There is RA systolic raúl apse. Aortic Valve Normal AoV structure. Mitral Valve Normal MV s tructure. Tricuspid Valve Unable to estimate peak systolic PA pressure; inadequate TR velocity signal. Pulmonic Valve Normal PV structure and function. Aorta Aortic root size (SInus of Valsalva diameter) is norm al . Pericardium A large circumferential pericardial effusion is present with a hematoma anterior and around apex. Early pericardial tamponade physiology is note d. IVC/SVC/PA/PV/Pleural The estimated RA pressure by IVC [...] of Study 01/02/2020 Gender Female Visit Number [id number] Race Unknown Room Num [facility] 1414 Number Date of 1960 Doug plasencia Physician Erlin Jose Cargo Age 59 year(s) Sonograp her Maureen Pavon [facility] Manager Medical Device MD Abraham Mccormick Physicia n Procedure Type of Study TTE procedure:2DECHO W DOPPLE R(CW/PW/COLOR) (STAT) Indications:Suspected Pericardial condit ions. Clinical [...] appear hypokinetic: all LV basal-mid segments . [place] is hyperkinet ic ( Possible mid [...] hypokinetic: all LV basal-mid segmen ts . [place] is hyperkin etic. Global LV systolic [...] T CI: 2.53 l/min/m^2 Performing Organization Address City/[facility] Centercode Phone Number [facility] TSH/Free T4 If Indicated (01/02/2020 12:59 PM CDT) Pathologist Sig nature TSH 2.072 0.350 - 4.940 uIU/mL [facility] Specimen Blood Narrative Performed At Back Stayer ID - MANOLO C [facility] Performing Organization Address [facility] [place] [address] [place] Lactic acid, venous (01/02/2020 12:59 PM CDT) Pathologist Sig nature Lactate, Venous 0.86 0.50 - 2.20 mmol/L [facility] Specimen Blood Narrative Performed At Back Stayer ID - MANOLO C [facility] Performing Organization Address [facility] Phone Number [address] [address] CENTER CBC (Hemogram only) (01/02/2020 12:59 PM CDT) Pathologist Sig nature WBC 9.7 3.5 - 10.5 K/L [facility] RBC 4.45 3.93 - 5.22 M/L [facility] Hemoglobin 14.5 11.2 - 15.7 GM/DL [facility] Hematocrit 42.7 34.1 - 44.9 % [facility] MCV 96.0 (H) 79.4 - 94.8 fL [facility] MCH 32.6 (H) 25.6 - 32.2 pg [facility] MCHC 34.0 32.2 - 35.5 GM/DL [facility] RDW 16.1 (H) 11.7 - 14.4 % [facility] [facility] Platelets 337 150 - 450 K/CU MM [facility] MPV 8.7 (L) 9.4 - 12.3 fL [facility] nRBC 0 0 - 0 /100 WBC [facility] Specimen Blood Performing Organization Address City/[facility] Cent[facility]ode Phone Number [address] [address] CENTER B-type Natriuretic Factor (BNP) (01/02/2020 12:59 PM CDT) Pathologist Sig nature BNP 369 (H) 0 - 100 pg/mL [facility] Specimen Blood Narrative Performed At Back Stayer ID - MANOLO C [facility] ICAL CENTER Performing Organization Address City/[facility] Cent[facility]ode Phone Number [address] [address] CENTER Lactate dehydrogenase (LDH) (01/02/2020 12:59 PM CDT) Pathologist Sig nature LDH 367 (H) 125 - 220 U/L [facility] Specimen Blood Narrative Performed At Back Stayer ID - DB [facility] Performing Organization Address City/[facility] Centercode Phone Number [address] [address] CENTER Hemoglobin A1c (01/02/2020 12:59 PM CDT) Pathologist Sig nature Hemoglobin A1C 5.2 4.3 - 6.1 % [facility] Specimen Blood Performing Organization Address City/[facility] Cent[facility]ode Phone Number [address] [address] CENTER Lipid panel (01/02/2020 12:59 PM CDT) Pathologist Sig nature Triglycerides 95 mg/dL [facility] Cholesterol 205 mg/dL [facility] [place] HDL 92 mg/dL [facility] LDL Calculated 94 mg/dL [facility] Specimen Blood Narrative Performed At Triglyceride Reference Range: [facility] Low Risk <150 Borderline 150-199 High Risk 200-499 Very High Risk >=500 Cholesterol Reference Range: Low Risk <200 Borderline 200-239 High Risk >240 HDL Cholesterol Reference Range: Low Risk >=60 High Risk <40 LDL Cholesterol Reference Range: Optimal <100 Near Optimal 100-129 Borderline 130-159 High 160-189 Very High >=190 Back Stayer REYNALDO - MANOLO Alvarado Specimen slightly icteric Performing Organization Address City/State/Zipcode Phone Number [facility] [address] [place] [address] [place] Comprehensive metabolic panel (01/02/2020 12:59 PM CDT) Protein, Total 7.0 6.0 - 8.3 [facility] gm/dL [facility] Albumin 4.1 3.5 - 5.0 [facility] g/dL [facility] Alkaline 109 40 - 150 U/L [facility] Phosphatase [facility] Total Bilirubin 1.8 (H) 0.2 - 1.2 [facility] mg/dL [facility] Sodium 134 (L) 136 - 145 [facility] meq/L [facility] Potassium 3.0 (L) 3.5 - 5.1 [facility] meq/L [facility] Chloride 90 (L) 98 - 107 [facility] meq/L [facility] CO2 27 22 - 29 meq/L [facility] BUN 9 7 - 21 mg/dL [facility] Creatinine 0.63 0.57 - 1.25 [facility] mg/dL [facility] Glucose 95 70 - 105 [facility] mg/dL [facility] Calcium 8.8 8.4 - 10.2 [facility] mg/dL [facility] AST 42 (H) 5 - 34 U/L [facility] ALT 60 (H) 6 - 55 U/L [facility] EGFR 96Comment: mL/min/1.73 [facility] ESTIMATED GFR IS sq m [facility] NOT ACCURATE [facility]ENTER CREATININE CLEARANCE IN PREDICTING GLOMERULAR FILTRATION RATE. ESTIMATED GFR IS NOT APPLICABLE FOR DIALYSIS PATIENTS. Specimen Blood Narrative Performed At Back Stayer ID - MANOLO Alvarado [facility] Specimen slightly icteric Performing Organization Address City/State/Zipcode Phone Number [facility] [address] [place] [address] CENTER after 08/03/2019 Insurance Payer Benefit Plan / Subscriber ID Effective Dates Phone Addre ss Type Group [id number] 2017-Present Ot er Govt (, [place], [facility], etc.) CDC REVIEW CDC REVIEW [id number] 2020-[place] [address] Advance Directives For more information, please contact: [phone] Code Status Date Activated Date Inactivated Comments Full Code 01/02/2020 11:47 AM 01/05/2020 5:01 PM This code status was determined by: Patient
--- OUTSIDE RECORDS SUMMARY | 2020-08-03 08:50 | XMS REPORT | Continuity of Care Document ---
:1960 Author Organization [facility] t Address [address] [place] [address] Dr. Morales [address] [place] [id number] Care Team Providers Name Role Phone Calvin ODOM Attending Clinician Unavailable Calvin Odom MD Attending Clinician Rochelle Zavala MD Attending Clinician Calvin ODOM Admitting Clinician Unavailable Payers Payer Name Policy Type Policy Number Effective Date Expiration Date S hieu TRICARETRICARExx [id number] 2017 [facility] L ukes [id number] 2017- 00:00:00 [facility] ([facility], [place], [facility], etc.) [facility] REVIEWCDC [id number] 2020 [facility] s [id number]/ 00:00:00 - Medica l 08/2020[facility] [place] [place] [address] Problems Condition Condition Condition Status Onset Resolution Last Treating Co mments Source Name Details Category Date Date Treatment Clinician Date Lung Lung Disease Active [facility] cancer cancer 01-01 [facility] - 00:00: Medical 00 Center Allergies, Adverse Reactions, Alerts This patient has no known allergies or adverse reactions. Social History Social Habit Start Date Stop Date Quantity Comments Source Sex Assigned At [facility] Tobacco use and 2020-01-05 2020-01-05 Never used [facility] - exposure 00:00:00 00:00:00 Medical Center Medications Ordered Filled Start Stop Current Ordering Indication Dosage Frequency Signature Comments Components Source Medication Medication Date Date Medication? Clinician (SIG) Name Name ALPRAZolam Yes .5mg Take 0.[address] (XANAX) 0.5 4-15 mg [facility] - MG tablet 15:01: mouth 3 Medic al 47 (three) Center times daily as needed for Anxiety. albuterol Yes 2{puff} Inhale [address] sulfate 4-15 puffs by [facility] - (PROAIR HFA 15:01: mouth via M edical INHL) 47 inhaler 4 Center (four) times daily as needed . glycopyrrol Yes 2{puff} Q.5D Inhale [address] ate/formote 4-15 puffs by [facility] - rol fum 15:01: mouth via Medic al (GLYCOPYRRO [address] LATE-FORMOT (two) BERNA[facility]TE IN[facility]) times daily. predniSONE Yes 10mg QD Take [address] (DELTASONE) 4-15 by mouth Luke [facility] - 10 MG 15:01: nightly. Medical tablet 47 Center Vital Signs Vital Name Observation Time Observation Value Comments Source Heart rate 2020-01-05 14:07:00 87 /min [facility] Respiratory rate 2020-01-05 14:07:00 16 /min [facility] Oxygen saturation in 2020-01-05 14:07:00 98 /min [facility] Arterial blood by Medical Ce nter Pulse oximetry Systolic blood 2020-01-05 11:52:00 133 mm[Hg] [facility] Diastolic blood 2020-01-05 11:52:00 68 mm[Hg] [facility] S [facility] Body temperature 2020-01-05 11:52:00 36.83 Myah [facility] Body weight 2020-01-05 07:54:00 57.2 kg [facility] BMI 2020-01-05 07:54:00 20.98 kg/m2 [facility] Body height 2020-01-02 10:47:00 165.1 cm [facility] Procedures Procedure Date / Time Performing Clinician Source Performed RHYTHM STRIP - SCAN 2020-01-07 14:50:49 Provider, Default [facility] CARDIAC CATH REPORT - SCAN 2020-01-06 14:40:45 Provider, Default [facility] RHYTHM STRIP - SCAN 2020-01-06 14:40:33 Provider, [facility] XR CHEST 1 VIEW 2020-01-05 08:17:00 Wing Dinh [facility]BEDSIDE [facility] BASIC METABOLIC PANEL (7) 2020-01-05 04:40:00 LinoJoslyn [facility] MAGNESIUM 2020-01-05 04:40:00 Lino, [facility] CBC W/PLT COUNT & AUTO 2020-01-05 04:40:00 Lino, [facility] BASIC METABOLIC PANEL (7) 2020-01-04 04:44:00 LinoJoslyn [facility] MAGNESIUM 2020-01-04 04:44:00 Lino, [facility] HEPATIC FUNCTION PANEL 2020-01-04 04:44:00 Lino [facility] PHOSPHORUS 2020-01-04 04:44:00 Wing Dinh [facility] CBC W/PLT COUNT & AUTO 2020-01-04 04:44:00 Lino [facility] ECHOCARDIOGRAM REPORT - SCAN 2020-01-03 21:11:26 Provider, [facility] ECHOCARDIOGRAM REPORT - SCAN 2020-01-03 21:11:24 Provider, [facility] ECHOCARDIOGRAM REPORT - SCAN 2020-01-03 21:10:44 Provider, [facility] TRANSFUSION SERVICE REPORT - 2020-01-03 17:51:12 Provider, [facility] 2D ECHO W/ DOPPLER 2020-01-03 09:37:00 Carmelita Hernandez [facility] (CW/PW/COLOR) [facility] XR CHEST 1 VIEW 2020-01-03 08:31:00 Wing Dinh [facility]/BEDSIDE [facility] BASIC METABOLIC PANEL (7) 2020-01-03 05:37:00 LinoJoslyn [facility] MAGNESIUM 2020-01-03 05:37:00 Lino, [facility] HEPATIC FUNCTION PANEL 2020-01-03 05:37:00 Lino Joslyn [facility] S [facility] CBC W/PLT COUNT & AUTO 2020-01-03 04:44:00 Lino Joslyn [facility] BLOOD GAS, ARTERIAL 2020-01-02 21:14:00 Eric Sherman [facility] MISCELLANEOUS LAB ORDER 2020-01-02 21:13:00 Ian Herron [facility] ABORH, MANUAL 2020-01-02 17:12:00 Ashly Cat [facility] PROTHROMBIN TIME/INR 2020-01-02 15:10:00 Carmelita Hernandez [facility] APTT 2020-01-02 15:10:00 Carmelita Hernandez [facility] TYPE AND SCREEN, AUTOMATED 2020-01-02 15:10:00 Carmelita Hernandez [facility] GLUCOSE, PERICARDIAL FLUID 2020-01-02 14:36:55 Dawkins-Gonzalez [facility] BODY FLUID CULTURE + GRAM 2020-01-02 14:36:[address] [facility] - STAIN [facility] PROTEIN, TOTAL, PERICARDIAL 2020-01-02 14:36:55 [facility]-Gonzalez [facility] - FLUID [facility] BODY FLUID CELL COUNT WITH 2020-01-02 14:36:55 Juancho-PAOLA [facility] - DIFFERENTIAL [facility] CYTOLOGY 2020-01-02 14:36:00 Dawkins-Gonzalez, [facility] - [facility] 2D ECHO W/ DOPPLER 2020-01-02 14:19:00 Dwakins-Gonzalez, [facility] - (CW/PW/COLOR) Er[facility] PERICARDIOCENTESIS 2020-01-02 13:44:00 Dawkins-Gonzalez, [facility] 2D ECHO W/ DOPPLER 2020-01-02 13:04:00 Dawkins-Gonzalez, [facility] - (CW/PW/COLOR) [facility] CBC (HEMOGRAM ONLY) 2020-01-02 12:59:00 [facility]-Gonzalez, [facility] COMPREHENSIVE METABOLIC 2020-01-02 12:59:00 [facility], [facility] - PANEL [facility] B-TYPE NATRIURETIC FACTOR 2020-01-02 12:59:00 [facility], [facility] - (BNP) [facility] TSH/FREE T4 IF INDICATED 2020-01-02 12:59:00 [facility], [facility] LACTIC ACID, VENOUS 2020-01-02 12:59:00 [facility], [facility] - [facility] LIPID PANEL 2020-01-02 12:59:00 [facility], [facility] - [facility] HEMOGLOBIN A1C 2020-01-02 12:59:00 [facility], [facility] - [facility] LACTATE DEHYDROGENASE (LDH) 2020-01-02 12:59:[address] [facility] [address] k[facility] XR CHEST 1 VIEW 2020-01-02 12:00:00 [facility], [facility] - PORTABLE/BEDSIDE [facility] Plan of Care Planned Activity Planned Date Details Comments Source Future Scheduled 2025-01-[address] [facility] - Test 00:00:00 (procedure) [code = [facility] 37990767] Future Scheduled 2020-05-23 INFLUENZA VACCINE (#1) [facility] - Test 00:00:00 [code = INFLUENZA Medical Ce nter VACCINE (#1)] Future Scheduled [address] Jessica es - Test 00:00:00 malignant neoplasm of [facility] cervix (procedure) [code = 918974754] Future Scheduled [address] [facility] - Test 00:00:00 0-64 YRS (1 of 1 - Medical C enter PPSV23) [code = PNEUMOCOCCAL VACCINE 0-64 YRS (1 of 1 - PPSV23)] Future Scheduled 1960 Screening for [facility] Jessica es - Test 00:00:00 malignant neoplasm of [facility] breast (procedure) [code = 941266586] Future Scheduled 1960 Screening for [facility] St Jessica es - Test 00:00:00 malignant neoplasm of [facility] colon (procedure) [code = 903086168] Results Test Description Test Time Test Comments Results Result Comments Source Protein, Total, Pericardial Fluid 2020-01-14 17:43:00 Test Item Value Reference Range Interpretation Comme nts PROTEIN, TOTAL, PERICARDIAL FLUID (test code = 55753-8) 4.9 g/dL [facility] PERIC[facility]IAL [id number] 17:43:00 Test Item Value Reference Range Interpretation Comments PROTEIN, TOTAL, PERICARDIAL FLUID 4.9 g/dL (BEAKER) (test code = 3304257) Glucose, Pericardial [id number] 16:54:00 Test Item Value Reference Range Interpretation Comments GLUCOSE, 26 mg/dL SAMPLE GROSSLY PERICARDIAL FLUID HEMOLYZED. (test code = Reference range 84651-1) approximates th at found in serum. RHIANNA (test code = Performing Lab RHIANNA) [facility] [address] [address] Gabby Rolon MD, PhD, [place] [facility]2020-04-15 15:00:00 Test Item Value Reference Range Interpretation Comments Case Report (test code Medical Cytology = 104) Report Case: [id number] Authorizing Provider: Erlin Odom, Collected: 01/02/2020 02:36 PM Ordering Location: [place] [address] CCU Received: 01/03/2020 08:54 AM Pathologist: Rhonda Chavez MD Specimen: Pericardial DIAGNOSIS (test code = [id number] 3220) EeGYNss8leVRGupXTyVdXu MzNcZnRuYmpcdWMxXGRlZm Iwp5esy476oVSvi7puFXVp QbG5jUIuKTKokUQvD879IZ XiEOctq5ydy0HeFYBybUXn m7A2VODDkdgviDi0nOlaW0 3gg4G8CpfdB0ndOMJcKGZw B6QyNQ0hJYEvNdv0IIJ7GV Q6EPWpCHEcC2DkCW6yJFXj jSRhROs5l6nrzKjjLBLrXS X4f4grRCcmfwP5NU5ruh6p tLw4c7hpzdAySJGcQKVkcK XTLACyJ6MrrWacTo2ziHg4 sYvnYzuzTEJ0Gjx2PI5upz 18tba4yPsmMZUjepdoXcA0 IFvmYXGaprswVMg4NEivEO JnbDcyMFxtYXJncjcyMFxt YXJndDcyMFxtYXJnYjcyMF uvEUToJJP5RBaka172FEZ2 WWcze6vez4qoaTFjTsd2PG FlIoVhQfniEDdpt2Yxp2sb PGPoIqX8VAfjDT3izf36GF EnZAR2mt7rlGHvdWxehsPa pPDeTUhvG1TtHBOfv521GH WwL0PwZPOwe5G6bcOjUwHo OPWsmFL3shH7URGkBPk7sK DbolK6acXhtTZlJ0nhoA17 DwXelGZgX5ExfA16RnIhcW SzB5QgaZ01ItOtuULfZ9Fe jH47ZhVypZNaWVNzjCCwUr 6anQHxdOVtj0AhyOVhETme G58ou593NDLmpmQtA3naoH FpblxwbGFpblxmMFxmczI0 XHFsXHBsYWluXGYxXGZzMj BcbGFuZzEwMzNcaGljaFxm QFdeIiDvJAQxOBhrS0ijCr TiUoXwYQOOMAXWG5TRIFwB RPWYCUWOIULvN9bQW7HEKT 8PJFTRIVSUXXaFQIZON2UN KLlxhHLfPXPbFF8iUX5SNV IWYaVoVs7ISX8DGOmZEfCZ B5jzEILhigFgCCDhTM8ACD oUUuEXAUXQUZzECsdtN91I EWXMFKVMTVMWIJJRIP4FTV DAQBQLWZVxQTQPAf1LTRIK XD3BASGupFBmGNYaAZHtEh LRLGZHBDEEQJ5BS4EpU63E K16gTBLKReFPRoyZDUGPXJ mFORLtN21DPGKGCXjcqCMo XHBsYWluXGYxXGZzMjJcbG FuZzEwMzNcaGljaFxmMVxk GnQnAUHuCVquD8mwCuLeFq MyMlxwYXJcdGFiXHRhYlx0 OUJqmNJwEZMdZwLlV9pfcu gxAiFDHGRzq1prH8zonVOW vKIiN6QkYMddbfRiAXwgCU txTCMiMZT7IW07VsU8REKx YWluXGYxXGZzMjRccGFyfQ == COMMENT (test code = s1uizZTwRNIxrKZpVzYsRM 3359) CkVUXcs6nbVDGpdXKtDcYo MzNcZnRuYmpcdWMxXGRlZm Zrn3gqa044mUEak4niWDPa BjA4cAByRVPavRUaK406h3 mtl9pugeFhuQA4PWUrWNW4 KLspsfMzhpI1QFqzfHHzFh T5MMpovaMrINtmglXzyxVc Xsk9OBNgX731RVU1oHcsz0 fxHPL4KCTsFJEeXlGsKd2t cWOdO335LXUiEUERJFMapR r6LYPcvjZpttEtzXIUf671 A712g4qsCWDadnPndNsPpz akj3yeE503IHDvdRYuheQx YdVuZRPfiZHtoMC5DUTwCA 6oalpyUgXnVN7ufjnjKvYg XT8ojnv5RuYkJE3pzcgnOz EiCOyhXZCaaghjLZLib1Hk oyrlWE9uO1Kpx7A3bP4paS VfEMQlnAVsUoIbZJAhno9b rAEvAYnfg7HfYOJ1zmD1sT KsaDLlXRPgEL52Nudlo1Nw UudzBVP8GIEnjyDqc1Ptk5 iyJtIqntNrZ5xjS8LbPEQx DRVlJBCsHyRhphKar2Kgd2 WdyASuvKw0c0bwLMNzTDQq gSnbf8bnJSA7USZkK2N8oV Jdz3mpTJkpVIMxySQ0cthc BJlxAHPzflA6hozbLZwnTN JzcOC5lpfaKHunLZMkQmB9 wxdvBKmlLPNuFIS2YLoar7 97IVG2STwyUmlaCQzeIXPd bmNvbnRccGduZGVjXHBsYW luXHBsYWluXGYwXGZzMjRc rJxnwGazkB2tJaZiPjMzSD nxGE9lGMBcS8pgyIKkKWRx ANDeA8msBmHtvX9clSgaDL wzqbOjBYZ2nT1pmEdfriLp vxNqM1DziKTixG3tukFeSN E0nB6hxpFauZ88QFIjpIP2 RJLiXG0nRQ9tfBoswpNtnH SiARHqbN9tpBFhSOvrsFGg z9F8PLovxcMrHYEbe5QbKW Lst96vF0NbnBDekG6lrePi KUV8oL8flbXgdS91EFY5zP 9yIGNlbGxzIHRvIGJlIHBv m7c5lAShWUDpkgMGY2HcNE ykE4q9JWEwcvGvKRYMUAxn j0byyOClaXKeMK6hrI3opu AluXTjNIqysTi2JVVxl4Ls Q7VxnrD7tX5cwpHodjDhV1 BgIjJYaNRaZWRfuX7xoB8d tiZnurSfN39muON6pYZxTM H4zFXbVC5xhKLnyOIrjJHx WrPjkPB6jDLabWF9gHNfdN nkUIJvoE6vdNQeOLd3kpeo eFPteAXstJ9tZOTiox5= CPT Code(s) (test code o3mcyBTqQKNtyPUvKjWgJZ = 3351) VmFUVtp0dsAIUpaKJxOiWg MzNcZnRuYmpcdWMxXGRlZm Wgf9aqp059lYYqu4yfEBUo EoC5gQWqMQAqdBCdW991TO UgJHaix1anw5LkLUFkkPKq e4Z3BBMXpgsbfGa4uRbpM8 3um4Z5CuhsL4nyGXDiEFRa A1UjKB0lZRSbSqt8EOP7EZ R7HJZuMKDhJ0ErJT2kNXFt hCXyADr1a3jyxSgsTYWfNN Q0n7giSYodpuTuFP1bir8z xXx7t9giqmQkTCDpDLJvbT TOTWUrH1GltUfrVo5clQf6 fEoqWevuSUE7Veg2QL1umk 38nos4iIzjSBVrebgtLjX0 BVmyTMEnjpogXUd3FOghLZ JnbDcyMFxtYXJncjcyMFxt YXJndDcyMFxtYXJnYjcyMF ufQRUiTHI6OBszf314YFB8 MTyeu3qfv6fmnARhZvn5OQ AmVvKnObhmMQent3Noo6ew SJIvul2qLSI7yXYzoTnql8 Y7rYMxZIQdkPWwizGrLJSi OoI4MNzpOX7tgg98YZLyJP M1sm5piBEpkOywpbLolTAt WNbaO0JyJLZfk087OGFqX5 KwJVBdw2W4wwKkZrPsLSUc lRR4ueO4ZFNiYZn6bDPpwc O0sbSdgQLjE6mlsI58VhCc sIKxD3CceW36OoOokSQrH7 QrbA99SkMdpVLxP9WzmO36 WzDjcAByCHRumVTuQe7vvM JvkXTji7SyqHKaALotI44d a073DHKfyrMpX9pqlBJzop njfVBtxtxxDQmzlgS6XJEf XHBsYWluXGYxXGZzMjBcbG FuZzEwMzNcaGljaFxmMVxk MmVlRXIhSAicC7npLaIaQf QeCKT0ALCmUZxwHMtsMFWv KDy8DuXkFGJ1GSB4AFZ3XT RccGFyfQ== CLINICAL DATA (test r6splTSsBMTydKYlTqOvZW code = 3400) LzQAZza7ftTTAjvNAnXvPh MzNcZnRuYmpcdWMxXGRlZm Uii2txp052iPBew7anNXVm DhU7kZRhJACddZCeQ876GR BaLTubx5mgb9SrMGSbyZDv b4F1GMAegqpqhMz2fEgcJ4 7pm7Y1LlfaX1rvVXVvJFWg N6FjGY1gRFBlGlx5MQU4NW Z6BOPnYURwH6JjLP4bBHSe nSDzHKu6y8wyvEniGFOgVD Z5c7fpMZarzfErJP3qua1k dGq6t7bhjwTuSVTxQHWkvS WQVANmT1AcfXsoXo8tgEn9 iFdnGqauBSS4Fgl5UL4jpg 65wcj5tBadNRYzvdmlDeD3 VBydGQZujfdzGLk0FJtsYZ JnbDcyMFxtYXJncjcyMFxt YXJndDcyMFxtYXJnYjcyMF alNCXvNTB8HIsrw269FBK3 PNcuf0bbp7sjbFBiIcw8QV DiFqIgXsnuMZgry7Wuz3wc BSXzra9kMQN7rSClpHxgz2 T9wAMoOPEhfOAktaUhEYRc ZtD2FLlnOM8yij96TLVjSR L8jr2okJGlaKzahmSvyPVw KOtrM0ScOJNbp247XGXxN4 PjOWQjb1Y6jyBaZtAwAYDs cPO5byG1ALMjRBl3vICapi G0llLqcTNkZ2npfX51ZuWs mPRuF2BxjS59FuKahUMsY2 AliF27QvTdhKDxW0GokU38 VxWzaSXpJZAnoDKaRk9byQ JpfCYwd3FptXItGFvtQ58z a985UXSbmiOpU1zxiZGdyj rxvTUsmhflTDotrmV8BKRp XHBsYWluXGYwXGZzMjBcbG FuZzEwMzNcaGljaFxmMFxk SqItSDHkRYimZ4jbVgVoPb MrYKNFLOGsS3IgZYdzmNJc HbB1l2qhzhmtCZKkCZtdEW YxXGZzMjBcbGFuZzEwMzNc aGljaFxmMVxkYmNoXGYxXG ekU4izNpUjEwDtIZReWEMj r9WtrXjaYY6vhd5eqUModI BxIVkzPLx9kgjiK9HsA9Ma ZYKIO4AZZFcjmwXuzjJgOG 36CTAheY5zv0W2c0biERTt n1VwqKWxrHG5dZCtUYprjA hyzjS4u9JjRAM1b95yxRfb ItbhFEdhleMsMOIzIS6aGS U6d4SuJAEkAdZqu4ZqiDH6 hO6ta0GnUUZ6CpYraXHoci YrzHHoy9LdPRT9axRpTLCm UDXwmKBpI0YyyZDjmXFeai XsRKdaEAYuzQCbc41lJZ9f hsH2clSdh4XonzClFWJ0ag YPETZOFPOkwxEij79ljILe pnL6zU2yDB1wLOZydmlhMP JzwO6eZN35WNRhapZ4ujQf LGSoO6GaRTltjRS3xM6uz7 ekdUhiiM4vUiWvGjFmNFpn UD3eAMNfA1gfcZRcMECnXT CuM3kmNdCfqY5ybLikRQxy czIwXHBhcn0= SPECIMEN SOURCE (test y0bjvHGtNEIubWBlPnKcOA code = 3377) JcBMYxy8aeZQSbrNQfVfQn MzNcZnRuYmpcdWMxXGRlZm Fiw6hez243wMLps8rjWBWe BlY6qHOoSYOihHAvH568w4 gwn5unskXdsCB3RRMhXCM4 RZghslAwdrY6RIzgjKXyYo D7EXdlrlRlKUefgtXtrzGq Ivg3DABhV361GMQ1eJrqx9 tzGHQ5YPYyPZYkXdIeWy8j kDNuI456LDGgADHQDMNtpP k4VEJjvgCoaaLrbAWXr363 I736u0ymJPWidrGzcDrKli why1jsZ585XRUyxSOmxqAm XxJfEURgbCMeaSS1XANgAR 5bxtgvMhChHA0wmfbkHuFf AE9icsd0YfHsTE4itejyTl QpINozAKIsmehrCYTqr9My glszVM8yP3Vrj9R7bW2zcW TlXWWfpLAkPlLpSZHoaa1z rTFrOHtwq9YkVWV8caT5xT NbbTDnVAWnWC48Guovu9Xr FxoeTOZ1MMTqwlCib9Uuu3 rrHrOeebZeC3btB1ZqRDKk YISePGLwIhByiuXyc0Sos2 TpcGRfdQh1z1tlUNIuNWNb zMvvf5psCBY5TQUoF3H6dD Rgd2laUPvyWOMvvXD9mxrh PGsqMNNxmxK0wpmcFCmeGI VnnYY3njthKLaoKIEzPvK6 rmvkWVdaFKSrTJS7ARxgh3 61ZSS3FCuhEumrHUpbSZOt bmNvbnRccGduZGVjXHBsYW luXHBsYWluXGYwXGZzMjRc qAxxjTqlsT6bVjAeEnDjGY rqCD6aWXGpV6oeyIVsNQVw ERDxK0nmMlGyzA7dtJdkFS xmczIwIFBFUklDQVJESUFM IEZMVUlEXHBhcn0= GROSS DESCRIPTION (test y3dhrGUwYHOlkDQmNsTaKM code = 3366) KkPLRfo4byLNJznZKqBuWt MzNcZnRuYmpcdWMxXGRlZm Ups3qry973gKBcr8miJZEb BiU0pWYmNWIcnMNbG812FT NqDUqac2czf0KrETXsuSHy u6H0THJFesbphSg6uPocB9 4kr9Q7KsunH9nlPYRcZGYu X3JtYO6kEXMtPte9VBJ6SB F9FYCvPUDsP9FlPJ3rLXBj uLYvJEv0a1gwdOhrYTKvAO I8o7mvIMyicnSoNL2xtx7t bQo6x0bufxNcCIPmQDTruF TNHJBqP0YerYavRo5zvLq9 bZprWovmMAB5Hfd0KY1gxx 33cbu4vFqfFZZimezqEcZ5 OEiqMFRbgshiKRt1QXhfUN JnbDcyMFxtYXJncjcyMFxt YXJndDcyMFxtYXJnYjcyMF qvFWEgUIB6XHbac035ZFJ1 UDpej7tkb6iguSYpKiz4KO ZrMwEeIwehNFmba0Ekf5zu DTIrka4xUVA5wPUikKlel3 R8uNRwKILdvFGwfeVcAFFb VxB4YEsoAE6owv73DZKxEX G4lg7lrDIbmSswlwAwwZQf CGelV4EpCZHvk718IGVbI9 ErYYMij3D9xwLsPrKqRHAf lRX2nyH1OGRiHDl6hDSumi C3sbLamBLpF2bqbF46DiQb dECuZ6DsdC78GmBykWWqG5 QdhM93SsKwoZHfV0AwtP97 OvLipWQoNTBwqOHyTf5siV ZvhZTgb0BinMVqOFihS95w a378IEVyloAjA5dglYPhlb eevWZcisekJFpepgB0RAQg XHBsYWluXGYxXGZzMjJcbG FuZzEwMzNcaGljaFxmMVxk MoSqKMCgBKmjT9ukSiRtJp AjDaQPIOWonURlCOK7RCFd lFQzpA5tEDfmOkx6uDCyuB FyIFByZXBhcmVkIGNlbGwg GqshC6nyOBTwQDOwxJ1yVB InwMacYOulswIuJPdxQE6q ZRPiE1p7u4WqkQ0fHHGffs HNd4ihFXE7JEO5ZWZ5HOUq VJvcTWTaLgXvMUq3AYE0FL M4IYQdRTzcEAM2 STATEMENT OF ADEQUACY Satisfactory (test code = 2757) SPECIAL STUDIES (test x6bgwZOnMKMfp0vsTMQnrJ code = 3376) FuZzEwMzNcZnRuYmpcdWMx GOguyeGdKPguv5FhZ0KnXk AwMFxhbnNpXGRlZmxhbmcx FUBwGBG3itAlVOVtMKdcNK SaTFhtAc0ltKExgTezTvOb EHMjo4dvsoDQtnpjxLv9p9 etMODqMiB6kTXnDYraQ6bi ruTmkMUuV9CdjWRaoDi5r1 zvAmSoHxB7zLUpUFrfQ7mg pwGzxFZbLOSdIOu6qI82OC BsrE7dmZMeOZambnRdWyT2 RBwmHKUwBsG7ECTypGUxUH GaO1hoRFSyMYzuUXTlHHoq tIWoCHM3iVusq9G0dSMhdD FlmVvnYzVvMpIsHsTTn5Au QSc1bHaoE1YiAXQwDpW3lO QgUGFyYWdyYXBoIEZvbnQ7 bFsmurXfu41mbOTfONNpAI TwKaBzbYbcLPHfJCKOw9Do vNanKWH9zDt5kVwuEffpKU I8Cig2LB5oqf73fik9eSxt HBNxwmtsFfF4SZcqQUAnuu saMFr6UIrcFDFhkPO5KNCd xSZgA1OgCMGeRR3oeeo1QQ P1DWnjGFMvQeT8QTXdcQTr GTOsaFwmJAxgo240FMX5Ej AcBS5kR6Mcg9J5gE1sxAUm QRTufFOaRgMjFISnax2zbC OlNCmje4GjSQT3zwZ3cXAy rJUlDDJlJQ45Wllsb6AtHc qkk6EaU22bmTM8UBufk5kd MB7eZkH2lnBoXSiyw2qlbJ 3yKrE0FTjmGG8oPS6pFVXd tL9lrvysQIWmDpEgnhlfFU TnbEkxreMcUg1xeIqyQHF3 RZtsP3wtcS4xRaZ9CKtlC0 mfaC3aRVu3FGqnpJS6LIDt sH2xIM6tsxrff4ldUFedRG zxGPGvvoC6klB4IGNxmORt W8OjuT5qPLUtNT3hqpmjd9 nmKPJ7SQpfXJDwKMW9EyHn GWVsi9Igmas4BdVpd1UqxC GuOMseD31bk810GVJblvNl T1gqcFCgxgyxuGGojyetFA mblcB2AOLdJVReNFykWWNz XGZzMjJcbGFuZzEwMzNcaG ljaFxmMVxkYmNoXGYxXGxv T5ykDiUiZ2OrKACaPyMvFT vfUBjomVGmtULqcAJ1fU2t NT0aBHNxbZSsT9KfQHZmpg CfcGXgXKZ8fJUtzVHmPH3w MBgkeBZag4yel2JfL8vxhI agjTY4UY7jLLWrJKZjAWex y8LroI2mAjcrlNZrbvgnQU xmczIyXGxhbmcxMDMzXGhp A7rqXtFgWLRhrKqtWAmpn2 NoXGYxXGNmMlxmczIyXGx0 cmNoXHBhclxwYXJccGxhaW 0mWiYwWoLiEgixFX4qAFLw O0sqmNHbDRCzRVFnE1btGk VklF5lhHbaZMxvCmAxPwUo RiAGa959fl6qDPVmyDLbeg DKfLGmgH4gOQhzNYtjWRfn tWFgSYkmy2xjNAOvu3a0aW YwCZEwbqNqc5lmUVnumuVr RWWdeGTscVCnZYGpx59rYR rkfSnoeRaxWFFht7HfpEno r4UhAaXjVFsjc6KmH35qsU JvbCBzbGlkZXMgcnVuIGFs h30ho8raQKTpByN1vPZmjS W8xDIxrRThv4AwrKgoQKKj h4swHDFcis6oyujlfIOxj6 EneO0dmugpWAgdcCQimmVl KTLbd1n6mOCxDOIlXHAbCW gqiOu5TTNaj321ty8fryO7 fKEgXOP1SWzhAOAfCYVhud UgZXZhbHVhdGVkXHBsYWlu XGYxXGZzMjJcbGFuZzEwMz NcaGljaFxmMVxkYmNoXGYx BLwhJ2ubToSlB4UdYPNkTm OeeACxV7wdiPTwPAKbVFmj XGYxXGZzMjJcbGFuZzEwMz NcaGljaFxmMVxkYmNoXGYx BYyoJ6okNqJhH1KaMMXwAl IgIFxwbGFpblxmMVxmczIy EJlcxawjHXGfGGjkT1zpVg OlHVGxqSjzFFrpd4HzDJEo KJHlIqaqtkBlPXi3lnJvGI BhclxwbGFpblxmMVxmczIy WWxjcsbqCWSjNBphP1xpVr HsIAKppMgaGYuoi3KnXIXi XGNmMlxmczIyIEltbXVub2 hwm4WtH2joxQdnzQY8EJTx I4nznEVfpTS6PLH1xO2cPD iiihZyTTSww3DpMIQgOFAg BiG3fK0fIRK4SxBJqDmrFJ BsYWluXGYxXGZzMjJcbGFu ZzEwMzNcaGljaFxmMVxkYm EjWXOqHQsfR9fdKnWwJ3Ml UNZvSkUsgHklSBopRZd6Hm xwbGFpblxmMVxmczIyXGxh ddfdSDPwOIpeS5pkWoKhFH DqyOuoKKvia6QaILBiCAUh MlxmczIyIHMgTWVkaWNhbC KODU27ABCbKVEcvCpccD1u sOEIBOZkpuJ0m2P7TUtdBC EyXVx4NYbcbyQuYEQqvE8k ISInNA1cDHr5inWsSSBmx5 NuWI2dNFArdTJuMFR3NCPj q6FaF1Obh0HnCILgXFWclh 1ntzUxMdIFwBJcLLJmjf94 AADtPF8eK1zqFUEaQLRokm IcjKFno3JdQJYxpZY4yRUa BE4BIiELq00xISCtLXXAcx FoZWAqzJffyXX9gdA2qC4a LiBUaGUgRkRBIGhhcyBkZX Dwra5jfjLfKCLfLETfj2Wl rOVnmIXmnaRbJ0Ths4ShXW Skro20CCgbuAZjtj07VA8u O9Ikr0KueA8zUStyJWWbc6 ZrtHGprKAfLVJcs6YaG4op ecmoVIsdvQNniO3iTYAxGZ l8VSNwg1WbLOLmq7PfWoTg ykSdDJEhOOIkUWBzkB16SS G0pHkdfVwlowLmUG8jQFRr lqSpJXDwMUJcnF1pNPuora JxZOYxlhT2z7A7VIqsZUKq qmVzLsffKIF5wgWytdC3nT HrK0vxdwccDUouFDPxh5Oa xU7vpWGVaQOkb6LzuEShiJ SGkDUiJW5wlrWtPF1iWSF7 ODggKENMSUEtODgpIGFzIH N6BZwvFrxsMOL6czUvGOGj b4FxNPswT5hyP64ltSuhoM l0vZEvoXjcnTXtoMRbYHEu wlP4u3D7BTQyr6AfvwakIU BsYWluXGYyXGZzMjJcbGFu ZzEwMzNcaGljaFxmMlxkYm ThYTDxHDyxG5blZiQhPkKj GtorUKL9kI== Gross assessment was [facility] . Bebeto's performed at ([facility], = 8502) Department of Pathology, [address] [place] [id number], Technical component was [facility] Bebeto[facility] performed at ([facility], = 9718) Department of Pathology, [address] [place] [phone], Professional component [facility] was performed at ([facility], code = 2779) Department of Pathology, [address] [place] [address], [place] [address], [facility]2020-[facility] 15:00:00Medical Cytology Report Case: [id number] Aut horizing Provider: Erlin Odom, Collected: 01/02/2020 02:36 PM OrderingLocation: [place] [address] CCU Received: 01/03/2020 08:54 AM Pathologist: Rhonda Chavez MD Specimen: Pericardial PERICARDIAL FLUID(CYTOSPINS AND CELL BLOCK): - POSITIVE FOR MALIGNANCY - MALIGNANT CELLS, COMPATIBLE WITH METASTATIC ADENOCARCINOMA FROM PATIENT'S KNOWN LUNG PRIMARY (SEE COMMENT) Signing Pathologist Direct Phone Line: [phone] signed by Rhonda Chavez MD on 01/05/2020 [...] metastasis from the patient's reported lung primary. [id number], 96636, [id number], 90282 x 4Pericardial effusion; metastatic non- small cell lung cancer, COPD who presented to outside hospital with with nausea, vomiting, diarrhea and dyspnea + cough who was subsequently found to have a large pericardial effusion, now transferred to [facility] for consideration of pericardiocentesisvs pericardial windowPERICARDIAL FLUIDReceived 40 ml bloody fluidPrepared cell block(A2) using collodion bag and 4 cytospinsCollected: [id number]: [id number] interpretation of this case included the use of immunohistochemistry or special stains.Control Slides Examined: In-house known positive controls were evaluated along with the test tissue. These control slides run alongside of the patients sample show appropriate staining. Internal positive and negative controls when available are evaluated Immunohistochemistry technical testing was performed at [facility], Pathology Laboratory where it was developed [...] qualified to perform high complexity clinical laboratory testing.[facility], Department of Pathology, [address] [place] [id number], [facility], [address] [place] [address], [facility], [facility],[address] [place] [address], Bghk fluid culture + gram [id number] 12:18:00 Test Item Value Reference Range Interpretation Comments Result (test code = 6463-4) No growth Gram Stain Result (test No organisms seen code = 1123) [facility] CenterB[facility] + GRAM [id number] 12:18:00 Test Item Value Reference Range Interpretation Comments CULTURE (BEAKER) (test No growth code = 1095) GRAM STAIN RESULT 3+ White blood cells (BEAKER) (test code = seen 1123) GRAM STAIN RESULT No organisms seen (BEAKER) (test code = 83976) RAD, CHEST, 1 VIEW, NON [id number] 08:34:00Reason for exam:->s/p pericardial drainShould this be performed at the bedside?->YesFINAL REPORT CLINICAL HISTORY: s/p pericardial drain TECHNIQUE: 1 view of the chest. COMPARISON: 01/03/2020 IMPRESSION: Pericardial drain has been removed. There may be subtle pneumopericardium. There is no cardiomegaly. Faint bilateral lower lung airspace opacities and trace pleural effusions have decreased. Signed: Nadir Liu MDReport Verified Date/Time: 01/05/2020 08:34:20 Reading Location: [facility] [address] Radiology Reading Room XR chest 1 view portable / [id number] 08:34:00Interface, External Ris In - 01/05/2020 8:37 AM CDTFINAL REPORT CLINICAL HISTORY: s/p pericardial drain TECHNIQUE: 1 view of the chest. COMPARISON: 01/03/2020 IMPRESSION: Pericardial drain has been removed. There may be subtle pneumopericardium. There is no cardiomegaly. Faint bilateral lower lung airspace opacities and trace pleural effusions have decreased. Signed: Nadir Liu MDReport Verified Date/Time: 01/05/2020 08:34:20 Reading Location: [facility] [address] Radiology Reading Room [facility] 2020-01-05 05:35:00 Test Item Value [...] (test code = 8.1 mg/dL 8.4-10.2 L 60859-1) EGFR (test code = 100 mL/min/1.73 [place] [address]-5) NOT ACCURATE CREATININE CLEARANCE IN PREDICTING GLOMERULAR FILTRATION RATE . ESTIMATED GFR I S NOT APPLICABLE FOR DIALYSIS PATIENTS. RHIANNA (test code = RHIANNA) Board Mixer Tender ID - PIAYA L Lab Interpretation Abnormal (test code = 12919-4) [facility]esium[facility] 05:35:00 Test Item Value Reference Range Interpretation Comments Magnesium (test code = 1.9 mg/dL 1.6-2.6 11170-3) RHIANNA (test code = RHIANNA) Board Mixer Tender ID - PIAYA L Lab Interpretation (test Normal code = 98088-1) [facility] Center[facility]IUM2020-04-15 05:35:00 Test Item Value Reference Range Interpretation Comments MAGNESIUM (BEAKER) (test code = 1.9 mg/dL 1.6-2.6 627) Board Mixer Tender ID - PIABDULAZIZ LBASIC METABOLIC [id number] 05:35:00 Test Item Value Reference Range Interpretation [...] S NOT APPLICABLE FOR DIALYSIS PATIEN TS. Board Mixer Tender ID - MICHA LCBC with platelet count + automated [id number] 04:53:00 Test Item Value Reference Range Interpretation [...] 450 K/CU MM MPV (test code = 11546-9) 8.5 fL 9.4-12.3 L nRBC (test code [...] 2801) Lab Interpretation (test code = Abnormal 61375-6) [facility] W/PLT COUNT & AUTO [id number] 04:53:00 Test Item Value Reference Range Interpretation [...] (BEAKER) (test code = 2801) Hepatic function [id number] 05:40:00 Test Item Value Reference Range Interpretation Comments Protein, Total (test code 5.8 6.0- 8.3 gm/dL L = 2885-2) Albumin (test code = 3.3 g/dL 3.5-5 L 44246-0) Total Bilirubin (test code 1.3 mg/dL 0.2-1.2 H = 1975-2) Bilirubin, Direct (test 0.6 mg/dL 0.1-0.5 H code = 1968-7) Alkaline Phosphatase (test 73 U/L 40-150 code = 6768-6) AST (test code = 1920-8) 29 U/L 5-34 ALT (test code = 1742-6) 40 U/L 6-55 RHIANNA (test code = RHIANNA) Board Mixer Tender ID - HAL W Lab Interpretation (test Abnormal code = 45185-7) [facility] CenterPhosphorus2020-04-14 05:40:00 Test Item Value Reference Range Interpretation Comments Phosphorus (test code = 3.1 mg/dL 2.3-4.7 2777-1) RHIANNA (test code = RHIANNA) Board Mixer Tender ID Bishnu HONG W Lab Interpretation (test Normal code = 87031-5) [facility] CenterPHOSPHORUS2020-04-14 05:40:00 Test Item Value Reference Range Interpretation Comments PHOSPHORUS (BEAKER) (test code = 3.1 mg/dL 2.3-4.7 604) Board Mixer Tender ID Bishnu HONG [id number] 05:40:00 Test Item Value Reference Range Interpretation Comments MAGNESIUM (BEAKER) (test code = 2.1 mg/dL 1.6-2.6 627) Board Mixer Tender ID Bishnu HONG WBASIC METABOLIC [id number] 05:40:00 Test Item Value Reference Range Interpretation [...] S NOT APPLICABLE FOR DIALYSIS PATIEN TS. Board Mixer Tender ID Bishnu HONG WHEPATIC FUNCTION [id number] 05:40:00 Test Item Value Reference Range Interpretation [...] (test code = 40 U/L 6-55 347) Board Mixer Tender REYNALDO HONG WCBC W/PLT COUNT & AUTO [id number] 05:34:00 Test Item Value Reference Range Interpretation [...] Result (test code = See scanned report [id number]) [facility] CenterMISCELLANEOUS LAB [id number] 01:11:00 Test Item Value Reference Range Interpretation Comments SCAN RESULT (test code = See scanned report [id number]) 2D Echo W/Doppler(CW/PW/Color)2020-01-03 10:55:43Ejection FractionSLEH ECHO HEARTLAB MKCKESSON CPACSInterface, External Ris In - 01/03/2020 10:55 AM C DTTransthoracic Echocardiography Report (TTE) Demographics Patient Name DOTTY ARAIAZ Date of Study 01/03/2020 Gender Female Visit Number [id number] Race Unknown Room Number [id number] Number Date of 1960 Referring Physician Erlin Odom Age 59 year(s) Botany Teacher Maureen Pavon RDCS Technical System Analyst Radha Waldrop, Interpreting Ronak Mak MD RDCS Physician Procedure Type of Study TTE procedure:2DECHO [...] by Gagnon's method of disk assessment is cvtnbb-iz-gnzkxiiuoy reduced (40%) . LV diastolic function is [...] by Gagnon's method of disk assessment is qaynvf-wc-lnpzcrvnaq reduced (40%) . LV diastolic function is [...] Velocity: 2.29 m/s TR Gradient: 20.94 mmHgCH[facility] CenterRAD, CHEST, 1 VIEW, NON DEPT [...] MDReport Verified Date/Time: 01/03/2020 08:48:03 Reading Location: [facility] [address] Radiology Reading Room Hemoglobin [id number] 08:28:00 Test Item Value Reference Range Interpretation Comments Hemoglobin A1C (test code = 4548-4) 5.2 % 4.3-6.1 Lab Interpretation (test code = Normal 84205-6) [facility] CenterHEMOGLOBIN [id number] 08:28:00 Test Item Value Reference Range Interpretation Comments HEMOGLOBIN A1C (BEAKER) (test code = 5.2 % 4.3-6.1 368) [id number] 06:05:00 Test Item Value Reference Range Interpretation Comments MAGNESIUM (BEAKER) (test code = 1.7 mg/dL 1.6-2.6 627) Board Mixer Tender ID - VANESSA MBASIC METABOLIC [id number] 06:05:00 Test Item Value Reference Range Interpretation [...] S NOT APPLICABLE FOR DIALYSIS PATIEN TS. Board Mixer Tender ID - VANESSA MSpecimen slightly ictericHEPATIC FUNCTION [id number] 06:05:00 Test Item Value Reference Range Interpretation [...] (test code = 46 U/L 6-55 347) Board Mixer Tender ID - VANESSA MSpecimen slightly ictericCBC W/PLT COUNT & AUTO [id number] 06:01:00 Test Item Value Reference Range Interpretation [...] 0-1 H PERCENT (BEAKER) (test code = 4651) Blood gas, [id number] 21:26:00 Test Item Value Reference Range Interpretation Comments pH, Arterial (test code = 2744-1) 7.52 7.35-7.45 H pCO2, Arterial (test code = 36 35- 45 mmHg 2018-8) pO2, Arterial (test code = 2703-7) 159 80- 90 mmHg H O2 Sat, Arterial (test code = 99.2 % 96-97 H 2708-6) HCO3, Arterial (test code = 28 mmol/L 21-29 1960-4) Base Excess, Arterial (test code = 5.6 mmol/L -2-3 H 1925-7) Patient Temperature (test code = 37.2 C 8310-5) FIO2 (test code = 1819) 36 % Lab Interpretation (test code = Abnormal 73360-3) [facility] CenterBLOOD GAS, [id number] 21:26:00 Test Item Value Reference Range Interpretation Comments PH ARTERIAL (BEAKER) (test code = 7.52 7.35-7.45 H 383) PCO2 ARTERIAL (BEAKER) (test code 36 mmHg 35-45 = 384) PO2 ARTERIAL (BEAKER) (test code = 159 mmHg 80-90 H 385) O2 SATURATION ARTERIAL (BEAKER) 99.2 % 96.0-97.0 H (test code = 386) HCO3 ARTERIAL (BEAKER) (test code 28 mmol/L 21-29 = 388) BASE EXCESS ARTERIAL (BEAKER) 5.6 [...] of Study 01/02/2020 Gender Female Visit Number [id number] Race Unknown Room Number [id number] Number Date of 1960 Referring Physician Erlin Odom Age 59 year(s) Botany Teacher Maureen Pavon, [facility] Technical System Analyst Andrei Grace Interpreting MD Antonieta Duquecanondain Physician Procedure Type of Study TTE procedure:2DECHO [...] % LVEDVI: 31 ml/m^2 LVESVI: 19 ml/m^2[facility]2D Echo W/Doppler(CW/PW/Color)2020-01-02 20:03:23Ejection FractionSLEH ECHO HEARTLAB MKCKESSON CPACSInterface, External Ris In - 01/02/2020 8:03 PM C DTTransthoracic Echocardiography Report (TTE) Demographics Patient Name DOTTY ARAIZA Date of Study 01/02/2020 Gender Female Visit Number [id number] Race Unknown Room Number [id number] Number Date of 1960 Referring Physician Eriln Odom Age 59 year(s) Botany Teacher Maureen Pavon [facility] Technical System Analyst Andrei Grace Interpreting MD Antonieta Duqueoladain Physician Procedure Type of Study TTE procedure:2DECHO [...] appear hypokinetic: all LV basal-mid segments . Oran is hyperkinetic ( Possible mid ventricular takotsubo [...] appear hypokinetic: all LV basal-mid segments . Oran is hyperkinetic. Global LV systolic function moderately [...] CO: 4.15 l/min LVOT CI: 2.53 l/min/m^2[facility] CenterABORH, [id number] 18:16:00 Test Item Value Reference Range Interpretation Comments ABO Grouping (test code = 2588) O Rh Factor (test code = 2589) POS [facility] CenterBody fluid cell count with [id number] 16:58:00 Test Item Value Reference Range Interpretation Comments Appearance (test code = Bloody Clear A 9335-1) Color (test code = Red Colorless, Straw A 6824-7) RBCs (test code = 109334 <=1 /cu mm H 35835-1) Adjusted WBC Count (test 2285 <=5 /cu mm H code = 99115-8) Lining Cells (test code = 1005 <=1 /cu mm H 40239-6) % Segs (test code = 14 % 81265-4) % Lymphs (test code = 4 % 60768-5) % Monos (test code = 82 % 44911-0) % Eos (test code = 0 % 38888-5) % Baso (test code = 0 % 53048-0) Container Body Fluid EDTA Tube (test code = 2873) RHIANNA (test code = RHIANNA) Possible malignant cells seen on stained smears, cytology order in progress. Lab Interpretation (test Abnormal code = 45537-3) [facility] CenterBODY FLUID CELL COUNT WITH [id number] 16:58:00 Test Item Value Reference Range Interpretation Comments APPEARANCE FLUID (BEAKER) Bloody Clear A (test code = 510) COLOR FLUID (BEAKER) (test Red Colorless, Straw A code = 511) RBC FLUID (BEAKER) (test code 008640 /cu mm <=1 H = 513) ADJUSTED [...] cytology order in progress.Type and screen, automated ([facility] Lab)2020-01-02 16:22:00 Test Item Value Reference Range Interpretation Comments ABO/RH AUTOMATED (BEAKER) (test O POSITIVE code = 2260) Ab Scrn (test code = 890-4) NEGATIVE [facility] CenteraPTT2020-04-12 15:43:00 Test Item Value Reference Range Interpretation Comments PTT (test code = 68405-7) 23.7 22.5- 36.0 seconds Lab Interpretation (test code = Normal 63594-6) [facility] CenterAPTT2020-04-12 15:43:00 Test Item Value Reference Range Interpretation Comments PARTIAL THROMBOPLASTIN TIME 23.7 seconds 22.5-36.0 (BEAKER) (test code = 760) Prothrombin time/[id number] 15:42:00 Test Item Value Reference Range Interpretation [...] valves. Lab Interpretation Normal (test code = 90911-2) [facility] CenterPROTHROMBIN TIME/[id number] 15:42:00 Test Item Value Reference Range Interpretation [...] 125-220 H RHIANNA (test code = RHIANNA) Board Mixer Tender ID - DB Lab Interpretation (test Abnormal code = 92710-8) [facility] CenterLACTATE DEHYDROGENASE (LDH)2020-01-02 15:00:00 Test Item Value Reference Range Interpretation Comments LACTATE DEHYDROGENASE (BEAKER) (test 367 U/L 125-220 H code = 635) Board Mixer Tender ID - DBTSH/Free T4 If [id number] 13:47:00 Test Item Value Reference Range Interpretation Comments TSH (test code = 2.072 0.350- 4.940 uIU/mL 11275-5) RHIANNA (test code = RHIANNA) Board Mixer Tender ID - MANOLO C Lab Interpretation (test Normal code = 47663-8) [facility] CenterTSH/FREE T4 IF [id number] 13:47:00 Test Item Value Reference Range Interpretation Comments THYROID STIMULATING HORMONE 2.072 uIU/mL 0.350-4.940 (BEAKER) (test code = 772) Board Mixer Tender ID - MANOLO CB-type Natriuretic Factor (BNP)2020-01-02 13:32:00 Test Item Value Reference Range Interpretation Comments BNP (test code = 85918-3) 369 pg/mL 0-100 H RHIANNA (test code = RHIANNA) Board Mixer Tender ID - MANOLO C Lab Interpretation (test Abnormal code = 06754-9) [facility] CenterB-TYPE NATRIURETIC FACTOR (BNP)2020-01-02 13:32:00 Test Item Value Reference Range Interpretation Comments B-TYPE NATRIURETIC PEPTIDE (BEAKER) 369 pg/mL 0-100 H (test code = 700) Board Mixer Tender ID - MANOLO CComprehensive metabolic [id number] 13:27:00 Test Item Value Reference Range Interpretation Comments Protein, Total (test 7.0 6.0- 8.3 gm/dL code = 2885-2) Albumin (test code = 4.1 g/dL 3.5-5 74026-4) Alkaline Phosphatase 109 U/L 40-150 (test code = 6768-6) Total Bilirubin (test 1.8 mg/dL 0.2-1.2 H code = 1974-2) Sodium (test code = 134 meq/L 136-145 L 2951-2) Potassium (test code 3.0 meq/L 3.5-5.1 L = 2823-3) Chloride (test code = 90 meq/L 98-107 L 2074-0) CO2 (test code = 27 meq/L 22-29 2027-9) BUN (test code = 9 mg/dL 7-21 3094-0) Creatinine (test code 0.63 mg/dL 0.57-1.25 = 2160-0) Glucose (test code = 95 mg/dL 70-105 2345-7) Calcium (test code = 8.8 mg/dL 8.4-10.2 90031-2) AST (test code = 42 U/L 5-34 H 192-8) ALT (test code = 60 U/L 6-55 H 1742-6) EGFR (test code = 96 mL/min/1.[place] [address]-3) NOT ACCURATE CREATININE CLEARANCE IN PREDICTING GLOMERULAR FILTRATION RATE . ESTIMATED GFR I S NOT APPLICABLE FOR DIALYSIS PATIENTS. RHIANNA (test code = RHIANNA) Board Mixer Tender ID - SEP CSpecimen slightly icteric Lab Interpretation Abnormal (test code = 27980-7) [facility] CenterLipid [id number] 13:27:00 Test Item Value Reference Range Interpretation Comments Triglycerides (test 95 mg/dL code = 2571-8) Cholesterol (test code 205 mg/dL = 2093-3) HDL (test code = 92 mg/dL 2084-9) LDL Calculated (test 94 mg/dL code = 99198-0) RHIANNA (test code = RHIANNA) Triglyceride Reference Range: Low Risk <150 Borderline 150-199 High Risk 200-499 Very High Risk >=500 Cholesterol Reference Range: Low Risk <200 Borderline 200-239 High Risk >240 HDL Cholesterol Reference Range: Low Risk >=60 High Risk <40 LDL Cholesterol Reference Range: Optimal <100 Near Optimal 100-129 Borderline 130-159 High 160-189 Very High >=190 Board Mixer Tender ID - MANOLO CSpecimen slightly icteric [facility] CenterCOMPREHENSIVE METABOLIC [id number] 13:27:00 Test Item Value Reference Range Interpretation [...] S NOT APPLICABLE FOR DIALYSIS PATIEN TS. Board Mixer Tender ID - MANOLO CSpecimen slightly ictericLIPID [id number] 13:27:00 Test Item Value Reference Range Interpretation [...] Borderline 130-159 High 160-189 Very High >=190 Board Mixer Tender ID - MANOLO CSpecimen slightly ictericLactic acid, venous 2020-01-02 13:19:00 Test Item Value Reference Range Interpretation Comments Lactate, Venous (test code 0.86 mmol/L 0.5-2.2 = 2872) RHIANNA (test code = RHIANNA) Board Mixer Tender ID - MANOLO C Lab Interpretation (test Normal code = 70959-3) [facility] CenterLACTIC ACID, [id number] 13:19:00 Test Item Value Reference Range Interpretation Comments LACTATE BLOOD VENOUS (2) (BEAKER) 0.86 mmol/L 0.50-2.20 (test code = 2872) Board Mixer Tender ID - MANOLO CCBC (Hemogram only)2020-01-02 13:10:00 [...] 450 K/CU MM MPV (test code = 49831-0) 8.7 fL 9.4-12.3 L nRBC (test code = 413) 0 0- 0 /100 WBC Lab Interpretation (test code = Abnormal 48760-2) [facility] (HEMOGRAM ONLY)2020-01-02 13:10:00 Test Item Value [...] = 413) RAD, CHEST, 1 VIEW, NON [id number] 12:13:00Reason for exam:->dyspnea, lung cancerShould this be performed at the bedside?->YesFINAL REPORT RAD, CHEST, 1 VIEW, NON DEPT INDICATION: dyspnea, lung cancer COM PARISON: None FINDINGS: Portable frontal view of the chest. IMPRESSION: Support Lines: None. Lungs and pleura: Bibasilar subsegmental atelectasis. Small bilateral effusions. No pneumothorax.Heart and mediastinum: Prominent cardiac size may be partially magnified by technique. Additional findings: None. Signed: JR Short Robert MDReport Verified Date/Time: 01/02/2020 12:13:53 Reading Location: [address] Neuro Reading Room
[2020-08-03] MEDS ORDERED: predniSONE 20 MG TAB ONE (09:15)
[2020-08-03] MEDS ORDERED: LEVALBUTEROL 1.25 MG/3 ML NEB ONE (09:15)
[2020-08-03 09:26] LABS: Absolute Lymphocytes (CBC) 0.6 K/uL (0.7-4.9); Basophils % 0.7 % (0-1.3); Hematocrit 35.5 % (36.0-45.0); Lymphocytes % 3.6 % (15.3-44.8); MPV 10.5 fL (7.6-11.3); RBC Red Blood Cell Count 3.84 M/uL (3.86-4.86)
[2020-08-03 09:47] LABS: Albumin 2.8 g/dL (3.4-5.0); Bilirubin Direct 0.3 mg/dL (0-0.2); Bilirubin Total 1.3 mg/dL (0.2-1.0); Magnesium 1.7 mg/dL (1.8-2.4); Potassium 3.4 mmol/L (3.5-5.1); Protein, Total 5.6 g/dL (6.4-8.2); Troponin (Emerg Dept Use Only) 0.05 ng/mL (0.0-0.045)
--- NOTE | 2020-08-03 09:51 | RAD REPORT ---
EXAM DESCRIPTION: RAD - Chest Single View - 08/03/2020 9:33 am CLINICAL HISTORY: SOB Chest pain. COMPARISON: Chest Single View dated 04/28/2020; Chest Single View dated 03/28/2020; Chest Single View da darren 12/28/2019; Chest Pa And Lat (2 Views) dated 09/20/2019 FINDINGS: Portable technique limits examination quality. Emphysematous changes are present throughout the lungs. The previously noted bilateral reticular opac ities and largely resolved. Mild persistent reticular opacities in the right upper lobe are noted. Th e heart is normal in size. No displaced fractures. IMPRESSION: COPD.
[2020-08-03 11:07] LABS: Blood Morphology Comment NOT SEEN (NOT SEEN); Platelet Estimate DECR; White Blood Cell Scan OK (OK)
[2020-08-03] MEDS ORDERED: ENOXAPARIN 60 MG/0.6 ML SQ ONE (12:26)
--- NOTE | 2020-08-03 12:55 | RAD REPORT ---
EXAM DESCRIPTION: CT - Chest For Pe Angio - 08/03/2020 12:32 pm CLINICAL HISTORY: Chest pain. Congestion;COPD COMPARISON: Chest For Pe Angio dated 04/28/2020; Ct Skull/Thigh dated 05/25/2020 TECHNIQUE: CT angiogram of the pulmonary arteries was performed with MIP. All CT scans are performed using dose optimization technique as appropriate and may include automated exposure control or mA/KV adjustment according to patient size. FINDINGS: No evidence of pulmonary thromboembolism. No acute aortic finding demonstrated. Advanced COPD is present. Ill-defined soft tissue density is seen emanating from the hilar region tod aterally greater on the right extending into the right upper lobe as well as right middle lobe. Altho ugh direct comparison is somewhat limited, this may be mildly progressive since PET-CT dated 05/25/20 20. Trace right pleural effusion is present. The esophagus is dilated with fluid. Multiple enlarged media stinal lymph nodes and hilar matted lymphadenopathy again seen, the largest in the AP window measurin g 8 mm. Nodularity is seen of the left adrenal gland with several mildly prominent lymph nodes adjacent to th e gastroesophageal region. No lytic or blastic bone lesion. IMPRESSION: No evidence of pulmonary thromboembolism. Distention of the esophagus with fluid with several prominent lymph nodes seen in the gastroesophagea l junction region. Consider followup nonemergent upper endoscopy assessment. 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
[2020-08-03] MEDS ORDERED: ACETAMINOPHEN 500 MG TAB PO PRN (13:50)
[2020-08-03] MEDS ORDERED: ONDANSETRON 4 MG/2 ML VIAL IV PRN (13:50)
--- NOTE | 2020-08-03 13:50 | EDPHYS ---
Physician Documentation [facility] Name: Makayla Montalvo Age: 60 yrs Sex: Female : 1960 Arrival Date: 08/03/2020 Time: 08:40 Bed 19 Private MD: ED Physician Jorge Tineo HPI: 08/03 18:11 This 60 yrs old Female presents to ER via Wheelchair with complaints of kdr Shortness Of Breath. 18:11 The patient has shortness of breath at rest, with light activity. Onset: The kdr symptoms/episode began/occurred gradually, last night. Duration: The symptoms are continuous, and are steadily getting worse. The patient's shortness of breath is aggravated by coughing, exertion, light activity, talking. Associated signs and symptoms: Pertinent positives: non-productive cough, Pertinent negatives: hemoptysis, nausea, visual changes, vomiting. Severity of symptoms: At their worst the symptoms were mild moderate just prior to arrival, in the emergency department the symptoms are unchanged. The patient has experienced similar episodes in the past, a few times. The patient has not recently seen a physician. Historical: - Allergies: 08:57 No Known Allergies; em - PMHx: 08:57 COPD; Lung CA - Stage 4; pericardial effusion; brain tumor; em - PSHx: 08:57 None; em - Immunization history:: Adult Immunizations up to date. - Social history:: Smoking status: unknown. ROS: 18:11 Constitutional: Negative for fever, chills, and weight loss, Eyes: Negative for injury, kdr pain, redness, and discharge, ENT: Negative for injury, pain, and discharge, Neck: Negative for injury, pain, and swelling, Abdomen/GI: Negative for abdominal pain, nausea, vomiting, diarrhea, and constipation, Back: Negative for injury and pain, : Negative for injury, bleeding, discharge, and swelling, MS/Extremity: Negative for injury and deformity, Skin: Negative for injury, rash, and discoloration, Neuro: Negative for headache, weakness, numbness, tingling, and seizure activity. Psych: Negative for depression, anxiety, suicide ideation, homicidal ideation, and hallucinations, Allergy/Immunology: Negative for hives, rash, and allergies, Endocrine: Negative for neck swelling, polydipsia, polyuria, polyphagia, and marked weight changes, Hematologic/Lymphatic: Negative for swollen nodes, abnormal bleeding, and unusual bruising. 18:11 Cardiovascular: Positive for Negative for chest pain, edema, orthopnea, palpitations. 18:11 Respiratory: Positive for hemoptysis, pleurisy, shortness of breath, at rest. Negative for hemoptysis, pleurisy, sputum production, wheezing. Exam: 18:11 Constitutional: This is a well developed, well nourished patient who is awake, alert, kdr and in no acute distress. Head/Face: Normocephalic, atraumatic. Eyes: Pupils equal round and reactive to light, extra-ocular motions intact. Lids and lashes normal. Conjunctiva and sclera are non-icteric and not injected. Cornea within normal limits. Periorbital areas with no swelling, redness, or edema. Neck: Trachea midline, no thyromegaly or masses palpated, and no cervical lymphadenopathy. Supple, full range of motion without nuchal rigidity, or vertebral point tenderness. No Meningismus. Chest/axilla: Normal chest wall appearance and motion. Nontender with no deformity. No lesions are appreciated. Cardiovascular: Regular rate and rhythm with a normal S1 and S2. No gallops, murmurs, or rubs. Normal PMI, no JVD. No pulse deficits. Abdomen/GI: Soft, non-tender, with normal bowel sounds. No distension or tympany. No guarding or rebound. No evidence of tenderness throughout. Back: No spinal tenderness. No costovertebral tenderness. Full range of motion. Skin: Warm, dry with normal turgor. Normal color with no rashes, no lesions, and no evidence of cellulitis. MS/ Extremity: Pulses equal, no cyanosis. Neurovascular intact. Full, normal range of motion. Neuro: Awake and alert, GCS 15, oriented to person, place, time, and situation. Cranial nerves II-XII grossly intact. Motor strength 5/5 in all extremities. Sensory grossly intact. Cerebellar exam normal. Normal gait. Psych: Awake, alert, with orientation to person, place and time. Behavior, mood, and affect are within normal limits. 18:11 Respiratory: mild respiratory distress is noted, Respirations: normal, Breath sounds: rales, that are mild, are scattered, are located in both bases. 18:44 ECG was reviewed by the Attending Physician. kdr Vital Signs: 08:51 BP 158 / 85; Pulse 137; Resp 34; Pulse Ox 76% on R/A; Weight 52.16 kg; Height 5 ft. 5 em in. (165.10 cm); Pain 0/10; 08:57 Pulse Ox 98% on 5 lpm NC; em 09:37 BP 101 / 90; Pulse 132; Resp 24; Temp 97.7(O); Pulse Ox 95% on 5 lpm NC; vg1 10:25 BP 120 / 77; Pulse 124; Resp 26; Pulse Ox 95% on 5 lpm NC; em 11:20 BP 103 / 45; Pulse 117; Resp 24; Pulse Ox 96% on 5 lpm NC; em 12:30 BP 110 / 68; Pulse 116; Resp 27; Pulse Ox 96% on 5 lpm NC; em 13:30 BP 113 / 70; Pulse 111; Resp 26; Pulse Ox 95% on 5 lpm NC; em 14:30 BP 122 / 69; Pulse 110; Resp 22; Pulse Ox 93% on 3 lpm NC; em 15:37 BP 119 / 80; Pulse 109; Resp 22; Pulse Ox 92% on 3 lpm NC; em 19:30 BP 114 / 66; Pulse 102; Resp 22; Pulse Ox 96% on 3 lpm NC; wh 20:45 BP 145 / 76; Pulse 102; Resp 18; Pulse Ox 95% on 3 lpm NC; wh 08:51 Body Mass Index 19.14 (52.16 kg, 165.10 cm) em MDM: 13:48 Patient medically screened. kdr 18:11 Data reviewed: vital signs, nurses notes, lab test result(s), radiologic studies. kdr Counseling: I had a detailed discussion with the patient and/or guardian regarding: the historical points, exam findings, and any diagnostic results supporting the discharge/admit diagnosis, lab results, radiology results, the need for further work-up and treatment in the hospital. 08/03 08:56 Order name: Basic Metabolic Panel; Complete Time: 12:02 kdr 08/03 08:56 Order name: CBC with Diff; Complete Time: 12:02 kdr 08/03 08:56 Order name: LFT's; Complete Time: 12:02 kdr 08/03 08:56 Order name: Magnesium; Complete Time: 12:02 kdr 08/03 08:56 Order name: NT PRO-BNP; Complete Time: 12:02 [facility] 08/03 08:56 Order name: PT-INR; Complete Time: 12:02 [facility] 08/03 08:56 Order name: Troponin (emerg Dept Use Only); Complete Time: 12:02 kdr 08/03 09:27 Order name: CBC Smear Scan; Complete Time: 12:02 [facility] 08/03 13:53 Order name: Basic Metabolic Panel [facility] 08/03 13:53 Order name: Basic Metabolic Panel [facility] 08/03 13:53 Order name: NT PRO-BNP [facility] 08/03 13:53 Order name: NT PRO-BNP [facility] 08/03 13:53 Order name: Troponin I [facility] 08/03 13:54 Order name: CBC with Automated Diff [facility] 08/03 08:56 Order name: XRAY Chest (1 view); Complete Time: 12:02 [facility] 08/03 08:56 Order name: EKG; Complete Time: 08:57 [facility] 08/03 08:56 Order name: Cardiac monitoring; Complete Time: 09:09 [facility] 08/03 08:56 Order name: EKG - Nurse/Tech; Complete Time: 09:37 [facility] 08/03 08:56 Order name: IV Saline Lock; Complete Time: 09:37 kdr 08/03 08:56 Order name: Labs collected and sent; Complete Time: 09:09 [facility] 08/03 08:56 Order name: O2 Per Protocol; Complete Time: 09:09 [facility] 08/03 12:08 Order name: CT Chest For PE Angio; Complete Time: 13:41 [facility] 08/03 13:54 Order name: Regular [facility] 08/03 13:54 Order name: CBC with Automated Diff [facility] 08/03 13:54 Order name: Troponin I; Complete Time: 15:53 [facility] 08/03 13:54 Order name: Troponin I [facility] 08/03 20:05 Order name: COVID-19 08/03 08:56 Order name: O2 Sat Monitoring; Complete Time: 09:09 kdr EC:44 Rate is 130 beats/min. Rhythm is regular, Sinus tachycardia with No ectopy. QRS [place] is kdr Normal. RI interval is normal. Clinical impression: Sinus tachycardia. Administered Medications: 09:05 Drug: Xopenex (3) 1.25 mg Route: Inhalation; em 09:37 Follow up: Response: No adverse reaction; Marked relief of symptoms; Wheezing diminishedvg1 09:05 Drug: predniSONE 60 mg Route: PO; em 09:37 Follow up: Response: No adverse reaction vg1 13:31 Not Given (Physician Discretion; pt reports being on eliquis and PLT is 50): Lovenox 1 em mg/kg Sub-Q once Disposition: 08/03/20 13:48 Hospitalization ordered by Gurpreet Quintero for Inpatient Admission. Preliminary diagnosis are COPD Exacerbation, Shortness of breath, Dyspnea. - Bed requested for Telemetry/MedSurg (Inpatient). - Status is Inpatient Admission. - Condition is Fair. - Problem is an acute exacerbation. - Symptoms have improved. Signatures: Dispatcher [employer] EDMS Jorge Tineo MD MD [facility] Franklyn Harvey RN RN Liz Degroot RN RN Arin Marti Lit, Laura HERRMANN vg1 Corrections: (The following items were deleted from the chart) 20:06 13:48 Hospitalization Ordered by Gurpreet Quintero MD for Inpatient Admission. Preliminary cg diagnosis is COPD Exacerbation; Shortness of breath; Dyspnea. Bed requested for Telemetry/MedSurg (Inpatient). Status is Inpatient Admission. Condition is Fair. Problem is an acute exacerbation. Symptoms have improved. kdr 20:56 20:06 08/03/2020 13:48 Hospitalization Ordered by Gurpreet Quintero MD for Inpatient Admission. Preliminary diagnosis is COPD Exacerbation; Shortness of breath; Dyspnea. Bed requested for Telemetry/MedSurg (Inpatient). Status is Inpatient Admission. Condition is Fair. Problem is an acute exacerbation. Symptoms have improved. cg
--- NOTE | 2020-08-03 13:50 | ER ---
Nurse's Notes [facility] Name: Makayla Montalvo Age: 60 yrs Sex: Female : 1960 Arrival Date: 08/03/2020 Time: 08:40 Bed 19 Private MD: Diagnosis: COPD Exacerbation;Shortness of breath;Dyspnea Presentation: 08/03 08:51 Chief complaint: Spouse and/or significant other states: shortness of breath since last em night, denies fever, is coughing up yellow sputum, hx of lung cancer and COPD, there was a kink in O2 tubing when transferring pt to our O2, pt SPO2 COLLECTOR 76% after O2 applied 98% on 5 LPM after fixing the kink, pt reports feeling better. Coronavirus screen: Client denies travel out of the [place] in the last 14 days. cough unrelated to allergies, shortness of breath. Ebola Screen: Patient negative for fever greater than or equal to 101.5 degrees Fahrenheit, and additional compatible Ebola Virus Disease symptoms Patient denies exposure to infectious person. Patient denies travel to an Ebola-affected area in the 21 days before illness onset. No symptoms or risks identified at this time. Initial Sepsis Screen: Does the patient meet any 2 criteria? RR > 20 per min. HR > 90 bpm. Does the patient have a suspected source of infection? No. Patient's initial sepsis screen is negative. Risk Assessment: Do you want to hurt yourself or someone else? Patient reports no desire to harm self or others. Onset of symptoms was August 02, 2020. 08:51 Method Of Arrival: Wheelchair em 08:51 Acuity: VIRAJ 2 em Triage Assessment: 19:10 Respiratory: Onset: The symptoms/episode began/occurred gradually. wh Historical: - Allergies: 08:57 No Known Allergies; em - PMHx: 08:57 COPD; Lung CA - Stage 4; pericardial effusion; brain tumor; em - PSHx: 08:57 None; em - Immunization history:: Adult Immunizations up to date. - Social history:: Smoking status: unknown. Screenin:57 Abuse screen: Denies threats or abuse. Nutritional screening: No deficits noted. em Tuberculosis screening: No symptoms or risk factors identified. Fall Risk None identified. Assessment: 08:55 General: Appears distressed, uncomfortable, Behavior is cooperative, anxious, Denies em fever. Pain: Denies pain. Neuro: Level of Consciousness is awake, alert, obeys commands, Oriented to person, place, time, situation, Appropriate for age. Cardiovascular: Denies chest pain, Capillary refill < 3 seconds Patient's skin is warm and dry. Rhythm is sinus tachycardia. Respiratory: Reports shortness of breath at rest cough that is productive, Airway is patent Respiratory effort is labored, Respiratory pattern is regular, tachypnea Breath sounds are diminished bilaterally. the patient has moderate shortness of breath. GI: Reports nausea, Patient currently denies vomiting. Derm: Skin is intact, is healthy with good turgor, Skin is pink, warm \T\ dry. Musculoskeletal: Capillary refill < 3 seconds, Range of motion: intact in all extremities. 09:37 Reassessment: Patient appears in no apparent distress at this time. Patient and/or em family updated on plan of care and expected duration. Pain level reassessed. Patient states feeling better. Patient states symptoms have improved. 10:33 Reassessment: Patient appears in no apparent distress at this time. Patient and/or em family updated on plan of care and expected duration. Pain level reassessed. 11:30 Reassessment: Patient appears in no apparent distress at this time. Patient and/or em family updated on plan of care and expected duration. Pain level reassessed. 13:30 Reassessment: Patient appears in no apparent distress at this time. Patient and/or em family updated on plan of care and expected duration. Pain level reassessed. Patient states feeling better. Patient states symptoms have improved. 14:15 Reassessment: repeat trop. sent to lab. em 15:36 Reassessment: Patient appears in no apparent distress at this time. Patient and/or em family updated on plan of care and expected duration. Pain level reassessed. Patient is alert, oriented x 3, equal unlabored respirations, skin warm/dry/pink. pending room assignment. 16:30 Reassessment: Patient appears in no apparent distress at this time. Patient and/or em family updated on plan of care and expected duration. Pain level reassessed. Patient is alert, oriented x 3, equal unlabored respirations, skin warm/dry/pink. 17:30 Reassessment: Patient appears in no apparent distress at this time. Patient and/or em family updated on plan of care and expected duration. Pain level reassessed. Patient is alert, oriented x 3, equal unlabored respirations, skin warm/dry/pink. 19:10 General: Appears in no apparent distress. Behavior is calm, cooperative, appropriate wh for age. Pain: Denies pain. Neuro: Level of Consciousness is awake, alert, obeys commands, Oriented to person, place, time, situation, Appropriate for age. Cardiovascular: Heart tones S1 S2. Respiratory: Reports shortness of breath Airway is patent Respiratory effort is even, Respiratory pattern is tachypnea Breath sounds with rales. GI: Abdomen is flat, non-distended. : No signs and/or symptoms were reported regarding the genitourinary system. EENT: No signs and/or symptoms were reported regarding the EENT system. Derm: Skin is intact, is healthy with good turgor, Skin is pink, warm \T\ dry. normal. Musculoskeletal: Circulation, motion, and sensation intact. 20:30 Reassessment: Patient appears in no apparent distress at this time. No changes from previously documented assessment. Patient and/or family updated on plan of care and expected duration. Pain level reassessed. Patient is alert, oriented x 3, equal unlabored respirations, skin warm/dry/pink. Vital Signs: 08:51 BP 158 / 85; Pulse 137; Resp 34; Pulse Ox 76% on R/A; Weight 52.16 kg; Height 5 ft. 5 em in. (165.10 cm); Pain 0/10; 08:57 Pulse Ox 98% on 5 lpm NC; em 09:37 BP 101 / 90; Pulse 132; Resp 24; Temp 97.7(O); Pulse Ox 95% on 5 lpm NC; vg1 10:25 BP 120 / 77; Pulse 124; Resp 26; Pulse Ox 95% on 5 lpm NC; em 11:20 BP 103 / 45; Pulse 117; Resp 24; Pulse Ox 96% on 5 lpm NC; em 12:30 BP 110 / 68; Pulse 116; Resp 27; Pulse Ox 96% on 5 lpm NC; em 13:30 BP 113 / 70; Pulse 111; Resp 26; Pulse Ox 95% on 5 lpm NC; em 14:30 BP 122 / 69; Pulse 110; Resp 22; Pulse Ox 93% on 3 lpm NC; em 15:37 BP 119 / 80; Pulse 109; Resp 22; Pulse Ox 92% on 3 lpm NC; em 19:30 BP 114 / 66; Pulse 102; Resp 22; Pulse Ox 96% on 3 lpm NC; wh 20:45 BP 145 / 76; Pulse 102; Resp 18; Pulse Ox 95% on 3 lpm NC; wh 08:51 Body Mass Index 19.14 (52.16 kg, 165.10 cm) em ED Course: 08:40 Patient arrived in ED. ds1 08:51 Franklyn Harvey, MONTEZ is Primary Nurse. em 08:56 Jorge Tineo MD is Attending Physician. kdr 08:56 Triage completed. em 08:57 Arm band placed on. em 08:57 Patient has correct armband on for positive identification. Placed in gown. Bed in low em position. Call light in reach. Side rails up X2. Adult w/ patient. court recording monitor on. Pulse ox on. NIBP on. 09:15 Initial lab(s) drawn, by ri, sent to lab. Inserted saline lock: 20 gauge in right em antecubital area, using aseptic technique. Blood collected. 09:32 EKG done, by ED staff, reviewed by Jorge Tineo MD. em 09:33 XRAY Chest (1 view) In Process Unspecified. EDMS 12:34 CT Chest For PE Angio In Process Unspecified. EDMS 13:44 Gurpreet Quintero MD is Hospitalizing Provider. kdr 19:57 Repeat lab(s) drawn. jp3 20:48 No provider procedures requiring assistance completed. Patient admitted, IV remains in wh place. Administered Medications: 09:05 Drug: Xopenex (3) 1.25 mg Route: Inhalation; em 09:37 Follow up: Response: No adverse reaction; Marked relief of symptoms; Wheezing diminishedvg1 09:05 Drug: predniSONE 60 mg Route: PO; em 09:37 Follow up: Response: No adverse reaction vg1 13:31 Not Given (Physician Discretion; pt reports being on eliquis and PLT is 50): Lovenox 1 em mg/kg Sub-Q once Outcome: 13:48 Decision to Hospitalize by Provider. kdr 20:49 Admitted to Tele accompanied by tech, via stretcher, room 407, with oxygen, with chart, Report called to Leonie Oro RN 20:49 Condition: stable 20:49 Instructed on the need for admit. 20:56 Patient left the ED. Signatures: Dispatcher [employer] Jorge Corea MD MD kdr Munoz, Edgar, RN RN em Karon Alejandra ds1 Arin Marti Jericho Bautista jp3 Laura Murrieta, RN RN vg1 Corrections: (The following items were deleted from the chart) 10:33 09:37 Reassessment: Patient appears in no apparent distress at this time. Patient em and/or family updated on plan of care and expected duration. Pain level reassessed. Patient states feeling better. Patient states symptoms have improved. vg1
[2020-08-03] MEDS ORDERED: METHYLPREDNISOLONE 40 MG INJ IV SCH (17:00)
[2020-08-03 21:38] VITALS: BMI 20.7
[2020-08-03] MEDS: IPRATROPIUM BROM 0.5MG/2.5ML NEB PRN (21:55)
[2020-08-03] MEDS: ALBUTEROL 2.5 MG/3 ML NEB SOL NEB PRN (21:55)
[2020-08-04] MEDS: ALBUTEROL 2.5 MG/3 ML NEB SOL NEB PRN ×2 (04:30→09:30)
[2020-08-04] MEDS: IPRATROPIUM BROM 0.5MG/2.5ML NEB PRN ×2 (04:30→09:30)
[2020-08-04] MEDS ORDERED: METHYLPREDNISOLONE 40 MG INJ IV SCH (06:00)
[2020-08-04 06:32] LABS: Absolute Lymphocytes (CBC) 0.4 K/uL (0.7-4.9); Basophils % 0.2 % (0-1.3); Hematocrit 33.5 % (36.0-45.0); Lymphocytes % 4.4 % (15.3-44.8); MPV 10.9 fL (7.6-11.3); RBC Red Blood Cell Count 3.62 M/uL (3.86-4.86)
[2020-08-04 06:49] LABS: Potassium 3.4 mmol/L (3.5-5.1)
[2020-08-04 08:39] VITALS: BP 136/78; TEMP 96.9
[2020-08-04 08:52] LABS: Blood Morphology Comment NOTED (NOT SEEN); Platelet Estimate DECR; Platelets, Giant FEW; Polychromasia 1+
[2020-08-04] MEDS ORDERED: ASPIRIN EC 81 MG TAB PO SCH (09:00)
[2020-08-04 10:39] VITALS: O2SAT 95
--- NOTE | 2020-08-04 22:25 | SS ---
Date of Discharge: 08/04/2020 The patient presented to the emergency room with increasing dyspnea. The patient has a long history of COPD, which has been obviously active by approximately 1 year diagnosis of lung cancer. Latter, i t produced further effusions, cardiac tamponade, which required a procedure and documented as brain m etastasis, and has been undergoing treatment with Oncology, which she states is negative. Quite naus eated, uncomfortable. Apparently at this stage, she is being placed on at rest from this. It has he lped somewhat in the clinical and x-ray progression of the disease. However, hospice situation was a lso discussed with the patient and her family recently, and it was decided not to utilize it at this time. During her hospital stay, she was placed on IV steroids. She states this has not made much di fference in her breathing capacity; however, her O2 sats compared to her home sats has improved somew hat. She thought she would like to try it at home on an increased dose of prednisone. Her baseline has been 10 mg. It was suggested therefore after the Solu-Medrol doses to start on a 50 mg and gradu ally decrease by 10 until she has a baseline of 10 mg over the next few days. She was discharged to [facility] in 4 to 5 days with diagnosis of progressive COPD, progressive lung cancer with metastasis. HR/MODL Voice ID: [id number] Report ID: [id number]
--- NOTE | 2020-08-06 07:51 | EKG ---
Test Date: 2020-08-03 Test Time: 09:32:46 [place] Caller: TALIB MEASUREMENT RESULTS: Intervals: Rate: 130 ID: [id number] QRSD: 64 QT: 380 QTc: 559 [place]: P: 64 ID: [id number] QRS: 104 T: 98 INTERPRETIVE STATEMENTS: Sinus tachycardia with occasional premature ventricular complexes and fusion complexes Rightward axis Low voltage QRS ST & T wave abnormality, consider inferior ischemia Abnormal ECG Compared to ECG 04/28/2020 13:28:44 Ventricular premature complex(es) now present Right-axis deviation now present Low QRS voltage now present Possible ischemia now present ST (T wave) deviation still present Electronically Signed On 08-06-20 07:42:16 C[employer]ACE MACHINE OPERATOR by Oren Almodovar
== END 2020-08-04 10:00 | disposition home or self-care (01) ==
LOC: ER 08:40 → ERHOLD 17:19 → INTOOBSV 17:19 → 4TH 20:50
PROVIDERS: ADMIT Family Medicine; ATTEND Family Medicine
DX: J44.9 Chronic obstructive pulmonary disease, unspecified (principal); C34.90 Malignant neoplasm of unspecified part of unspecified bronchus or lung; C79.31 Secondary malignant neoplasm of brain; Z20.828 Contact with and (suspected) exposure to other viral communicable diseases; R94.31 Abnormal electrocardiogram [ECG] [EKG]; Z79.01 Long term (current) use of anticoagulants; R11.0 Nausea
CPT/HCPCS: 93005; 85025 ×2; 80048 ×2; 36415; 83735; 85610; 80076; 84484 ×3; 83880 ×2; 71275; 71045; 94760 ×4; 99285; U0002; Q9967; J2920 ×2; J1650; J7512